=== PATIENT | male | born 1945 | race Caucasian/White ===

== ENCOUNTER 2016-10-08 18:55 | Inpatient (IN) | payer MEDICARE, OTHER ==
[2016-10-08] VITALS (9 sets, daily range): BP systolic 94–116; BP diastolic 53–66; PULSE 96–126; RESP 28–32; TEMP 99.4; O2SAT 84–100
[~2016-10-08] VITALS: Ht 175.3 cm; Wt 42.1 kg
[~2016-10-08 18:55] MED LIST: ENOX40P SQ; OXYC1SOL5 PO; Z.0.WALKERFRONT
[2016-10-08] MEDS ORDERED: methylPREDNISolone SOD SUCC 125 MG/2 ML VIAL IVP ONE (19:30)
[2016-10-08] MEDS ORDERED: SODIUM CHLORIDE 0.9% FLUSH 10 ML FLUSH IVF PRN (19:30)
[2016-10-08] MEDS ORDERED: SODIUM CHLORID 0.9% 500 ML INJ 500 ML IV ONE (19:30)
[2016-10-08] MEDS ORDERED: SODIUM CHLOR 0.9% 250 ML INJ 250 ML IV ONE (19:30)
--- NOTE | 2016-10-08 19:30 | PD ---
HPI Chief Complaint: Respiratory Distress Time Seen by Provider: 19:13 Travel History International Travel<30 days: No Contact w/Intl Traveler<30days: No Traveled to known affect area: No History of Present Illness HPI The patient is a 71 year old male who presents to the [facility] emergency department with a history of being brought in by ambulance services with reports of generalized weakness and shortness of breath. The patient reports that the shortness of breath began today. The patient lives at home alone in an apartment. He called one of the other residents at his apartment for assistance. They were unable to get into his home and the patient was unable to come to the door related to weakness. Ambulance services gain entry into the patient's home and the patient was noted to have an increased respiratory rate with an O2 saturation of 86% on room air. The patient was placed on a nonrebreather mask and his O2 saturations came up into the upper 90s. The patient reports that he quit smoking 2 months ago. He denies being diagnosed with any respiratory problems. The patient is cachectic on examination. The patient is pale on examination. He reports that he last saw his primary care physician at the [facility] 2 years ago. He reports that he has had problems with no appetite over the last 2 years. The patient denies having any chest pain. The patient reports that he has had a cough productive of white sputum. The patient denies any known recent fevers, neck pain, chest pain , abdominal pain, vomiting, diarrhea, urinary symptoms, or focal neurologic symptoms. PFSH Past Medical History Narrative Medical The patient's past medical history is reportedly none. Medical History: Denies Significant Hx Kidney Stones: No Musculoskeletal: Yes (FX RIGHT ANKLE, FX RIGHT COLLARBONE) Tetanus Vaccination: Unknown Influenza Vaccination: No ?: Not Past Surgical History Narrative Surgical The patient's past surgical history is significant for right hip ORIF, right knee surgery, jaw surgery. Surgical History: No Previous Surgery Pacemaker: No Social History Alcohol Use: No Tobacco Use: No (quit 2 months ago) Substance Use: No Allergies-Medications (Allergen,Severity, Reaction): Coded Allergies: No Known Allergies (Unverified , 10/08/16) Reported Meds & Prescriptions Reported Meds & Active Scripts Active No Active Prescriptions or Reported Medications Review of Systems Except as stated in HPI: all other systems reviewed are Neg General / Constitutional: No: Fever Eyes: No: Visual changes HENT: No: Headaches Cardiovascular: Positive: Dyspnea on exertion, No: Chest Pain or Discomfort Respiratory: Positive: Cough, Shortness of Breath Gastrointestinal: No: Abdominal Pain Genitourinary: No: Dysuria Musculoskeletal: No: Pain Skin: No Rash Neurologic: Positive: Weakness, No: Focal Abnormalities, Change in Mentation, Slurred Speech, Sensory Disturbance Psychiatric: No: Depression Endocrine: No: Polydipsia Hematologic/Lymphatic: No: Easy Bruising Physical Exam Narrative General: The patient is a well-developed, cachectic appearing male, short of breath on arrival with increased respiratory rate, generalized weakness and pallor noted. Head and Neck exam: Head is normocephalic atraumatic. Eyes: EOMI, pupils are equal round and reactive to light. Mucosal pallor is noted. Nose: Midline septum with pink mucous membranes Mouth: Dentition unremarkable. Moist mucus membranes. Posterior oropharynx is not erythematous. No tonsillar hypertrophy. Uvula midline. Airway patent. Neck: No palpable lymphadenopathy. No nuchal rigidity. No thyromegaly. Cardiovascular: Tachycardia with a rate in the 120s without murmurs, gallops, or rubs. No pulse deficit to the extremities and simultaneous auscultation and palpation of his radial artery Lungs: Decreased breath sounds in bilateral lung bases. No wheezes, rhonchi, or crackles are audible. The patient has no tripoding noted, however he is experiencing generalized weakness. The patient has accessory muscle use noted. The patient has conversational dyspnea noted. Abdomen: Soft, without tenderness to palpation in all 4 quadrants of the abdomen. No guarding, rebound, or rigidity. Normal bowel sounds are audible. No tenderness on palpation of McBurney's point. Negative Meyers's sign. Extremities: No cyanosis or edema. The patient has clubbing of his fingers and toes. 2+ pulses in all 4 extremities. No calf tenderness on palpation. Back: No spinous process tenderness to palpation. No costovertebral angle tenderness to palpation. Neurologic Exam: Cranial nerves 2-12 were intact on exam. Strength is 4/5 in all 4 extremities. No sensory deficits noted. Skin Exam: No rash noted. Intact skin that is warm and dry. Data Data Last Documented VS Vital Signs Date Time Temp Pulse Resp B/P Pulse Ox O2 Delivery O2 Flow Rate FiO2 6/4/17 21:30 105 30 101/66 97 BiPAP 40 10/08/16 19:05 99.4 Orders Type And Screen (10/08/16 19:16) Red Blood Cells (Rbc) (10/08/16 19:16) Sodium Chlor 0.9% 250 Ml Inj (Ns 250 Ml (10/08/16 19:30) Electrocardiogram (10/08/16 19:16) Complete Blood Count With Diff (10/08/16 19:16) Comprehensive Metabolic Panel (10/08/16 19:16) Creatine Kinase (Cpk) (10/08/16 19:16) Ckmb (Isoenzyme) Profile (10/08/16 19:16) Troponin I (10/08/16 19:16) B-Type Natriuretic Peptide (10/08/16 19:16) Prothrombin Time / Inr (Pt) (10/08/16 19:16) Act Partial Throm Time (Ptt) (10/08/16 19:16) Lipase (10/08/16 19:16) Urinalysis - C+S If Indicated (10/08/16 19:16) D-Dimer (10/08/16 19:16) Magnesium (Mg) (10/08/16 19:16) Thyroid Stimulating Hormone (10/08/16 19:16) Chest, Single Ap (10/08/16 19:16) Iv Access Insert/Monitor (10/08/16 19:16) Ecg Monitoring (10/08/16 19:16) Oximetry (10/08/16 19:16) Arterial Blood Gas (Abg) (10/08/16 19:16) Sodium Chloride 0.9% Flush (Ns Flush) (10/08/16 19:30) Methylprednisolone So Succ Inj (Solumedr (10/08/16 19:30) Albuterol-Ipratropium Neb (Duoneb Neb) (10/08/16 19:30) Resp Bipap / Cpap Non Invas Vt (10/08/16 19:16) Lactic Acid Sepsis Protocol (10/08/16 19:16) Blood Culture (10/08/16 19:16) Sodium Chlorid 0.9% 500 Ml Inj (Ns 500 M (10/08/16 19:30) Vancomycin Inj (Vancomycin Inj) (10/08/16 20:15) Piperacil-Tazo 3.375 Gm Premix (Zosyn 3. (10/08/16 20:15) Sodium Chlor 0.9% 1000 Ml Inj (Ns 1000 M (10/08/16 20:03) Sodium Chlor 0.9% 1000 Ml Inj (Ns 1000 M (10/08/16 20:03) CKMB (10/08/16 19:15) CKMB% (10/08/16 19:15) Ct Abd/Pel W/O Iv Contrast (10/08/16 20:29) Urinary Catheter Insert/Apply (10/08/16 20:29) Ventilation & Perfusion Scan (10/08/16 20:38) Admit Order (Ed Use Only) (10/08/16 21:43) Labs Laboratory Tests Test 10/08/16 10/08/16 10/08/16 10/08/16 19:15 19:20 20:04 21:38 White Blood Count 42.3 TH/MM3 Red Blood Count 6.17 MIL/MM3 Hemoglobin 13.1 GM/DL Hematocrit 40.9 % Mean Corpuscular Volume 66.3 FL Mean Corpuscular Hemoglobin 21.2 PG Mean Corpuscular Hemoglobin 31.9 % Concent Red Cell Distribution Width 14.6 % Platelet Count 420 TH/MM3 Mean Platelet Volume 10.6 FL Neutrophils (%) (Auto) 90.1 % Lymphocytes (%) (Auto) 0.8 % Monocytes (%) (Auto) 7.6 % Eosinophils (%) (Auto) 0.0 % Basophils (%) (Auto) 1.5 % Neutrophils # (Auto) 38.2 TH/MM3 Lymphocytes # (Auto) 0.3 TH/MM3 Monocytes # (Auto) 3.2 TH/MM3 Eosinophils # (Auto) 0.0 TH/MM3 Basophils # (Auto) 0.6 TH/MM3 CBC Comment AUTO DIFF Differential Total Cells 100 Counted Neutrophils % (Manual) 76 % Band Neutrophils % 17 % Lymphocytes % 1 % Monocytes % 6 % Neutrophils # (Manual) 39.3 TH/MM3 Differential Comment FINAL DIFF MANUAL Toxic Granulation 1+ Toxic Vacuolation PRESENT Platelet Estimate HIGH Platelet Morphology Comment NORMAL Prothrombin Time 15.7 SEC Prothromb Time International 1.4 RATIO Ratio Activated Partial 31.3 SEC Thromboplast Time D-Dimer Quantitative (PE/DVT) 5.29 MG/L FEU Sodium Level 135 MEQ/L Potassium Level 3.7 MEQ/L Chloride Level 95 MEQ/L Carbon Dioxide Level 22.6 MEQ/L Anion Gap 17 MEQ/L Blood Urea Nitrogen 69 MG/DL Creatinine 1.95 MG/DL Estimat Glomerular Filtration 34 ML/MIN Rate Random Glucose 109 MG/DL Calcium Level 9.3 MG/DL Magnesium Level 2.7 MG/DL Total Bilirubin 1.1 MG/DL Aspartate Amino Transf 18 U/L (AST/SGOT) Alanine Aminotransferase 13 U/L (ALT/SGPT) Alkaline Phosphatase 90 U/L Total Creatine Kinase 104 U/L Creatine Kinase MB 1.1 NG/ML Troponin I LESS THAN 0.02 NG/ML B-Type Natriuretic Peptide 216 PG/ML Total Protein 8.0 GM/DL Albumin 2.6 GM/DL Lipase 45 U/L Thyroid Stimulating Hormone 2.090 uIU/ML 3rd Gen Blood Type O NEGATIVE O NEGATIVE Antibody Screen NEGATIVE Crossmatch Leukocyte-Reduced Red Blood Cells Blood Bank Comment Lactic Acid Level 5.4 mmol/L Blood Gas Puncture Site RT RADIAL Blood Gas Patient Temperature 98.6 Blood Gas HCO3 23 mmol/L Blood Gas Base Excess -1.3 mmol/L Blood Gas Oxygen Saturation 94 % Arterial Blood pH 7.43 Arterial Blood Partial 35 mmHg Pressure CO2 Arterial Blood Partial 90 mmHG Pressure O2 Arterial Blood Oxygen Content 15.9 Vol % Arterial Blood 1.1 % Carboxyhemoglobin Arterial Blood Methemoglobin 0.7 % Blood Gas Hemoglobin 11.9 G/DL Oxygen Delivery Device BiPAP Blood Gas Inspired Oxygen 50 % MDM Medical Decision Making Medical Screen Exam Complete: Yes Emergency Medical Condition: Yes Medical Record Reviewed: Yes Interpretation(s) Last Impressions Lung Scan-V Nuclear Medicine 10/08/162037 Signed Impressions: Service Date/Time: Saturday, October 08, 2016 21:37 - CONCLUSION: Intermediate probability for pulmonary embolism. Jesus Hayes MD Abdomen/Pelvis CT 10/08/162028 Signed Impressions: Service Date/Time: Saturday, October 08, 2016 20:52 - CONCLUSION: 1. Extensive emphysema with extensive bibasilar consolidation with cavities likely necrotizing pneumonia. 2. Diverticulosis of the colon. 3. Cholelithiasis. 4. Bilobed distal abdominal aortic aneurysm measuring 3.2 cm with extensive atherosclerotic calcifications of the iliac vasculature. Critical stenosis cannot be excluded. Jesus Hayes MD Chest X-Ray 10/08/166 Signed Impressions: Service Date/Time: Saturday, October 08, 2016 19:29 - CONCLUSION: Hyperinflation with bibasilar infiltrates. Treatment and followup recommended. Jesus Hayes MD Differential Diagnosis Symptomatic anemia, versus pulmonary embolism, versus pneumonia, versus COPD exacerbation, versus acute coronary syndrome, versus new-onset congestive heart failure, versus electrolyte derangements, versus dehydration Narrative Course During the course of the patients emergency department visit, the patients history, examination, and differential diagnosis were reviewed with the patient. The patient had IV access obtained and blood work sent for analysis. The patient was placed on a monitoring analyst with oximetry and blood pressure monitoring. An EKG was done on arrival. The patient's EKG shows a heart rate of 129, sinus tachycardia, no acute ST segment elevation is noted. The patient has a wavy baseline due to tremulousness causing some artifact. The patient was typed and crossmatched for blood. The patient was initially provided normal saline a 500 mL bolus 1. After the patient's white blood cell count came back at 42,000 and his lactate was 5, the patient was continued on a 30 mL per KG IV fluid bolus for suspected sepsis. ABG shows a pH of 7.42, PCO2 34.9, PO2 90.1, bicarbonate 22.5, base excess - 1.3. On reexamination on BiPAP the patient is tolerating it well and reports feeling improved. The patients laboratory studies were reviewed and remarkable for a white count of 42.3, hemoglobin 13.1, platelets 420 with 76 neutrophils, bands 17, 1 lymphocyte, 1+ toxic vacuolation, CMP is remarkable for sodium of 135, chloride 95, anion gap 17, BUN 69, creatinine 1.95, was written for a Sage catheter to be placed to gravity to rule out obstruction as a cause of the patient's renal failure and to monitor the patient's urine output closely, glucose 109, magnesium 2.7, total bilirubin 1.1, CPK 104, troponin I less than 0.02, BNP is 216, lipase 45, TSH 2.09, lactic acid 5.4, PT 15.7, PTT 31.3, INR 1.4, d-dimer is 5.29. Kidney function is prohibitive of CTA to rule out PE, therefore a VQ scan has been ordered. Radiology studies were reviewed and remarkable for bibasilar infiltrates on chest x-ray. CT scan of the abdomen and pelvis shows bibasilar infiltrates with cavitary lesion suspicious for a necrotizing pneumonia. CT scan of the abdomen and pelvis also showed diverticulosis of the colon, cholelithiasis, bilobed distal abdominal aortic aneurysm measuring 3.2 cm with extensive atherosclerotic calcifications of the iliac vasculature, critical stenosis cannot be excluded. VQ scan results showed intermediate probability for pulmonary embolism. This was discussed further with Dr. Winn. He plans to start the patient on Eliquis. The patients results were discussed with the patient, including the plan of care. I explained that further testing and/ or monitoring is indicated based on the patients history, examination, and/ or laboratory findings. Therefore, I recommended admission for additional evaluation. The patient expressed understanding and was agreeable with this plan. The patient was admitted to the hospital in critical condition and sent to a bed under the care of the groundman. Critical Care Narrative Aggregate critical care time was 40 minutes. Time to perform other separately billable procedures was not included in the critical care time. My time did not include minutes spent treating any other patients simultaneously or on activities that did not directly contribute to the patient's treatment. The services I provided to this patient were to treat and/or prevent clinically significant deterioration that could result in: Respiratory failure from fluid overload, versus cardiovascular collapse related to sepsis I provided critical care services requiring my management, as noted below: Chart data review, documentation time, medication orders and management, vital sign assessments/reviewing monitor data, ordering and reviewing lab tests, ordering and interpreting/reviewing x-rays and diagnostic studies, care of the patient and discussion of the patient with the admitting physicians. Sepsis Criteria SIRS Criteria (2 or more): Heart rate over 90, RR > 20 or PaCO2 < 32, WBC > 69454, < 4000 or > 10% bands Sepsis Criteria (SIRS+source): Infect source susp/known Severe Sepsis (+one): Lactate >2, Acute Oliguria/Renal Failure Septic Shock Criteria: Lactic acid >=4 Criteria Outcome: Meets SIRS criteria, Meets sepsis criteria, Meets severe sepsis criteria Physician Communication Physician Communication The patient's case was discussed with Dr. Winn, the groundman on-call who did agree to admit the patient for further evaluation and treatment at this time Diagnosis Primary Impression: Pneumonia Qualified Code: J18.9 - Pneumonia of both lower lobes due to infectious organism Additional Impressions: Leukocytosis Qualified Code: D72.825 - Bandemia Sepsis Qualified Code: A41.9 - Sepsis, due to unspecified organism Admitting Information Admitting Physician Requests: Admit Scripts No Active Prescriptions or Reported Meds Evette Morfin MD Oct 08, 2016 19:30
--- NOTE | 2016-10-08 19:40 | RADRPT ---
EXAM DATE/TIME: 10/08/2016 19:29 [facility] COMPARISON: CHEST SINGLE AP, October 15, 2014, 10:41. INDICATIONS : Short of Breath MEDICAL HISTORY : None. SURGICAL HISTORY : None. ENCOUNTER: Initial ACUITY: 1 day PAIN SCORE: Non-responsive. LOCATION: Bilateral chest FINDINGS: PA and lateral views of the chest demonstrates hyperinflation which can be seen with CO PD. Bibasilar infiltrates. Heart is normal in size. The mediastinal contours are unremarkable. Osse ous structures are intact. Right apical scarring. CONCLUSION: Hyperinflation with bibasilar infiltrates. Treatment and followup recommended. Jesus Hayes MD on October 08, 2016 at 19:38 Board Certified Radiologist. This report was verified electronically.
[2016-10-08 19:45] LABS: AUTOMATED NEUTROPHIL # 38.2 TH/MM3 (1.8-7.7); BASOPHIL # 0.6 TH/MM3 (0-0.2); BASOPHIL % 1.5 % (0.0-2.0); HEMATOCRIT 40.9 % (39.0-51.0); LYMPH % 0.8 % (9.0-44.0); LYMPHOCYTE # 0.3 TH/MM3 (1.0-4.8); MEAN CELL VOLUME 66.3 FL (80.0-100.0); MEAN CORPUSCULAR HEMOGLOBIN 21.2 PG (27.0-34.0); MEAN CORPUSCULAR HGB CONC 31.9 % (32.0-36.0); MONO % 7.6 % (0.0-8.0); NEUT % 90.1 % (16.0-70.0); PLATELET COUNT 420 TH/MM3 (150-450); RED BLOOD COUNT 6.17 MIL/MM3 (4.50-5.90); RED CELL DISTRIBUTION WIDTH 14.6 % (11.6-17.2); WHITE BLOOD COUNT 42.3 TH/MM3 (4.0-11.0)
[2016-10-08 19:55] LABS: HEMO FLAGS AUTO DIFF
[2016-10-08] MEDS: RESP: ALBUTEROL 2.5 MG/IPRATROPIUM 0.5 MG NEB (SCH) INH ×2 (20:00→22:49)
[2016-10-08 20:03] LABS: ANION GAP 17 MEQ/L (5-15); AST (GOT) 18 U/L (15-37); BICARBONATE 22.6 MEQ/L (21.0-32.0); BLOOD UREA NITROGEN 69 MG/DL (7-18); CHLORIDE 95 MEQ/L (98-107); GLOMERULAR FILTRATION RATE 34 ML/MIN (>89); MAGNESIUM 2.7 MG/DL (1.5-2.5); POTASSIUM 3.7 MEQ/L (3.5-5.1); SODIUM (NA) 135 MEQ/L (136-145)
[2016-10-08] MEDS ORDERED: SODIUM CHLOR 0.9% 1000 ML INJ 800 ML IV ONE (20:03)
[2016-10-08] MEDS ORDERED: SODIUM CHLOR 0.9% 1000 ML INJ 1,000 ML IV ONE (20:03)
[2016-10-08 20:04] LABS: ALT (GPT) 13 U/L (12-78)
[2016-10-08 20:14] LABS: ALKALINE PHOSPHATASE 90 U/L (45-117); CREATINE KINASE 104 U/L (39-308); TOTAL BILIRUBIN ADULT 1.1 MG/DL (0.2-1.0)
[2016-10-08] MEDS ORDERED: PIPERACIL-TAZO 3.375 GM PREMIX 50 ML IV ONE (20:15)
[2016-10-08] MEDS ORDERED: VANCOMYCIN INJ 1,000 MG in SODIUM CHLOR 0.9% 250 ML INJ 250 ML IV ONE (20:15)
[2016-10-08 20:25] LABS: APTT (PATIENT) 31.3 SEC (24.3-30.1); INTERNATIONAL NORMALIZED RATIO 1.4 RATIO; PROTHROMBIN TIME - PATIENT 15.7 SEC (9.8-11.6)
[2016-10-08 20:26] LABS: BANDS 17 % (0-6); CKMB 1.1 NG/ML (0.5-3.6); NEUTROPHIL # MANUAL DIFF 39.3 TH/MM3 (1.8-7.7); POLYS (SEG NEUTROPHILS) 76 % (16-70); WBC DIFF SAMPLE 100
[2016-10-08 20:27] LABS: PLATELET ESTIMATE SMEAR HIGH (NORMAL); PLATELET MORPHOLOGY NORMAL (NORMAL); SCAN/DIFF FINAL DIFF MANUAL; SLIDE REVIEW N; TOXIC GRANULATION 1+ (NORMAL); TOXIC VACUOLATION PRESENT (NONE SEEN)
--- NOTE | 2016-10-08 21:18 | RADRPT ---
EXAM DATE/TIME: 10/08/2016 20:52 [facility] COMPARISON: No previous studies available for comparison. INDICATIONS : Weakness, short of breath, low O2 stats. ORAL CONTRAST: No oral contrast ingested. RADIATION DOSE: 4.51 CTDIvol (mGy) MEDICAL HISTORY : None SURGICAL HISTORY : Right hip surgery. ENCOUNTER: Initial ACUITY: 1 day PAIN SCALE: 3/10 LOCATION: Bilateral abdomen TECHNIQUE: Volumetric scanning of the abdomen and pelvis was performed. Using automated exposure control and ad justment of the mA and/or kV according to patient size, radiation dose was kept as low as reasonably achievable to obtain optimal diagnostic quality images. FINDINGS: LOWER LUNGS: Bibasilar consolidation with cavities. Extensive emphysema. LIVER: Homogeneous density without lesion. There is no dilation of the biliary tree. Multiple calcified ga llstones. SPLEEN: Normal size without lesion. PANCREAS: Within normal limits. KIDNEYS: Normal in size and shape. There is no mass, stone, or hydronephrosis. ADRENAL GLANDS: Within normal limits. VASCULAR: Bilobed distal abdominal aortic aneurysm measuring 3.2 cm. Extensive atherosclerotic changes of the d istal abdominal aorta and iliac vasculature. BOWEL/MESENTERY: Diverticulosis of colon without diverticulitis. There is no free intraperitoneal air or fluid. ABDOMINAL WALL: Within normal limits. RETROPERITONEUM: There is no lymphadenopathy. BLADDER: No wall thickening or mass. REPRODUCTIVE: Within normal limits. INGUINAL: There is no lymphadenopathy or hernia. MUSCULOSKELETAL: Within normal limits for patient age. CONCLUSION: 1. Extensive emphysema with extensive bibasilar consolidation with cavities likely necrotizing pneumo elmer. 2. Diverticulosis of the colon. 3. Cholelithiasis. 4. Bilobed distal abdominal aortic aneurysm measuring 3.2 cm with extensive atherosclerotic calcifica tions of the iliac vasculature. Critical stenosis cannot be excluded. Jesus Hayes MD on October 08, 2016 at 21:13 Board Certified Radiologist. This report was verified electronically.
[2016-10-08 21:32] LABS: LACTIC ACID GHOST NOT REPORTABLE
--- NOTE | 2016-10-08 22:14 | RADRPT ---
EXAM DATE/TIME: 10/08/2016 21:37 [facility] COMPARISON: CHEST SINGLE AP, October 08, 2016, 19:29. INDICATIONS : Shortness of breath with general weakness for one day. DOSE: 8.7 mCi Tc99m MAA IV 1.1 mCi Tc99m DTPA aerosol MEDICAL HISTORY : None SURGICAL HISTORY : Total knee replacement, right. ENCOUNTER: Initial ACUITY: 1 day PAIN SCALE: 0/10 LOCATION: chest TECHNIQUE: Following five minutes of tidal breathing of DTPA aerosol, planar images of the lungs were performed in eight projections. The patient was then injected with MAA, and eight-view perfusion scan was perf ormed. FINDINGS: There is a heterogeneous defects on ventilation. Multiple defects. The perfusion lung scan demonstrates scattered subsegmental defects. CONCLUSION: Intermediate probability for pulmonary embolism. Jesus Hayes MD on October 08, 2016 at 22:11 Board Certified Radiologist. This report was verified electronically.
[2016-10-08] MEDS ORDERED: SODIUM CHLOR 0.9% 1000 ML INJ 1,000 ML IV SCH (22:54)
[2016-10-08] MEDS ORDERED: MISCELLANEOUS NURSING INFORMATION XX SCH (23:00)
[2016-10-08] MEDS ORDERED: SENNOSIDES 8.6 MG TAB PO PRN (23:00)
[2016-10-08] MEDS ORDERED: ACETAMINOPHEN 325 MG TAB PO PRN (23:00)
[2016-10-08] MEDS ORDERED: MORPHINE SULFATE 4 MG/ML INJ IV PRN (23:00)
[2016-10-08] MEDS ORDERED: BISACODYL 10 MG SUPP RECTAL PRN (23:00)
[2016-10-08] MEDS ORDERED: METOCLOPRAMIDE HCL 10 MG/2 ML VIAL IV PRN (23:00)
[2016-10-08] MEDS ORDERED: CHLORHEXIDINE GLUCONATE 2 % 1 PACK (2 CLOTHS) TOP PRN (23:00)
[2016-10-08] MEDS ORDERED: PROCHLORPERAZINE 25 MG SUPP RECTAL PRN (23:00)
[2016-10-08] MEDS ORDERED: ONDANSETRON HCL 4 MG/2 ML VIAL IV PRN (23:00)
[2016-10-08] MEDS ORDERED: LACTULOSE SYRUP 20 GM/30 ML CUP PO PRN (23:00)
[2016-10-08] MEDS ORDERED: PIPERACIL-TAZO 3.375 GM PREMIX 50 ML IV SCH (23:00)
[2016-10-08] MEDS ORDERED: Vancomycin Consult Pharmacy 1 EA OTHER SCH (23:00)
[2016-10-08] MEDS ORDERED: SODIUM CHLORIDE 0.9% FLUSH 10 ML FLUSH PRN (23:00)
[2016-10-08] MEDS ORDERED: MAGNESIUM HYDROXIDE SUSP 30 ML CUP PO PRN (23:00)
--- NOTE | 2016-10-08 23:10 | HHI.HP ---
[facility] Service Critical Care Medicine Primary Care Physician [facility] Admission Diagnosis Pneumonia, Sepsis, SOB, hypoxemia on RA Diagnosis: Travel History International Travel<30 Days: No Contact w/Intl Traveler <30 Da: No Traveled to Known Affected Are: No History of Present Illness 71 year old male presents with a generalized weakness and shortness of breath. The patient reports that the shortness of breath began today. He lives at home alone in an apartment and called one of the other residents at his apartment for assistance. They were unable to get into his home since the patient was unable to come to the door related to weakness. Ambulance services gain entry into the patient's home and the patient was noted to have an increased respiratory rate with an O2 saturation of 86% on room air. He was placed on a nonrebreather mask and his O2 saturations came up into the upper 90s. He quit smoking 2 months ago. He last saw his primary care physician at the [facility] 2 years ago. He reports that he has had problems with no appetite over the last 2 years. The patient denies having any chest pain. The patient reports that he has had a cough productive of white sputum. He denies any known recent fevers, neck pain, chest pain, abdominal pain, vomiting, diarrhea, urinary symptoms, or focal neurologic symptoms. Review of Systems ROS Unable to obtain patient has facemask BiPAP Past Family Social History Allergies: Coded Allergies: No Known Allergies (Unverified , 10/08/16) Past Medical History Per patient no significant medical history Past Surgical History Right hip ORIF, Right knee surgery, Jaw surgery. Reported Medications Reported Meds & Active Scripts Active No Active Prescriptions or Reported Medications Active Ordered Medications Current Medications Medications (Trade) Dose Ordered Sig/Satnam Route PRN Reason Start Time Stop Time Status Last Admin Dose Admin Sodium Chloride 250 ml @ 15 mls/hr ONCE ONCE IV 10/08/16 19:30 10/09/16 12:09 Sodium Chloride (NS 1000 ml Inj) 1,000 ml @ 84 mls/hr [id number] IV 10/08/16 22:54 Sodium Chloride (NS Flush) 2 ml UNSCH PRN .XX FLUSH AFTER USING IV ACCESS 10/08/16 23:00 Sodium Chloride (NS Flush) 2 ml BID .XX 10/09/16 09:00 Acetaminophen (Tylenol) 650 mg Q6H PRN PO PAIN 1-10 AND/OR FEVER >101F 10/08/16 23:00 Morphine Sulfate (Morphine Inj) 2 mg Q2H PRN IV PAIN SCALE 6 TO 10 10/08/16 23:00 Famotidine (Pepcid Inj) 10 mg Q12HR IV PUSH 10/09/16 09:00 Ondansetron HCl (Zofran Inj) 4 mg Q6H PRN IV NAUSEA OR VOMITING 10/08/16 23:00 Metoclopramide HCl (Reglan Inj) 10 mg Q6H PRN IV NAUSEA OR VOMITING 10/08/16 23:00 Prochlorperazine (Compazine Supp) 25 mg Q12H PRN RECTAL NAUSEA OR VOMITING 10/08/16 23:00 Zolpidem Tartrate (Ambien) 5 mg HS PRN PO INSOMNIA 10/08/16 23:00 Miscellaneous Information 1 [id number] XX 10/08/16 23:00 Chlorhexidine Gluconate (Chlorhexidine 2% Cloth) 3 pack Taper DAILY@04 TOP 10/09/16 04:00 10/05/17 03:59 Chlorhexidine Gluconate (Chlorhexidine 2% Cloth) 3 pack UNSCH PRN TOP HYGIENIC CARE 10/08/16 23:00 Senna/Docusate Sodium (Shayy-Colace) 1 tab BID PO 10/09/16 09:00 Magnesium Hydroxide (Milk Of Magnesia Liq) 30 ml Q12H PRN PO MILD - MODERATE CONSTIPATION 10/08/16 23:00 Sennosides (Senokot) 17.2 mg Q12H PRN PO MODERATE - SEVERE CONSTIPATION 10/08/16 23:00 Bisacodyl (Dulcolax Supp) 10 mg DAILY PRN RECTAL SEVERE CONSITIPATION 10/08/16 23:00 Lactulose 30 ml 30 ml DAILY PRN PO SEVERE CONSITIPATION 10/08/16 23:00 Pharmacy Profile Note 0 ml @ 0 mls/hr UNSCH OTHER 10/08/16 23:00 Azithromycin/ Sodium Chloride (Zithromax Inj/ NS 250 ml Inj) 250 ml @ 250 mls/hr Q24H IV 10/08/16 23:00 10/08/16 23:41 Apixaban (Eliquis) 10 mg Taper BID PO 10/08/16 23:15 01/13/17 23:14 Methylprednisolone Sodium Succinate 40 mg 40 mg Q6HR IV PUSH 10/09/16 00:00 Piperacillin Sod/ Tazobactam Sod (Zosyn 2.25 Gm Premix) 50 ml @ 100 mls/hr Q8H IV 10/09/16 04:00 Family History Noncontributory Social History Quit smoking 2 months ago Denies alcohol or illicit drug abuse Physical Exam Vital Signs Vital Signs Date Time Temp Pulse Resp B/P Pulse Ox O2 Delivery O2 Flow Rate FiO2 10/08/16 19:40 125 32 114/64 99 BiPAP 100 10/08/16 19:14 127 26 87 BiPAP 100 10/08/16 19:13 126 87 BiPAP 100 10/08/16 19:05 99.4 105 28 111/56 84 Physical Exam GENERAL: Pale cachectic elderly man SKIN: Warm and dry. HEAD: Normocephalic. EYES: No scleral icterus. No injection or drainage. NECK: Supple, trachea midline. No JVD or lymphadenopathy. CARDIOVASCULAR: Regular rate and rhythm without murmurs, gallops, or rubs. RESPIRATORY: Breath sounds equal bilaterally. No accessory muscle use. GASTROINTESTINAL: Abdomen soft, non-tender, nondistended. MUSCULOSKELETAL: No cyanosis, or edema. BACK: Nontender without obvious deformity. No CVA tenderness. EXTREMITIES: No clubbing cyanosis or edema Laboratory Laboratory Tests Test 10/08/16 10/08/16 10/08/16 19:15 19:20 21:38 White Blood Count 42.3 Red Blood Count 6.17 Hemoglobin 13.1 Hematocrit 40.9 Mean Corpuscular Volume 66.3 Mean Corpuscular Hemoglobin 21.2 Mean Corpuscular Hemoglobin 31.9 Concent Red Cell Distribution Width 14.6 Platelet Count 420 Mean Platelet Volume 10.6 Neutrophils (%) (Auto) 90.1 Lymphocytes (%) (Auto) 0.8 Monocytes (%) (Auto) 7.6 Eosinophils (%) (Auto) 0.0 Basophils (%) (Auto) 1.5 Neutrophils # (Auto) 38.2 Lymphocytes # (Auto) 0.3 Monocytes # (Auto) 3.2 Eosinophils # (Auto) 0.0 Basophils # (Auto) 0.6 CBC Comment AUTO DIFF Differential Total Cells 100 Counted Neutrophils % (Manual) 76 Band Neutrophils % 17 Lymphocytes % 1 Monocytes % 6 Neutrophils # (Manual) 39.3 Differential Comment FINAL DIFF MANUAL Toxic Granulation 1+ Toxic Vacuolation PRESENT Platelet Estimate HIGH Platelet Morphology Comment NORMAL Prothrombin Time 15.7 Prothromb Time International 1.4 Ratio Activated Partial 31.3 Thromboplast Time D-Dimer Quantitative (PE/DVT) 5.29 Sodium Level 135 Potassium Level 3.7 Chloride Level 95 Carbon Dioxide Level 22.6 Anion Gap 17 Blood Urea Nitrogen 69 Creatinine 1.95 Estimat Glomerular Filtration 34 Rate Random Glucose 109 Calcium Level 9.3 Magnesium Level 2.7 Total Bilirubin 1.1 Aspartate Amino Transf 18 (AST/SGOT) Alanine Aminotransferase 13 (ALT/SGPT) Alkaline Phosphatase 90 Total Creatine Kinase 104 Creatine Kinase MB 1.1 Troponin I LESS THAN 0.02 B-Type Natriuretic Peptide 216 Total Protein 8.0 Albumin 2.6 Lipase 45 Thyroid Stimulating Hormone 2.090 3rd Gen Blood Type O NEGATIVE O NEGATIVE Antibody Screen NEGATIVE Crossmatch Leukocyte-Reduced Red Blood Cells Blood Bank Comment Lactic Acid Level 5.4 Date/Time Procedure Status Source Growth 10/08/16 19:20 Aerobic Blood Culture Received Blood Peripheral Pending 10/08/16 19:20 Anaerobic Blood Culture Received Blood Peripheral Pending Result Diagram: 10/08/16191410/08/161914 Imaging Last 24 hours Impressions Lung Scan-V Nuclear Medicine 10/08/162037 Signed Impressions: Service Date/Time: Saturday, October 08, 2016 21:37 - CONCLUSION: Intermediate probability for pulmonary embolism. Jesus Hayes MD Abdomen/Pelvis CT 10/08/162028 Signed Impressions: Service Date/Time: Saturday, October 08, 2016 20:52 - CONCLUSION: 1. Extensive emphysema with extensive bibasilar consolidation with cavities likely necrotizing pneumonia. 2. Diverticulosis of the colon. 3. Cholelithiasis. 4. Bilobed distal abdominal aortic aneurysm measuring 3.2 cm with extensive atherosclerotic calcifications of the iliac vasculature. Critical stenosis cannot be excluded. Jesus Hayes MD Chest X-Ray 10/08/161915 Signed Impressions: Service Date/Time: Saturday, October 08, 2016 19:29 - CONCLUSION: Hyperinflation with bibasilar infiltrates. Treatment and followup recommended. Jesus Hayes MD Assessment and Plan Assessment and Plan Respiratory failure - Continue BiPAP as needed - DuoNeb scheduled and when necessary - Broad-spectrum antibiotics - Oxygen to keep sats above 92 COPD exacerbation - Empiric antibiotics - IV steroids - DuoNeb - BiPAP Necrotizing pneumonia - Broad-spectrum antibiotics - Follow-up cultures and de-escalate per sensitivity Pulmonary embolism - Intermediate probability for pulmonary embolism per VQ scan - Eliquis 10 mg by mouth twice a day 7 days - Then continue Eliquis 5 mg by mouth twice a day Malnutrition - Dietary consult DVT GI prophylaxis - Eliquis/Pepcid Critical Care: The total critical care time was 35 minutes. Time to perform other separately billable procedures was not included in the critical care time. Zi Winn MD Oct 08, 2016 23:10
[2016-10-08] MEDS: APIXABAN 5 MG TABLET PO SCH (23:15)
[2016-10-08] MEDS: AZITHROMYCIN INJ 500 MG in SODIUM CHLOR 0.9% 250 ML INJ 250 ML IV SCH (23:41)
[2016-10-09] VITALS (20 sets, daily range): BP systolic 89–109; BP diastolic 51–67; PULSE 80–158; RESP 18–54; TEMP 97.6–98.7; O2SAT 81–100
[2016-10-09 00:23] LABS: BLOOD GAS BASE EXCESS -1.3 mmol/L (-2-2); BLOOD GAS CARBOXYHEMOGLOBIN 1.1 % (0-4); BLOOD GAS HCO3 23 mmol/L (22-26); BLOOD GAS METHEMOGLOBIN 0.7 % (0-2); BLOOD GAS O2 HGB SATURATION 94 % (90-100); BLOOD GAS OXYGEN CONTENT 15.9 Vol % (12.0-20.0); BLOOD GAS PCO2 35 mmHg (38-42); BLOOD GAS PO2 90 mmHG (61-120); BLOOD GAS TOTAL HGB 11.9 G/DL (12.0-16.0); TEMP CORR TO 98.6
[2016-10-09 00:24] LABS: CRITICAL VALUE NO; OXYGEN DEVICE BiPAP
[2016-10-09 00:25] LABS: DRAW SITE RT RADIAL; FIO2 50 %; NUMBER OF ARTERIAL PUNCTURES 1; STAT YES; ULNAR PULSE PRESENT
[2016-10-09] MEDS: RESP: ALBUTEROL 2.5 MG/IPRATROPIUM 0.5 MG NEB (SCH) INH ×7 (00:32→23:12)
[2016-10-09] MEDS: ZOLPIDEM TARTRATE 5 MG TAB PO PRN ×2 (01:10→23:42)
[2016-10-09] MEDS: methylPREDNISolone SOD SUCC 40 MG/1 ML VIAL IV PUSH SCH ×5 (01:10→22:37)
[2016-10-09] MEDS: AZITHROMYCIN INJ 500 MG in SODIUM CHLOR 0.9% 250 ML INJ 250 ML IV SCH ×2 (01:20→01:25)
[2016-10-09] MEDS: CHLORHEXIDINE GLUCONATE 2 % 1 PACK (2 CLOTHS) TOP SCH (04:00)
[2016-10-09] MEDS: PIPERACIL-TAZO 2.25 GM PREMIX 50 ML IV SCH ×4 (04:14→22:00)
--- NOTE | 2016-10-09 04:31 | RADRPT ---
EXAM DATE/TIME: 10/09/2016 03:08 [facility] COMPARISON: CHEST SINGLE AP, October 08, 2016, 19:29. INDICATIONS : Shortness of breath, possible pulmonary disease. MEDICAL HISTORY : None. SURGICAL HISTORY : None. ENCOUNTER: Subsequent ACUITY: 2 days PAIN SCORE: Non-responsive. LOCATION: Bilateral chest FINDINGS: A single view of the chest demonstrates a bibasal infiltrates right worse and left. The airspace dise ase may be slightly worse than on the previous day. Mild apical scarring is unchanged. No visible pne umothorax. Atherosclerotic disease.. The cardiomediastinal contours are unremarkable. Osseous struc tures are intact. CONCLUSION: Bibasal infiltrates right worse on left with slight worsening since the fourth Prince Robledo MD on October 09, 2016 at 4:29 Board Certified Radiologist. This report was verified electronically.
[2016-10-09 05:06] LABS: AUTOMATED NEUTROPHIL # 13.7 TH/MM3 (1.8-7.7); BASOPHIL % 0.1 % (0.0-2.0); HEMATOCRIT 33.8 % (39.0-51.0); HEMO FLAGS DIFF FINAL; LYMPH % 1.5 % (9.0-44.0); LYMPHOCYTE # 0.2 TH/MM3 (1.0-4.8); MEAN CORPUSCULAR HEMOGLOBIN 20.8 PG (27.0-34.0); MEAN CORPUSCULAR HGB CONC 31.1 % (32.0-36.0); MONO % 4.6 % (0.0-8.0); NEUT % 93.8 % (16.0-70.0); PLATELET COUNT 256 TH/MM3 (150-450); RED BLOOD COUNT 5.04 MIL/MM3 (4.50-5.90); RED CELL DISTRIBUTION WIDTH 14.4 % (11.6-17.2); WHITE BLOOD COUNT 14.5 TH/MM3 (4.0-11.0)
[2016-10-09 05:21] LABS: ALKALINE PHOSPHATASE 61 U/L (45-117); ALT (GPT) 13 U/L (12-78); ANION GAP 12 MEQ/L (5-15); AST (GOT) 53 U/L (15-37); BICARBONATE 19.4 MEQ/L (21.0-32.0); BLOOD UREA NITROGEN 61 MG/DL (7-18); CHLORIDE 111 MEQ/L (98-107); GLOMERULAR FILTRATION RATE 68 ML/MIN (>89); MAGNESIUM 2.3 MG/DL (1.5-2.5); POTASSIUM 5.2 MEQ/L (3.5-5.1); SODIUM (NA) 142 MEQ/L (136-145); TOTAL BILIRUBIN ADULT 0.9 MG/DL (0.2-1.0)
[2016-10-09] MEDS ORDERED: HEPARIN SODIUM - SQ 10,000 UNITS/ML VIAL SQ SCH (06:00)
[2016-10-09] MEDS: APIXABAN 5 MG TABLET PO SCH ×2 (09:00→22:07)
[2016-10-09] MEDS: SODIUM CHLORIDE 0.9% FLUSH 10 ML FLUSH SCH ×2 (09:17→22:00)
[2016-10-09] MEDS: DOCUSATE SODIUM 50 MG/SENNA 8.6 MG TAB PO SCH ×2 (09:17→21:00)
[2016-10-09] MEDS: FAMOTIDINE 20 MG/2 ML VIAL IV PUSH SCH ×2 (09:17→22:01)
[2016-10-09] MEDS ORDERED: Vancomycin Consult Pharmacy 1 EA OTHER SCH (09:30)
--- NOTE | 2016-10-09 09:34 | HHI.CCPN ---
Subjective Remarks/Hospital Course 71 year old male presents with a generalized weakness and shortness of breath. The patient reports that the shortness of breath began today. He lives at home alone in an apartment and called one of the other residents at his apartment for assistance. They were unable to get into his home since the patient was unable to come to the door related to weakness. Ambulance services gain entry into the patient's home and the patient was noted to have an increased respiratory rate with an O2 saturation of 86% on room air. He was placed on a nonrebreather mask and his O2 saturations came up into the upper 90s. He quit smoking 2 months ago. He last saw his primary care physician at the [facility] 2 years ago. He reports that he has had problems with no appetite over the last 2 years. The patient denies having any chest pain. The patient reports that he has had a cough productive of white sputum. He denies any known recent fevers, neck pain, chest pain, abdominal pain, vomiting, diarrhea, urinary symptoms, or focal neurologic symptoms. 10/09 Patient is lying in bed in [facility]. Denies any SOB and chest pain. Afebrile. WBC trending down. Objective Vital Signs Date Time Temp Pulse Resp B/P Pulse Ox O2 Delivery O2 Flow Rate FiO2 10/09/16 07:50 97 Nasal Cannula 3.00 10/09/16 06:00 94 10/09/16 04:00 98.0 18 93/62 10/08/16 23:10 40 Result Diagram: 10/09/16 0340 10/09/16 0340 Other Results Laboratory Tests Test 10/08/16 10/08/16 10/08/16 10/08/16 19:15 19:20 20:04 21:38 White Blood Count 42.3 TH/MM3 Red Blood Count 6.17 MIL/MM3 Hemoglobin 13.1 GM/DL Hematocrit 40.9 % Mean Corpuscular Volume 66.3 FL Mean Corpuscular Hemoglobin 21.2 PG Mean Corpuscular Hemoglobin 31.9 % Concent Red Cell Distribution Width 14.6 % Platelet Count 420 TH/MM3 Mean Platelet Volume 10.6 FL Neutrophils (%) (Auto) 90.1 % Lymphocytes (%) (Auto) 0.8 % Monocytes (%) (Auto) 7.6 % Eosinophils (%) (Auto) 0.0 % Basophils (%) (Auto) 1.5 % Neutrophils # (Auto) 38.2 TH/MM3 Lymphocytes # (Auto) 0.3 TH/MM3 Monocytes # (Auto) 3.2 TH/MM3 Eosinophils # (Auto) 0.0 TH/MM3 Basophils # (Auto) 0.6 TH/MM3 CBC Comment AUTO DIFF Differential Total Cells 100 Counted Neutrophils % (Manual) 76 % Band Neutrophils % 17 % Lymphocytes % 1 % Monocytes % 6 % Neutrophils # (Manual) 39.3 TH/MM3 Differential Comment FINAL DIFF MANUAL Toxic Granulation 1+ Toxic Vacuolation PRESENT Platelet Estimate HIGH Platelet Morphology Comment NORMAL Prothrombin Time 15.7 SEC Prothromb Time International 1.4 RATIO Ratio Activated Partial 31.3 SEC Thromboplast Time D-Dimer Quantitative (PE/DVT) 5.29 MG/L FEU Sodium Level 135 MEQ/L Potassium Level 3.7 MEQ/L Chloride Level 95 MEQ/L Carbon Dioxide Level 22.6 MEQ/L Anion Gap 17 MEQ/L Blood Urea Nitrogen 69 MG/DL Creatinine 1.95 MG/DL Estimat Glomerular Filtration 34 ML/MIN Rate Random Glucose 109 MG/DL Calcium Level 9.3 MG/DL Magnesium Level 2.7 MG/DL Total Bilirubin 1.1 MG/DL Aspartate Amino Transf 18 U/L (AST/SGOT) Alanine Aminotransferase 13 U/L (ALT/SGPT) Alkaline Phosphatase 90 U/L Total Creatine Kinase 104 U/L Creatine Kinase MB 1.1 NG/ML Troponin I LESS THAN 0.02 NG/ML B-Type Natriuretic Peptide 216 PG/ML Total Protein 8.0 GM/DL Albumin 2.6 GM/DL Lipase 45 U/L Thyroid Stimulating Hormone 2.090 uIU/ML 3rd Gen Blood Type O NEGATIVE O NEGATIVE Antibody Screen NEGATIVE Crossmatch Leukocyte-Reduced Red Blood Cells Blood Bank Comment Lactic Acid Level 5.4 mmol/L Blood Gas Puncture Site RT RADIAL Blood Gas Patient Temperature 98.6 Blood Gas HCO3 23 mmol/L Blood Gas Base Excess -1.3 mmol/L Blood Gas Oxygen Saturation 94 % Arterial Blood pH 7.43 Arterial Blood Partial 35 mmHg Pressure CO2 Arterial Blood Partial 90 mmHG Pressure O2 Arterial Blood Oxygen Content 15.9 Vol % Arterial Blood 1.1 % Carboxyhemoglobin Arterial Blood Methemoglobin 0.7 % Blood Gas Hemoglobin 11.9 G/DL Oxygen Delivery Device BiPAP Blood Gas Inspired Oxygen 50 % Test 10/08/16 10/09/16 10/09/16 22:55 00:15 03:40 Lactic Acid Level 2.1 mmol/L Nasal Screen MRSA (PCR) MRSA NOT DETECTED White Blood Count 14.5 TH/MM3 Red Blood Count 5.04 MIL/MM3 Hemoglobin 10.5 GM/DL Hematocrit 33.8 % Mean Corpuscular Volume 67.0 FL Mean Corpuscular Hemoglobin 20.8 PG Mean Corpuscular Hemoglobin 31.1 % Concent Red Cell Distribution Width 14.4 % Platelet Count 256 TH/MM3 Mean Platelet Volume 10.8 FL Neutrophils (%) (Auto) 93.8 % Lymphocytes (%) (Auto) 1.5 % Monocytes (%) (Auto) 4.6 % Eosinophils (%) (Auto) 0.0 % Basophils (%) (Auto) 0.1 % Neutrophils # (Auto) 13.7 TH/MM3 Lymphocytes # (Auto) 0.2 TH/MM3 Monocytes # (Auto) 0.7 TH/MM3 Eosinophils # (Auto) 0.0 TH/MM3 Basophils # (Auto) 0.0 TH/MM3 CBC Comment DIFF FINAL Differential Comment Sodium Level 142 MEQ/L Potassium Level 5.2 MEQ/L Chloride Level 111 MEQ/L Carbon Dioxide Level 19.4 MEQ/L Anion Gap 12 MEQ/L Blood Urea Nitrogen 61 MG/DL Creatinine 1.07 MG/DL Estimat Glomerular Filtration 68 ML/MIN Rate Random Glucose 74 MG/DL Calcium Level 8.0 MG/DL Phosphorus Level 3.6 MG/DL Magnesium Level 2.3 MG/DL Total Bilirubin 0.9 MG/DL Aspartate Amino Transf 53 U/L (AST/SGOT) Alanine Aminotransferase 13 U/L (ALT/SGPT) Alkaline Phosphatase 61 U/L Total Protein 6.4 GM/DL Albumin 1.8 GM/DL Imaging Last 24 hours Impressions Lung Scan-VQ Nuclear Medicine 10/08/162037 Signed Impressions: Service Date/Time: Saturday, October 08, 2016 21:37 - CONCLUSION: Intermediate probability for pulmonary embolism. Jesus Hayes MD Abdomen/Pelvis CT 10/08/162028 Signed Impressions: Service Date/Time: Saturday, October 08, 2016 20:52 - CONCLUSION: 1. Extensive emphysema with extensive bibasilar consolidation with cavities likely necrotizing pneumonia. 2. Diverticulosis of the colon. 3. Cholelithiasis. 4. Bilobed distal abdominal aortic aneurysm measuring 3.2 cm with extensive atherosclerotic calcifications of the iliac vasculature. Critical stenosis cannot be excluded. Jesus Hayes MD Chest X-Ray 10/08/161915 Signed Impressions: Service Date/Time: Saturday, October 08, 2016 19:29 - CONCLUSION: Hyperinflation with bibasilar infiltrates. Treatment and followup recommended. Jesus Hayes MD Objective Remarks GENERAL: Pale cachectic elderly man SKIN: Warm and dry. HEAD: Normocephalic. EYES: No scleral icterus. No injection or drainage. NECK: Supple, trachea midline. No JVD or lymphadenopathy. CARDIOVASCULAR: Regular rate and rhythm without murmurs, gallops, or rubs. RESPIRATORY: Breath sounds equal bilaterally. No accessory muscle use. GASTROINTESTINAL: Abdomen soft, non-tender, nondistended. MUSCULOSKELETAL: No cyanosis, or edema. BACK: Nontender without obvious deformity. No CVA tenderness. EXTREMITIES: No clubbing cyanosis or edema Neuro: Awake and alert. A/P Assessment and Plan 1)Respiratory failure 2)COPD exacerbation 3)Necrotizing pneumonia 4) ? Pulmonary embolism - Intermediate probability for pulmonary embolism per VQ scan 5)Leukocytosis 6)TIANNA 7)Anemia 8)Malnutrition 9)Lactic acidemia..trending down 10) Distal abdominal aortic aneurysm measuring 3.2 cm. Plan: Neuro:: Awake and alert Pulm: Continue width oxygen keep sat >92% Bronchodilators, Solumederol 40mg IV Q6 NIPPV PRN for resp distress V/Q scan showed intermed prob PE. WIll get CTA chest r/o PE and further eval pulm parenchyma CV: Monitor HR and BP keep MAP>65mmHg Lactic acid trending down. : Monitor renal function, I/O's, electrolytes replacement as needed. Change IVF D5NS@75ml/hr GI: On PO diet, Pepcid 10mg IV Q12 ID: Continue with broad spectrum abx ( Vanco, Zosyn, Zithromax) ID eval. Follow up on Blood and sputum cx, check strep pneumonia and Legionella urinary Ag, check nasal washing r/o Influenza Heme: Monitor CBC Endo: SSI for glycemic control GI prophylaxis- On Pepcid 10mg IV Q12 DVT prophylaxis- On Eliquis. Check Doppler US LE Level 3 Mague Rossi MD Oct 09, 2016 09:34
[2016-10-09] MEDS ORDERED: VANCOMYCIN INJ 1,000 MG in SODIUM CHLOR 0.9% 250 ML INJ 250 ML IV SCH (10:00)
[2016-10-09] MEDS ORDERED: IOHEXOL 350 MG/ML 10 ML VIAL (for RAD DIAG) IV ONE (10:28)
--- NOTE | 2016-10-09 10:56 | RADRPT ---
EXAM DATE/TIME: 10/09/2016 10:23 [facility] COMPARISON: CT 10-15-2014, CT abdomen 10/08/2016 INDICATIONS : Evaluate for pulmonary emboli, pneumonia IV CONTRAST: 77 cc Omnipaque 350 (iohexol) IV RADIATION DOSE: 22.63 CTDIvol (mGy) MEDICAL HISTORY : Emphysema. SURGICAL HISTORY : None. ENCOUNTER: Initial ACUITY: 1 day PAIN SCALE: 0/10 LOCATION: chest TECHNIQUE: Volumetric scanning of the chest was performed using a pulmonary embolism protocol MIP images were reconstructed. Using automated exposure control and adjustment of the mA and/or kV acco rding to patient size, radiation dose was kept as low as reasonably achievable to obtain optimal diag nostic quality images. FINDINGS: PULMONARY ARTERIES: Primary arteries are visualized to the subsegmental level in the lower lobes with out evidence for filling defect to suggest pulmonary. The pulmonary arteries are seen through the sub segmental level in the lower lobes without filling defect to suggest pulmonary embolism. LUNGS: Biapical scarring. Severe central emphysema with redemonstration of dense airspace consoli dation in the lower lobes bilaterally. Numerous foci of air throughout the consolidated lung. Cavitar y nodule in the right upper lobe measuring 1.2 cm. Nearly spiculated focal opacities in the left lung base measuring 1.7 cm and 0.8 cm. Additionally, there is mild peripheral airspace consolidation in t he lingula and right middle lobe. PLEURAE: Calcified pleural thickening in the right apex. MEDIASTINUM: Right hilar cassy prominence and subcarinal node. Dense coronary artery calcificatio ns. Small pericardial effusion. MUSCULOSKELETAL: No focal lytic or blastic bony lesions. MISCELLANEOUS: Calcified gallstones partially imaged. Moderate T. arthroscopic calcifications of the abdominal aorta. Mild fluid distention of the stomach. The fluid does not appear to extend signif icantly into the distal esophagus. CONCLUSION: 1. No evidence for pulmonary embolism to the subsegmental level as questioned. 2. Redemonstration of severe centrilobular emphysema with extensive bilateral lower lobe airspace con solidation with probable necrosis. Smaller regions of airspace consolidation in the inferior lingula and right middle lobe. Overall findings are most consistent with severe aspiration versus necrotizing pneumonia. 3. 1.2 cm cavitary nodule in the right upper lobe. Additional nearly spiculated nodular opacities in the left lung base measuring up to 1.7 cm. Although the findings may be infectious in etiology follow up to resolution is recommended given the extensive underlying lung disease. 4. Small pericardial effusion. 5. Moderate coronary artery calcifications. 6. Cholelithiasis. Sincere Das MD on October 09, 2016 at 10:35 Board Certified Radiologist. This report was verified electronically.
[2016-10-09] MEDS ORDERED: DILTIAZEM HCL 25 MG/5 ML VIAL IV ONE ×2 (11:00→15:00)
[2016-10-09] MEDS: DEXT 5%-NACL 0.9% 1000 ML INJ 1,000 ML IV SCH ×2 (11:07→21:25)
--- NOTE | 2016-10-09 11:10 | PD.CONS ---
History of Present Illness Service Infectious disease Consult Requested By Dr Frank Rossi Reason for Consult Evaluate patient with necrotizing pneumonia Primary Care Physician [facility] Diagnoses: History of Present Illness Patient seen and examined. Records reviewed. Patient is a 71-year-old male, presented to the hospital for further evaluation of 1 week history of generalized weakness and shortness of breath. Patient is a chronic smoker, and he has a smoker's cough. He usually brings up yellowish phlegm. About a week ago he stopped smoking, and he was having problem that started then with significant weakness. He was more short of breath. The weakness progressively worsened, and on the day of admission he was unable to do any kind of activity. He did not have any chest pain. He has not had any fever or chills sweats. Has not had any nausea or vomiting, urinary or GI complaints. He called his neighbor's, and they were unable to get in his apartment because he could not open the door. Eventually [facility] was called, and they were able to get him. He was hypoxic, and his oxygen improved with oxygen supplementation. Patient states that he has lost about 60 pounds in the last 2 years. He is edentulous, and basically has been living on 8 cans of ensure per day all in the last 2 years. He lives alone. He has no pets in the house. He used to drink wine, but he stopped that about a year ago. He used to smoke about one and half pack per day of cigarettes, and he quit about a week ago. On evaluation his initial white count was 42,000. His creatinine was up to 1.95. He is afebrile. And he is on nasal O2. His chest x-ray showing basilar infiltrates. CT of the abdomen and pelvis showed some possibility of necrotizing pneumonia. Patient just had CTA and results are pending. Patient currently states that he has no chest pain or is not short of breath. He has no other complaints. Infectious disease consultation requested to evaluate the patient for possible necrotizing pneumonia. Review of Systems Constitutional: COMPLAINS OF: Fatigue, Weight loss, Change in appetite, DENIES : Fever, Chills, Night Sweats Eyes: DENIES: Eye pain Ears, nose, mouth, throat: DENIES: Nasal discharge, Oral lesions, Throat pain, Ear Pain, Sinus Pain Respiratory: COMPLAINS OF: Cough, Sputum production, Shortness of breath, DENIES: Hemoptysis Cardiovascular: DENIES: Chest pain, Palpitations, Syncope Gastrointestinal: DENIES: Abdominal pain, Diarrhea, Nausea, Vomiting, Difficulty Swallowing Genitourinary: DENIES: Hematuria, Dysuria Musculoskeletal: DENIES: Joint pain, Joint Swelling Integumentary: DENIES: Rash Neurologic: DENIES: Headache Psychiatric: DENIES: Hallucinations Past Family Social History Allergies: Coded Allergies: No Known Allergies (Unverified , 10/08/16) Past Medical History None Past Surgical History Right hip ORIF, Right knee surgery, Jaw surgery. Active Ordered Medications Senokot Ambien Vancomycin Zosyn Compazine Pericolace Morphine Zofran Solumedrol Reglan Pepcid Lactulose MOM Dulcolax Cardizem Eliquis Zithromax Tylenol Albuterol Social History Smokes 2 packs per day. Drinks 8 ounces of wine per day. Denies illicit drug use. Lives alone Physical Exam Vital Signs Vital Signs Date Time Temp Pulse Resp B/P Pulse Ox O2 Delivery O2 Flow Rate FiO2 10/09/16 07:50 97 Nasal Cannula 3.00 10/09/16 06:00 94 10/09/16 04:00 98.0 80 18 93/62 100 10/09/16 04:00 80 10/09/16 02:00 100 10/09/16 00:15 98 Nasal Cannula 4.00 10/09/16 00:00 104 10/09/16 00:00 98.5 104 53 101/58 95 10/08/16 23:10 96 30 94/53 96 BiPAP 40 10/08/16 22:10 113 30 116/60 99 BiPAP 40 10/08/16 21:30 105 30 101/66 97 BiPAP 40 10/08/16 20:30 116 30 100/57 95 BiPAP 40 10/08/16 20:00 124 30 116/64 95 BiPAP 40 10/08/16 19:40 125 32 114/64 99 BiPAP 100 10/08/16 19:20 100 40 10/08/16 19:14 127 26 87 BiPAP 100 10/08/16 19:13 126 87 BiPAP 100 10/08/16 19:05 99.4 105 28 111/56 84 Physical Exam GENERAL: Patient is a cachectic, well-developed CM, awake and alert, not in respiratory distress. SKIN: Warm and dry. No generalized rash, no ecchymoses and no evidence of embolic lesions. HEAD: Atraumatic. Normocephalic. No temporal wasting, or tenderness. EYES: [place] conjunctiva. No petechia or hemorrhage. Pupils equal, round and reactive to light. Extraocular movements full and intact. No scleral icterus. No injection or drainage. EARS, NOSE AND THROAT: Nose without bleeding or purulent nasal discharge. No sinus tenderness. Mucous membranes pink and moist. No oral lesions noted. No exudate. No oral thrush. He is edentulous NECK: Trachea midline. Supple and not tender, no meningeal signs CARDIOVASCULAR: Regular rate and rhythm. No murmurs, rubs or gallops heard RESPIRATORY: Breath sounds equal bilaterally. Decreased BS whole lung ramires with rales at bases. Rib cage very prominent due to weight loss. ABDOMEN: Soft, non-tender, nondistended. Bowel sounds present and normoactive. No guarding. No rebound. No organomegaly. EXTREMITIES: No clubbing, cyanosis, or edema. No joint effusion, has good ROM. No calf tenderness. Well perfused and warm. NEUROLOGICAL: Awake and alert. Cranial nerves grossly intact. Motor grossly within normal limits. PSYCHIATRIC: Normal affect, calm and cooperative. LINE: No evidence of infection Laboratory Laboratory Tests Test 10/08/16 10/08/16 10/08/16 10/08/16 19:15 19:20 20:04 21:38 White Blood Count 42.3 Red Blood Count 6.17 Hemoglobin 13.1 Hematocrit 40.9 Mean Corpuscular Volume 66.3 Mean Corpuscular Hemoglobin 21.2 Mean Corpuscular Hemoglobin 31.9 Concent Red Cell Distribution Width 14.6 Platelet Count 420 Mean Platelet Volume 10.6 Neutrophils (%) (Auto) 90.1 Lymphocytes (%) (Auto) 0.8 Monocytes (%) (Auto) 7.6 Eosinophils (%) (Auto) 0.0 Basophils (%) (Auto) 1.5 Neutrophils # (Auto) 38.2 Lymphocytes # (Auto) 0.3 Monocytes # (Auto) 3.2 Eosinophils # (Auto) 0.0 Basophils # (Auto) 0.6 CBC Comment AUTO DIFF Differential Total Cells 100 Counted Neutrophils % (Manual) 76 Band Neutrophils % 17 Lymphocytes % 1 Monocytes % 6 Neutrophils # (Manual) 39.3 Differential Comment FINAL DIFF MANUAL Toxic Granulation 1+ Toxic Vacuolation PRESENT Platelet Estimate HIGH Platelet Morphology Comment NORMAL Prothrombin Time 15.7 Prothromb Time International 1.4 Ratio Activated Partial 31.3 Thromboplast Time D-Dimer Quantitative (PE/DVT) 5.29 Sodium Level 135 Potassium Level 3.7 Chloride Level 95 Carbon Dioxide Level 22.6 Anion Gap 17 Blood Urea Nitrogen 69 Creatinine 1.95 Estimat Glomerular Filtration 34 Rate Random Glucose 109 Calcium Level 9.3 Magnesium Level 2.7 Total Bilirubin 1.1 Aspartate Amino Transf 18 (AST/SGOT) Alanine Aminotransferase 13 (ALT/SGPT) Alkaline Phosphatase 90 Total Creatine Kinase 104 Creatine Kinase MB 1.1 Troponin I LESS THAN 0.02 B-Type Natriuretic Peptide 216 Total Protein 8.0 Albumin 2.6 Lipase 45 Thyroid Stimulating Hormone 2.090 3rd Gen Blood Type O NEGATIVE O NEGATIVE Antibody Screen NEGATIVE Crossmatch Leukocyte-Reduced Red Blood Cells Blood Bank Comment Lactic Acid Level 5.4 Blood Gas Puncture Site RT RADIAL Blood Gas Patient Temperature 98.6 Blood Gas HCO3 23 Blood Gas Base Excess -1.3 Blood Gas Oxygen Saturation 94 Arterial Blood pH 7.43 Arterial Blood Partial 35 Pressure CO2 Arterial Blood Partial 90 Pressure O2 Arterial Blood Oxygen Content 15.9 Arterial Blood 1.1 Carboxyhemoglobin Arterial Blood Methemoglobin 0.7 Blood Gas Hemoglobin 11.9 Oxygen Delivery Device BiPAP Blood Gas Inspired Oxygen 50 Test 10/08/16 10/09/16 10/09/16 22:55 00:15 03:40 Lactic Acid Level 2.1 Nasal Screen MRSA (PCR) MRSA NOT DETECTED White Blood Count 14.5 Red Blood Count 5.04 Hemoglobin 10.5 Hematocrit 33.8 Mean Corpuscular Volume 67.0 Mean Corpuscular Hemoglobin 20.8 Mean Corpuscular Hemoglobin 31.1 Concent Red Cell Distribution Width 14.4 Platelet Count 256 Mean Platelet Volume 10.8 Neutrophils (%) (Auto) 93.8 Lymphocytes (%) (Auto) 1.5 Monocytes (%) (Auto) 4.6 Eosinophils (%) (Auto) 0.0 Basophils (%) (Auto) 0.1 Neutrophils # (Auto) 13.7 Lymphocytes # (Auto) 0.2 Monocytes # (Auto) 0.7 Eosinophils # (Auto) 0.0 Basophils # (Auto) 0.0 CBC Comment DIFF FINAL Differential Comment Sodium Level 142 Potassium Level 5.2 Chloride Level 111 Carbon Dioxide Level 19.4 Anion Gap 12 Blood Urea Nitrogen 61 Creatinine 1.07 Estimat Glomerular Filtration 68 Rate Random Glucose 74 Calcium Level 8.0 Phosphorus Level 3.6 Magnesium Level 2.3 Total Bilirubin 0.9 Aspartate Amino Transf 53 (AST/SGOT) Alanine Aminotransferase 13 (ALT/SGPT) Alkaline Phosphatase 61 Total Protein 6.4 Albumin 1.8 Date/Time Procedure Status Source Growth 10/09/16 03:50 Gram Stain - Final Resulted Sputum Expectorated Sputum 10/09/16 03:50 Sputum Culture Resulted Sputum Expectorated Sputum Pending 10/08/16 19:20 Aerobic Blood Culture Received Blood Peripheral Pending 10/08/16 19:20 Anaerobic Blood Culture Received Blood Peripheral Pending Result Diagram: 10/09/16 0340 10/09/16 0340 Imaging RADIOLOGY STUDIES/FILMS REVIEWED Chest X-Ray 10/09/16 0000 Signed Impressions: Service Date/Time: Sunday, October 09, 2016 03:08 - CONCLUSION: Bibasal infiltrates right worse on left with slight worsening since the fourth Prince Robledo MD Lung Scan- Nuclear Medicine 10/08/162037 Signed Impressions: Service Date/Time: Saturday, October 08, 2016 21:37 - CONCLUSION: Intermediate probability for pulmonary embolism. Jesus Hayes MD Abdomen/Pelvis CT 10/08/162028 Signed Impressions: Service Date/Time: Saturday, October 08, 2016 20:52 - CONCLUSION: 1. Extensive emphysema with extensive bibasilar consolidation with cavities likely necrotizing pneumonia. 2. Diverticulosis of the colon. 3. Cholelithiasis. 4. Bilobed distal abdominal aortic aneurysm measuring 3.2 cm with extensive atherosclerotic calcifications of the iliac vasculature. Critical stenosis cannot be excluded. Jesus Hayes MD Assessment and Plan Assessment and Plan IMPRESSION Bilateral pneumonia, ?with underlying bronchiectasis - ?necrotizing pneumonia - usually in setting of LOC, poor dentition, N/V and no history of these - Stap and some GNR can cause necrotizing PNA - has evidence of emphysema COPD Cachexia RECOMMENDATION Follow cultures and adjust antibiotics Check urine for Legionella pneumococcal antigen CTA of the chest has been ordered and still pending, I will review Agree with current empiric antibiotics for community-acquired pneumonia, and possible necrotizing pneumonia - He is on Zosyn and vancomycin - Pharmacy is doing the vancomycin dosing Monitor progress I will determine course of treatment once workup is completed and cultures finalize I will follow along with you. Thank you for this consultation Discussed Condition With Explained plan to the patient Discussed with Zonia Mejia MD Oct 09, 2016 11:10
[2016-10-09] MEDS ORDERED: SODIUM CHLORID 0.9% 500 ML INJ 500 ML IV ONE ×2 (11:45→14:45)
--- NOTE | 2016-10-09 12:25 | RADRPT ---
EXAM DATE/TIME: 10/09/2016 10:52 [facility] COMPARISON: No previous studies available for comparison. INDICATIONS : Leg pain. MEDICAL HISTORY : Emphysema. Deep venous thrombosis. Dyspnea. Right ankle fracture. Right clavical fracture. SURGICAL HISTORY : Jaw surgery. Right hip surgery. ENCOUNTER: Initial ACUITY: 1 day PAIN SCORE: 2/10 LOCATION: Right leg. TECHNIQUE: Venous ultrasound of the left and right leg was performed from the inguinal ligament to the proximal calf. Real-time, color Doppler and spectral tracing, compression and augmentation techniques were us ed. FINDINGS: RIGHT LEG: There is normal compressibility of the deep venous system from the inguinal region to the proximal ca lf. No echogenic clot is seen in the lumen of the common femoral, femoral, popliteal, and posterior tibial veins. There is a normal response of the venous system to proximal and distal augmentation an d respiration. LEFT LEG: There is normal compressibility of the deep venous system from the inguinal region to the proximal ca lf. No echogenic clot is seen in the lumen of the common femoral, femoral, popliteal, and posterior tibial veins. There is a normal response of the venous system to proximal and distal augmentation an d respiration. CONCLUSION: 1. No DVT identified. Janak Ortiz MD on October 09, 2016 at 12:23 Board Certified Radiologist. This report was verified electronically.
[2016-10-09 12:40] LABS: BICARBONATE 21.4 MEQ/L (21.0-32.0)
[2016-10-09 12:46] LABS: POTASSIUM 2.6 MEQ/L (3.5-5.1)
[2016-10-09] MEDS ORDERED: POTASSIUM PHOSPHATE MONOBASIC 500 MG TAB PO PRN (14:15)
[2016-10-09] MEDS ORDERED: SODIUM PHOSPHATE INJ 30 MMOL in SODIUM CHLOR 0.9% 250 ML INJ 240 ML IV PRN (14:15)
[2016-10-09] MEDS ORDERED: POTASSIUM CHLOR 20 MEQ PREMIX 100 ML IV PRN (14:15)
[2016-10-09] MEDS ORDERED: POTASSIUM CHLOR 40 MEQ PREMIX 100 ML IV PRN (14:15)
[2016-10-09] MEDS ORDERED: MAGNESIUM OXIDE 400 MG TAB PO PRN (14:15)
[2016-10-09] MEDS ORDERED: POTASSIUM PHOSPHATE INJ 30 MMOL in SODIUM CHLOR 0.9% 250 ML INJ 250 ML IV PRN (14:15)
[2016-10-09] MEDS ORDERED: MAGNESIUM SULFATE INJ 2 GM in SODIUM CHLORIDE 0.9% INJ 96 ML IV PRN (14:15)
[2016-10-09] MEDS ORDERED: MAGNESIUM SULFATE INJ 4 GM in SODIUM CHLORIDE 0.9% INJ 92 ML IV PRN (14:15)
[2016-10-09] MEDS ORDERED: POTASSIUM CHLORIDE 25 MEQ EFFERVESCENT TAB PO PRN (14:15)
--- NOTE | 2016-10-09 14:33 | EKG ---
Date Performed: 10/08/2016 Time Performed: 19:13:48 PTAGE: 71 years EKG: SINUS TACHYCARDIA LOW QRS VOLTAGE IN EXTREMITY LEADS ANTEROSEPTAL MYOCARDIAL INFARCTION Com pared to prior tracing P wave amplitude has increased ABNORMAL ECG PREVIOUS TRACING : 10/15/14 DOCTOR: Cosme Morfin Interpretating Date/Time 10/09/2016 14:32:45
[2016-10-09] MEDS ORDERED: SODIUM CHLOR 0.9% 1000 ML INJ 1,000 ML IV ONE (14:45)
[2016-10-09 16:55] LABS: ANION GAP 13 MEQ/L (5-15); BICARBONATE 19.1 MEQ/L (21.0-32.0); BLOOD UREA NITROGEN 42 MG/DL (7-18); CHLORIDE 115 MEQ/L (98-107); CREATINE KINASE 218 U/L (39-308); GLOMERULAR FILTRATION RATE 130 ML/MIN (>89); SODIUM (NA) 147 MEQ/L (136-145)
[2016-10-09 16:59] LABS: POTASSIUM 2.8 MEQ/L (3.5-5.1)
[2016-10-09] MEDS: POTASSIUM CHLOR 20 MEQ PREMIX 100 ML IV PRN (17:08)
--- NOTE | 2016-10-09 17:13 | EC ---
Study Study Date:10/09/2016 STUDY CONCLUSIONS SUMMARY - Procedure narrative: Transthoracic echocardiography. Image quality was suboptimal. Scanning was performed from the parasternal, apical, and subcostal acoustic windows. - Left ventricle: The cavity size was normal. Wall thickness was normal. Systolic function was moderately reduced. The estimated ejection fraction was in the range of 35% to 40%. Wall motion was normal; there were no regional wall motion abnormalities. - Mitral valve: Mild regurgitation. - Tricuspid valve: Mild regurgitation. - Pulmonary arteries: PA peak pressure: 36mm Hg (S). If LV function is below 40, please consider prescribing an ACEI or ARB or document rationale for non-use. PROCEDURE DATA STUDY STATUS: Elective. Procedure: Transthoracic echocardiography. Image quality was suboptimal. Scanning was performed from the parasternal, apical, and subcostal acoustic windows. Study completion: The patient tolerated the procedure well. Transthoracic echocardiography. M-mode, complete 2D, complete spectral Doppler, and color Doppler. Patient status: Inpatient. CARDIAC ANATOMY LEFT VENTRICLE: The cavity size was normal. Wall thickness was normal. Systolic function was moderately reduced. The estimated ejection fraction was in the range of 35% to 40%. Wall motion was normal; there were no regional wall motion abnormalities. AORTIC VALVE: Trileaflet; normal thickness leaflets. Doppler: Transvalvular velocity was within the normal range. There was no stenosis. No regurgitation. AORTA: Aortic root: The aortic root was normal in size. MITRAL VALVE: Structurally normal valve. Doppler: Transvalvular velocity was within the normal range. There was no evidence for stenosis. Mild regurgitation. LEFT ATRIUM: The atrium was normal in size. RIGHT VENTRICLE: The cavity size was normal. Wall thickness was normal. PULMONIC VALVE: Doppler: Transvalvular velocity was within the normal range. There was no evidence for stenosis. No regurgitation. TRICUSPID VALVE: Structurally normal valve. Doppler: Transvalvular velocity was within the normal range. Mild regurgitation. PULMONARY ARTERY: The main pulmonary artery was normal-sized. Systolic pressure was within the normal range. RIGHT ATRIUM: The atrium was normal in size. PERICARDIUM: There was no pericardial effusion. SYSTEMIC VEINS: Inferior vena cava: The vessel was normal in size. BASIC MEASUREMENTS ADULT Normal Left ventricle LV internal dimension, ED, chordal level, *32.7 mm 43-52 PLAX LV internal dimension, ES, chordal level, 28.7 mm 23-38 PLAX Fractional shortening, chordal level, PLAX *12 % >29 LV posterior wall thickness, ED 9.72 mm IVS/LVPW ratio, ED 1.19 <1.3 Ventricular septum Septal thickness, ED 11.6 mm Aortic valve Leaflet separation 17 mm 15-26 Right ventricle RV internal dimension, ED, PLAX 19.8 mm 19-38 BASIC MEASUREMENTS ADULT Normal Aortic valve Leaflet separation 17 mm 15-26 Aorta Root diameter, ED 27 mm 20-37 Left atrium Anterior-posterior dimension, ES 30 mm 19-40 LA/aortic root ratio 1.11 DOPPLER MEASUREMENTS ADULT Normal Main pulmonary artery Pressure, S *36 mm Hg =30 Tricuspid valve Regurgitant peak velocity 255 cm/s Peak RV-RA gradient, S 26 mm Hg Maximal regurgitant velocity 255 cm/s Systemic veins Estimated CVP 10 mm Hg Right ventricle RV pressure, S *36 mm Hg <30 LEGEND: Mean values are shown as u=mean value. Asterisk (*) ruiz values outside specified normal range. Prepared and signed by David Rascon [id number]
[2016-10-09 17:16] LABS: CKMB 9.2 NG/ML (0.5-3.6)
[2016-10-09] MEDS ORDERED: VANCOMYCIN 1,000 MG/NS 250 ML IV SCH ×2 (21:00)
[2016-10-10] VITALS (26 sets, daily range): BP systolic 85–110; BP diastolic 47–74; PULSE 88–103; RESP 18–51; TEMP 97.6–97.8; O2SAT 77–100
[2016-10-10] MEDS: PIPERACIL-TAZO 2.25 GM PREMIX 50 ML IV SCH ×2 (02:41→10:10)
[2016-10-10] MEDS: CHLORHEXIDINE GLUCONATE 2 % 1 PACK (2 CLOTHS) TOP SCH (02:41)
[2016-10-10] MEDS: RESP: ALBUTEROL 2.5 MG/IPRATROPIUM 0.5 MG NEB (SCH) INH ×6 (03:17→23:47)
[2016-10-10] MEDS: methylPREDNISolone SOD SUCC 40 MG/1 ML VIAL IV PUSH SCH ×3 (06:03→17:32)
[2016-10-10 06:32] LABS: AUTOMATED NEUTROPHIL # 16.7 TH/MM3 (1.8-7.7); BASOPHIL % 0.1 % (0.0-2.0); HEMATOCRIT 28.8 % (39.0-51.0); HEMO FLAGS DIFF FINAL; LYMPH % 1.3 % (9.0-44.0); LYMPHOCYTE # 0.2 TH/MM3 (1.0-4.8); MEAN CELL VOLUME 67.1 FL (80.0-100.0); MEAN CORPUSCULAR HEMOGLOBIN 20.8 PG (27.0-34.0); MONO % 2.6 % (0.0-8.0); PLATELET COUNT 234 TH/MM3 (150-450); RED BLOOD COUNT 4.29 MIL/MM3 (4.50-5.90); RED CELL DISTRIBUTION WIDTH 14.8 % (11.6-17.2); WHITE BLOOD COUNT 17.4 TH/MM3 (4.0-11.0)
[2016-10-10 07:00] LABS: ALKALINE PHOSPHATASE 55 U/L (45-117); ALT (GPT) 20 U/L (12-78); ANION GAP 8 MEQ/L (5-15); AST (GOT) 36 U/L (15-37); BICARBONATE 26.3 MEQ/L (21.0-32.0); BLOOD UREA NITROGEN 31 MG/DL (7-18); CHLORIDE 114 MEQ/L (98-107); GLOMERULAR FILTRATION RATE 141 ML/MIN (>89); SODIUM (NA) 148 MEQ/L (136-145); TOTAL BILIRUBIN ADULT 0.3 MG/DL (0.2-1.0)
[2016-10-10 07:20] LABS: POTASSIUM 2.4 MEQ/L (3.5-5.1)
[2016-10-10] MEDS: POTASSIUM CHLOR 40 MEQ PREMIX 100 ML IV PRN ×2 (07:47→10:10)
[2016-10-10] MEDS: APIXABAN 5 MG TABLET PO SCH (07:48)
[2016-10-10] MEDS: FAMOTIDINE 20 MG/2 ML VIAL IV PUSH SCH ×2 (07:48→21:26)
[2016-10-10] MEDS: SODIUM CHLORIDE 0.9% FLUSH 10 ML FLUSH SCH ×2 (07:48→21:19)
[2016-10-10] MEDS: DOCUSATE SODIUM 50 MG/SENNA 8.6 MG TAB PO SCH ×2 (07:48→21:17)
--- NOTE | 2016-10-10 10:06 | HHI.CCPN ---
Subjective Remarks/Hospital Course 71 year old male presents with a generalized weakness and shortness of breath. The patient reports that the shortness of breath began today. He lives at home alone in an apartment and called one of the other residents at his apartment for assistance. They were unable to get into his home since the patient was unable to come to the door related to weakness. Ambulance services gain entry into the patient's home and the patient was noted to have an increased respiratory rate with an O2 saturation of 86% on room air. He was placed on a nonrebreather mask and his O2 saturations came up into the upper 90s. He quit smoking 2 months ago. He last saw his primary care physician at the [facility] 2 years ago. He reports that he has had problems with no appetite over the last 2 years. The patient denies having any chest pain. The patient reports that he has had a cough productive of white sputum. He denies any known recent fevers, neck pain, chest pain, abdominal pain, vomiting, diarrhea, urinary symptoms, or focal neurologic symptoms. 10/09 Patient is lying in bed in NAD. Denies any SOB and chest pain. Afebrile. WBC trending down. 10/10 Patient is on 3L oxygen with good sats. Afebrile. He went into Afib with RVR yesterday given Cardizem 20mg IV total now back in NSR. Objective Vital Signs Date Time Temp Pulse Resp B/P Pulse Ox O2 Delivery O2 Flow Rate FiO2 10/10/16 07:39 96 Nasal Cannula 3.00 10/10/16 07:00 93 10/10/16 04:00 97.8 25 96/53 10/08/16 23:10 40 Intake and Output 10/09/16 10/09/16 10/10/16 08:00 16:00 00:00 Intake Total 595 ml 1242 ml 979 ml Output Total 325 ml 400 ml 250 ml Balance 270 ml 842 ml 729 ml Result Diagram: 10/10/16 0612 10/10/16 06 Other Results Laboratory Tests Test 10/09/16 10/09/16 10/10/16 12:00 15:22 06:12 Sodium Level 146 MEQ/L 147 MEQ/L 148 MEQ/L Potassium Level 2.6 MEQ/L 2.8 MEQ/L 2.4 MEQ/L Chloride Level 110 MEQ/L 115 MEQ/L 114 MEQ/L Carbon Dioxide Level 21.4 MEQ/L 19.1 MEQ/L 26.3 MEQ/L Anion Gap 15 MEQ/L 13 MEQ/L 8 MEQ/L Blood Urea Nitrogen 51 MG/DL 42 MG/DL 31 MG/DL Creatinine 0.73 MG/DL 0.61 MG/DL 0.57 MG/DL Estimat Glomerular Filtration 106 ML/MIN 130 ML/MIN 141 ML/MIN Rate Random Glucose 85 MG/DL 81 MG/DL 144 MG/DL Calcium Level 8.2 MG/DL 7.7 MG/DL 8.5 MG/DL Phosphorus Level 2.5 MG/DL Total Creatine Kinase 218 U/L Creatine Kinase MB 9.2 NG/ML Troponin I 0.45 NG/ML White Blood Count 17.4 TH/MM3 Red Blood Count 4.29 MIL/MM3 Hemoglobin 8.9 GM/DL Hematocrit 28.8 % Mean Corpuscular Volume 67.1 FL Mean Corpuscular Hemoglobin 20.8 PG Mean Corpuscular Hemoglobin 31.0 % Concent Red Cell Distribution Width 14.8 % Platelet Count 234 TH/MM3 Mean Platelet Volume 9.9 FL Neutrophils (%) (Auto) 96.0 % Lymphocytes (%) (Auto) 1.3 % Monocytes (%) (Auto) 2.6 % Eosinophils (%) (Auto) 0.0 % Basophils (%) (Auto) 0.1 % Neutrophils # (Auto) 16.7 TH/MM3 Lymphocytes # (Auto) 0.2 TH/MM3 Monocytes # (Auto) 0.5 TH/MM3 Eosinophils # (Auto) 0.0 TH/MM3 Basophils # (Auto) 0.0 TH/MM3 CBC Comment DIFF FINAL Differential Comment Total Bilirubin 0.3 MG/DL Aspartate Amino Transf 36 U/L (AST/SGOT) Alanine Aminotransferase 20 U/L (ALT/SGPT) Alkaline Phosphatase 55 U/L Total Protein 5.6 GM/DL Albumin 1.8 GM/DL Imaging Last Impressions Lower Extremity Ultrasound 10/09/16 Signed Impressions: Service Date/Time: Sunday, October 09, 2016 10:52 - CONCLUSION: 1. No DVT identified. Janak Ortiz MD Chest X-Ray 10/09/16 Signed Impressions: Service Date/Time: Sunday, October 09, 2016 03:08 - CONCLUSION: Bibasal infiltrates right worse on left with slight worsening since the fourth Prince A. Sevigny, MD CT Angiography 10/09/16 0000 Signed Impressions: Service Date/Time: Sunday, October 09, 2016 10:23 - CONCLUSION: 1. No evidence for pulmonary embolism to the subsegmental level as questioned. 2. Redemonstration of severe centrilobular emphysema with extensive bilateral lower lobe airspace consolidation with probable necrosis. Smaller regions of airspace consolidation in the inferior lingula and right middle lobe. Overall findings are most consistent with severe aspiration versus necrotizing pneumonia. 3. 1.2 cm cavitary nodule in the right upper lobe. Additional nearly spiculated nodular opacities in the left lung base measuring up to 1.7 cm. Although the findings may be infectious in etiology followup to resolution is recommended given the extensive underlying lung disease. 4. Small pericardial effusion. 5. Moderate coronary artery calcifications. 6. Cholelithiasis. Sincere Das MD Lung Scan-V Nuclear Medicine 10/08/162037 Signed Impressions: Service Date/Time: Saturday, October 08, 2016 21:37 - CONCLUSION: Intermediate probability for pulmonary embolism. Jesus Hayes MD Abdomen/Pelvis CT 10/08/162028 Signed Impressions: Service Date/Time: Saturday, October 08, 2016 20:52 - CONCLUSION: 1. Extensive emphysema with extensive bibasilar consolidation with cavities likely necrotizing pneumonia. 2. Diverticulosis of the colon. 3. Cholelithiasis. 4. Bilobed distal abdominal aortic aneurysm measuring 3.2 cm with extensive atherosclerotic calcifications of the iliac vasculature. Critical stenosis cannot be excluded. Jesus Hayes MD Objective Remarks GENERAL: Pale cachectic elderly man SKIN: Warm and dry. HEAD: Normocephalic. EYES: No scleral icterus. No injection or drainage. NECK: Supple, trachea midline. No JVD or lymphadenopathy. CARDIOVASCULAR: Regular rate and rhythm without murmurs, gallops, or rubs. RESPIRATORY: Breath sounds equal bilaterally. No accessory muscle use. GASTROINTESTINAL: Abdomen soft, non-tender, nondistended. MUSCULOSKELETAL: No cyanosis, or edema. BACK: Nontender without obvious deformity. No CVA tenderness. EXTREMITIES: No clubbing cyanosis or edema Neuro: Awake and alert. A/P Assessment and Plan 1)Respiratory failure 2)COPD exacerbation 3)?Necrotizing pneumonia 40Hypokalemia, hypernatremia 5)Leukocytosis 6)TIANNA- resolved 7)Anemia 8)Malnutrition 9)Lactic acidemia..trending down 10) Distal abdominal aortic aneurysm measuring 3.2 cm. 11) PAF 12)Elevated trop Plan: Neuro:: Awake and alert Pulm: Continue width oxygen keep sat >92% Bronchodilators, Solumederol 40mg IV Q6 NIPPV PRN for resp distress V/Q scan showed intermed prob PE. CTA chest negative for PE, showed severe COPD changes, consolidation lower lobes, 1.2 cm cavitart nodule RUL and spiculated nodular opacities in left base. Doppler US LE negative for DVT CV: Monitor HR and BP keep MAP>65mmHg Lactic acid trending down. 2.1 on 10/08 Echo showed EF 35-40%, mild MR, TR. Monitor trop, cards eval. Place on ASA : Monitor renal function, I/O's, electrolytes replacement as needed. Will need K replacement today Change IVF D5W@84 ml/hr, monitor serum sodium level. GI: On PO diet, Pepcid 10mg IV Q12 ID: Continue with broad spectrum abx ( Vanco, Zosyn, Zithromax) ID is following Follow up on Blood 10/08: NGTD 10/09 sputum cx pending, check strep pneumonia and Legionella urinary Ag, Nasal washing is negative for Influenza Heme: Monitor CBC Endo: SSI for glycemic control GI prophylaxis- On Pepcid 10mg IV Q12 DVT prophylaxis- d/c Eliquis and place on heparin SQ.. Doppler US LE negative for DVT Level 3 Mague Rossi MD Oct 10, 2016 10:06
[2016-10-10] MEDS: DEXTROSE 5% IN WATE 1000ML INJ 1,000 ML IV SCH ×2 (10:12→21:55)
[2016-10-10 10:29] LABS: MAGNESIUM 2.2 MG/DL (1.5-2.5)
[2016-10-10] MEDS ORDERED: ASPIRIN EC 325 MG TABEC PO ONE (12:30)
--- NOTE | 2016-10-10 14:49 | HHI.IDPN ---
Subjective Subjective Remarks Notes reviewed Temps ok BP ok No new complaints Had atrial fib RVR last night, in NSR Sputum C/S with Pseudomonas species CT chest with extensive emphysema and findings of possible necrotizing pneumonia Antibiotics Mauliko Devin Past Medical History Right hip ORIF, Right knee surgery, Jaw surgery. Allergies: Coded Allergies: No Known Allergies (Unverified , 10/08/16) Objective . Vital Signs Date Time Temp Pulse Resp B/P Pulse Ox O2 Delivery O2 Flow Rate FiO2 10/10/16 07:39 96 Nasal Cannula 3.00 10/10/16 07:00 93 10/10/16 06:01 102 10/10/16 06:00 103 10/10/16 05:00 96 10/10/16 04:00 97 10/10/16 04:00 97.8 97 25 96/53 100 10/10/16 03:00 93 10/10/16 03:00 93 25 85/47 100 10/10/16 03:00 93 10/10/16 02:00 96 10/10/16 02:00 96 32 97/50 87 10/10/16 02:00 96 10/10/16 01:00 93 10/10/16 01:00 93 32 94/53 82 10/10/16 01:00 93 10/10/16 00:45 95 10/10/16 00:00 93 10/10/16 00:00 97.8 93 32 102/55 92 10/10/16 00:00 93 10/10/16 00:00 93 10/09/16 23:45 93 10/09/16 23:45 93 10/09/16 23:45 93 38 92/51 92 10/09/16 23:30 96 10/09/16 23:30 96 40 103/53 81 10/09/16 23:15 89 54 101/51 89 10/09/16 23:15 89 10/09/16 23:00 87 40 103/58 10/09/16 23:00 87 10/09/16 22:45 91 10/09/16 22:45 91 42 106/58 10/09/16 22:30 93 41 109/52 10/09/16 22:30 93 10/09/16 22:15 92 50 107/53 10/09/16 22:15 92 10/09/16 20:00 98 Nasal Cannula 3.00 6/5/17 20:00 97.6 94 33 89/56 100 10/09/16 20:00 92 10/09/16 18:00 92 10/09/16 16:00 98.7 92 25 91/53 98 10/09/16 16:00 92 10/09/16 10/09/16 10/10/16 15:00 23:00 07:00 Intake Total 1242 ml 979 ml 933 ml Output Total 400 ml 250 ml 0 ml Balance 842 ml 729 ml 933 ml IV Total 1242 ml 979 ml 933 ml Output Urine Total 400 ml 250 ml 0 ml # Bowel Movements 0 1 0 . Laboratory Tests Test 10/08/16 10/09/16 10/10/16 19:15 03:40 06:12 White Blood Count 42.3 TH/MM3 14.5 TH/MM3 17.4 TH/MM3 Red Blood Count 6.17 MIL/MM3 5.04 MIL/MM3 4.29 MIL/MM3 Hemoglobin 13.1 GM/DL 10.5 GM/DL 8.9 GM/DL Hematocrit 40.9 % 33.8 % 28.8 % Mean Corpuscular Volume 66.3 FL 67.0 FL 67.1 FL Mean Corpuscular Hemoglobin 21.2 PG 20.8 PG 20.8 PG Mean Corpuscular Hemoglobin 31.9 % 31.1 % 31.0 % Concent Red Cell Distribution Width 14.6 % 14.4 % 14.8 % Platelet Count 420 TH/MM3 256 TH/MM3 234 TH/MM3 Mean Platelet Volume 10.6 FL 10.8 FL 9.9 FL Neutrophils (%) (Auto) 90.1 % 93.8 % 96.0 % Lymphocytes (%) (Auto) 0.8 % 1.5 % 1.3 % Monocytes (%) (Auto) 7.6 % 4.6 % 2.6 % Eosinophils (%) (Auto) 0.0 % 0.0 % 0.0 % Basophils (%) (Auto) 1.5 % 0.1 % 0.1 % Neutrophils # (Auto) 38.2 TH/MM3 13.7 TH/MM3 16.7 TH/MM3 Lymphocytes # (Auto) 0.3 TH/MM3 0.2 TH/MM3 0.2 TH/MM3 Monocytes # (Auto) 3.2 TH/MM3 0.7 TH/MM3 0.5 TH/MM3 Eosinophils # (Auto) 0.0 TH/MM3 0.0 TH/MM3 0.0 TH/MM3 Basophils # (Auto) 0.6 TH/MM3 0.0 TH/MM3 0.0 TH/MM3 CBC Comment AUTO DIFF DIFF FINAL DIFF FINAL Differential Total Cells 100 Counted Neutrophils % (Manual) 76 % Band Neutrophils % 17 % Lymphocytes % 1 % Monocytes % 6 % Neutrophils # (Manual) 39.3 TH/MM3 Differential Comment FINAL DIFF MANUAL Toxic Granulation 1+ Toxic Vacuolation PRESENT Platelet Estimate HIGH Platelet Morphology Comment NORMAL Laboratory Tests Test 10/08/16 10/08/16 10/08/16 10/09/16 19:15 19:20 22:55 03:40 Sodium Level 135 MEQ/L 142 MEQ/L Potassium Level 3.7 MEQ/L 5.2 MEQ/L Chloride Level 95 MEQ/L 111 MEQ/L Carbon Dioxide Level 22.6 MEQ/L 19.4 MEQ/L Anion Gap 17 MEQ/L 12 MEQ/L Blood Urea Nitrogen 69 MG/DL 61 MG/DL Creatinine 1.95 MG/DL 1.07 MG/DL Estimat Glomerular Filtration 34 ML/MIN 68 ML/MIN Rate Random Glucose 109 MG/DL 74 MG/DL Calcium Level 9.3 MG/DL 8.0 MG/DL Magnesium Level 2.7 MG/DL 2.3 MG/DL Total Bilirubin 1.1 MG/DL 0.9 MG/DL Aspartate Amino Transf 18 U/L 53 U/L (AST/SGOT) Alanine Aminotransferase 13 U/L 13 U/L (ALT/SGPT) Alkaline Phosphatase 90 U/L 61 U/L Total Creatine Kinase 104 U/L Creatine Kinase MB 1.1 NG/ML Troponin I LESS THAN 0.02 NG/ML B-Type Natriuretic Peptide 216 PG/ML Total Protein 8.0 GM/DL 6.4 GM/DL Albumin 2.6 GM/DL 1.8 GM/DL Lipase 45 U/L Thyroid Stimulating Hormone 2.090 uIU/ML 3rd Gen Lactic Acid Level 5.4 mmol/L 2.1 mmol/L Phosphorus Level 3.6 MG/DL Test 10/09/16 10/09/16 10/10/16 12:00 15:22 06:12 Sodium Level 146 MEQ/L 147 MEQ/L 148 MEQ/L Potassium Level 2.6 MEQ/L 2.8 MEQ/L 2.4 MEQ/L Chloride Level 110 MEQ/L 115 MEQ/L 114 MEQ/L Carbon Dioxide Level 21.4 MEQ/L 19.1 MEQ/L 26.3 MEQ/L Anion Gap 15 MEQ/L 13 MEQ/L 8 MEQ/L Blood Urea Nitrogen 51 MG/DL 42 MG/DL 31 MG/DL Creatinine 0.73 MG/DL 0.61 MG/DL 0.57 MG/DL Estimat Glomerular Filtration 106 ML/MIN 130 ML/MIN 141 ML/MIN Rate Random Glucose 85 MG/DL 81 MG/DL 144 MG/DL Calcium Level 8.2 MG/DL 7.7 MG/DL 8.5 MG/DL Phosphorus Level 2.5 MG/DL Total Creatine Kinase 218 U/L Creatine Kinase MB 9.2 NG/ML Troponin I 0.45 NG/ML 0.79 NG/ML Magnesium Level 2.2 MG/DL Total Bilirubin 0.3 MG/DL Aspartate Amino Transf 36 U/L (AST/SGOT) Alanine Aminotransferase 20 U/L (ALT/SGPT) Alkaline Phosphatase 55 U/L Total Protein 5.6 GM/DL Albumin 1.8 GM/DL Microbiology Date/Time Procedure Status Source Growth 10/08/16 19:15 Aerobic Blood Culture - Preliminary Resulted Blood Peripheral NO GROWTH IN 2 DAYS 10/08/16 19:15 Anaerobic Blood Culture - Preliminary Resulted Blood Peripheral NO GROWTH IN 2 DAYS 10/08/16 19:20 Aerobic Blood Culture - Preliminary Resulted Blood Peripheral NO GROWTH IN 2 DAYS 10/08/16 19:20 Anaerobic Blood Culture - Preliminary Resulted Blood Peripheral NO GROWTH IN 2 DAYS 10/09/16 03:50 Gram Stain - Final Resulted Sputum Expectorated Sputum 10/09/16 03:50 Sputum Culture - Preliminary Resulted Pseudomonas Species 10/09/16 10:00 Influenza Types A,B Antigen (BERKLEY) - Final Complete Nasal Washing NEGATIVE FOR FLU A AND B ANTIGEN.... Imaging Lower Extremity Ultrasound 10/09/16 0000 Signed Impressions: Service Date/Time: Sunday, October 09, 2016 10:52 - CONCLUSION: 1. No DVT identified. Janak Ortiz MD Chest X-Ray 10/09/16 0000 Signed Impressions: Service Date/Time: Sunday, October 09, 2016 03:08 - CONCLUSION: Bibasal infiltrates right worse on left with slight worsening since the fourth Prince Robledo MD CT Angiography 10/09/16 0000 Signed Impressions: Service Date/Time: Sunday, October 09, 2016 10:23 - CONCLUSION: 1. No evidence for pulmonary embolism to the subsegmental level as questioned. 2. Redemonstration of severe centrilobular emphysema with extensive bilateral lower lobe airspace consolidation with probable necrosis. Smaller regions of airspace consolidation in the inferior lingula and right middle lobe. Overall findings are most consistent with severe aspiration versus necrotizing pneumonia. 3. 1.2 cm cavitary nodule in the right upper lobe. Additional nearly spiculated nodular opacities in the left lung base measuring up to 1.7 cm. Although the findings may be infectious in etiology followup to resolution is recommended given the extensive underlying lung disease. 4. Small pericardial effusion. 5. Moderate coronary artery calcifications. 6. Cholelithiasis. Sincere Das MD Lung Scan-VQ Nuclear Medicine 10/08/162037 Signed Impressions: Service Date/Time: Saturday, October 08, 2016 21:37 - CONCLUSION: Intermediate probability for pulmonary embolism. Jesus Hayes MD Abdomen/Pelvis CT 10/08/[id number] Signed Impressions: Service Date/Time: Saturday, October 08, 2016 20:52 - CONCLUSION: 1. Extensive emphysema with extensive bibasilar consolidation with cavities likely necrotizing pneumonia. 2. Diverticulosis of the colon. 3. Cholelithiasis. 4. Bilobed distal abdominal aortic aneurysm measuring 3.2 cm with extensive atherosclerotic calcifications of the iliac vasculature. Critical stenosis cannot be excluded. Jesus Hayes MD Physical Exam GENERAL: Patient is a cachectic, well-developed CM, awake and alert, not in respiratory distress. SKIN: Warm and dry. No generalized rash, no ecchymoses and no evidence of embolic lesions. HEENT: [place] conjunctiva. No petechia or hemorrhage. No scleral icterus. No injection or drainage. Nose without bleeding or purulent nasal discharge. No sinus tenderness. Mucous membranes pink and moist. No oral lesions noted. No exudate. No oral thrush. He is edentulous NECK: Trachea midline. Supple and not tender, no meningeal signs CARDIOVASCULAR: Regular rate and rhythm. No murmurs, rubs or gallops heard RESPIRATORY: Breath sounds equal bilaterally. Decreased BS whole lung ramires with rales at bases. Rib cage very prominent due to weight loss. ABDOMEN: Soft, non-tender, nondistended. Bowel sounds present and normoactive. No guarding. No rebound. No organomegaly. EXTREMITIES: No clubbing, cyanosis, or edema. No joint effusion, has good ROM. No calf tenderness. Well perfused and warm. NEUROLOGICAL: Non-focal. PSYCHIATRIC: Normal affect, calm and cooperative. LINE: No evidence of infection Assessment & Plan Remarks IMPRESSION Bilateral pneumonia, ?with underlying bronchiectasis - ?necrotizing pneumonia - usually in setting of LOC, poor dentition, N/V and no history of these - Staph and some GNR can cause necrotizing PNA - has evidence of emphysema COPD Cachexia RECOMMENDATION Follow cultures and adjust antibiotics Continue Zosyn, will increase dose Add Levaquin Continue vanco for now, if no GPC, will D/C Monitor progress Zonia Lake MD Oct 10, 2016 14:48
[2016-10-10] MEDS: VANCOMYCIN 1,000 MG/NS 250 ML IV SCH ×2 (16:02)
[2016-10-10] MEDS: LEVOFLOXACIN 750 MG TAB PO SCH (16:02)
[2016-10-10] MEDS: PIPERACIL-TAZO 4.5 GM PREMIX 100 ML IV SCH ×2 (17:32→21:17)
--- NOTE | 2016-10-10 18:33 | MB ---
cc: ROSANNE BARDALES M.D. DATE OF CONSULTATION 10/10/16 HISTORY OF PRESENT ILLNESS Eros is a very pleasant 71-year-old gentleman with no significant past cardiovascular history who presented to the emergency room on 10/08/2016 with chief complaint of severe shortness of breath. Currently he is asymptomatic, denies ongoing shortness of breath, but he is on supplemental oxygen by nasal cannula. He denies chest pain. Denies fevers, chills, cough, or GI bleeding, paroxysmal nocturnal dyspnea, orthopnea, syncope or dizziness. According to the ER note, he also complained of generalized weakness. PAST MEDICAL HISTORY 1. Tobacco use. 2. Right ankle fracture 3. Right collarbone fracture 4. Right hip ORIF 5. Right knee surgery 6. Jaw surgery. SOCIAL HISTORY Denies alcohol use. Quit smoking two months ago. ALLERGIES None. MEDICATIONS In the hospital 1. Aspirin 81 mg a day 2. Heparin 5000 subcu q.12 h 3. Famotidine 20 IV q.12 h 4. Piperacillin/tazobactam. 5. Levofloxacin 750 daily. 6. Vancomycin 7. Aspirin 325 given x1 8. Potassium supplementation. 9. Magnesium supplementation. 10. Sodium phosphate supplementation PHYSICAL EXAMINATION VITAL SIGNS: Blood pressure 96/53, pulse 96, temperature 97.8, sats 96% on 3 liters nasal cannula. GENERAL: He is alert and oriented x3 in no acute distress. He appears cachectic NECK: Supple. No JVD, no bruit CARDIOVASCULAR: S1, S2. No murmurs, rubs or gallops. LUNGS: Clear to auscultation bilaterally, decreased air movement, however, bilaterally. ABDOMEN: Soft, nontender, nondistended with positive bowel sounds. EXTREMITIES: No lower extremity edema IMAGING STUDIES A CT of the chest revealed no PE. There is re-demonstration of severe central lobular emphysema with extensive bilateral lower lobe airspace consolidation with probable necrosis, smaller regions of airspace consolidation in the inferior lingula and right middle lobe. Overall findings are most consistent with severe aspiration versus necrotizing pneumonia. There is a 1.2 cm cavitary nodule in the right upper lobe, additional nearly spiculated nodular opacities in the left lung base measuring up to 1.7 cm, small pericardial effusion, moderate coronary artery calcifications and cholelithiasis. Lower extremity ultrasound - no DVT. CARDIOLOGY STUDIES EKG - sinus tachycardia at 129 beats per minute, anteroseptal Q-waves, baseline wandering artifact but no obvious ischemic changes. Echocardiogram - EF 35-40%, mild MR, mild TR. PA pressure 36 mmHg. LABORATORY DATA White count initially 42.3, hemoglobin 13.1, hematocrit 40.9, platelet count 420. Sodium 148, potassium 2.4, chloride 114, bicarb 26.3, BUN 31, creatinine 0.57, troponin is 0.45 followed by 0.79, albumin 1.8, Blood gas on 10/08/2016 - pH 7.43, pCO2 35, pO2 90. That is on 50% BiPap. INR 1.4. Gram stain of the sputum shows Pseudomonas. Blood cultures are negative x2 for 2 days. DIAGNOSES 1. Non-STEMI 2. Cardiomyopathy. 3. Congestive heart failure 4. Hypernatremia. 5. Hypokalemia 6. Hypoalbuminemia. 7. Elevated AST of 53. 8. Lactic acidosis. 9. Pneumonia. 10. COPD. 11. Emphysema 12. Hypoxia 13. Tobacco abuse. 14. Coagulopathy. 15. Hypoxia 16. Cachexia. 17. Abnormal EKG. 18. He is anemic. DISCUSSION At this point in time, the patient is on optimal medical therapy as he is on antibiotics. There is pneumonia. aspirin, heparin. way I also noted on the At this point in time, would treat him medically as he has a significant drop in his hemoglobin. It is not clear that he would tolerate anticoagulation, particularly dual antiplatelet therapy. Also at this point in time given the unstable hemoglobin and relative hypotension, withhold beta-jimy and DINA inhibitor. Statins are currently contraindicated given his elevated liver enzymes. When his hemoglobin stabilizes and the patient becomes more hemodynamically stable, consider adding DINA inhibitor. I am not sure he would tolerate beta blockers given his severe emphysema. He also appears to be very cachectic, malnourished with a very low albumin and I am not sure that some of his pulmonary edema is not coming from low oncotic pressure as opposed to higher hydrostatic pressures, certainly could consider a combination of both. There is was a high risk that the patient has significant coronary artery disease and I have talked to him about the possibility of doing right and left heart catheterization. The patient is undecided. Certainly, at this point I would wait again his hemoglobin is stabilized and he is more hemodynamically stable and his pneumonia is more stable. We will also check a BNP in the morning. MD SUBHA Patel/ /4:12 PM /6:13 PM
[2016-10-10] MEDS: HEPARIN SODIUM - SQ 10,000 UNITS/ML VIAL SQ SCH (21:29)
[2016-10-11] VITALS (27 sets, daily range): BP systolic 81–125; BP diastolic 50–72; PULSE 79–162; RESP 18–60; TEMP 97.3–97.8; O2SAT 85–100
[2016-10-11] MEDS: VANCOMYCIN 1,000 MG/NS 250 ML IV SCH ×2 (01:02)
[2016-10-11] MEDS: PIPERACIL-TAZO 4.5 GM PREMIX 100 ML IV SCH ×4 (02:58→22:09)
[2016-10-11] MEDS: RESP: ALBUTEROL 2.5 MG/IPRATROPIUM 0.5 MG NEB (SCH) INH ×5 (03:37→19:54)
[2016-10-11] MEDS ORDERED: DILTIAZEM HCL 25 MG/5 ML VIAL IVP ONE ×2 (04:00)
[2016-10-11] MEDS: CHLORHEXIDINE GLUCONATE 2 % 1 PACK (2 CLOTHS) TOP SCH (04:00)
[2016-10-11] MEDS ORDERED: DILTIAZEM HCL 25 MG/5 ML VIAL IVP PRN (04:15)
[2016-10-11 04:23] LABS: BASOPHIL % 0.1 % (0.0-2.0); HEMATOCRIT 28.6 % (39.0-51.0); HEMO FLAGS DIFF FINAL; LYMPHOCYTE # 0.2 TH/MM3 (1.0-4.8); MEAN CELL VOLUME 66.4 FL (80.0-100.0); MEAN CORPUSCULAR HEMOGLOBIN 20.2 PG (27.0-34.0); MEAN CORPUSCULAR HGB CONC 30.4 % (32.0-36.0); MONO % 2.8 % (0.0-8.0); NEUT % 96.1 % (16.0-70.0); PLATELET COUNT 246 TH/MM3 (150-450); RED CELL DISTRIBUTION WIDTH 14.9 % (11.6-17.2)
[2016-10-11] MEDS: DILTIAZEM INJ 125 MG in SODIUM CHLORIDE 0.9% INJ 100 ML IV SCH ×2 (04:33→18:37)
[2016-10-11 04:55] LABS: BICARBONATE 25.6 MEQ/L (21.0-32.0); MAGNESIUM 1.7 MG/DL (1.5-2.5); POTASSIUM 3.7 MEQ/L (3.5-5.1)
[2016-10-11] MEDS ORDERED: MAGNESIUM SULFATE 1 GM PREMIX 100 ML IV ONE ×2 (05:45→09:00)
[2016-10-11] MEDS ORDERED: POTASSIUM PHOSPHATE INJ 15 MMOL in SODIUM CHLORIDE 0.9% INJ 150 ML IV ONE (05:45)
[2016-10-11] MEDS: methylPREDNISolone SOD SUCC 40 MG/1 ML VIAL IV PUSH SCH ×5 (05:56→23:28)
--- NOTE | 2016-10-11 07:10 | EKG ---
Date Performed: 10/09/2016 Time Performed: 11:41:09 PTAGE: 71 years EKG: ATRIAL FIBRILLATION WITH RAPID VENTRICULAR RESPONSE LOW QRS VOLTAGE IN EXTREMITY LEADS ANTE ROSEPTAL MYOCARDIAL INFARCTION , PROBABLY OLD Compared to the previous tracing there is now evidence of anteroseptal infarction and atrial fibrillation is new ABNORMAL ECG PREVIOUS TRACING : 10/08/16 @ 7:13 pm DOCTOR: Yenny Rodriguez Interpretating Date/Time 10/11/2016 07:08:51
--- NOTE | 2016-10-11 08:20 | HHI.CCPN ---
Subjective Remarks/Hospital Course 71 year old male presents with a generalized weakness and shortness of breath. The patient reports that the shortness of breath began today. He lives at home alone in an apartment and called one of the other residents at his apartment for assistance. They were unable to get into his home since the patient was unable to come to the door related to weakness. Ambulance services gain entry into the patient's home and the patient was noted to have an increased respiratory rate with an O2 saturation of 86% on room air. He was placed on a nonrebreather mask and his O2 saturations came up into the upper 90s. He quit smoking 2 months ago. He last saw his primary care physician at the [facility] 2 years ago. He reports that he has had problems with no appetite over the last 2 years. The patient denies having any chest pain. The patient reports that he has had a cough productive of white sputum. He denies any known recent fevers, neck pain, chest pain, abdominal pain, vomiting, diarrhea, urinary symptoms, or focal neurologic symptoms. 10/09 Patient is lying in bed in NAD. Denies any SOB and chest pain. Afebrile. WBC trending down. 10/10 Patient is on 3L oxygen with good sats. Afebrile. He went into Afib with RVR yesterday given Cardizem 20mg IV total now back in NSR. 10/11: afib RVR overnight requiring diltiazem infusion. this morning appears volume overloaded. otherwise now on NC o2. Objective Vital Signs Date Time Temp Pulse Resp B/P Pulse Ox O2 Delivery O2 Flow Rate FiO2 10/11/16 06:00 110 10/11/16 04:00 97.8 24 100/56 97 10/10/16 20:02 Nasal Cannula 2.00 10/08/16 23:10 40 Intake and Output 10/10/16 10/10/16 10/11/16 08:00 16:00 00:00 Intake Total 933 ml 1409 ml 1340 ml Output Total 0 ml 250 ml 250 ml Balance 933 ml 1159 ml 1090 ml Result Diagram: 10/11/16 0404 10/11/16 0404 Other Results Microbiology Date/Time Procedure Status Source Growth 10/09/16 03:50 Gram Stain - Final Complete Sputum Expectorated Sputum 10/09/16 03:50 Sputum Culture - Final Complete Pseudomonas Aeruginosa 10/09/16 10:00 Influenza Types A,B Antigen (BERKLEY) - Final Complete Nasal Washing NEGATIVE FOR FLU A AND B ANTIGEN.... Imaging Last Impressions Lower Extremity Ultrasound 10/09/16 0000 Signed Impressions: Service Date/Time: Sunday, October 09, 2016 10:52 - CONCLUSION: 1. No DVT identified. Janak Ortiz MD Chest X-Ray 10/09/16 0000 Signed Impressions: Service Date/Time: Sunday, October 09, 2016 03:08 - CONCLUSION: Bibasal infiltrates right worse on left with slight worsening since the fourth Prince Robledo MD CT Angiography 10/09/16 0000 Signed Impressions: Service Date/Time: Sunday, October 09, 2016 10:23 - CONCLUSION: 1. No evidence for pulmonary embolism to the subsegmental level as questioned. 2. Redemonstration of severe centrilobular emphysema with extensive bilateral lower lobe airspace consolidation with probable necrosis. Smaller regions of airspace consolidation in the inferior lingula and right middle lobe. Overall findings are most consistent with severe aspiration versus necrotizing pneumonia. 3. 1.2 cm cavitary nodule in the right upper lobe. Additional nearly spiculated nodular opacities in the left lung base measuring up to 1.7 cm. Although the findings may be infectious in etiology followup to resolution is recommended given the extensive underlying lung disease. 4. Small pericardial effusion. 5. Moderate coronary artery calcifications. 6. Cholelithiasis. Sincere Das MD Lung Scan- Nuclear Medicine 10/08/162037 Signed Impressions: Service Date/Time: Saturday, October 08, 2016 21:37 - CONCLUSION: Intermediate probability for pulmonary embolism. Jesus Hayes MD Abdomen/Pelvis CT 10/08/162028 Signed Impressions: Service Date/Time: Saturday, October 08, 2016 20:52 - CONCLUSION: 1. Extensive emphysema with extensive bibasilar consolidation with cavities likely necrotizing pneumonia. 2. Diverticulosis of the colon. 3. Cholelithiasis. 4. Bilobed distal abdominal aortic aneurysm measuring 3.2 cm with extensive atherosclerotic calcifications of the iliac vasculature. Critical stenosis cannot be excluded. Jesus Hayes MD Objective Remarks GENERAL: Pale cachectic elderly man SKIN: Warm and dry. HEAD: Normocephalic. EYES: No scleral icterus. No injection or drainage. NECK: trachea midline. + JVD up to 4-5cm above clavicle. CARDIOVASCULAR: tachycardic rate, irregularly irregular rhythm. afib by tele. RESPIRATORY: Breath sounds equal bilaterally. No accessory muscle use. clear to auscultation GASTROINTESTINAL: Abdomen soft, non-tender, nondistended. MUSCULOSKELETAL: No cyanosis, or edema. EXTREMITIES: No clubbing cyanosis or edema Neuro: Awake and alert. A/P Assessment and Plan 1)Respiratory failure- resolved. 2)COPD exacerbation 3)?Necrotizing pneumonia 40Hypokalemia, hypernatremia 5)Leukocytosis 6)TIANNA- resolved 7)Anemia 8)Malnutrition 9)Lactic acidemia..trending down 10) Distal abdominal aortic aneurysm measuring 3.2 cm. 11) PAF 12)Elevated trop 13) atrial fibrillation with rapid ventricular response Plan: Neuro:: Awake and alert Pulm: Continue width oxygen keep sat >92% Bronchodilators, Solumederol 40mg IV Q6 V/Q scan showed intermed prob PE. CTA chest negative for PE, showed severe COPD changes, consolidation lower lobes, 1.2 cm cavitart nodule RUL and spiculated nodular opacities in left base. Doppler US LE negative for DVT CV: Monitor HR and BP keep MAP>65mmHg Lactic acid trending down Echo showed EF 35-40%, mild MR, TR. Monitor trop, cards eval. Place on ASA add PO diltiazem 60 po q6h. wean off diltiazem drip aggressive replacement of electrolytes. : Monitor renal function, I/O's, electrolytes replacement as needed. Will need K replacement today d/c mivf. Lasix 40mg iv x 1. GI: On PO diet, Pepcid 10mg IV Q12 ID: Continue with broad spectrum abx ( Vanco, Zosyn, Zithromax) ID is following Follow up on Blood 10/08: NGTD 10/09 sputum cx pending, check strep pneumonia and Legionella urinary Ag, Nasal washing is negative for Influenza Heme: Monitor CBC Endo: SSI for glycemic control GI prophylaxis- On Pepcid 10mg IV Q12 DVT prophylaxis- d/c Eliquis and place on heparin SQ.. Doppler US LE negative for DVT Dispo: consult hospitalists. transfer to floor. Jose Pringle MD Oct 11, 2016 08:20
[2016-10-11] MEDS ORDERED: FUROSEMIDE 40 MG/4 ML VIAL IV PUSH ONE ×2 (09:00→15:00)
[2016-10-11] MEDS ORDERED: POTASSIUM CHLORIDE 25 MEQ EFFERVESCENT TAB PO ONE (09:00)
[2016-10-11] MEDS: FAMOTIDINE 20 MG/2 ML VIAL IV PUSH SCH ×2 (09:12→19:52)
[2016-10-11] MEDS: SODIUM CHLORIDE 0.9% FLUSH 10 ML FLUSH SCH ×2 (09:12→19:53)
[2016-10-11] MEDS: DILTIAZEM HCL 60 MG TAB PO SCH ×3 (09:13→19:53)
[2016-10-11] MEDS: DOCUSATE SODIUM 50 MG/SENNA 8.6 MG TAB PO SCH ×2 (09:13→19:53)
[2016-10-11] MEDS: ASPIRIN EC 81 MG TABEC PO SCH (09:13)
[2016-10-11] MEDS: HEPARIN SODIUM - SQ 10,000 UNITS/ML VIAL SQ SCH ×2 (09:13→19:52)
[2016-10-11] MEDS: LEVOFLOXACIN 750 MG TAB PO SCH (09:14)
--- NOTE | 2016-10-11 10:43 | HHI.IDPN ---
Subjective Subjective Remarks Notes reviewed Temps ok BP ok No new complaints Had atrial fib RVR again last night, still in atrial fib Sputum C/S with Pseudomonas aeruginosa CT chest with extensive emphysema and findings of possible necrotizing pneumonia Antibiotics Zosyn Past Medical History Right hip ORIF, Right knee surgery, Jaw surgery. Allergies: Coded Allergies: No Known Allergies (Unverified , 10/08/16) Objective . Vital Signs Date Time Temp Pulse Resp B/P Pulse Ox O2 Delivery O2 Flow Rate FiO2 10/11/16 07:55 93 Nasal Cannula 4.00 10/11/16 06:00 110 10/11/16 04:27 123 10/11/16 04:22 107 10/11/16 04:20 97 10/11/16 04:00 97.8 162 24 100/56 97 10/11/16 04:00 158 10/11/16 02:00 157 10/11/16 02:00 96 10/11/16 01:00 103 10/11/16 00:00 99 10/11/16 00:00 95 10/11/16 00:00 97.5 99 20 104/55 95 10/10/16 22:00 99 10/10/16 20:02 94 Nasal Cannula 2.00 10/10/16 20:00 99 10/10/16 20:00 97.8 99 20 110/59 91 10/10/16 18:00 96 10/10/16 18:00 96 24 90/52 93 10/10/16 17:00 92 18 105/55 96 10/10/16 16:00 94 10/10/16 16:00 97.6 94 21 103/58 97 10/10/16 15:03 95 27 106/58 10/10/16 15:00 101 35 77 10/10/16 14:00 97 51 104/57 10/10/16 14:00 97 10/10/16 13:00 98 39 106/74 10/10/16 12:00 97.7 88 21 94/51 10/10/16 12:00 88 10/10/16 11:00 88 24 102/57 77 10/10/16 10/10/16 10/11/16 15:00 23:00 07:00 Intake Total 1409 ml 1340 ml 1035 ml Output Total 250 ml 250 ml 300 ml Balance 1159 ml 1090 ml 735 ml Intake Oral 400 ml 360 ml 60 ml IV Total 1009 ml 980 ml 975 ml Output Urine Total 250 ml 250 ml 300 ml # Bowel Movements 0 0 0 . Laboratory Tests Test 10/10/16 10/11/16 06:12 04:04 White Blood Count 17.4 TH/MM3 25.0 TH/MM3 Red Blood Count 4.29 MIL/MM3 4.30 MIL/MM3 Hemoglobin 8.9 GM/DL 8.7 GM/DL Hematocrit 28.8 % 28.6 % Mean Corpuscular Volume 67.1 FL 66.4 FL Mean Corpuscular Hemoglobin 20.8 PG 20.2 PG Mean Corpuscular Hemoglobin 31.0 % 30.4 % Concent Red Cell Distribution Width 14.8 % 14.9 % Platelet Count 234 TH/MM3 246 TH/MM3 Mean Platelet Volume 9.9 FL 10.0 FL Neutrophils (%) (Auto) 96.0 % 96.1 % Lymphocytes (%) (Auto) 1.3 % 1.0 % Monocytes (%) (Auto) 2.6 % 2.8 % Eosinophils (%) (Auto) 0.0 % 0.0 % Basophils (%) (Auto) 0.1 % 0.1 % Neutrophils # (Auto) 16.7 TH/MM3 24.0 TH/MM3 Lymphocytes # (Auto) 0.2 TH/MM3 0.2 TH/MM3 Monocytes # (Auto) 0.5 TH/MM3 0.7 TH/MM3 Eosinophils # (Auto) 0.0 TH/MM3 0.0 TH/MM3 Basophils # (Auto) 0.0 TH/MM3 0.0 TH/MM3 CBC Comment DIFF FINAL DIFF FINAL Differential Comment Laboratory Tests Test 10/09/16 10/09/16 10/10/16 10/10/16 12:00 15:22 06:12 18:11 Sodium Level 146 MEQ/L 147 MEQ/L 148 MEQ/L Potassium Level 2.6 MEQ/L 2.8 MEQ/L 2.4 MEQ/L 3.1 MEQ/L Chloride Level 110 MEQ/L 115 MEQ/L 114 MEQ/L Carbon Dioxide Level 21.4 MEQ/L 19.1 MEQ/L 26.3 MEQ/L Anion Gap 15 MEQ/L 13 MEQ/L 8 MEQ/L Blood Urea Nitrogen 51 MG/DL 42 MG/DL 31 MG/DL Creatinine 0.73 MG/DL 0.61 MG/DL 0.57 MG/DL Estimat Glomerular Filtration 106 ML/MIN 130 ML/MIN 141 ML/MIN Rate Random Glucose 85 MG/DL 81 MG/DL 144 MG/DL Calcium Level 8.2 MG/DL 7.7 MG/DL 8.5 MG/DL Phosphorus Level 2.5 MG/DL Total Creatine Kinase 218 U/L Creatine Kinase MB 9.2 NG/ML Troponin I 0.45 NG/ML 0.79 NG/ML Magnesium Level 2.2 MG/DL Total Bilirubin 0.3 MG/DL Aspartate Amino Transf 36 U/L (AST/SGOT) Alanine Aminotransferase 20 U/L (ALT/SGPT) Alkaline Phosphatase 55 U/L Total Protein 5.6 GM/DL Albumin 1.8 GM/DL Test 10/11/16 04:04 Sodium Level 142 MEQ/L Potassium Level 3.7 MEQ/L Chloride Level 107 MEQ/L Carbon Dioxide Level 25.6 MEQ/L Anion Gap 9 MEQ/L Blood Urea Nitrogen 19 MG/DL Creatinine 0.56 MG/DL Estimat Glomerular Filtration 143 ML/MIN Rate Random Glucose 174 MG/DL Calcium Level 8.5 MG/DL Phosphorus Level 1.0 MG/DL Magnesium Level 1.7 MG/DL B-Type Natriuretic Peptide 647 PG/ML Microbiology Date/Time Procedure Status Source Growth 10/08/16 19:15 Aerobic Blood Culture - Preliminary Resulted Blood Peripheral NO GROWTH IN 2 DAYS 10/08/16 19:15 Anaerobic Blood Culture - Preliminary Resulted Blood Peripheral NO GROWTH IN 2 DAYS 10/08/16 19:20 Aerobic Blood Culture - Preliminary Resulted Blood Peripheral NO GROWTH IN 2 DAYS 10/08/16 19:20 Anaerobic Blood Culture - Preliminary Resulted Blood Peripheral NO GROWTH IN 2 DAYS 10/09/16 03:50 Gram Stain - Final Complete Sputum Expectorated Sputum 10/09/16 03:50 Sputum Culture - Final Complete Pseudomonas Aeruginosa 10/09/16 10:00 Influenza Types A,B Antigen ([facility]) - Final Complete Nasal Washing NEGATIVE FOR FLU A AND B ANTIGEN.... Imaging Lower Extremity Ultrasound 10/09/16 0000 Signed Impressions: Service Date/Time: Sunday, October 09, 2016 10:52 - CONCLUSION: 1. No DVT identified. Janak Ortiz MD Chest X-Ray 10/09/16 0000 Signed Impressions: Service Date/Time: Sunday, October 09, 2016 03:08 - CONCLUSION: Bibasal infiltrates right worse on left with slight worsening since the fourth Prince Robledo MD CT Angiography 10/09/16 0000 Signed Impressions: Service Date/Time: Sunday, October 09, 2016 10:23 - CONCLUSION: 1. No evidence for pulmonary embolism to the subsegmental level as questioned. 2. Redemonstration of severe centrilobular emphysema with extensive bilateral lower lobe airspace consolidation with probable necrosis. Smaller regions of airspace consolidation in the inferior lingula and right middle lobe. Overall findings are most consistent with severe aspiration versus necrotizing pneumonia. 3. 1.2 cm cavitary nodule in the right upper lobe. Additional nearly spiculated nodular opacities in the left lung base measuring up to 1.7 cm. Although the findings may be infectious in etiology followup to resolution is recommended given the extensive underlying lung disease. 4. Small pericardial effusion. 5. Moderate coronary artery calcifications. 6. Cholelithiasis. Sincere Das MD Lung Scan-V Nuclear Medicine 10/08/162037 Signed Impressions: Service Date/Time: Saturday, October 08, 2016 21:37 - CONCLUSION: Intermediate probability for pulmonary embolism. Jesus Hayes MD Abdomen/Pelvis CT 10/08/162028 Signed Impressions: Service Date/Time: Saturday, October 08, 2016 20:52 - CONCLUSION: 1. Extensive emphysema with extensive bibasilar consolidation with cavities likely necrotizing pneumonia. 2. Diverticulosis of the colon. 3. Cholelithiasis. 4. Bilobed distal abdominal aortic aneurysm measuring 3.2 cm with extensive atherosclerotic calcifications of the iliac vasculature. Critical stenosis cannot be excluded. Jesus Hayes MD Physical Exam GENERAL: Patient is a cachectic, awake and alert, SOB at rest SKIN: Warm and dry. No generalized rash, no ecchymoses and no evidence of embolic lesions. HEENT: [place] conjunctiva. No petechia or hemorrhage. No scleral icterus. No injection or drainage. Mucous membranes pink and moist. No oral lesions noted. No exudate. No oral thrush. He is edentulous NECK: Trachea midline. Supple and not tender, no meningeal signs CARDIOVASCULAR: Regular rate and rhythm. No murmurs, rubs or gallops heard RESPIRATORY: Breath sounds equal bilaterally. Decreased BS whole lung ramires with rales at bases. Rib cage very prominent due to weight loss. ABDOMEN: Soft, non-tender, nondistended. Bowel sounds present and normoactive. No guarding. No rebound. No organomegaly. EXTREMITIES: No clubbing, cyanosis, or edema. No joint effusion, has good ROM. No calf tenderness. Well perfused and warm. NEUROLOGICAL: Non-focal. PSYCHIATRIC: Normal affect, calm and cooperative. LINE: No evidence of infection Assessment & Plan Remarks IMPRESSION Bilateral pneumonia, ?with underlying bronchiectasis, has severe emphysema - has necrotizing pneumonia, C/S PSAE COPD, emphysema Leukocytosis, worse, likely multifactorial, due to PNA, steroids, reactive Cachexia RECOMMENDATION Continue Zosyn Stop Levaquin Agree with stopping Vancomycin Check UA and C/S Monitor progress Nutritional support - pureed diet Zonia Lake MD Oct 11, 2016 10:43
[2016-10-11] MEDS ORDERED: PHARMACY ORDERED LAB ONE (13:45)
--- NOTE | 2016-10-11 15:07 | PD.CARD.PN ---
Subjective Subjective Remarks alert in nad Objective Vital Signs / I&O Vital Signs Date Time Temp Pulse Resp B/P Pulse Ox O2 Delivery O2 Flow Rate FiO2 10/11/16 14:00 83 10/11/16 12:00 97.6 92 32 81/53 96 10/11/16 12:00 92 10/11/16 11:00 89 60 100/56 100 10/11/16 10:01 132 26 91/52 96 10/11/16 10:00 120 36 94 10/11/16 10:00 120 10/11/16 09:00 127 36 125/60 88 10/11/16 08:00 97.3 147 32 105/72 99 10/11/16 08:00 147 10/11/16 07:55 93 Nasal Cannula 4.00 10/11/16 07:00 132 26 95/69 96 10/11/16 06:00 110 10/11/16 04:27 123 10/11/16 04:22 107 10/11/16 04:20 97 10/11/16 04:00 97.8 162 24 100/56 97 10/11/16 04:00 158 10/11/16 02:00 157 10/11/16 02:00 96 10/11/16 01:00 103 10/11/16 00:00 99 10/11/16 00:00 95 10/11/16 00:00 97.5 99 20 104/55 95 10/10/16 22:00 99 10/10/16 20:02 94 Nasal Cannula 2.00 10/10/16 20:00 99 10/10/16 20:00 97.8 99 20 110/59 91 10/10/16 18:00 96 10/10/16 18:00 96 24 90/52 93 10/10/16 17:00 92 18 105/55 96 10/10/16 16:00 94 10/10/16 16:00 97.6 94 21 103/58 97 10/10/16 15:03 95 27 106/58 I/O 10/10/16 10/10/16 10/10/16 10/11/16 10/11/16 10/11/16 07:00 15:00 23:00 07:00 15:00 23:00 Intake Total 933 ml 1409 ml 1340 ml 1035 ml Output Total 0 ml 250 ml 250 ml 300 ml Balance 933 ml 1159 ml 1090 ml 735 ml Intake Oral 400 ml 360 ml 60 ml IV Total 933 ml 1009 ml 980 ml 975 ml Output Urine Total 0 ml 250 ml 250 ml 300 ml # Bowel Movements 0 0 0 0 Physical Exam GENERAL: SKIN: Warm and dry. HEAD: Normocephalic. EYES: No scleral icterus. No injection or drainage. NECK: Supple, trachea midline. No JVD or lymphadenopathy. CARDIOVASCULAR: Regular rate and rhythm without murmurs, gallops, or rubs. RESPIRATORY: Breath sounds equal bilaterally. No accessory muscle use. GASTROINTESTINAL: Abdomen soft, non-tender, nondistended. MUSCULOSKELETAL: No cyanosis, or edema. BACK: Nontender without obvious deformity. No CVA tenderness. Laboratory Laboratory Tests Test 10/10/16 10/11/16 18:11 04:04 Potassium Level 3.1 MEQ/L 3.7 MEQ/L White Blood Count 25.0 TH/MM3 Red Blood Count 4.30 MIL/MM3 Hemoglobin 8.7 GM/DL Hematocrit 28.6 % Mean Corpuscular Volume 66.4 FL Mean Corpuscular Hemoglobin 20.2 PG Mean Corpuscular Hemoglobin 30.4 % Concent Red Cell Distribution Width 14.9 % Platelet Count 246 TH/MM3 Mean Platelet Volume 10.0 FL Neutrophils (%) (Auto) 96.1 % Lymphocytes (%) (Auto) 1.0 % Monocytes (%) (Auto) 2.8 % Eosinophils (%) (Auto) 0.0 % Basophils (%) (Auto) 0.1 % Neutrophils # (Auto) 24.0 TH/MM3 Lymphocytes # (Auto) 0.2 TH/MM3 Monocytes # (Auto) 0.7 TH/MM3 Eosinophils # (Auto) 0.0 TH/MM3 Basophils # (Auto) 0.0 TH/MM3 CBC Comment DIFF FINAL Differential Comment Sodium Level 142 MEQ/L Chloride Level 107 MEQ/L Carbon Dioxide Level 25.6 MEQ/L Anion Gap 9 MEQ/L Blood Urea Nitrogen 19 MG/DL Creatinine 0.56 MG/DL Estimat Glomerular Filtration 143 ML/MIN Rate Random Glucose 174 MG/DL Calcium Level 8.5 MG/DL Phosphorus Level 1.0 MG/DL Magnesium Level 1.7 MG/DL B-Type Natriuretic Peptide 647 PG/ML Assessment and Plan Problem List: (1) Tobacco abuse (2) Anemia (3) Cardiomyopathy (4) CHF (congestive heart failure) (5) CAD (coronary artery disease) Assessment and Plan 1.) CAD/cardiomyopathy - keya/betablocker held due to hypotension, continue aspirin, check lipids; rec cath when more hemodynamically stable and hgb stable , patient is undecided, f/u bnp 2.) Af - rate improved, ac held due to hypotension ans anemia, cont aspirin 81 mg qd, f/u cbc 3.) Anemia - d/w Dr Branden Pringle, he suspects dilution, defer to Daniel Yañez MD Oct 11, 2016 15:07
--- NOTE | 2016-10-11 16:16 | EKG ---
Date Performed: 10/11/2016 Time Performed: 03:56:52 PTAGE: 71 years EKG: Atrial fibrillation with uncontrolled ventricular response --- Suspect limb lead reversal - only V1-V6 analyzed --- Possible septal infarct - age undetermined Low QRS voltage limb leads Abnorm al ECG PREVIOUS TRACING : 10/09/2016 11.41 Compared to the previous tracing, QRS voltage is decreased in the limb leads, difficult to compare to previous DOCTOR: Darren Sanchez Interpretating Date/Time 10/11/2016 16:14:32
[2016-10-11 17:04] LABS: BICARBONATE 27.3 MEQ/L (21.0-32.0); MAGNESIUM 1.9 MG/DL (1.5-2.5)
[2016-10-11] MEDS: POTASSIUM CHLOR 20 MEQ PREMIX 100 ML IV PRN ×2 (19:51→22:30)
[2016-10-11] MEDS: POTASSIUM PHOSPHATE MONOBASIC 500 MG TAB PO/TUBE PRN ×2 (19:52→23:28)
[2016-10-12] VITALS (14 sets, daily range): BP systolic 91–104; BP diastolic 50–60; PULSE 96–117; RESP 23–28; TEMP 97.7–98.2; O2SAT 93–100
[2016-10-12] MEDS: RESP: ALBUTEROL 2.5 MG/IPRATROPIUM 0.5 MG NEB (SCH) INH ×7 (00:36→23:54)
[2016-10-12] MEDS: DILTIAZEM HCL 60 MG TAB PO SCH ×4 (02:34→21:33)
[2016-10-12] MEDS: CHLORHEXIDINE GLUCONATE 2 % 1 PACK (2 CLOTHS) TOP SCH (02:34)
[2016-10-12] MEDS: PIPERACIL-TAZO 4.5 GM PREMIX 100 ML IV SCH ×4 (04:23→21:34)
[2016-10-12] MEDS: methylPREDNISolone SOD SUCC 40 MG/1 ML VIAL IV PUSH SCH ×3 (04:23→17:19)
[2016-10-12 05:36] LABS: HEMATOCRIT 28.3 % (39.0-51.0); MEAN CORPUSCULAR HEMOGLOBIN 20.1 PG (27.0-34.0); MEAN CORPUSCULAR HGB CONC 30.4 % (32.0-36.0); PLATELET COUNT 219 TH/MM3 (150-450); RED BLOOD COUNT 4.28 MIL/MM3 (4.50-5.90); RED CELL DISTRIBUTION WIDTH 14.4 % (11.6-17.2); REVIEW FLAG FINAL; WHITE BLOOD COUNT 14.2 TH/MM3 (4.0-11.0)
[2016-10-12 06:13] LABS: BICARBONATE 31.1 MEQ/L (21.0-32.0)
[2016-10-12 06:17] LABS: POTASSIUM 2.5 MEQ/L (3.5-5.1)
[2016-10-12] MEDS: POTASSIUM CHLOR 20 MEQ PREMIX 100 ML IV PRN ×2 (06:35→10:39)
[2016-10-12] MEDS: ASPIRIN EC 81 MG TABEC PO SCH (08:24)
[2016-10-12] MEDS: DOCUSATE SODIUM 50 MG/SENNA 8.6 MG TAB PO SCH ×2 (08:24→21:00)
[2016-10-12] MEDS: HEPARIN SODIUM - SQ 10,000 UNITS/ML VIAL SQ SCH ×2 (08:25→21:34)
[2016-10-12] MEDS: FAMOTIDINE 20 MG/2 ML VIAL IV PUSH SCH ×2 (08:25→21:34)
[2016-10-12] MEDS: SODIUM CHLORIDE 0.9% FLUSH 10 ML FLUSH SCH ×2 (08:26→21:34)
--- NOTE | 2016-10-12 09:29 | HHI.PR ---
Subjective Remarks Pt states that he feels better. denies any chest pain, palpitations, nausea or vomiting. states appetite is slowly coming back. sob is improved. Discussed w RN, K level was very low. pt already received K-lyte 50 meq po and is currently getting 20mEq IV now and will be getting another bag after. Objective Vitals Vital Signs Date Time Temp Pulse Resp B/P Pulse Ox O2 Delivery O2 Flow Rate FiO2 10/12/16 07:32 98 Nasal Cannula 4.00 10/12/16 06:00 96 10/12/16 04:00 98.0 116 27 104/60 93 10/12/16 04:00 116 10/12/16 02:00 117 10/12/16 00:00 97.8 96 23 94/51 97 10/12/16 00:00 96 10/11/16 22:00 100 10/11/16 20:00 97.6 92 28 95/57 94 10/11/16 20:00 92 10/11/16 19:54 94 Nasal Cannula 4.00 10/11/16 19:00 91 38 91 10/11/16 18:00 79 10/11/16 18:00 79 28 97 10/11/16 17:00 92 33 85 10/11/16 16:00 87 10/11/16 16:00 97.3 87 26 98 10/11/16 15:50 82 27 89/52 97 10/11/16 15:00 79 18 85/53 99 10/11/16 14:00 83 10/11/16 14:00 83 22 84/51 97 10/11/16 13:00 88 34 83/50 95 10/11/16 12:00 97.6 92 32 81/53 96 10/11/16 12:00 92 10/11/16 11:00 89 60 100/56 100 10/11/16 10:01 132 26 91/52 96 10/11/16 10:00 120 36 94 10/11/16 10:00 120 I/O 10/11/16 10/11/16 10/11/16 10/12/16 10/12/16 10/12/16 06:59 14:59 22:59 06:59 14:59 22:59 Intake Total 1035 ml 949 ml 666 ml 807 ml Output Total 300 ml 1225 ml 1450 ml 850 ml Balance 735 ml -276 ml -784 ml -43 ml Intake Oral 60 ml 400 ml 350 ml 480 ml IV Total 975 ml 549 ml 316 ml 327 ml Output Urine Total 300 ml 1225 ml 1450 ml 850 ml # Bowel Movements 0 0 0 0 Result Diagram: 10/12/1635110/12/16351 Imaging Last Impressions Lower Extremity Ultrasound 10/09/16 Signed Impressions: Service Date/Time: Sunday, October 09, 2016 10:52 - CONCLUSION: 1. No DVT identified. Janak Ortiz MD Chest X-Ray 10/09/16 Signed Impressions: Service Date/Time: Sunday, October 09, 2016 03:08 - CONCLUSION: Bibasal infiltrates right worse on left with slight worsening since the fourth Prince Robledo MD CT Angiography 10/09/16 Signed Impressions: Service Date/Time: Sunday, October 09, 2016 10:23 - CONCLUSION: 1. No evidence for pulmonary embolism to the subsegmental level as questioned. 2. Redemonstration of severe centrilobular emphysema with extensive bilateral lower lobe airspace consolidation with probable necrosis. Smaller regions of airspace consolidation in the inferior lingula and right middle lobe. Overall findings are most consistent with severe aspiration versus necrotizing pneumonia. 3. 1.2 cm cavitary nodule in the right upper lobe. Additional nearly spiculated nodular opacities in the left lung base measuring up to 1.7 cm. Although the findings may be infectious in etiology followup to resolution is recommended given the extensive underlying lung disease. 4. Small pericardial effusion. 5. Moderate coronary artery calcifications. 6. Cholelithiasis. Sincere Das MD Lung Scan-V Nuclear Medicine 10/08/162037 Signed Impressions: Service Date/Time: Saturday, October 08, 2016 21:37 - CONCLUSION: Intermediate probability for pulmonary embolism. Jesus Hayes MD Abdomen/Pelvis CT 10/08/162028 Signed Impressions: Service Date/Time: Saturday, October 08, 2016 20:52 - CONCLUSION: 1. Extensive emphysema with extensive bibasilar consolidation with cavities likely necrotizing pneumonia. 2. Diverticulosis of the colon. 3. Cholelithiasis. 4. Bilobed distal abdominal aortic aneurysm measuring 3.2 cm with extensive atherosclerotic calcifications of the iliac vasculature. Critical stenosis cannot be excluded. Jesus Hayes MD Objective Remarks GENERAL: Pale cachectic elderly man CARDIOVASCULAR: tachycardic rate, irregularly irregular rhythm. afib by tele. RESPIRATORY: distant lung sounds. No accessory muscle use. clear to auscultation , no wheezing GASTROINTESTINAL: Abdomen soft, non-tender, nondistended. MUSCULOSKELETAL: No cyanosis, or edema. EXTREMITIES: No edema Neuro: Awake and alert. A/P Assessment and Plan 1)Respiratory failure- resolved. 2)COPD exacerbation 3)?Necrotizing pneumonia 40Hypokalemia, hypernatremia 5)Leukocytosis 6)TIANNA- resolved 7)Anemia 8)Malnutrition 9)Lactic acidemia..trending down 10) Distal abdominal aortic aneurysm measuring 3.2 cm. 11) PAF 12)Elevated trop 13) atrial fibrillation with rapid ventricular response Plan: Neuro:: Awake and alert Pulm: Continue width oxygen keep sat >92% Bronchodilators, Solumederol 40mg IV Q6, change to q12 tomorrow V/Q scan showed intermed prob PE. CTA chest negative for PE, showed severe COPD changes, consolidation lower lobes, 1.2 cm cavitart nodule RUL and spiculated nodular opacities in left base. Doppler US LE negative for DVT CV: Monitor HR and BP keep MAP>65mmHg Lactic acid trending down. last one was 2.1, repeat in am Echo showed EF 35-40%, mild MR, TR. Monitor trop, cards following. on ASA on PO diltiazem 60 po q6h. off diltiazem drip aggressive replacement of electrolytes. Potassium level still low, 2.8, currently being replaced. : Monitor renal function, I/O's, electrolytes replacement as needed. aggressive K replacement today. Repeat K level at 1pm today d/c mivf. s/p Lasix 40mg iv x 1. GI: On PO diet, Pepcid 10mg IV Q12 ID: ID is following. on broad spectrum abx s/p Vanco,Zithromax and levaquin now only on Zosyn per ID Follow up on Blood 10/08: NGTD 10/09 sputum cx growing pseudomonas, checking strep pneumonia and Legionella urinary Ag, Nasal washing is negative for Influenza Heme: Monitor CBC Endo: SSI for glycemic control GI prophylaxis- On Pepcid 10mg IV Q12 DVT prophylaxis- d/c Eliquis and place on heparin SQ.. Doppler US LE negative for DVT Discharge Planning hold transfer for now due to low K. if normal after repeat, transfer to [facility] Natali Chao MD Oct 12, 2016 09:29
--- NOTE | 2016-10-12 14:03 | HHI.IDPN ---
Subjective Subjective Remarks Notes reviewed Temps ok BP ok No new complaints Sputum C/S with Pseudomonas aeruginosa CT chest with extensive emphysema and findings of possible necrotizing pneumonia WBC better Antibiotics Zosyn Past Medical History Right hip ORIF, Right knee surgery, Jaw surgery. Allergies: Coded Allergies: No Known Allergies (Unverified , 10/08/16) Objective . Vital Signs Date Time Temp Pulse Resp B/P Pulse Ox O2 Delivery O2 Flow Rate FiO2 10/12/16 12:00 104 10/12/16 12:00 98.2 104 24 91/52 99 10/12/16 10:00 96 10/12/16 08:00 97.7 97 27 91/55 100 10/12/16 08:00 97 10/12/16 07:32 98 Nasal Cannula 4.00 10/12/16 06:00 96 10/12/16 04:00 98.0 116 27 104/60 93 10/12/16 04:00 116 10/12/16 02:00 117 10/12/16 00:00 97.8 96 23 94/51 97 10/12/16 00:00 96 10/11/16 22:00 100 10/11/16 20:00 97.6 92 28 95/57 94 10/11/16 20:00 92 10/11/16 19:54 94 Nasal Cannula 4.00 10/11/16 19:00 91 38 91 10/11/16 18:00 79 10/11/16 18:00 79 28 97 10/11/16 17:00 92 33 85 10/11/16 16:00 87 10/11/16 16:00 97.3 87 26 98 10/11/16 15:50 82 27 89/52 97 10/11/16 15:00 79 18 85/53 99 10/11/16 10/11/16 10/12/16 15:00 23:00 07:00 Intake Total 949 ml 666 ml 807 ml Output Total 1225 ml 1450 ml 850 ml Balance -276 ml -784 ml -43 ml Intake Oral 400 ml 350 ml 480 ml IV Total 549 ml 316 ml 327 ml Output Urine Total 1225 ml 1450 ml 850 ml # Bowel Movements 0 0 0 . Laboratory Tests Test 10/11/16 10/12/16 04:04 03:52 White Blood Count 25.0 TH/MM3 14.2 TH/MM3 Red Blood Count 4.30 MIL/MM3 4.28 MIL/MM3 Hemoglobin 8.7 GM/DL 8.6 GM/DL Hematocrit 28.6 % 28.3 % Mean Corpuscular Volume 66.4 FL 66.0 FL Mean Corpuscular Hemoglobin 20.2 PG 20.1 PG Mean Corpuscular Hemoglobin 30.4 % 30.4 % Concent Red Cell Distribution Width 14.9 % 14.4 % Platelet Count 246 TH/MM3 219 TH/MM3 Mean Platelet Volume 10.0 FL 9.8 FL Neutrophils (%) (Auto) 96.1 % Lymphocytes (%) (Auto) 1.0 % Monocytes (%) (Auto) 2.8 % Eosinophils (%) (Auto) 0.0 % Basophils (%) (Auto) 0.1 % Neutrophils # (Auto) 24.0 TH/MM3 Lymphocytes # (Auto) 0.2 TH/MM3 Monocytes # (Auto) 0.7 TH/MM3 Eosinophils # (Auto) 0.0 TH/MM3 Basophils # (Auto) 0.0 TH/MM3 CBC Comment DIFF FINAL Differential Comment Laboratory Tests Test 10/10/16 10/11/16 10/11/16 10/12/16 18:11 04:04 16:15 03:52 Potassium Level 3.1 MEQ/L 3.7 MEQ/L 3.0 MEQ/L 2.5 MEQ/L Sodium Level 142 MEQ/L 140 MEQ/L 140 MEQ/L Chloride Level 107 MEQ/L 103 MEQ/L 98 MEQ/L Carbon Dioxide Level 25.6 MEQ/L 27.3 MEQ/L 31.1 MEQ/L Anion Gap 9 MEQ/L 10 MEQ/L 11 MEQ/L Blood Urea Nitrogen 19 MG/DL 16 MG/DL 13 MG/DL Creatinine 0.56 MG/DL 0.50 MG/DL 0.63 MG/DL Estimat Glomerular Filtration 143 ML/MIN 163 ML/MIN 125 ML/MIN Rate Random Glucose 174 MG/DL 98 MG/DL 107 MG/DL Calcium Level 8.5 MG/DL 8.1 MG/DL 7.8 MG/DL Phosphorus Level 1.0 MG/DL 2.6 MG/DL Magnesium Level 1.7 MG/DL 1.9 MG/DL B-Type Natriuretic Peptide 647 PG/ML 382 PG/ML Imaging Lower Extremity Ultrasound 10/09/16 0000 Signed Impressions: Service Date/Time: Sunday, October 09, 2016 10:52 - CONCLUSION: 1. No DVT identified. Janak Ortiz MD Chest X-Ray 10/09/16 0000 Signed Impressions: Service Date/Time: Sunday, October 09, 2016 03:08 - CONCLUSION: Bibasal infiltrates right worse on left with slight worsening since the fourth Prince Robledo MD CT Angiography 10/09/16 0000 Signed Impressions: Service Date/Time: Sunday, October 09, 2016 10:23 - CONCLUSION: 1. No evidence for pulmonary embolism to the subsegmental level as questioned. 2. Redemonstration of severe centrilobular emphysema with extensive bilateral lower lobe airspace consolidation with probable necrosis. Smaller regions of airspace consolidation in the inferior lingula and right middle lobe. Overall findings are most consistent with severe aspiration versus necrotizing pneumonia. 3. 1.2 cm cavitary nodule in the right upper lobe. Additional nearly spiculated nodular opacities in the left lung base measuring up to 1.7 cm. Although the findings may be infectious in etiology followup to resolution is recommended given the extensive underlying lung disease. 4. Small pericardial effusion. 5. Moderate coronary artery calcifications. 6. Cholelithiasis. Sincere Das MD Lung Scan-V Nuclear Medicine 10/08/162037 Signed Impressions: Service Date/Time: Saturday, October 08, 2016 21:37 - CONCLUSION: Intermediate probability for pulmonary embolism. Jesus Hayes MD Abdomen/Pelvis CT 10/08/162028 Signed Impressions: Service Date/Time: Saturday, October 08, 2016 20:52 - CONCLUSION: 1. Extensive emphysema with extensive bibasilar consolidation with cavities likely necrotizing pneumonia. 2. Diverticulosis of the colon. 3. Cholelithiasis. 4. Bilobed distal abdominal aortic aneurysm measuring 3.2 cm with extensive atherosclerotic calcifications of the iliac vasculature. Critical stenosis cannot be excluded. Jesus Hayes MD Physical Exam GENERAL: Patient is a cachectic, awake and alert, SOB at rest SKIN: Warm and dry. No generalized rash, no ecchymoses and no evidence of embolic lesions. HEENT: [place] conjunctiva. No petechia or hemorrhage. No scleral icterus. No injection or drainage. Mucous membranes pink and moist. No oral lesions noted. No exudate. No oral thrush. He is edentulous NECK: Trachea midline. Supple and not tender, no meningeal signs CARDIOVASCULAR: Regular rate and rhythm. No murmurs, rubs or gallops heard RESPIRATORY: Breath sounds equal bilaterally. Decreased BS whole lung ramires with rales at bases. Rib cage very prominent due to weight loss. ABDOMEN: Soft, non-tender, nondistended. Bowel sounds present and normoactive. No guarding. No rebound. No organomegaly. EXTREMITIES: No clubbing, cyanosis, or edema. No joint effusion, has good ROM. No calf tenderness. Well perfused and warm. NEUROLOGICAL: Non-focal. PSYCHIATRIC: Normal affect, calm and cooperative. LINE: No evidence of infection Assessment & Plan Remarks IMPRESSION Bilateral pneumonia, ?with underlying bronchiectasis, has severe emphysema - has ?necrotizing pneumonia, C/S PSAE COPD, emphysema Leukocytosis, improving, likely multifactorial, due to PNA, steroids, reactive Cachexia RECOMMENDATION Continue Zosyn - PSAE coverage Will determine course of Abx depending on clinical course Monitor progress Nutritional support - pureed diet Zonia Lake MD Oct 12, 2016 14:03
[2016-10-12 14:09] LABS: MAGNESIUM 1.6 MG/DL (1.5-2.5); POTASSIUM 3.9 MEQ/L (3.5-5.1)
--- NOTE | 2016-10-12 14:15 | PD.CARD.PN ---
Subjective Subjective Remarks alert in nad Objective Vital Signs / I&O Vital Signs Date Time Temp Pulse Resp B/P Pulse Ox O2 Delivery O2 Flow Rate FiO2 10/12/16 14:00 99 10/12/16 12:00 104 10/12/16 12:00 98.2 104 24 91/52 99 10/12/16 10:00 96 10/12/16 08:00 97.7 97 27 91/55 100 10/12/16 08:00 97 10/12/16 07:32 98 Nasal Cannula 4.00 10/12/16 06:00 96 10/12/16 04:00 98.0 116 27 104/60 93 10/12/16 04:00 116 10/12/16 02:00 117 10/12/16 00:00 97.8 96 23 94/51 97 10/12/16 00:00 96 10/11/16 22:00 100 10/11/16 20:00 97.6 92 28 95/57 94 10/11/16 20:00 92 10/11/16 19:54 94 Nasal Cannula 4.00 10/11/16 19:00 91 38 91 10/11/16 18:00 79 10/11/16 18:00 79 28 97 10/11/16 17:00 92 33 85 10/11/16 16:00 87 10/11/16 16:00 97.3 87 26 98 10/11/16 15:50 82 27 89/52 97 10/11/16 15:00 79 18 85/53 99 I/O 10/11/16 10/11/16 10/11/16 10/12/16 10/12/16 10/12/16 07:00 15:00 23:00 07:00 15:00 23:00 Intake Total 1035 ml 949 ml 666 ml 807 ml 1000 ml Output Total 300 ml 1225 ml 1450 ml 850 ml 200 ml Balance 735 ml -276 ml -784 ml -43 ml 800 ml Intake Oral 60 ml 400 ml 350 ml 480 ml 500 ml IV Total 975 ml 549 ml 316 ml 327 ml 500 ml Output Urine Total 300 ml 1225 ml 1450 ml 850 ml 200 ml # Bowel Movements 0 0 0 0 0 Physical Exam GENERAL: SKIN: Warm and dry. HEAD: Normocephalic. EYES: No scleral icterus. No injection or drainage. NECK: Supple, trachea midline. No JVD or lymphadenopathy. CARDIOVASCULAR: Regular rate and rhythm without murmurs, gallops, or rubs. RESPIRATORY: Breath sounds equal bilaterally. No accessory muscle use. GASTROINTESTINAL: Abdomen soft, non-tender, nondistended. MUSCULOSKELETAL: No cyanosis, or edema. BACK: Nontender without obvious deformity. No CVA tenderness. Laboratory Laboratory Tests Test 10/11/16 10/12/16 10/12/16 16:15 03:52 13:16 Sodium Level 140 MEQ/L 140 MEQ/L Potassium Level 3.0 MEQ/L 2.5 MEQ/L 3.9 MEQ/L Chloride Level 103 MEQ/L 98 MEQ/L Carbon Dioxide Level 27.3 MEQ/L 31.1 MEQ/L Anion Gap 10 MEQ/L 11 MEQ/L Blood Urea Nitrogen 16 MG/DL 13 MG/DL Creatinine 0.50 MG/DL 0.63 MG/DL Estimat Glomerular Filtration 163 ML/MIN 125 ML/MIN Rate Random Glucose 98 MG/DL 107 MG/DL Calcium Level 8.1 MG/DL 7.8 MG/DL Magnesium Level 1.9 MG/DL 1.6 MG/DL White Blood Count 14.2 TH/MM3 Red Blood Count 4.28 MIL/MM3 Hemoglobin 8.6 GM/DL Hematocrit 28.3 % Mean Corpuscular Volume 66.0 FL Mean Corpuscular Hemoglobin 20.1 PG Mean Corpuscular Hemoglobin 30.4 % Concent Red Cell Distribution Width 14.4 % Platelet Count 219 TH/MM3 Mean Platelet Volume 9.8 FL Phosphorus Level 2.6 MG/DL B-Type Natriuretic Peptide 382 PG/ML Assessment and Plan Problem List: (1) Tobacco abuse (2) Anemia (3) Cardiomyopathy (4) CHF (congestive heart failure) (5) CAD (coronary artery disease) Assessment and Plan 1.) CAD/cardiomyopathy - keya/betablocker held due to hypotension, continue aspirin, check lipids; rec cath when more hemodynamically stable and hgb stable , I explained to patient with nurse at bedside that the risk of cath/pci is 5-10 % chance of , mi, cva, need for cabg/surgery/dialysis/blood transfusion, bleeding, infection, anaphylaxis and arrythmia, patient consents, plan rhc/lhc if hgb stable, f/u bnp in am 2.) Af - rate improved, ac held due to hypotension and anemia, cont aspirin 81 mg qd, f/u cbc 3.) Anemia - d/w Dr Branden Pringle, he suspects dilution, defer to Daniel Yañez MD Oct 12, 2016 14:15
[2016-10-12 21:10] LABS: MEAN CORPUSCULAR HGB CONC 29.7 % (32.0-36.0)
[2016-10-13] VITALS (25 sets, daily range): BP systolic 90–121; BP diastolic 50–70; PULSE 82–122; RESP 16–33; TEMP 98–98.9; O2SAT 87–100
[2016-10-13] MEDS: methylPREDNISolone SOD SUCC 40 MG/1 ML VIAL IV PUSH SCH ×4 (00:23→20:19)
[2016-10-13] MEDS: DILTIAZEM HCL 60 MG TAB PO SCH ×4 (02:16→20:19)
[2016-10-13] MEDS: CHLORHEXIDINE GLUCONATE 2 % 1 PACK (2 CLOTHS) TOP SCH (04:00)
[2016-10-13] MEDS: PIPERACIL-TAZO 4.5 GM PREMIX 100 ML IV SCH ×4 (04:09→20:24)
[2016-10-13 05:23] LABS: AUTOMATED NEUTROPHIL # 11.3 TH/MM3 (1.8-7.7); BASOPHIL % 0.1 % (0.0-2.0); HEMATOCRIT 29.7 % (39.0-51.0); HEMO FLAGS DIFF FINAL; LYMPH % 1.2 % (9.0-44.0); LYMPHOCYTE # 0.1 TH/MM3 (1.0-4.8); MEAN CELL VOLUME 66.7 FL (80.0-100.0); MEAN CORPUSCULAR HEMOGLOBIN 19.8 PG (27.0-34.0); MONO % 3.2 % (0.0-8.0); NEUT % 95.5 % (16.0-70.0); PLATELET COUNT 230 TH/MM3 (150-450); RED BLOOD COUNT 4.45 MIL/MM3 (4.50-5.90); RED CELL DISTRIBUTION WIDTH 14.6 % (11.6-17.2); WHITE BLOOD COUNT 11.8 TH/MM3 (4.0-11.0)
[2016-10-13 05:39] LABS: BICARBONATE 33.7 MEQ/L (21.0-32.0); POTASSIUM 3.8 MEQ/L (3.5-5.1)
[2016-10-13 05:43] LABS: HDL CHOLESTEROL 26.6 MG/DL (40.0-60.0)
--- NOTE | 2016-10-13 08:20 | HHI.PR ---
Subjective Remarks Pt states he feels weak, no nausea or vomiting, no chest pain, SOB is about the same. discussed w RN, no beds available in [facility] at this time. Objective Vitals Vital Signs Date Time Temp Pulse Resp B/P Pulse Ox O2 Delivery O2 Flow Rate FiO2 10/13/16 06:00 89 10/13/16 04:00 98 10/13/16 04:00 98.0 98 21 121/66 96 10/13/16 02:00 122 10/13/16 00:00 98.2 104 23 91/52 99 10/13/16 00:00 104 10/12/16 22:00 113 10/12/16 20:00 111 10/12/16 20:00 97.8 111 28 94/55 99 10/12/16 19:47 99 Nasal Cannula 4.00 10/12/16 18:00 106 10/12/16 16:00 98.0 97 25 95/50 97 10/12/16 16:00 97 10/12/16 14:00 99 10/12/16 12:00 104 10/12/16 12:00 98.2 104 24 91/52 99 10/12/16 10:00 96 I/O 10/12/16 10/12/16 10/12/16 10/13/16 10/13/16 10/13/16 07:00 15:00 23:00 07:00 15:00 23:00 Intake Total 807 ml 1031 ml 551 ml 400 ml Output Total 850 ml 200 ml 250 ml 200 ml Balance -43 ml 831 ml 301 ml 200 ml Intake Oral 480 ml 500 ml 250 ml 250 ml IV Total 327 ml 531 ml 301 ml 150 ml Output Urine Total 850 ml 200 ml 250 ml 200 ml # Bowel Movements 0 0 0 2 Result Diagram: 10/13/16 0501 10/13/16 0501 Imaging Last Impressions Lower Extremity Ultrasound 10/09/16 0000 Signed Impressions: Service Date/Time: Sunday, October 09, 2016 10:52 - CONCLUSION: 1. No DVT identified. Janak Ortiz MD Chest X-Ray 10/09/16 0000 Signed Impressions: Service Date/Time: Sunday, October 09, 2016 03:08 - CONCLUSION: Bibasal infiltrates right worse on left with slight worsening since the fourth Prince Robledo MD CT Angiography 10/09/16 0000 Signed Impressions: Service Date/Time: Sunday, October 09, 2016 10:23 - CONCLUSION: 1. No evidence for pulmonary embolism to the subsegmental level as questioned. 2. Redemonstration of severe centrilobular emphysema with extensive bilateral lower lobe airspace consolidation with probable necrosis. Smaller regions of airspace consolidation in the inferior lingula and right middle lobe. Overall findings are most consistent with severe aspiration versus necrotizing pneumonia. 3. 1.2 cm cavitary nodule in the right upper lobe. Additional nearly spiculated nodular opacities in the left lung base measuring up to 1.7 cm. Although the findings may be infectious in etiology followup to resolution is recommended given the extensive underlying lung disease. 4. Small pericardial effusion. 5. Moderate coronary artery calcifications. 6. Cholelithiasis. Sincere Das MD Lung Scan-VQ Nuclear Medicine 10/08/162037 Signed Impressions: Service Date/Time: Saturday, October 08, 2016 21:37 - CONCLUSION: Intermediate probability for pulmonary embolism. Jesus Hayes MD Abdomen/Pelvis CT 10/08/162028 Signed Impressions: Service Date/Time: Saturday, October 08, 2016 20:52 - CONCLUSION: 1. Extensive emphysema with extensive bibasilar consolidation with cavities likely necrotizing pneumonia. 2. Diverticulosis of the colon. 3. Cholelithiasis. 4. Bilobed distal abdominal aortic aneurysm measuring 3.2 cm with extensive atherosclerotic calcifications of the iliac vasculature. Critical stenosis cannot be excluded. Jesus Hayes MD Objective Remarks GENERAL: Pale cachectic elderly man CARDIOVASCULAR: irregularly irregular rhythm. afib by tele. controlled RESPIRATORY: distant lung sounds. some rales noted, No accessory muscle use. GASTROINTESTINAL: Abdomen soft, non-tender, nondistended. MUSCULOSKELETAL: No edema. EXTREMITIES: No edema Neuro: tired but alert, answers questions A/P Assessment and Plan 1)Respiratory failure- resolved. 2)COPD exacerbation 3)?Necrotizing pneumonia 40Hypokalemia, hypernatremia 5)Leukocytosis 6)TIANNA- resolved 7)Anemia 8)Malnutrition 9)Lactic acidemia..trending down 10) Distal abdominal aortic aneurysm measuring 3.2 cm. 11) PAF 12)Elevated trop 13) atrial fibrillation with rapid ventricular response Plan: Neuro::sleepy right now but wakes up easily and states he feels weak. monitor Pulm: Continue width oxygen keep sat >92% Bronchodilators, Solumederol 40mg IV q12 starting today. encouraged pt to cough and use acapella. Discussed w RN and she will motivate him. V/Q scan showed intermed prob PE. CTA chest negative for PE, showed severe COPD changes, consolidation lower lobes, 1.2 cm cavitart nodule RUL and spiculated nodular opacities in left base. Doppler US LE negative for DVT CV: Monitor HR and BP keep MAP>65mmHg Lactic acid trending down. last one was 2.1 now up to 3.2, repeat in am Echo showed EF 35-40%, mild MR, TR. Monitor trop, cards following. on ASA on PO diltiazem 60 po q6h. off diltiazem drip continue aggressive replacement of electrolytes. hypokalemia resolved. per cardiology plan for rhc/lhc 10/16/16 if hgb stable : Monitor renal function, I/O's, electrolytes replacement as needed. d/c mivf. s/p Lasix 40mg iv x 1. GI: On PO diet, Pepcid 10mg IV Q12 ID: ID is following. on broad spectrum abx s/p Vanco,Zithromax and levaquin now only on Zosyn per ID and continue for now Follow up on Blood 10/08: NGTD 10/09 sputum cx growing pseudomonas, checking strep pneumonia and Legionella urinary Ag, Nasal washing is negative for Influenza Heme: Monitor CBC. H&H so far stable at 8.8 Endo: SSI for glycemic control GI prophylaxis- On Pepcid 10mg IV Q12 DVT prophylaxis- off Eliquis and place on heparin SQ.. Doppler US LE negative for DVT Discharge Planning transfer to [facility] plan rhc/lhc 10/16/16 if hgb stable Natali Chao MD Oct 13, 2016 08:20
[2016-10-13] MEDS: DOCUSATE SODIUM 50 MG/SENNA 8.6 MG TAB PO SCH ×2 (09:00→20:19)
[2016-10-13] MEDS: SODIUM CHLORIDE 0.9% FLUSH 10 ML FLUSH SCH ×2 (09:00→20:20)
--- NOTE | 2016-10-13 09:21 | PD.CARD.PN ---
Subjective Subjective Remarks alert in nad Objective Vital Signs / I&O Vital Signs Date Time Temp Pulse Resp B/P Pulse Ox O2 Delivery O2 Flow Rate FiO2 10/13/16 06:00 89 10/13/16 04:00 98 10/13/16 04:00 98.0 98 21 121/66 96 10/13/16 02:00 122 10/13/16 00:00 98.2 104 23 91/52 99 10/13/16 00:00 104 10/12/16 22:00 113 10/12/16 20:00 111 10/12/16 20:00 97.8 111 28 94/55 99 10/12/16 19:47 99 Nasal Cannula 4.00 10/12/16 18:00 106 10/12/16 16:00 98.0 97 25 95/50 97 10/12/16 16:00 97 10/12/16 14:00 99 10/12/16 12:00 104 10/12/16 12:00 98.2 104 24 91/52 99 10/12/16 10:00 96 I/O 10/12/16 10/12/16 10/12/16 10/13/16 10/13/16 10/13/16 07:00 15:00 23:00 07:00 15:00 23:00 Intake Total 807 ml 1031 ml 551 ml 400 ml Output Total 850 ml 200 ml 250 ml 200 ml Balance -43 ml 831 ml 301 ml 200 ml Intake Oral 480 ml 500 ml 250 ml 250 ml IV Total 327 ml 531 ml 301 ml 150 ml Output Urine Total 850 ml 200 ml 250 ml 200 ml # Bowel Movements 0 0 0 2 Physical Exam GENERAL: SKIN: Warm and dry. HEAD: Normocephalic. EYES: No scleral icterus. No injection or drainage. NECK: Supple, trachea midline. No JVD or lymphadenopathy. CARDIOVASCULAR: Regular rate and rhythm without murmurs, gallops, or rubs. RESPIRATORY: Breath sounds equal bilaterally. No accessory muscle use. GASTROINTESTINAL: Abdomen soft, non-tender, nondistended. MUSCULOSKELETAL: No cyanosis, or edema. BACK: Nontender without obvious deformity. No CVA tenderness. Laboratory Laboratory Tests Test 10/12/16 10/13/16 13:16 05:01 Potassium Level 3.9 MEQ/L 3.8 MEQ/L Magnesium Level 1.6 MG/DL 2.0 MG/DL White Blood Count 11.8 TH/MM3 Red Blood Count 4.45 MIL/MM3 Hemoglobin 8.8 GM/DL Hematocrit 29.7 % Mean Corpuscular Volume 66.7 FL Mean Corpuscular Hemoglobin 19.8 PG Mean Corpuscular Hemoglobin 29.7 % Concent Red Cell Distribution Width 14.6 % Platelet Count 230 TH/MM3 Mean Platelet Volume 9.9 FL Neutrophils (%) (Auto) 95.5 % Lymphocytes (%) (Auto) 1.2 % Monocytes (%) (Auto) 3.2 % Eosinophils (%) (Auto) 0.0 % Basophils (%) (Auto) 0.1 % Neutrophils # (Auto) 11.3 TH/MM3 Lymphocytes # (Auto) 0.1 TH/MM3 Monocytes # (Auto) 0.4 TH/MM3 Eosinophils # (Auto) 0.0 TH/MM3 Basophils # (Auto) 0.0 TH/MM3 CBC Comment DIFF FINAL Differential Comment Sodium Level 140 MEQ/L Chloride Level 99 MEQ/L Carbon Dioxide Level 33.7 MEQ/L Anion Gap 7 MEQ/L Blood Urea Nitrogen 15 MG/DL Creatinine 0.53 MG/DL Estimat Glomerular Filtration 153 ML/MIN Rate Random Glucose 119 MG/DL Lactic Acid Level 3.2 mmol/L Calcium Level 7.8 MG/DL B-Type Natriuretic Peptide 555 PG/ML Triglycerides Level 81 MG/DL Cholesterol Level 110 MG/DL LDL Cholesterol 67 MG/DL HDL Cholesterol 26.6 MG/DL Cholesterol/HDL Ratio 4.13 RATIO Assessment and Plan Problem List: (1) Tobacco abuse (2) Anemia (3) Cardiomyopathy (4) CHF (congestive heart failure) (5) CAD (coronary artery disease) Assessment and Plan 1.) CAD/cardiomyopathy - betablocker held due to copd, continue aspirin, check lipids; start altace 2.5 mg qd, aldactone 25 mg bid, rec cath when more hemodynamically stable and hgb stable, I explained to patient with nurse at bedside that the risk of cath/pci is 5-10% chance of , mi, cva, need for cabg/surgery/dialysis/blood transfusion, bleeding, infection, anaphylaxis and arrythmia, patient consents, plan rhc/lhc 10/16/14 if hgb stable, f/u bnp in am 2.) Af - rate improved, ac held due to hypotension and anemia, cont aspirin 81 mg qd, f/u cbc 3.) Anemia - d/w Dr Branden Pringle, he suspects dilution, defer to Daniel Yañez MD Oct 13, 2016 09:21
[2016-10-13] MEDS: RESP: ALBUTEROL 2.5 MG/IPRATROPIUM 0.5 MG NEB (PRN) INH ×2 (09:23→20:13)
[2016-10-13] MEDS: HEPARIN SODIUM - SQ 10,000 UNITS/ML VIAL SQ SCH ×2 (09:49→20:20)
[2016-10-13] MEDS: FAMOTIDINE 20 MG/2 ML VIAL IV PUSH SCH ×2 (09:49→20:19)
[2016-10-13] MEDS: ASPIRIN EC 81 MG TABEC PO SCH (09:50)
[2016-10-13] MEDS ORDERED: RAMIPRIL 2.5 MG CAP PO ONE (10:00)
[2016-10-13] MEDS ORDERED: SPIRONOLACTONE 25 MG TAB PO ONE (10:00)
--- NOTE | 2016-10-13 13:01 | HHI.IDPN ---
Subjective Subjective Remarks Notes reviewed Temps ok BP ok No new complaints Does not like the pureed diet, wants to see menu and choose from menu Sputum C/S with Pseudomonas aeruginosa CT chest with extensive emphysema and findings of possible necrotizing pneumonia WBC better Antibiotics Zosyn Past Medical History Right hip ORIF, Right knee surgery, Jaw surgery. Allergies: Coded Allergies: No Known Allergies (Unverified , 10/08/16) Objective . Vital Signs Date Time Temp Pulse Resp B/P Pulse Ox O2 Delivery O2 Flow Rate FiO2 10/13/16 10:12 84 10/13/16 10:00 108 27 96 10/13/16 09:30 99 20 105/58 98 10/13/16 09:25 94 Nasal Cannula 4.00 10/13/16 09:01 108 29 101/70 87 10/13/16 09:00 110 27 88 10/13/16 08:30 87 16 90/50 98 10/13/16 08:00 98.7 85 16 91/55 100 10/13/16 06:00 89 10/13/16 04:00 98 10/13/16 04:00 98.0 98 21 121/66 96 10/13/16 02:00 122 10/13/16 00:00 98.2 104 23 91/52 99 10/13/16 00:00 104 10/12/16 22:00 113 10/12/16 20:00 111 10/12/16 20:00 97.8 111 28 94/55 99 10/12/16 19:47 99 Nasal Cannula 4.00 10/12/16 18:00 106 10/12/16 16:00 98.0 97 25 95/50 97 10/12/16 16:00 97 10/12/16 14:00 99 10/12/16 10/12/16 10/13/16 14:59 22:59 06:59 Intake Total 1000 ml 582 ml 400 ml Output Total 200 ml 250 ml 200 ml Balance 800 ml 332 ml 200 ml Intake Oral 500 ml 250 ml 250 ml IV Total 500 ml 332 ml 150 ml Output Urine Total 200 ml 250 ml 200 ml # Bowel Movements 0 0 2 . Laboratory Tests Test 10/12/16 10/13/16 03:52 05:01 White Blood Count 14.2 TH/MM3 11.8 TH/MM3 Red Blood Count 4.28 MIL/MM3 4.45 MIL/MM3 Hemoglobin 8.6 GM/DL 8.8 GM/DL Hematocrit 28.3 % 29.7 % Mean Corpuscular Volume 66.0 FL 66.7 FL Mean Corpuscular Hemoglobin 20.1 PG 19.8 PG Mean Corpuscular Hemoglobin 30.4 % 29.7 % Concent Red Cell Distribution Width 14.4 % 14.6 % Platelet Count 219 TH/MM3 230 TH/MM3 Mean Platelet Volume 9.8 FL 9.9 FL Neutrophils (%) (Auto) 95.5 % Lymphocytes (%) (Auto) 1.2 % Monocytes (%) (Auto) 3.2 % Eosinophils (%) (Auto) 0.0 % Basophils (%) (Auto) 0.1 % Neutrophils # (Auto) 11.3 TH/MM3 Lymphocytes # (Auto) 0.1 TH/MM3 Monocytes # (Auto) 0.4 TH/MM3 Eosinophils # (Auto) 0.0 TH/MM3 Basophils # (Auto) 0.0 TH/MM3 CBC Comment DIFF FINAL Differential Comment Laboratory Tests Test 10/11/16 10/12/16 10/12/16 10/13/16 16:15 03:52 13:16 05:01 Sodium Level 140 MEQ/L 140 MEQ/L 140 MEQ/L Potassium Level 3.0 MEQ/L 2.5 MEQ/L 3.9 MEQ/L 3.8 MEQ/L Chloride Level 103 MEQ/L 98 MEQ/L 99 MEQ/L Carbon Dioxide Level 27.3 MEQ/L 31.1 MEQ/L 33.7 MEQ/L Anion Gap 10 MEQ/L 11 MEQ/L 7 MEQ/L Blood Urea Nitrogen 16 MG/DL 13 MG/DL 15 MG/DL Creatinine 0.50 MG/DL 0.63 MG/DL 0.53 MG/DL Estimat Glomerular Filtration 163 ML/MIN 125 ML/MIN 153 ML/MIN Rate Random Glucose 98 MG/DL 107 MG/DL 119 MG/DL Calcium Level 8.1 MG/DL 7.8 MG/DL 7.8 MG/DL Magnesium Level 1.9 MG/DL 1.6 MG/DL 2.0 MG/DL Phosphorus Level 2.6 MG/DL B-Type Natriuretic Peptide 382 PG/ML 555 PG/ML Lactic Acid Level 3.2 mmol/L Triglycerides Level 81 MG/DL Cholesterol Level 110 MG/DL LDL Cholesterol 67 MG/DL HDL Cholesterol 26.6 MG/DL Cholesterol/HDL Ratio 4.13 RATIO Imaging Lower Extremity Ultrasound 10/09/16 0000 Signed Impressions: Service Date/Time: Sunday, October 09, 2016 10:52 - CONCLUSION: 1. No DVT identified. Janak Ortiz MD Chest X-Ray 10/09/16 Signed Impressions: Service Date/Time: Sunday, October 09, 2016 03:08 - CONCLUSION: Bibasal infiltrates right worse on left with slight worsening since the fourth Prince Robledo MD CT Angiography 10/09/16 Signed Impressions: Service Date/Time: Sunday, October 09, 2016 10:23 - CONCLUSION: 1. No evidence for pulmonary embolism to the subsegmental level as questioned. 2. Redemonstration of severe centrilobular emphysema with extensive bilateral lower lobe airspace consolidation with probable necrosis. Smaller regions of airspace consolidation in the inferior lingula and right middle lobe. Overall findings are most consistent with severe aspiration versus necrotizing pneumonia. 3. 1.2 cm cavitary nodule in the right upper lobe. Additional nearly spiculated nodular opacities in the left lung base measuring up to 1.7 cm. Although the findings may be infectious in etiology followup to resolution is recommended given the extensive underlying lung disease. 4. Small pericardial effusion. 5. Moderate coronary artery calcifications. 6. Cholelithiasis. Sincere Das MD Lung Scan- Nuclear Medicine 10/08/162037 Signed Impressions: Service Date/Time: Saturday, October 08, 2016 21:37 - CONCLUSION: Intermediate probability for pulmonary embolism. Jesus Hayes MD Abdomen/Pelvis CT 10/08/162028 Signed Impressions: Service Date/Time: Saturday, October 08, 2016 20:52 - CONCLUSION: 1. Extensive emphysema with extensive bibasilar consolidation with cavities likely necrotizing pneumonia. 2. Diverticulosis of the colon. 3. Cholelithiasis. 4. Bilobed distal abdominal aortic aneurysm measuring 3.2 cm with extensive atherosclerotic calcifications of the iliac vasculature. Critical stenosis cannot be excluded. Jesus Hayes MD Physical Exam GENERAL: Patient is a cachectic, awake and alert, SOB at rest SKIN: Warm and dry. No generalized rash. HEENT: [place] conjunctiva. No petechia or hemorrhage. No scleral icterus. Mucous membranes pink and moist. No oral lesions noted. No exudate. No oral thrush. He is edentulous NECK: Trachea midline. Supple and not tender, no meningeal signs CARDIOVASCULAR: Regular rate and rhythm. No murmurs, rubs or gallops heard RESPIRATORY: Breath sounds equal bilaterally. Decreased BS whole lung ramires with rales at bases. Rib cage very prominent due to weight loss. ABDOMEN: Soft, non-tender, nondistended. Bowel sounds present and normoactive. No guarding. No rebound. No organomegaly. EXTREMITIES: No clubbing, cyanosis, or edema. No joint effusion, has good ROM. No calf tenderness. Well perfused and warm. NEUROLOGICAL: Non-focal. PSYCHIATRIC: Normal affect, calm and cooperative. LINE: No evidence of infection Assessment & Plan Remarks IMPRESSION Bilateral pneumonia, ?with underlying bronchiectasis, has severe emphysema - has ?necrotizing pneumonia, C/S PSAE - ?infected bullous lesions in his lungs, he has hx severe emphysema COPD, emphysema Leukocytosis, improving, likely multifactorial, due to PNA, steroids, reactive Cachexia RECOMMENDATION Continue Zosyn - PSAE coverage Will determine course of Abx depending on clinical course CXR Monitor progress Dr Tipton available this weekend if needed I will check patient again Sunday Zonia Lake MD Oct 13, 2016 13:01
[2016-10-13] MEDS: SPIRONOLACTONE 25 MG TAB PO SCH (18:00)
[2016-10-14] VITALS (30 sets, daily range): BP systolic 95–121; BP diastolic 56–72; PULSE 74–163; RESP 16–33; TEMP 98.5–99.6; O2SAT 28–99
[2016-10-14] MEDS: CHLORHEXIDINE GLUCONATE 2 % 1 PACK (2 CLOTHS) TOP SCH ×2 (01:56→19:29)
[2016-10-14] MEDS: PIPERACIL-TAZO 4.5 GM PREMIX 100 ML IV SCH ×4 (02:15→21:30)
[2016-10-14] MEDS: DILTIAZEM HCL 60 MG TAB PO SCH ×4 (02:15→21:28)
[2016-10-14 05:33] LABS: AUTOMATED NEUTROPHIL # 13.1 TH/MM3 (1.8-7.7); BASOPHIL % 0.1 % (0.0-2.0); HEMATOCRIT 28.2 % (39.0-51.0); HEMO FLAGS DIFF FINAL; LYMPH % 2.5 % (9.0-44.0); LYMPHOCYTE # 0.4 TH/MM3 (1.0-4.8); MEAN CELL VOLUME 65.8 FL (80.0-100.0); MEAN CORPUSCULAR HEMOGLOBIN 20.3 PG (27.0-34.0); MEAN CORPUSCULAR HGB CONC 30.8 % (32.0-36.0); MONO % 5.3 % (0.0-8.0); NEUT % 92.1 % (16.0-70.0); PLATELET COUNT 267 TH/MM3 (150-450); RED BLOOD COUNT 4.28 MIL/MM3 (4.50-5.90); RED CELL DISTRIBUTION WIDTH 14.6 % (11.6-17.2); WHITE BLOOD COUNT 14.2 TH/MM3 (4.0-11.0)
[2016-10-14 05:58] LABS: BICARBONATE 37.8 MEQ/L (21.0-32.0); MAGNESIUM 1.9 MG/DL (1.5-2.5); POTASSIUM 3.7 MEQ/L (3.5-5.1)
[2016-10-14] MEDS: methylPREDNISolone SOD SUCC 40 MG/1 ML VIAL IV PUSH SCH ×2 (09:00→21:29)
[2016-10-14] MEDS: SODIUM CHLORIDE 0.9% FLUSH 10 ML FLUSH SCH ×2 (09:00→21:29)
[2016-10-14] MEDS: FAMOTIDINE 20 MG/2 ML VIAL IV PUSH SCH ×2 (09:00→21:29)
[2016-10-14] MEDS: SPIRONOLACTONE 25 MG TAB PO SCH (09:01)
[2016-10-14] MEDS: ASPIRIN EC 81 MG TABEC PO SCH (09:01)
[2016-10-14] MEDS: RAMIPRIL 2.5 MG CAP PO SCH (09:01)
[2016-10-14] MEDS: DOCUSATE SODIUM 50 MG/SENNA 8.6 MG TAB PO SCH ×2 (09:01→19:29)
[2016-10-14] MEDS: HEPARIN SODIUM - SQ 10,000 UNITS/ML VIAL SQ SCH ×2 (09:01→21:28)
--- NOTE | 2016-10-14 10:08 | PD.CARD.PN ---
Subjective Subjective Remarks alert in nad Objective Vital Signs / I&O Vital Signs Date Time Temp Pulse Resp B/P Pulse Ox O2 Delivery O2 Flow Rate FiO2 10/14/16 08:08 97 Nasal Cannula 3.00 10/14/16 08:00 104 10/14/16 08:00 98.7 103 24 113/72 96 10/14/16 06:00 97 10/14/16 04:00 98.9 98 22 97/56 94 10/14/16 04:00 98 10/14/16 02:00 117 10/14/16 00:00 98.5 118 16 101/62 96 10/14/16 00:00 118 10/13/16 22:00 120 10/13/16 20:14 95 Nasal Cannula 4.00 10/13/16 20:00 107 10/13/16 20:00 98.5 107 33 92/53 92 10/13/16 18:00 82 10/13/16 16:00 98.9 101 32 96/58 97 10/13/16 16:00 88 10/13/16 14:18 88 10/13/16 14:00 100 16 108/53 97 10/13/16 13:30 100 25 102/59 98 10/13/16 13:00 108 28 104/55 94 10/13/16 12:30 98.7 103 22 95/52 97 10/13/16 12:00 111 10/13/16 12:00 104 32 96/58 97 10/13/16 11:30 116 29 96/56 94 10/13/16 11:00 114 27 100/57 96 10/13/16 10:12 84 I/O 10/13/16 10/13/16 10/13/16 10/14/16 10/14/16 10/14/16 07:00 15:00 23:00 07:00 15:00 23:00 Intake Total 400 ml 597 ml 875 ml 540 ml Output Total 200 ml 700 ml 350 ml 250 ml Balance 200 ml -103 ml 525 ml 290 ml Intake Oral 250 ml 475 ml 660 ml 440 ml IV Total 150 ml 122 ml 215 ml 100 ml Output Urine Total 200 ml 700 ml 350 ml 250 ml # Bowel Movements 2 2 2 3 Physical Exam GENERAL: SKIN: Warm and dry. HEAD: Normocephalic. EYES: No scleral icterus. No injection or drainage. NECK: Supple, trachea midline. No JVD or lymphadenopathy. CARDIOVASCULAR: Regular rate and rhythm without murmurs, gallops, or rubs. RESPIRATORY: Breath sounds equal bilaterally. No accessory muscle use. GASTROINTESTINAL: Abdomen soft, non-tender, nondistended. MUSCULOSKELETAL: No cyanosis, or edema. BACK: Nontender without obvious deformity. No CVA tenderness. Laboratory Laboratory Tests Test 10/14/16 05:22 White Blood Count 14.2 TH/MM3 Red Blood Count 4.28 MIL/MM3 Hemoglobin 8.7 GM/DL Hematocrit 28.2 % Mean Corpuscular Volume 65.8 FL Mean Corpuscular Hemoglobin 20.3 PG Mean Corpuscular Hemoglobin 30.8 % Concent Red Cell Distribution Width 14.6 % Platelet Count 267 TH/MM3 Mean Platelet Volume 9.4 FL Neutrophils (%) (Auto) 92.1 % Lymphocytes (%) (Auto) 2.5 % Monocytes (%) (Auto) 5.3 % Eosinophils (%) (Auto) 0.0 % Basophils (%) (Auto) 0.1 % Neutrophils # (Auto) 13.1 TH/MM3 Lymphocytes # (Auto) 0.4 TH/MM3 Monocytes # (Auto) 0.8 TH/MM3 Eosinophils # (Auto) 0.0 TH/MM3 Basophils # (Auto) 0.0 TH/MM3 CBC Comment DIFF FINAL Differential Comment Sodium Level 139 MEQ/L Potassium Level 3.7 MEQ/L Chloride Level 98 MEQ/L Carbon Dioxide Level 37.8 MEQ/L Anion Gap 3 MEQ/L Blood Urea Nitrogen 13 MG/DL Creatinine 0.48 MG/DL Estimat Glomerular Filtration 171 ML/MIN Rate Random Glucose 94 MG/DL Lactic Acid Level 2.5 mmol/L Calcium Level 8.3 MG/DL Magnesium Level 1.9 MG/DL B-Type Natriuretic Peptide 615 PG/ML Assessment and Plan Problem List: (1) Tobacco abuse (2) Anemia (3) Cardiomyopathy (4) CHF (congestive heart failure) (5) CAD (coronary artery disease) Assessment and Plan 1.) CAD/cardiomyopathy - betablocker held due to copd, continue aspirin, check lipids; start altace 2.5 mg qd, increase aldactone 50 mg bid, rec cath 10/16/16, I explained to patient with nurse at bedside that the risk of cath/pci is 5-10% chance of , mi, cva, need for cabg/surgery/dialysis/blood transfusion, bleeding, infection, anaphylaxis and arrythmia, patient consents, plan rhc/lhc if hgb stable, f/u bnp in am 2.) Af - rate improved, ac held due to hypotension and anemia, cont aspirin 81 mg qd, f/u cbc 3.) Anemia - d/w Dr Branden Pringle, he suspects dilution, defer to Daniel Yañez MD Oct 14, 2016 10:07
--- NOTE | 2016-10-14 10:45 | HHI.PR ---
Subjective Remarks Patient reports he feels weak. Shortness of breath is about the same. No chest pain. Objective Vitals Vital Signs Date Time Temp Pulse Resp B/P Pulse Ox O2 Delivery O2 Flow Rate FiO2 10/14/16 08:08 97 Nasal Cannula 3.00 10/14/16 08:00 104 10/14/16 08:00 98.7 103 24 113/72 96 10/14/16 06:00 97 10/14/16 04:00 98.9 98 22 97/56 94 10/14/16 04:00 98 10/14/16 02:00 117 10/14/16 00:00 98.5 118 16 101/62 96 10/14/16 00:00 118 10/13/16 22:00 120 10/13/16 20:14 95 Nasal Cannula 4.00 10/13/16 20:00 107 10/13/16 20:00 98.5 107 33 92/53 92 10/13/16 18:00 82 10/13/16 16:00 98.9 101 32 96/58 97 10/13/16 16:00 88 10/13/16 14:18 88 10/13/16 14:00 100 16 108/53 97 10/13/16 13:30 100 25 102/59 98 10/13/16 13:00 108 28 104/55 94 10/13/16 12:30 98.7 103 22 95/52 97 10/13/16 12:00 111 10/13/16 12:00 104 32 96/58 97 10/13/16 11:30 116 29 96/56 94 10/13/16 11:00 114 27 100/57 96 I/O 10/13/16 10/13/16 10/13/16 10/14/16 10/14/16 10/14/16 07:00 15:00 23:00 07:00 15:00 23:00 Intake Total 400 ml 597 ml 875 ml 540 ml Output Total 200 ml 700 ml 350 ml 250 ml Balance 200 ml -103 ml 525 ml 290 ml Intake Oral 250 ml 475 ml 660 ml 440 ml IV Total 150 ml 122 ml 215 ml 100 ml Output Urine Total 200 ml 700 ml 350 ml 250 ml # Bowel Movements 2 2 2 3 Result Diagram: 10/14/1652110/14/16521 Imaging Last Impressions Lower Extremity Ultrasound 6/5/17 0000 Signed Impressions: Service Date/Time: Sunday, October 09, 2016 10:52 - CONCLUSION: 1. No DVT identified. Janak Ortiz MD Chest X-Ray 10/09/16 Signed Impressions: Service Date/Time: Sunday, October 09, 2016 03:08 - CONCLUSION: Bibasal infiltrates right worse on left with slight worsening since the fourth Prince Robledo MD CT Angiography 10/09/16 Signed Impressions: Service Date/Time: Sunday, October 09, 2016 10:23 - CONCLUSION: 1. No evidence for pulmonary embolism to the subsegmental level as questioned. 2. Redemonstration of severe centrilobular emphysema with extensive bilateral lower lobe airspace consolidation with probable necrosis. Smaller regions of airspace consolidation in the inferior lingula and right middle lobe. Overall findings are most consistent with severe aspiration versus necrotizing pneumonia. 3. 1.2 cm cavitary nodule in the right upper lobe. Additional nearly spiculated nodular opacities in the left lung base measuring up to 1.7 cm. Although the findings may be infectious in etiology followup to resolution is recommended given the extensive underlying lung disease. 4. Small pericardial effusion. 5. Moderate coronary artery calcifications. 6. Cholelithiasis. Sincere Das MD Lung Scan- Nuclear Medicine 10/08/162037 Signed Impressions: Service Date/Time: Saturday, October 08, 2016 21:37 - CONCLUSION: Intermediate probability for pulmonary embolism. Jesus Hayes MD Abdomen/Pelvis CT 10/08/162028 Signed Impressions: Service Date/Time: Saturday, October 08, 2016 20:52 - CONCLUSION: 1. Extensive emphysema with extensive bibasilar consolidation with cavities likely necrotizing pneumonia. 2. Diverticulosis of the colon. 3. Cholelithiasis. 4. Bilobed distal abdominal aortic aneurysm measuring 3.2 cm with extensive atherosclerotic calcifications of the iliac vasculature. Critical stenosis cannot be excluded. Jesus Hayes MD Objective Remarks GENERAL: Frail elderly male in mild respiratory distress. CARDIOVASCULAR: Normal rate and regular rhythm without murmurs, gallops, or rubs. RESPIRATORY: Respiratory effort is fair. Coarse breath sounds bilaterally. GASTROINTESTINAL: Abdomen soft, non-tender, non-distended. Normal active bowel sounds MUSCULOSKELETAL: Extremities without cyanosis, or edema. NEURO: Alert & Oriented x4 to person, place, time, situation. Moves all ext x4 PSYCH: Appropriate mood and affect. A/P Assessment and Plan 71-year-old male with: Respiratory failure secondary to pneumonia: Continue width oxygen keep sat >92% Bronchodilators, Solumederol 40mg IV q12. encouraged pt to cough and use acapella. V/Q scan showed intermed prob PE. CTA chest negative for PE, showed severe COPD changes, consolidation lower lobes, 1.2 cm cavitary nodule RUL and spiculated nodular opacities in left base. Doppler US LE negative for DVTD Infectious disease is following. on broad spectrum abx s/p Vanco, Zithromax and levaquin now only on Zosyn per ID and continue for now Follow up on Blood 10/08: NGTD 10/09 sputum cx growing pseudomonas A. fib with RVR and elevated troponins - Appreciate cardiology following. On Cardizem by mouth. Plan for heart catheterization on 10/16 Anemia: Probably has some chronic anemia but H&H trended down since the hospitalization. Stable today. Hemodilution may be contributing. We'll obtain iron studies. GI prophylaxis- On Pepcid 10mg IV Q12 DVT prophylaxis- off Eliquis and place on heparin SQ.. Doppler US LE negative for DVT Angelito Lou MD Oct 14, 2016 10:45
[2016-10-14] MEDS: RESP: ALBUTEROL 2.5 MG/IPRATROPIUM 0.5 MG NEB (PRN) INH (11:12)
[2016-10-14] MEDS: SPIRONOLACTONE 50 MG TAB PO SCH (18:00)
[2016-10-15] VITALS (14 sets, daily range): BP systolic 102–116; BP diastolic 62–69; PULSE 74–128; RESP 22–35; TEMP 97.5–98.7; O2SAT 92–96
[2016-10-15] MEDS: DILTIAZEM HCL 60 MG TAB PO SCH ×4 (02:37→20:01)
[2016-10-15] MEDS: PIPERACIL-TAZO 4.5 GM PREMIX 100 ML IV SCH ×4 (02:37→20:02)
[2016-10-15 06:36] LABS: HEMATOCRIT 36.8 % (39.0-51.0); MEAN CORPUSCULAR HEMOGLOBIN 22.3 PG (27.0-34.0); MEAN CORPUSCULAR HGB CONC 32.3 % (32.0-36.0); PLATELET COUNT 277 TH/MM3 (150-450); RED BLOOD COUNT 5.33 MIL/MM3 (4.50-5.90); RED CELL DISTRIBUTION WIDTH 16.6 % (11.6-17.2); REVIEW FLAG FINAL; WHITE BLOOD COUNT 13.8 TH/MM3 (4.0-11.0)
[2016-10-15 06:58] LABS: BICARBONATE 35.2 MEQ/L (21.0-32.0); POTASSIUM 3.6 MEQ/L (3.5-5.1)
[2016-10-15] MEDS: methylPREDNISolone SOD SUCC 40 MG/1 ML VIAL IV PUSH SCH ×2 (08:00→20:01)
[2016-10-15] MEDS: ASPIRIN EC 81 MG TABEC PO SCH (08:00)
[2016-10-15] MEDS: SODIUM CHLORIDE 0.9% FLUSH 10 ML FLUSH SCH ×2 (08:00→20:01)
[2016-10-15] MEDS: FAMOTIDINE 20 MG/2 ML VIAL IV PUSH SCH ×2 (08:00→20:01)
[2016-10-15] MEDS: SPIRONOLACTONE 50 MG TAB PO SCH ×2 (08:00→17:27)
[2016-10-15] MEDS: HEPARIN SODIUM - SQ 10,000 UNITS/ML VIAL SQ SCH ×2 (08:01→20:02)
[2016-10-15] MEDS: RAMIPRIL 2.5 MG CAP PO SCH (08:01)
[2016-10-15] MEDS: DOCUSATE SODIUM 50 MG/SENNA 8.6 MG TAB PO SCH ×2 (08:01→20:02)
--- NOTE | 2016-10-15 10:30 | PD.CARD.PN ---
Subjective Subjective Remarks alert in nad Objective Vital Signs / I&O Vital Signs Date Time Temp Pulse Resp B/P Pulse Ox O2 Delivery O2 Flow Rate FiO2 10/15/16 08:00 91 10/15/16 07:52 96 Nasal Cannula 2.00 10/15/16 06:00 87 10/15/16 04:00 97.8 90 31 109/63 96 10/15/16 04:00 90 10/15/16 02:00 79 10/15/16 00:00 74 10/15/16 00:00 98.7 74 30 102/62 92 10/14/16 22:00 74 10/14/16 20:04 97 Nasal Cannula 3.00 10/14/16 20:00 95 10/14/16 20:00 98.7 95 22 112/57 95 10/14/16 16:00 98.8 132 24 95/65 96 10/14/16 16:00 133 10/14/16 15:55 99.6 158 26 95/68 97 10/14/16 14:00 160 10/14/16 12:30 162 24 94 10/14/16 12:15 151 25 28 10/14/16 12:00 104 10/14/16 12:00 98.7 163 24 121/58 96 10/14/16 12:00 148 25 121/56 92 10/14/16 11:45 139 23 94 10/14/16 11:30 153 25 92 10/14/16 11:15 124 22 99 10/14/16 11:00 121 25 121/68 95 10/14/16 10:45 123 31 93 10/14/16 10:30 124 27 92 I/O 10/14/16 10/14/16 10/14/16 10/15/16 10/15/16 10/15/16 07:00 15:00 23:00 07:00 15:00 23:00 Intake Total 540 ml 550 ml 1030 ml 549 ml Output Total 250 ml 1400 ml 500 ml 650 ml 1500 ml Balance 290 ml -850 ml 530 ml -101 ml -1500 ml Intake Oral 440 ml 450 ml 400 ml 400 ml IV Total 100 ml 100 ml 230 ml 149 ml Packed Cells 400 ml Output Urine Total 250 ml 1400 ml 500 ml 650 ml 1500 ml # Bowel Movements 3 1 3 Physical Exam GENERAL: SKIN: Warm and dry. HEAD: Normocephalic. EYES: No scleral icterus. No injection or drainage. NECK: Supple, trachea midline. No JVD or lymphadenopathy. CARDIOVASCULAR: Regular rate and rhythm without murmurs, gallops, or rubs. RESPIRATORY: Breath sounds equal bilaterally. No accessory muscle use. GASTROINTESTINAL: Abdomen soft, non-tender, nondistended. MUSCULOSKELETAL: No cyanosis, or edema. BACK: Nontender without obvious deformity. No CVA tenderness. Laboratory Laboratory Tests Test 10/14/16 10/15/16 14:18 05:10 Blood Type O NEGATIVE Antibody Screen NEGATIVE Crossmatch Leukocyte-Reduced Red Blood Cells Blood Bank Comment White Blood Count 13.8 TH/MM3 Red Blood Count 5.33 MIL/MM3 Hemoglobin 11.9 GM/DL Hematocrit 36.8 % Mean Corpuscular Volume 69.0 FL Mean Corpuscular Hemoglobin 22.3 PG Mean Corpuscular Hemoglobin 32.3 % Concent Red Cell Distribution Width 16.6 % Platelet Count 277 TH/MM3 Mean Platelet Volume 10.0 FL Sodium Level 138 MEQ/L Potassium Level 3.6 MEQ/L Chloride Level 95 MEQ/L Carbon Dioxide Level 35.2 MEQ/L Anion Gap 8 MEQ/L Blood Urea Nitrogen 9 MG/DL Creatinine 0.37 MG/DL Estimat Glomerular Filtration 231 ML/MIN Rate Random Glucose 85 MG/DL Calcium Level 7.9 MG/DL B-Type Natriuretic Peptide 434 PG/ML Assessment and Plan Problem List: (1) Tobacco abuse (2) Anemia (3) Cardiomyopathy (4) CHF (congestive heart failure) (5) CAD (coronary artery disease) Assessment and Plan 1.) CAD/cardiomyopathy - betablocker held due to copd, continue aspirin, check lipids; increase altace 5 mg qd, continue aldactone 50 mg bid, rec cath 10/16/16 , I explained to patient with nurse at bedside that the risk of cath/pci is 5-10 % chance of , mi, cva, need for cabg/surgery/dialysis/blood transfusion, bleeding, infection, anaphylaxis and arrythmia, patient consents, plan rhc/lhc if hgb stable, f/u bnp in am 2.) Af - rvr, improved after transfusion and cardizem drip, ac held due to hypotension and anemia, cont aspirin 81 mg qd, f/u cbc 3.) Anemia - improved s/p transfusion, d/w Dr Branden Pringle, he suspects dilution , defer to Daniel Yañez MD Oct 15, 2016 10:30
[2016-10-15] MEDS: RESP: ALBUTEROL 2.5 MG/IPRATROPIUM 0.5 MG NEB (PRN) INH (12:15)
--- NOTE | 2016-10-15 12:28 | HHI.PR ---
Subjective Remarks Patient is reports shortness of breath is unchanged. No chest pain. On Cardizem drip for rate control. Planning for heart catheterization tomorrow per cardiology. Objective Vitals Vital Signs Date Time Temp Pulse Resp B/P Pulse Ox O2 Delivery O2 Flow Rate FiO2 10/15/16 10:00 103 10/15/16 08:00 97.6 91 24 110/66 94 10/15/16 08:00 91 10/15/16 07:52 96 Nasal Cannula 2.00 10/15/16 06:00 87 10/15/16 04:00 97.8 90 31 109/63 96 10/15/16 04:00 90 10/15/16 02:00 79 10/15/16 00:00 74 10/15/16 00:00 98.7 74 30 102/62 92 10/14/16 22:00 74 10/14/16 20:04 97 Nasal Cannula 3.00 10/14/16 20:00 95 10/14/16 20:00 98.7 95 22 112/57 95 10/14/16 16:00 98.8 132 24 95/65 96 10/14/16 16:00 133 10/14/16 15:55 99.6 158 26 95/68 97 10/14/16 14:00 160 10/14/16 12:30 162 24 94 I/O 10/14/16 10/14/16 10/14/16 10/15/16 10/15/16 10/15/16 07:00 15:00 23:00 07:00 15:00 23:00 Intake Total 540 ml 550 ml 1030 ml 549 ml Output Total 250 ml 1400 ml 500 ml 650 ml 1500 ml Balance 290 ml -850 ml 530 ml -101 ml -1500 ml Intake Oral 440 ml 450 ml 400 ml 400 ml IV Total 100 ml 100 ml 230 ml 149 ml Packed Cells 400 ml Output Urine Total 250 ml 1400 ml 500 ml 650 ml 1500 ml # Bowel Movements 3 1 3 Result Diagram: 10/15/1650910/15/16 05 Objective Remarks GENERAL: Frail elderly male in mild respiratory distress. CARDIOVASCULAR: Normal rate and regular rhythm without murmurs, gallops, or rubs. RESPIRATORY: Respiratory effort is fair. Coarse breath sounds bilaterally. GASTROINTESTINAL: Abdomen soft, non-tender, non-distended. Normal active bowel sounds MUSCULOSKELETAL: Extremities without cyanosis, or edema. NEURO: Alert & Oriented x4 to person, place, time, situation. Moves all ext x4 PSYCH: Appropriate mood and affect. A/P Assessment and Plan 71-year-old male with: Respiratory failure secondary to pneumonia: Continue width oxygen keep sat >92% Bronchodilators, Solumederol 40mg IV q12. encouraged pt to cough and use acapella. V/Q scan showed intermed prob PE. CTA chest negative for PE, showed severe COPD changes, consolidation lower lobes, 1.2 cm cavitary nodule RUL and spiculated nodular opacities in left base. Doppler US LE negative for DVTD Infectious disease is following. on broad spectrum abx s/p Vanco, Zithromax and levaquin now only on Zosyn per ID and continue for now Follow up on Blood 10/08: NGTD 10/09 sputum cx growing pseudomonas A. fib with RVR and elevated troponins - Appreciate cardiology following. Patient is back on Cardizem drip. Plan for heart catheterization on 10/16 Anemia: Probably has some chronic anemia but H&H trended down since the hospitalization. Significantly improved post PRBC transfusion. Stable We'll obtain iron studies. GI prophylaxis- On Pepcid 10mg IV Q12 DVT prophylaxis- off Eliquis and place on heparin SQ.. Doppler US LE negative for DVT Angelito Lou MD Oct 15, 2016 12:28
[2016-10-15] MEDS: DILTIAZEM INJ 125 MG in SODIUM CHLORIDE 0.9% INJ 100 ML IV SCH (13:36)
[2016-10-15 14:33] LABS: TRANSFERRIN IRON PROFILE 113 MG/DL (200-360)
[2016-10-15 14:58] LABS: FERRITIN 1833 NG/ML (26-388)
[2016-10-15] MEDS: CHLORHEXIDINE GLUCONATE 2 % 1 PACK (2 CLOTHS) TOP SCH (20:03)
[2016-10-16] VITALS (20 sets, daily range): BP systolic 90–118; BP diastolic 52–65; PULSE 80–122; RESP 13–45; TEMP 97–99.1; O2SAT 93–98
[2016-10-16] MEDS: PIPERACIL-TAZO 4.5 GM PREMIX 100 ML IV SCH ×4 (04:47→20:39)
[2016-10-16] MEDS: DILTIAZEM HCL 60 MG TAB PO SCH ×4 (04:47→20:39)
[2016-10-16 06:46] LABS: HEMATOCRIT 36.7 % (39.0-51.0); MEAN CELL VOLUME 68.9 FL (80.0-100.0); MEAN CORPUSCULAR HEMOGLOBIN 21.9 PG (27.0-34.0); MEAN CORPUSCULAR HGB CONC 31.8 % (32.0-36.0); PLATELET COUNT 288 TH/MM3 (150-450); RED BLOOD COUNT 5.33 MIL/MM3 (4.50-5.90); RED CELL DISTRIBUTION WIDTH 17.9 % (11.6-17.2); REVIEW FLAG FINAL; WHITE BLOOD COUNT 16.1 TH/MM3 (4.0-11.0)
[2016-10-16 07:09] LABS: BICARBONATE 36.5 MEQ/L (21.0-32.0); POTASSIUM 3.6 MEQ/L (3.5-5.1)
[2016-10-16] MEDS: RAMIPRIL 5 MG CAP PO SCH (08:33)
[2016-10-16] MEDS: DOCUSATE SODIUM 50 MG/SENNA 8.6 MG TAB PO SCH ×2 (08:33→20:39)
[2016-10-16] MEDS: SPIRONOLACTONE 50 MG TAB PO SCH ×2 (08:33→16:56)
[2016-10-16] MEDS: ASPIRIN EC 81 MG TABEC PO SCH (08:34)
[2016-10-16] MEDS: SODIUM CHLORIDE 0.9% FLUSH 10 ML FLUSH SCH ×3 (08:34→20:38)
[2016-10-16] MEDS: FAMOTIDINE 20 MG/2 ML VIAL IV PUSH SCH ×2 (08:34→20:38)
[2016-10-16] MEDS: methylPREDNISolone SOD SUCC 40 MG/1 ML VIAL IV PUSH SCH ×2 (08:34→20:37)
[2016-10-16] MEDS: HEPARIN SODIUM - SQ 10,000 UNITS/ML VIAL SQ SCH ×2 (08:35→20:38)
--- NOTE | 2016-10-16 10:09 | HHI.IDPN ---
Subjective Subjective Remarks Notes reviewed D/W RN Temps ok BP ok No new complaints For cath today Monitor shows AF, controlled rate Sputum C/S with Pseudomonas aeruginosa CT chest with extensive emphysema and findings of possible necrotizing pneumonia WBC up again today Antibiotics Zosyn Past Medical History Right hip ORIF, Right knee surgery, Jaw surgery. Allergies: Coded Allergies: No Known Allergies (Unverified , 10/08/16) Objective . Vital Signs Date Time Temp Pulse Resp B/P Pulse Ox O2 Delivery O2 Flow Rate FiO2 10/16/16 09:14 96 Nasal Cannula 3.00 10/16/16 06:00 85 10/16/16 04:00 80 10/16/16 04:00 97.5 80 22 103/56 97 10/16/16 02:00 93 10/16/16 00:00 87 10/16/16 00:00 97.8 87 32 113/54 97 10/15/16 22:00 95 10/15/16 20:59 93 Nasal Cannula 3.00 10/15/16 20:00 103 10/15/16 20:00 98.7 103 35 115/64 96 10/15/16 18:00 109 10/15/16 16:00 98.1 122 22 112/62 92 10/15/16 16:00 122 10/15/16 14:00 128 10/15/16 12:00 120 10/15/16 12:00 97.5 120 24 116/69 95 10/15/16 10/15/16 10/16/16 15:00 23:00 07:00 Intake Total 773 ml 205 ml 140 ml Output Total 2100 ml 600 ml 600 ml Balance -1327 ml -395 ml -460 ml Intake Oral 600 ml 0 ml IV Total 173 ml 205 ml 140 ml Output Urine Total 2100 ml 600 ml 600 ml # Bowel Movements 1 1 1 . Laboratory Tests Test 10/15/16 10/16/16 05:10 05:20 White Blood Count 13.8 TH/MM3 16.1 TH/MM3 Red Blood Count 5.33 MIL/MM3 5.33 MIL/MM3 Hemoglobin 11.9 GM/DL 11.7 GM/DL Hematocrit 36.8 % 36.7 % Mean Corpuscular Volume 69.0 FL 68.9 FL Mean Corpuscular Hemoglobin 22.3 PG 21.9 PG Mean Corpuscular Hemoglobin 32.3 % 31.8 % Concent Red Cell Distribution Width 16.6 % 17.9 % Platelet Count 277 TH/MM3 288 TH/MM3 Mean Platelet Volume 10.0 FL 9.8 FL Laboratory Tests Test 10/15/16 10/16/16 05:10 05:20 Sodium Level 138 MEQ/L 139 MEQ/L Potassium Level 3.6 MEQ/L 3.6 MEQ/L Chloride Level 95 MEQ/L 97 MEQ/L Carbon Dioxide Level 35.2 MEQ/L 36.5 MEQ/L Anion Gap 8 MEQ/L 6 MEQ/L Blood Urea Nitrogen 9 MG/DL 10 MG/DL Creatinine 0.37 MG/DL 0.36 MG/DL Estimat Glomerular Filtration 231 ML/MIN 239 ML/MIN Rate Random Glucose 85 MG/DL 72 MG/DL Calcium Level 7.9 MG/DL 8.3 MG/DL Iron Level 110 MCG/DL Total Iron Binding Capacity 158 MCG/DL Percent Iron Saturation 69.5 % Ferritin 1833 NG/ML B-Type Natriuretic Peptide 434 PG/ML 463 PG/ML Vitamin B12 Level 1584 PG/ML Folate 12.4 NG/ML Imaging Lower Extremity Ultrasound 10/09/16 0000 Signed Impressions: Service Date/Time: Sunday, October 09, 2016 10:52 - CONCLUSION: 1. No DVT identified. Janak Ortiz MD Chest X-Ray 10/09/16 0000 Signed Impressions: Service Date/Time: Sunday, October 09, 2016 03:08 - CONCLUSION: Bibasal infiltrates right worse on left with slight worsening since the fourth Prince Robledo MD CT Angiography 10/09/16 0000 Signed Impressions: Service Date/Time: Sunday, October 09, 2016 10:23 - CONCLUSION: 1. No evidence for pulmonary embolism to the subsegmental level as questioned. 2. Redemonstration of severe centrilobular emphysema with extensive bilateral lower lobe airspace consolidation with probable necrosis. Smaller regions of airspace consolidation in the inferior lingula and right middle lobe. Overall findings are most consistent with severe aspiration versus necrotizing pneumonia. 3. 1.2 cm cavitary nodule in the right upper lobe. Additional nearly spiculated nodular opacities in the left lung base measuring up to 1.7 cm. Although the findings may be infectious in etiology followup to resolution is recommended given the extensive underlying lung disease. 4. Small pericardial effusion. 5. Moderate coronary artery calcifications. 6. Cholelithiasis. Sincree Das MD Lung Scan-VQ Nuclear Medicine 10/08/162037 Signed Impressions: Service Date/Time: Saturday, October 08, 2016 21:37 - CONCLUSION: Intermediate probability for pulmonary embolism. Jesus Hayes MD Abdomen/Pelvis CT 10/08/162028 Signed Impressions: Service Date/Time: Saturday, October 08, 2016 20:52 - CONCLUSION: 1. Extensive emphysema with extensive bibasilar consolidation with cavities likely necrotizing pneumonia. 2. Diverticulosis of the colon. 3. Cholelithiasis. 4. Bilobed distal abdominal aortic aneurysm measuring 3.2 cm with extensive atherosclerotic calcifications of the iliac vasculature. Critical stenosis cannot be excluded. Jesus Hayes MD Physical Exam GENERAL: Patient is a cachectic, awake and alert, mild SOB at rest SKIN: Warm and dry. No generalized rash. HEENT: [place] conjunctiva. No petechia or hemorrhage. No scleral icterus. Moist mucosa. No oral lesions noted. No exudate. No oral thrush. He is edentulous NECK: Trachea midline. Supple and not tender, no meningeal signs CARDIOVASCULAR: Regular rate and rhythm. No murmurs, rubs or gallops heard RESPIRATORY: Breath sounds equal bilaterally. Decreased BS whole lung ramires with rales at bases. Rib cage very prominent due to weight loss. ABDOMEN: Soft, non-tender, nondistended. Bowel sounds present and normoactive. No guarding. No rebound. No organomegaly. EXTREMITIES: No clubbing, cyanosis, or edema. No joint effusion, has good ROM. No calf tenderness. Well perfused and warm. NEUROLOGICAL: Non-focal. PSYCHIATRIC: Normal affect, calm and cooperative. LINE: No evidence of infection Assessment & Plan Remarks IMPRESSION Bilateral pneumonia, ?with underlying bronchiectasis, has severe emphysema - has ?necrotizing pneumonia, C/S PSAE - ?infected bullous lesions in his lungs, he has hx severe emphysema COPD, emphysema Leukocytosis, up again Cachexia RECOMMENDATION Continue Zosyn - PSAE coverage UA and C/S CXR Follow CBC Will determine course of Abx depending on clinical course For cardiac cath Monitor progress D/W Zonia Mejia MD Oct 16, 2016 10:09
[2016-10-16] MEDS: RESP: ALBUTEROL 2.5 MG/IPRATROPIUM 0.5 MG NEB (PRN) INH (10:57)
[2016-10-16 11:41] LABS: BLOOD, URINE NEG (NEG); GLUCOSE,URINE NEG (NEG); KETONE, URINE NEG (NEG); MUCUS URINE FEW /lpf (OCC); NITRITE,URINE NEG (NEG); PH, URINE 8.5 (5.0-8.5); URINE COLOR LIGHT-YELLOW (YELLW/STRAW)
[2016-10-16 11:45] LABS: COMMENT (UR) CULT NOT INDICATED; CULTURE IF INDICATED CULT NOT INDICATED
[2016-10-16] MEDS ORDERED: HEPARIN-NS/PF INJ 500 ML ONE (11:59)
[2016-10-16] MEDS ORDERED: HEPARIN SODIUM - IV 10,000 UNITS/10 ML VIAL ONE (12:43)
--- NOTE | 2016-10-16 13:08 | CATHPROC ---
[facility] HIS Report Study Information Study Number Admission Scheduled Start Study Start [id number] 10/08/2016 10/16/2016 Oct 16 2016 11:30AM Referring Institution Admit Source Facility Department 1 Emergency department [facility] - Corporate Receptionist Physician and Clinical Staff Initial Daniel Vuong Spinner Concrete Pipe Kya Echols,RN Recorder Sameera Ledesma,RT(R) (BS) Scrub Shahzad Daniel RCIS(BS) Procedures Performed Procedure Location (Site) Vessel Name Coronary Angiograms LCA Left Coronary Coronary Angiograms RCA Right Coronary LV Gram-hand inj. LV LV Ventricle Wire insertion Fem Art (left) Femoral Art Equipment Time Hydrostatic Tester Description Size Mfg Part Number Used/Scraped CATHETER, FR5 SWAN LILIA 11:31 GHOSH RODGERS FR 5 [id number] *[id number] Used MONITOR TRANSDUCER, TRUWAVE [id number] 11:31 GHOSH RODGERS * Used W/STOCKCOCK *[id number] TRANSDUCER, TRUWAVE [id number] 11:31 GHOSH RODGERS * Used W/STOCKCOCK *[id number] *[id number] *[id number] WIRE, HYDROSTEER 150CM [id number] 12:32 DAIG/[employer] 150CM Used ANGLED GLIDE *[id number] 11:31 MEDLINE IND[employer]RIES PACK, CCL CUSTOM * Used *[id number] 11:31 MEDLINE PACER PEN, SKIN DUAL W/ RULER * Used *[id number] 11:34 SDNsquare MEDICAL SHEATH, FR5.5 PRELUDE 11CM FR 5 [id number] Used [id number] 11:31 [employer] MEDICAL WIRE, 3MMJ .035 180CM 180CM Used *[id number] 11:31 NAMIC MANIFOLD, 4 PORT * Used *[id number] 11:31 NYCOMED OMNIPAQUE, 350 MG, 150ML 150ML [id number] Used [id number] 11:31 HOU MEDICAL BLANKET,WARM AIR CCL * Used *[id number] 11:31 TERUMO MEDICAL SHEATH, FR4 TERUMO (10CM) FR 4 [id number] Used 12:34 TERUMO MEDICAL SHEATH, FR4 TERUMO (10CM) FR 4 [id number] Used Equipment Model, Serial, Lot Number and Expiration Data Description Model Number Serial Number Lot Number Expiration Date WIRE, HYDROSTEER 150CM [id number] 08-05-2019 ANGLED GLIDE History: Allergies Allergy Reaction No Known Allergies History: Risk Factors Family History of Hypertension Dyslipidemia Previous MS Previous Heart Failure Premature CAD Yes No No No No Prior Valve Prior PCI Prior CABG Surgery No No No Cerebrovascular Peripheral Artery Chronic Lung On Dialysis Diabetes Disease Disease Disease No No No Yes No History: Stress Tests Stress or Imaging Studies Performed No History: Other Current Smoker Method Packs a Day Years Used Pack Years Yes Cigarettes 1 60 60 Labs Hgb (g/dl) Hct (%) WBC (l/cumm) Platelets (thousands) 12.00-18.00 37.00-55.00 4.80-10.80 140.00-450.00 11.7 36.7 16.1 268 Glucose (mg/dl) BUN (mg/dl) Creatinine (mg/dl) BUN:Creatinine (1:x) 60.00-110.00 8.00-20.00 0.10-9.00 10.00-20.00 72 10 0.3 33.3 Na (meq/l) K (meq/l) Cl (meq/l) 138.00-146.00 3.80-5.10 101.00-111.00 139 3.6 97 PT (sec) INR (PTT:PT) 9.40-11.40 0.50-2.00 15.7 1.4 CPK-MB (ng/ML) 0.00-7.00 Not Drawn Medication Medication Total Dose (Bolus/Oral) Medication Total Dosage/Unit 1% XYLOCAINE 40 mL HEPARIN 3500 units Medications (Bolus/Oral) Medication Time Given Dosage/Unit Administered By Reason 1% XYLOCAINE 10/16/2016 12:20:28 PM 20 mL Ronnie, Daniel 20 mL 1% XYLOCAINE given in lab by Ronnie Daniel in Right Groin via Subcutaneous. 1% XYLOCAINE 10/16/2016 12:34:40 PM 20 mL Ronnie, Daniel 20 mL 1% XYLOCAINE given in lab by Ronnie Daniel in Left Groin via Subcutaneous. HEPARIN 10/16/2016 12:46:21 PM 3500 units yKa Echols 3500 units HEPARIN given in lab by Kya Echols, MELLISA in Right Wrist via Peripheral IV. Medication (Drip) Medication Time Given Dosage/Unit Concentration/Unit Diluent (ml) Solution CARDIZEM 10/16/2016 11:50:59 AM 5 mg Patient arrived on 5 mg CARDIZEM given by Daniel Trujillo in Right Arm via Peripheral IV. Ordered by Daniel Trujillo. IV Solutions 10/16/2016 11:51:20 AM 0 mL (IV) 500 NaCl .9 IV Solutions given in lab by Kya Echols RN in Right Wrist via Peripheral IV. Pump/Drip Flow = 2 0 ml/hr using NaCl .9. Ordered by Daniel Trujillo. Initial Case Assessment Cardiovascular HR Rhythm NIBP Chest Pain 106 afib 111/72 0 Edema Present Skin color Skin Moderate Normal Warm Circulatory - Right Pulses Dorsalis Pedis Femoral d 2 Scale (0,1,2,3,4,d) Circulatory - Left Pulses Dorsalis Pedis Femoral d 2 Scale (0,1,2,3,4,d) Neurological State Oriented to time-place- Alert Moves all extremities person Respiration - General Respiration Rate SpO2 (%) O2 (lpm) (B/min) 18 99 3 Chronological Log Time Study Chronological Log 11:45:22 Patient arrived via Bed. With Sage and Rectal bag in place. 11:45:23 Patient Name, D.O.B, / Armband Verified By R.N. 11:45:25 Consent signed by the physician and the patient and verified by the Corporate Receptionist staff. 11:45:46 Pre-op and post- op instructions given; patient acknowledges understanding of instructions. 11:45:47 Verbal Stimulation=2 Physical Stimulation=2 Airway=2 Respiration=2 TOTAL=8. (0=absent, 1=li mited, 2=present) 11:45:59 Presedation assessment performed by Corporate Receptionist RN. 11:49:57 Skin Breakdown-noted is stage 2 breakdown on cocyx. 11:50:28 Patient Warmer Placed on the Table. 11:50:35 A # 20 IV was noted in the Upper Arm (right). Grade = 0 11:50:46 A # 20 IV was noted in the Wrist (right). Grade = 0 Patient arrived on 5 mg CARDIZEM given by Daniel Trujillo in Right Arm via Peripheral IV. Orde red by Ronnie, 11:50:59 Daniel. IV Solutions given in lab by Kya Echols, MELLISA in Right Wrist via Peripheral IV. Pump/Drip Fl ow = 20 ml/hr using NaCl 11:51:20 .9. Ordered by Daniel Trujillo. 11:51:51 History and physical on the chart or being dictated. Assessment: Initial Case, CI=947 BPM, Rhythm=afib, TLBO=188/72 mmhg, Chest Pain=0, Edema=Mod, Color=Normal, Skin = Warm Right Pulses: Liban Ped=d, Femoral=2 11:56:06 Left Pulses: Liban Ped=d, Femoral=2 Neurological: State=Alert, Ox3, MORALES Respiration: Resp=18 B/min, SpO2=99 %, O2=3 lpm 11:56:14 Reference ECG taken Vitals capture started with the following parameters, Patient=Adult, Interval=5 min, Initial Pr hqueij=757 mmHg, 11:56:23 Deflation Rate=5 mmHg 11:56:57 AH=530 bpm, UILL=517/72 mmhg, SpO2=99.0 %, Resp=22 B/min, Izaguirre=2 11:57:53 Bilateral groins prepped with 2% chlorhexidine, and with a 3 min. waiting time. 12:01:08 MD paged 12:01:50 HR=92 bpm, JPIC=414/77 mmhg, SpO2=98.0 %, Resp=20 B/min, Pain=0, Magy=10, Izaguirre=2 12:02:03 MD responded 12:06:51 SK=442 bpm, LPLS=880/70 mmhg, SpO2=99.0 %, Resp=17 B/min, Pain=0, Mgay=10, Izaguirre=2 12:06:51 Pressure channel 1 zeroed. 12:11:50 DV=078 bpm, NLEZ=517/72 mmhg, PlZ6=733.0 %, Resp=18 B/min, Pain=0, Magy=10, Izaguirre=2 12:16:51 HR=93 bpm, NIBP=95/66 mmhg, SpO2=99.0 %, Resp=16 B/min, Pain=0, Magy=10, Izaguirre=2 12:16:52 MD arrived Time Out. Correct patient, correct procedure,correct physician, power injector not loaded with contrast with surgical 12:20:02 team present. Time Out Concurred by MD, individual staff in procedure 12:20:22 Case Start 12::28 20 mL 1% XYLOCAINE given in lab by Daniel Trujillo in Right Groin via Subcutaneous. 12:21:48 AV=053 bpm, FBYW=251/67 mmhg, RjN7=084.0 %, Resp=20 B/min, Pain=0, Magy=10, Izaguirre=2 12:24:21 Access site was Right Femoral Artery. 12:24:26 A SHEATH, FR4 TERUMO (10CM) FR 4 was advanced into the Fem Art (right) using the Percutaneo us technique. 12:26:29 Access site was Right Femoral Vein. 12:26:37 A SHEATH, FR5.5 PRELUDE 11CM FR 5 was advanced into the Fem Vein (right) using the Percutan eous technique. 12:26:49 WG=069 bpm, JUCT=497/72 mmhg, SpO2=99.0 %, Resp=25 B/min, Pain=0, Magy=10, Izaguirre=2 12:27:34 A CATHETER, FR5 SWAN LILIA MONITOR FR 5 was inserted via Fem Vein (right) Recorded Pressure: PCW, PA=644, Condition=Condition 1 12:28:32 (Pulmonary Capillary Wedge) PCW Recorded Pressure: MPA, HR=88, Condition=Condition 1 12:29:02 (Main Pulmonary Artery) MPA 12:29:17 Saturation: Site=Ao (Aorta) , O2=96.9 %, Hgb=11.7 gm/dl, Condition=Condition 1. Used in andres culation. 12:29:55 Saturation: Site=PA (Pulmonary Artery) , O2=76.1 %, Hgb=11.7 gm/dl, Condition=Condition 1. Used in calculation. Recorded Pressure: RV, HR=99, Condition=Condition 1 12:30:01 (Right Ventricle) RV Recorded Pressure: RA, GK=911, Condition=Condition 1 12:30:21 (Right Atrium) RA 12:30:59 Saturation: Site=RA (Right Atrium) , O2=77.8 %, Hgb=11.7 gm/dl, Condition=Condition 1. Used in calculation. A JR 4.0 INFINITI CATHETER FR 4 was advanced over a wire. OMNIPAQUE, 350 MG, 150ML 150ML was us ed for 12:31:21 injections. 12:31:54 HR=98 bpm, UEMV=613/68 mmhg, SpO2=99.0 %, Resp=19 B/min, Pain=0, Magy=10, Izaguirre=2 12:33:48 Catheter was removed 12:34:40 20 mL 1% XYLOCAINE given in lab by Daniel Trujillo in Left Groin via Subcutaneous. 12:35:34 Access site was Left Femoral Artery. A JR 4.0 INFINITI CATHETER FR 4 was advanced over a wire. OMNIPAQUE, 350 MG, 150ML 150ML was us ed for 12:36:26 injections. 12:36:51 EH=204 bpm, BHQX=630/74 mmhg, SpO2=99.0 %, Resp=17 B/min, Pain=0, Magy=10, Izaguirre=2 12:37:32 The LV was manually injected with 8 cc's and visualized. OMNIPAQUE, 350 MG, 150ML 150ML use d. Recorded Pressure: LV, JQ=074, Condition=Condition 1 12:37:33 (Left Ventricle) LV 98/6/13 Recorded Pressure: LV, Ao, ER=779, Condition=Condition 1 12:37:36 (Left Ventricle) LV 102/3/1, (Aorta) Ao 103/61/81 12:39:07 The RCA was injected and visualized at various angles. OMNIPAQUE, 350 MG, 150ML 150ML used . 12:39:17 Catheter was removed A JL 4.0 INFINITI CATHETER FR 4 was advanced over a wire. OMNIPAQUE, 350 MG, 150ML 150ML was us ed for 12:39:27 injections. A JL 4.0 INFINITI CATHETER FR 4 was advanced over a wire. OMNIPAQUE, 350 MG, 150ML 150ML was us ed for 12:40:06 injections. 12:41:11 The LCA was injected and visualized at various angles. OMNIPAQUE, 350 MG, 150ML 150ML used . Recorded Pressure: Ao, DR=437, Condition=Condition 1 12:41:51 (Aorta) Ao 104/66/84 12:41:52 FS=456 bpm, DQRD=286/72 mmhg, FzR4=931.0 %, Resp=17 B/min, Pain=0, Magy=10, Izaguirre=2 12:44:20 A WIRE, 3MMJ .035 180CM 180CM was inserted via Fem Art (left). 12:44:59 Catheter was removed 12:46:21 3500 units HEPARIN given in lab by Kya Echols, MELLISA in Right Wrist via Peripheral IV. 12:47:22 NO=986 bpm, NIBP=99/77 mmhg, QuU7=823.0 %, Resp=24 B/min, Pain=0, Magy=10, Izaguirre=2 12:51:48 CJ=516 bpm, LHJZ=803/77 mmhg, LtR4=479.0 %, Resp=19 B/min, Pain=0, Magy=10, Izaguirre=2 12:51:58 Wire removed 12:52:57 Case End 12:53:38 Activated Clotting Time Drawn 12:56:54 QN=744 bpm, NIBP=93/71 mmhg, SpO2=98.0 %, Resp=18 B/min, Pain=0, Magy=10, Izaguirre=2 12:57:24 ACT (Normal Range 90-180) = 215 12:57:53 Catheter(s) removed without difficulty 12:57:56 In the Fem Art (right) the SHEATH, FR4 TERUMO (10CM) FR [address] by Natasha Daniel RCIS(BS). 12:58:04 In the Fem Art (right) the SHEATH, FR5.5 PRELUDE 11CM FR [address] by Vijay Daniel RCIS(BS). 12:58:07 In the Fem Art (left) the SHEATH, FR4 TERUMO (10CM) FR [address] by Shhazad Daniel RCIS(BS). 12:58:20 No case complications noted. 12:58:23 Cine recording checked. 12:58:34 Bedside Report will be given. 12:58:37 Contrast Scanned 12:58:40 A Left and Right Heart Cath was performed. 13:02:21 NIBP=97/65 mmhg, SpO2=99.0 %, Pain=0, Magy=10, Izaguirre=2 13:02:50 Sterile dressing applied to site 13:05:25 IMC called. Advised pt has 3 sheaths and 2 a-lines needed. 13:06:46 Vitals capture stopped. 13:07:33 Patient moved to stretcher End Study - Contrast Media Used In Study Contrast Total Opened (mL) Total Used (mL) Total Wasted (mL) Omnipaque 60 60 0 End Study - Maximum Contrast Load Max Contrast Load (mL) 783.3 End Study - Radiation Exposure Fluoro Time (minutes) 4.0 End Study - Patient Disposition Complications Transferred To Interventional Outcome No Critical Care Bed No attempt made
[2016-10-16] MEDS ORDERED: IOHEXOL 350 MG/ML 100 ML BTL (for Cath Lab) OTHER ONE (13:25)
[2016-10-16] MEDS ORDERED: BACITRACIN OINT 0.9 GM PKT TOP ONE (13:30)
[2016-10-16] MEDS ORDERED: MISC INFORMATION XX ONE (13:30)
[2016-10-16] MEDS ORDERED: SODIUM CHLORIDE 0.9% FLUSH 10 ML FLUSH PRN (13:30)
--- NOTE | 2016-10-16 14:16 | HHI.PR ---
Subjective Remarks awake and alert denies any pain, minimal cough- dry states had a spot in his lung and biopsied about 5 years ago- "tar- no cancer"- [place] Objective Vitals Vital Signs Date Time Temp Pulse Resp B/P Pulse Ox O2 Delivery O2 Flow Rate FiO2 10/16/16 10:00 102 10/16/16 09:14 96 Nasal Cannula 3.00 10/16/16 08:00 84 10/16/16 08:00 98.0 84 45 118/64 97 10/16/16 06:00 85 10/16/16 04:00 80 10/16/16 04:00 97.5 80 22 103/56 97 10/16/16 02:00 93 10/16/16 00:00 87 10/16/16 00:00 97.8 87 32 113/54 97 10/15/16 22:00 95 10/15/16 20:59 93 Nasal Cannula 3.00 10/15/16 20:00 103 10/15/16 20:00 98.7 103 35 115/64 96 10/15/16 18:00 109 10/15/16 16:00 98.1 122 22 112/62 92 10/15/16 16:00 122 I/O 10/15/16 10/15/16 10/15/16 10/16/16 10/16/16 10/16/16 07:00 15:00 23:00 07:00 15:00 23:00 Intake Total 549 ml 773 ml 205 ml 140 ml Output Total 650 ml 2100 ml 600 ml 600 ml Balance -101 ml -1327 ml -395 ml -460 ml Intake Oral 400 ml 600 ml 0 ml IV Total 149 ml 173 ml 205 ml 140 ml Output Urine Total 650 ml 2100 ml 600 ml 600 ml # Bowel Movements 3 1 1 1 Result Diagram: 10/16/16 0520 10/16/16 0520 Imaging Last Impressions Lower Extremity Ultrasound 10/09/16 0000 Signed Impressions: Service Date/Time: Sunday, October 09, 2016 10:52 - CONCLUSION: 1. No DVT identified. Janak Ortiz MD Chest X-Ray 10/09/16 0000 Signed Impressions: Service Date/Time: Sunday, October 09, 2016 03:08 - CONCLUSION: Bibasal infiltrates right worse on left with slight worsening since the fourth Prince Robledo MD CT Angiography 10/09/16 0000 Signed Impressions: Service Date/Time: Sunday, October 09, 2016 10:23 - CONCLUSION: 1. No evidence for pulmonary embolism to the subsegmental level as questioned. 2. Redemonstration of severe centrilobular emphysema with extensive bilateral lower lobe airspace consolidation with probable necrosis. Smaller regions of airspace consolidation in the inferior lingula and right middle lobe. Overall findings are most consistent with severe aspiration versus necrotizing pneumonia. 3. 1.2 cm cavitary nodule in the right upper lobe. Additional nearly spiculated nodular opacities in the left lung base measuring up to 1.7 cm. Although the findings may be infectious in etiology followup to resolution is recommended given the extensive underlying lung disease. 4. Small pericardial effusion. 5. Moderate coronary artery calcifications. 6. Cholelithiasis. Sincere Das MD Lung Scan-VQ Nuclear Medicine 10/08/162037 Signed Impressions: Service Date/Time: Saturday, October 08, 2016 21:37 - CONCLUSION: Intermediate probability for pulmonary embolism. Jesus Hayes MD Abdomen/Pelvis CT 10/08/162028 Signed Impressions: Service Date/Time: Saturday, October 08, 2016 20:52 - CONCLUSION: 1. Extensive emphysema with extensive bibasilar consolidation with cavities likely necrotizing pneumonia. 2. Diverticulosis of the colon. 3. Cholelithiasis. 4. Bilobed distal abdominal aortic aneurysm measuring 3.2 cm with extensive atherosclerotic calcifications of the iliac vasculature. Critical stenosis cannot be excluded. Jesus Hayes MD Objective Remarks awake and alert, cachectic looking anicteric lungs no rales regular rhythm - rate 90s abdomen soft, nontender bilateral groin- sheath in place extremities no edema Procedures 10/16- cardiac catheterization 3V disease A/P Assessment and Plan 71-year-old male with: Respiratory failure secondary to pneumonia, UNDERLYING copd Bilateral pneumonia, , has severe emphysema - has ?necrotizing pneumonia, C/S PSAE - ?infected bullous lesions in his lungs, he has hx severe emphysema 6/5 sputum cx growing pseudomonas Continue width oxygen keep sat >92% Bronchodilators, Solumederol 40mg IV q12. encouraged pt to cough and use acapella. V/Q scan showed intermed prob PE. CTA chest negative for PE, showed severe COPD changes, consolidation lower lobes, 1.2 cm cavitary nodule RUL and spiculated nodular opacities in left base. Doppler US LE negative for DVTD Infectious disease is following. on broad spectrum abx s/p Vanco, Zithromax and levaquin now only on Zosyn per ID Follow up on Blood 10/08: NGTD decrease solumedrol dose Pulmonary spiculated nodule- cavitary- r/o possible underlying cavitary malignancy Pulmonary consult- evaluate for bronchoscopy . CAD S/P cath-10/16 - 3VD A. fib with RVR and elevated troponins - Appreciate cardiology following. Patient is back on Cardizem drip. - Vascular surgery consulted Anemia: Probably has some chronic anemia but H&H trended down since the hospitalization. Significantly improved post PRBC transfusion. Stable GI prophylaxis- On Pepcid 10mg IV Q12 DVT prophylaxis- off Eliquis and place on heparin SQ.. Doppler US LE negative for DVT Dietary consult- cachectic looking Daria Cuenca MD Oct 16, 2016 14:16
--- NOTE | 2016-10-16 15:07 | EKG ---
Date Performed: 10/16/2016 Time Performed: 14:45:36 PTAGE: 71 years EKG: ATRIAL FIBRILLATION LOW QRS VOLTAGE IN EXTREMITY LEADS ANTEROLATERAL MYOCARDIAL INFARCTION , OF INDETERMINATE AGE ABNORMAL ECG COMPARED TO PRIOR ELECTROCARDIOGRAM, Rate has slowed. PREVIOUS TRACING : 10/11/2016 03.56 DOCTOR: Wilson Blood Interpretating Date/Time 10/16/2016 15:06:18
--- NOTE | 2016-10-16 16:11 | PD.CONS ---
History of Present Illness Service CT Surgery Consult Requested By Dr. Trujillo Reason for Consult Multivessel CAD Primary Care Physician [facility] Diagnoses: (1) CAD (coronary artery disease) (2) CHF (congestive heart failure) (3) Cardiomyopathy History of Present Illness Patient is a 71-year-old male, presented to the hospital with acute respiratory failure. He ruled-in for NSTEMI with elevated troponin as well as elevated BNP. He had a profound leukocytosis and pneumonia for which he was treated. He underwent LHC by Dr. Trujillo today and was found to have severe 3 vessel CAD. His EF is reduced at ~45% on ECHO. The patient also reports 80lb weight loss over the past year. He denies h/o cancer, but is a long-time smoker of ~2 ppd quitting recently. He has not been worked up for cancer, but does have a lung mass on chest CT scan. Review of Systems Constitutional: COMPLAINS OF: Fatigue, Weight loss, DENIES: Diaphoretic episodes, Fever, Weight gain, Chills, Dizziness, Change in appetite, Night Sweats Endocrine: DENIES: Heat/cold intolerance, Polydipsia, Polyuria, Polyphagia Eyes: DENIES: Blurred vision, Diplopia, Eye inflammation, Eye pain, Vision loss , Photosensitivity, Double Vision Ears, nose, mouth, throat: DENIES: Tinnitus, Hearing loss, Vertigo, Nasal discharge, Oral lesions, Throat pain, Hoarseness, Ear Pain, Running Nose, Epistaxis, Sinus Pain, Toothache, Odynophagia Respiratory: COMPLAINS OF: Cough, Wheezing, Sputum production, Shortness of breath, DENIES: Apneas, Snoring, Hemoptysis Cardiovascular: DENIES: Chest pain, Palpitations, Syncope, Dyspnea on Exertion , PND, Lower Extremity Edema, Orthopnea, Claudication Gastrointestinal: DENIES: Abdominal pain, Black stools, Bloody stools, Constipation, Diarrhea, Nausea, Vomiting, Difficulty Swallowing, Anorexia Genitourinary: DENIES: Sexual dysfunction, Urinary frequency, Urinary incontinence, Urgency, Hematuria, Dysuria, Nocturia, Penile Discharge, Testicular Pain, Testicular Swelling Musculoskeletal: COMPLAINS OF: Muscle aches, Stiffness, DENIES: Joint pain, Joint Swelling, Back pain, Neck pain Integumentary: DENIES: Abnormal pigmentation, Nail changes, Pruritus, Rash Hematologic/lymphatic: DENIES: Bruising, Lymphadenopathy Immunologic/allergic: DENIES: Eczema, Urticaria Neurologic: COMPLAINS OF: Poor Balance Psychiatric: DENIES: Anxiety, Confusion, Mood changes, Depression, Hallucinations, Agitation, Suicidal Ideation, Homicidal Ideation, Delusions Past Family Social History Allergies: Coded Allergies: No Known Allergies (Unverified , 10/08/16) Past Medical History COPD Tobacco abuse Past Surgical History Orthopedic procedures Active Ordered Medications Current Medications Medications (Trade) Dose Ordered Sig/Satnam Route Start Time Stop Time Status Last Admin (NS Flush) 2 ml UNSCH PRN .XX 10/08/16 23:00 (NS Flush) 2 ml BID .XX 10/09/16 09:00 10/16/16 08:34 (Tylenol) 650 mg Q6H PRN PO 10/08/16 23:00 (Morphine Inj) 2 mg Q2H PRN IV 10/08/16 23:00 (Zofran Inj) 4 mg Q6H PRN IV 10/08/16 23:00 (Reglan Inj) 10 mg Q6H PRN IV 10/08/16 23:00 (Compazine Supp) 25 mg Q12H PRN RECTAL 10/08/16 23:00 Miscellaneous Information 1 Q361D XX 10/08/16 23:00 (Chlorhexidine 2% Cloth) Taper DAILY@04 TOP 10/09/16 04:00 10/05/17 03:59 10/13/16 04:00 (Chlorhexidine 2% Cloth) 3 pack UNSCH PRN TOP 10/08/16 23:00 (Shayy-Colace) 1 tab BID PO 10/09/16 09:00 10/16/16 08:33 (Milk Of Magnesia Liq) 30 ml Q12H PRN PO 10/08/16 23:00 (Senokot) 17.2 mg Q12H PRN PO 10/08/16 23:00 (Dulcolax Supp) 10 mg DAILY PRN RECTAL 10/08/16 23:00 Lactulose 30 ml 30 ml DAILY PRN PO 10/08/16 23:00 Potassium Chloride 100 ml @ 50 mls/hr Q2H PRN IV 10/09/16 14:15 10/10/16 10:10 (KCl 20 Meq Premix Inj) 100 ml @ 50 mls/hr Q2H PRN IV 10/09/16 14:15 10/12/16 10:39 Potassium Bicarb/ Potassium Chloride 50 meq 50 meq UNSCH PRN PO 10/09/16 14:15 10/12/16 06:35 Potassium Chloride 100 ml @ 25 mls/hr UNSCH PRN IV 10/09/16 14:15 Potassium Chloride 100 ml @ 50 mls/hr Q2H PRN IV 10/09/16 14:15 (Magnesium Sulfate Inj/NS Inj) 100 ml @ 50 mls/hr UNSCH PRN IV 10/09/16 14:15 Magnesium Oxide 800 mg 800 mg UNSCH PRN PO 10/09/16 14:15 (Magnesium Sulfate Inj/NS Inj) 100 ml @ 50 mls/hr UNSCH PRN IV 10/09/16 14:15 10/12/16 14:48 Potassium Phosphate 2000 mg 2,000 mg Q4H PRN PO 10/09/16 14:15 (Sodium Phosphate Inj/NS 250 ml Inj) 250 ml @ 42 mls/hr UNSCH PRN IV 10/09/16 14:15 Potassium Phosphate 2000 mg 2,000 mg UNSCH PRN PO/TUBE 10/09/16 14:15 10/11/16 23:28 (Potassium Phosphate Inj/NS 250 ml Inj) 260 ml @ 42 mls/hr UNSCH PRN IV 10/09/16 14:15 (Heparin Inj) 5,000 units Q12HR SQ 10/10/16 21:00 10/15/16 20:02 Aspirin 81 mg 81 mg DAILY PO 10/11/16 09:00 10/15/16 08:00 (Zosyn 4.5 Gm Premix) 100 ml @ 200 mls/hr Q6H IV 10/10/16 16:00 10/16/16 08:35 (Pepcid Inj) 20 mg Q12HR IV PUSH 10/10/16 21:00 10/16/16 08:34 (Cardizem) 60 mg Q6H PO 10/11/16 09:00 10/16/16 08:33 Spironolactone 50 mg 50 mg BID@,18 PO 10/14/16 18:00 10/16/16 08:33 (Cardizem Inj/NS Inj) 125 ml @ 0 mls/hr TITRATE IV 10/14/16 13:45 10/15/16 13:36 (Altace) 5 mg DAILY PO 10/16/16 09:00 10/16/16 08:33 (NS Flush) 2 ml BID .XX 10/16/16 21:00 (NS Flush) 2 ml UNSCH PRN .XX 10/16/16 13:30 (SoluMEDROL INJ) 30 mg Q12HR IV PUSH 10/16/16 21:00 Family History Unremarkable Social History Smokes 2 ppd for ~65yrs until ~1 week prior to hospitalization Denies ETOH 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, a son lives nearby Physical Exam Vital Signs Vital Signs Date Time Temp Pulse Resp B/P Pulse Ox O2 Delivery O2 Flow Rate FiO2 10/16/16 10:00 102 10/16/16 09:14 96 Nasal Cannula 3.00 10/16/16 08:00 84 10/16/16 08:00 98.0 84 45 118/64 97 10/16/16 06:00 85 10/16/16 04:00 80 10/16/16 04:00 97.5 80 22 103/56 97 10/16/16 02:00 93 10/16/16 00:00 87 10/16/16 00:00 97.8 87 32 113/54 97 10/15/16 22:00 95 10/15/16 20:59 93 Nasal Cannula 3.00 10/15/16 20:00 103 10/15/16 20:00 98.7 103 35 115/64 96 10/15/16 18:00 109 10/15/16 16:00 98.1 122 22 112/62 92 10/15/16 16:00 122 Physical Exam GENERAL: This is a severely cachectic patient in no apparent distress. SKIN: No rashes, ecchymoses or lesions. Cool and dry. HEAD: Atraumatic. Normocephalic. No temporal or scalp tenderness. EYES: Pupils equal round and reactive. Extraocular motions intact. No scleral icterus. No injection or drainage. ENT: Nose without bleeding, purulent drainage or septal hematoma. Throat without erythema, tonsillar hypertrophy or exudate. Uvula midline. Airway patent. Endentuous NECK: Trachea midline. No JVD or lymphadenopathy. Supple, nontender, no meningeal signs. CARDIOVASCULAR: Regular rate and rhythm without murmurs, gallops, or rubs. RESPIRATORY: Few expiratory wheezes and bilateral crackles. GASTROINTESTINAL: Abdomen soft, non-tender, nondistended. No hepato-splenomegaly , or palpable masses. No guarding. MUSCULOSKELETAL: Extremities without clubbing, cyanosis, or edema. No joint tenderness, effusion, or edema noted. No calf tenderness. Negative Homans sign bilaterally. NEUROLOGICAL: Awake and alert. Cranial nerves II through XII intact. Motor and sensory grossly within normal limits. Five out of 5 muscle strength in all muscle groups. Normal speech. Laboratory Laboratory Tests Test 10/16/16 10/16/16 05:20 11:00 White Blood Count 16.1 Red Blood Count 5.33 Hemoglobin 11.7 Hematocrit 36.7 Mean Corpuscular Volume 68.9 Mean Corpuscular Hemoglobin 21.9 Mean Corpuscular Hemoglobin 31.8 Concent Red Cell Distribution Width 17.9 Platelet Count 288 Mean Platelet Volume 9.8 Sodium Level 139 Potassium Level 3.6 Chloride Level 97 Carbon Dioxide Level 36.5 Anion Gap 6 Blood Urea Nitrogen 10 Creatinine 0.36 Estimat Glomerular Filtration 239 Rate Random Glucose 72 Calcium Level 8.3 B-Type Natriuretic Peptide 463 Urine Color LIGHT-YELLOW Urine Turbidity CLEAR Urine pH 8.5 Urine Specific Elizabeth 1.006 Urine Protein NEG Urine Glucose (UA) NEG Urine Ketones NEG Urine Occult Blood NEG Urine Nitrite NEG Urine Bilirubin NEG Urine Urobilinogen LESS THAN 2.0 Urine Leukocyte Esterase NEG Urine RBC 2 Urine WBC 1 Urine Mucus FEW Microscopic Urinalysis Comment CULT NOT INDICATED Result Diagram: 10/16/16 0520 10/16/16 0520 Imaging Last Impressions Lower Extremity Ultrasound 10/09/16 0000 Signed Impressions: Service Date/Time: Sunday, October 09, 2016 10:52 - CONCLUSION: 1. No DVT identified. Janak Ortiz MD Chest X-Ray 10/09/16 0000 Signed Impressions: Service Date/Time: Sunday, October 09, 2016 03:08 - CONCLUSION: Bibasal infiltrates right worse on left with slight worsening since the fourth Prince Robledo MD CT Angiography 10/09/16 0000 Signed Impressions: Service Date/Time: Sunday, October 09, 2016 10:23 - CONCLUSION: 1. No evidence for pulmonary embolism to the subsegmental level as questioned. 2. Redemonstration of severe centrilobular emphysema with extensive bilateral lower lobe airspace consolidation with probable necrosis. Smaller regions of airspace consolidation in the inferior lingula and right middle lobe. Overall findings are most consistent with severe aspiration versus necrotizing pneumonia. 3. 1.2 cm cavitary nodule in the right upper lobe. Additional nearly spiculated nodular opacities in the left lung base measuring up to 1.7 cm. Although the findings may be infectious in etiology followup to resolution is recommended given the extensive underlying lung disease. 4. Small pericardial effusion. 5. Moderate coronary artery calcifications. 6. Cholelithiasis. Sincere Das MD Lung Scan-VQ Nuclear Medicine 10/08/162037 Signed Impressions: Service Date/Time: Saturday, October 08, 2016 21:37 - CONCLUSION: Intermediate probability for pulmonary embolism. Jesus Hayes MD Abdomen/Pelvis CT 10/08/162028 Signed Impressions: Service Date/Time: Saturday, October 08, 2016 20:52 - CONCLUSION: 1. Extensive emphysema with extensive bibasilar consolidation with cavities likely necrotizing pneumonia. 2. Diverticulosis of the colon. 3. Cholelithiasis. 4. Bilobed distal abdominal aortic aneurysm measuring 3.2 cm with extensive atherosclerotic calcifications of the iliac vasculature. Critical stenosis cannot be excluded. Jesus Hayes MD Course The patient has improved with antibiotics and repiratory therapy. He is clinically stable, but remains very cachectic. Assessment and Plan Problem List: (1) Cardiomyopathy Status: Acute (2) CAD (coronary artery disease) Status: Acute (3) NSTEMI (non-ST elevated myocardial infarction) Status: Acute (4) COPD (chronic obstructive pulmonary disease) Status: Acute (5) Lung mass Status: Acute Assessment and Plan Cachectic 71 y/o male with 80 lb weight loss presents with pneumonia and respiratory failure. Ruled-in for NSTEMI. He has multivessel CAD on [facility] [place] with reduced EF. He also most likely has an underlying malignancy which needs to be evaluated. I will request PFTs and recommend percutaneous needle biopsy of the RUL mass at some point. He may not be a surgical candidate. Will follow. Discussed Condition With patient Problem Qualifiers (1) CAD (coronary artery disease): Qualified Code: I25.10 - Coronary artery disease involving three affiliated coronary artery of three affiliated heart, angina presence unspecified (2) CHF (congestive heart failure): Qualified Code: I50.43 - Acute on chronic combined systolic and diastolic congestive heart failure (3) Cardiomyopathy: Qualified Code: I25.5 - Ischemic cardiomyopathy (4) COPD (chronic obstructive pulmonary disease): Qualified Code: J43.2 - Centrilobular emphysema Nahomi Miller MD Oct 16, 2016 16:11
[2016-10-16] MEDS: DILTIAZEM INJ 125 MG in SODIUM CHLORIDE 0.9% INJ 100 ML IV SCH (17:49)
[2016-10-17] VITALS (14 sets, daily range): BP systolic 85–116; BP diastolic 54–60; PULSE 79–92; RESP 12–33; TEMP 97.1–99.5; O2SAT 93–100
[2016-10-17] MEDS: PIPERACIL-TAZO 4.5 GM PREMIX 100 ML IV SCH ×4 (03:45→21:04)
[2016-10-17] MEDS: DILTIAZEM HCL 60 MG TAB PO SCH ×4 (03:45→21:03)
[2016-10-17] MEDS: CHLORHEXIDINE GLUCONATE 2 % 1 PACK (2 CLOTHS) TOP SCH (03:45)
[2016-10-17 06:06] LABS: AUTOMATED NEUTROPHIL # 17.9 TH/MM3 (1.8-7.7); BASOPHIL % 0.1 % (0.0-2.0); HEMATOCRIT 38.1 % (39.0-51.0); HEMO FLAGS DIFF FINAL; LYMPH % 1.3 % (9.0-44.0); LYMPHOCYTE # 0.2 TH/MM3 (1.0-4.8); MEAN CORPUSCULAR HEMOGLOBIN 21.9 PG (27.0-34.0); MEAN CORPUSCULAR HGB CONC 31.7 % (32.0-36.0); MONO % 2.1 % (0.0-8.0); NEUT % 96.5 % (16.0-70.0); PLATELET COUNT 286 TH/MM3 (150-450); RED BLOOD COUNT 5.52 MIL/MM3 (4.50-5.90); RED CELL DISTRIBUTION WIDTH 17.2 % (11.6-17.2); WHITE BLOOD COUNT 18.6 TH/MM3 (4.0-11.0)
[2016-10-17 06:18] LABS: BICARBONATE 32.7 MEQ/L (21.0-32.0); POTASSIUM 4.2 MEQ/L (3.5-5.1)
[2016-10-17] MEDS: RESP: ALBUTEROL 2.5 MG/IPRATROPIUM 0.5 MG NEB (PRN) INH (07:46)
--- NOTE | 2016-10-17 08:02 | MB ---
cc: SALOMÓN FAITH DATE OF CONSULTATION 10/16/[address] Cuenca REASON FOR CONSULTATION Evaluation of lung infiltrate, lung nodules. HISTORY OF PRESENT ILLNESS Mr. Putnam is a pleasant 71-year-old very cachectic male with history of COPD, nicotine use and weight loss. He has lost about 60 pounds of weight over the last couple of years. He came to the with worsening of his shortness of breath, has weakness. He has oxygen at home. Because of the worsening of his symptoms, he called his neighbor and he was brought to the hospital. He had a workup done. He had a CTA of chest done which shows he has no pulmonary embolism. He has severe central lobular emphysema, bilateral lower lobe airspace consolidation, a 1.2 cm cavitary nodule in the right upper lobe and 1.7 cm left base nodule, moderate coronary calcification. The patient tells me that he had a lung biopsy done before at one of the [facility] facilities and as per the patient was benign. His CBC showed WBC count of 16.1, hemoglobin 11.7, hematocrit 36.7, MCV 68, platelet count 288. Sodium 139, potassium 3.6, chloride 97, CO2 36, BUN 10, creatinine 0.36. His blood gas - pH 7.43, pCO2 35, pO2 90. PAST MEDICAL HISTORY 1. History of severe COPD. He is oxygen dependent. 2. History of right knee surgery. 3. Weight loss. MEDICATIONS He is currently taking - 1. Solu-Medrol 30 mg q.12 hours. 2. Ramipril 5 mg daily. 3. Spironolactone 50 mg a day. 4. Diltiazem IV. 5. Aspirin 81 mg a day. 6. Heparin 5000 q. 12 hours. 7. Lamotrigine 20 mg a day. 8. Zosyn IV. 9. Potassium supplement. 10. Morphine for pain. ALLERGIES No known drug allergies. 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 He is . He has a history of smoking until a few weeks ago. He was smoking 1-1/2 packs per day. FAMILY HISTORY He has a son and a daughter. REVIEW OF SYSTEMS He has lost 60 pounds of weight, feels very weak, barely gets up and walks. No hemoptysis. No DVT or pulmonary embolism. PHYSICAL EXAMINATION GENERAL: A frail, cachectic male, mildly short of breath. VITAL SIGNS: Blood pressure 98/54, heart rate 97, respiration 18, temperature 99.1. HEENT EXAMINATION: Pupils are equal and react to light. He has temporal wasting. NECK: Supple. JVP not raised. CHEST: He has a few rales at the bases. He has a hyperresonant chest. A few wheezes. CV: S1 and S2 normal. ABDOMEN: Benign. EXTREMITIES: No edema. IMPRESSION 1. Bibasilar lung infiltrate likely from pneumonia. 2. Right upper lobe and left lower lobe lung nodules, possible inflammatory process. The patient does tell me that he had a biopsy done before which was benign. 3. Nicotine use. 4. Severe weight loss and malnutrition. PLAN I discussed with the patient to quit smoking, continue his antibiotic. He will need a repeat CT scan of the chest after resolution of the pneumonia to see if any of the nodules persist and then he may need a PET scan and biopsy. Further treatment will depend on the course in the hospital. Thank you Dr. Cuenca for this consultation. MD CYNTHIA Pedraza/GILDARDO /7:57 PM /7:51 AM
[2016-10-17] MEDS: HEPARIN SODIUM - SQ 10,000 UNITS/ML VIAL SQ SCH (08:34)
[2016-10-17] MEDS: methylPREDNISolone SOD SUCC 40 MG/1 ML VIAL IV PUSH SCH ×2 (08:34→21:04)
[2016-10-17] MEDS: FAMOTIDINE 20 MG/2 ML VIAL IV PUSH SCH ×2 (08:35→21:03)
[2016-10-17] MEDS: SPIRONOLACTONE 50 MG TAB PO SCH ×2 (08:35→17:36)
[2016-10-17] MEDS: RAMIPRIL 5 MG CAP PO SCH (08:35)
[2016-10-17] MEDS: ASPIRIN EC 81 MG TABEC PO SCH (08:35)
[2016-10-17] MEDS: DOCUSATE SODIUM 50 MG/SENNA 8.6 MG TAB PO SCH ×2 (08:35→21:03)
[2016-10-17] MEDS: SODIUM CHLORIDE 0.9% FLUSH 10 ML FLUSH SCH ×4 (08:36→21:03)
--- NOTE | 2016-10-17 09:53 | HHI.IDPN ---
Subjective Subjective Remarks Notes reviewed Temps ok BP ok No new complaints Not coughing much, no CP Not SOB No N/V Denies diarrhea No abdominal pain No dysuria, UA ok Cardiac cath with CAD CTS evaluation noted Pulmonary evaluation noted WBC rising Steroid dose being decreased Repeat CXR pending Converted to NSR early AM Sputum C/S with Pseudomonas aeruginosa CT chest with extensive emphysema and findings of possible necrotizing pneumonia Antibiotics Zosyn Lines PIV Past Medical History Right hip ORIF, Right knee surgery, Jaw surgery. Allergies: Coded Allergies: No Known Allergies (Unverified , 10/08/16) Objective . Vital Signs Date Time Temp Pulse Resp B/P Pulse Ox O2 Delivery O2 Flow Rate FiO2 10/17/16 07:47 97 Nasal Cannula 3.00 10/17/16 06:00 87 10/17/16 04:00 90 10/17/16 04:00 97.3 90 16 90/55 94 10/17/16 02:00 79 10/17/16 00:00 97.1 81 18 111/56 96 10/17/16 00:00 81 10/16/16 23:00 85 21 103/60 94 10/16/16 22:00 89 19 90/53 96 10/16/16 22:00 89 10/16/16 21:00 94 24 96/52 94 10/16/16 20:00 98 10/16/16 20:00 97.0 98 21 102/59 94 10/16/16 19:40 98 Nasal Cannula 3.00 10/16/16 18:00 94 10/16/16 16:00 99.1 88 13 98/54 98 10/16/16 16:00 97 10/16/16 14:50 93 21 106/57 97 10/16/16 14:30 105 24 101/62 95 10/16/16 14:15 94 24 107/57 95 10/16/16 14:00 99 23 101/56 94 10/16/16 14:00 102 10/16/16 13:45 100 20 98/61 97 10/16/16 13:30 98.5 122 21 114/65 93 10/16/16 10:00 102 10/16/16 10/16/16 10/17/16 15:00 23:00 07:00 Intake Total 535 ml 629 ml 265 ml Output Total 2100 ml 300 ml 700 ml Balance -1565 ml 329 ml -435 ml Intake Oral 480 ml 240 ml 100 ml IV Total 55 ml 389 ml 165 ml Output Urine Total 2100 ml 300 ml 700 ml # Bowel Movements 3 1 . Laboratory Tests Test 10/16/16 10/17/16 05:20 04:48 White Blood Count 16.1 TH/MM3 18.6 TH/MM3 Red Blood Count 5.33 MIL/MM3 5.52 MIL/MM3 Hemoglobin 11.7 GM/DL 12.1 GM/DL Hematocrit 36.7 % 38.1 % Mean Corpuscular Volume 68.9 FL 69.0 FL Mean Corpuscular Hemoglobin 21.9 PG 21.9 PG Mean Corpuscular Hemoglobin 31.8 % 31.7 % Concent Red Cell Distribution Width 17.9 % 17.2 % Platelet Count 288 TH/MM3 286 TH/MM3 Mean Platelet Volume 9.8 FL 9.6 FL Neutrophils (%) (Auto) 96.5 % Lymphocytes (%) (Auto) 1.3 % Monocytes (%) (Auto) 2.1 % Eosinophils (%) (Auto) 0.0 % Basophils (%) (Auto) 0.1 % Neutrophils # (Auto) 17.9 TH/MM3 Lymphocytes # (Auto) 0.2 TH/MM3 Monocytes # (Auto) 0.4 TH/MM3 Eosinophils # (Auto) 0.0 TH/MM3 Basophils # (Auto) 0.0 TH/MM3 CBC Comment DIFF FINAL Differential Comment Laboratory Tests Test 10/16/16 10/17/16 05:20 04:48 Sodium Level 139 MEQ/L 136 MEQ/L Potassium Level 3.6 MEQ/L 4.2 MEQ/L Chloride Level 97 MEQ/L 94 MEQ/L Carbon Dioxide Level 36.5 MEQ/L 32.7 MEQ/L Anion Gap 6 MEQ/L 9 MEQ/L Blood Urea Nitrogen 10 MG/DL 12 MG/DL Creatinine 0.36 MG/DL 0.39 MG/DL Estimat Glomerular Filtration 239 ML/MIN 218 ML/MIN Rate Random Glucose 72 MG/DL 96 MG/DL Calcium Level 8.3 MG/DL 8.2 MG/DL B-Type Natriuretic Peptide 463 PG/ML Imaging Lower Extremity Ultrasound 10/09/16 0000 Signed Impressions: Service Date/Time: Sunday, October 09, 2016 10:52 - CONCLUSION: 1. No DVT identified. Janak Ortiz MD Chest X-Ray 10/09/16 0000 Signed Impressions: Service Date/Time: Sunday, October 09, 2016 03:08 - CONCLUSION: Bibasal infiltrates right worse on left with slight worsening since the fourth Prince Robledo MD CT Angiography 10/09/16 0000 Signed Impressions: Service Date/Time: Sunday, October 09, 2016 10:23 - CONCLUSION: 1. No evidence for pulmonary embolism to the subsegmental level as questioned. 2. Redemonstration of severe centrilobular emphysema with extensive bilateral lower lobe airspace consolidation with probable necrosis. Smaller regions of airspace consolidation in the inferior lingula and right middle lobe. Overall findings are most consistent with severe aspiration versus necrotizing pneumonia. 3. 1.2 cm cavitary nodule in the right upper lobe. Additional nearly spiculated nodular opacities in the left lung base measuring up to 1.7 cm. Although the findings may be infectious in etiology followup to resolution is recommended given the extensive underlying lung disease. 4. Small pericardial effusion. 5. Moderate coronary artery calcifications. 6. Cholelithiasis. Sincere Das MD Lung Scan-V Nuclear Medicine 10/08/162037 Signed Impressions: Service Date/Time: Saturday, October 08, 2016 21:37 - CONCLUSION: Intermediate probability for pulmonary embolism. Jesus Hayes MD Abdomen/Pelvis CT 10/08/162028 Signed Impressions: Service Date/Time: Saturday, October 08, 2016 20:52 - CONCLUSION: 1. Extensive emphysema with extensive bibasilar consolidation with cavities likely necrotizing pneumonia. 2. Diverticulosis of the colon. 3. Cholelithiasis. 4. Bilobed distal abdominal aortic aneurysm measuring 3.2 cm with extensive atherosclerotic calcifications of the iliac vasculature. Critical stenosis cannot be excluded. Jesus Hayes MD Physical Exam GENERAL: Patient is a cachectic, awake and alert, comfortable at rest SKIN: Warm and dry. No generalized rash. IV sites look ok HEENT: [place] conjunctiva. No petechia or hemorrhage. No scleral icterus. Moist mucosa. No oral thrush. He is edentulous NECK: Trachea midline. Supple and not tender, no meningeal signs CARDIOVASCULAR: Regular rate and rhythm. No murmurs, rubs or gallops heard RESPIRATORY: Decreased BS whole lung ramires. Rib cage very prominent due to weight loss. ABDOMEN: Soft, non-tender, nondistended. Bowel sounds present and normoactive. No guarding. No rebound. No organomegaly. EXTREMITIES: No clubbing, cyanosis. Has mild ankle edema. No joint effusion , has good ROM. No calf tenderness. Well perfused and warm. NEUROLOGICAL: Non-focal. PSYCHIATRIC: Normal affect, calm and cooperative. LINE: No evidence of infection : Has a collection bag around shaft with clear urine Assessment & Plan Remarks IMPRESSION Bilateral pneumonia, ?with underlying bronchiectasis, has severe emphysema - has ?necrotizing pneumonia, C/S PSAE - ?infected bullous lesions in his lungs, he has hx severe emphysema COPD, emphysema Leukocytosis, up again - no obvious etiology? - he looks clinically stable Cachexia ?Malignancy RECOMMENDATION Continue Zosyn - PSAE coverage CXR - will follow, still pending Follow CBC Monitor progress Pulmonary evaluation - ?needle biopsy while here in the hospital, ?bronch D/W RN Explained plan to the patient Zonia Lake MD Oct 17, 2016 09:53
--- NOTE | 2016-10-17 09:56 | MA ---
cc: ROSANNE BARDALES M.D. DATE 10/16/2016 PROCEDURE PERFORMED Right heart catheterization, left heart catheterization, left ventriculography, coronary angiography INDICATION Non-STEMI coronary artery disease, congestive heart failure, atrial fibrillation. PROCEDURAL STATEMENT The patient was brought to the heart catheterization, prepped and in the usual sterile fashion. Ten cc of 1% lidocaine was used to locally anesthetize the right common femoral artery and right common femoral vein area and the left common femoral artery area. 4-Brazilian sheath was placed in the right common femoral artery and the left common femoral artery. A 5-Brazilian sheath placed in the small common femoral vein. Right heart catheterization was performed first with following findings: Capillary wedge pressure 11/10-8. PA pressure 31/78-23. RV pressure 30/1-3. RA pressure 5/4-3 Cardiac output by Ariane on three liters nasal cannula 5.9 liters per minute. Cardiac index by Ariane 3.8 liters per meter squared per minute. SVR 1059 dynes Sats on three liters femoral artery sat 96.9%. PA sat 76.1%. RA sat 77.8%. Left heart catheterization was then performed with a following findings: LV pressures were 5/10-12, ejection fraction 55%. The right coronary artery is dominant. It is heavily calcified fluoroscopically. There is a heavily calcified focal 95% stenosis in the proximal segment with a large eccentric segment of calcium. The distal right coronary artery has a 60% stenosis. The right posterolateral artery is occluded at the ostium. The ostium of the right PDA has a 70% stenosis. The left main coronary artery has no significant disease angiographically. The ACT was 215. The left main coronary artery has no significant disease angiographically. The left circumflex vessel is heavily calcified fluoroscopically in the proximal segment. The mid AV groove of the left circ has moderate disease up to 30-40% angiographically. The first obtuse marginal vessel is a small 1.0-1.5 mm vessel with an ostial 60% stenosis. The second obtuse marginal vessel is a small 1.0 mm vessel with possibly an ostial 90% stenosis. It is a 1 mm vessel, however. The third obtuse marginal vessel is a small to medium size vessel with an ostial 30-40% stenosis. There is a distal posterolateral artery which is a [id number] size vessel with no significant obstructive disease. There are [id number] collaterals to the right posterolateral artery. The right posterolateral artery after it fills is maybe a 1.5 mm diameter vessel. The LAD is transapical. It has a proximal 90% stenosis. The first diagonal artery is small 1 mm in diameter with no significant obstructive disease. The second diagonal artery is small with no significant obstructive disease. This is also bfoy-us-myekq collaterals from the LAD to a small posterolateral artery. Also note, I was not able to access the right common femoral artery approach due to an occlusion of the right common iliac artery which I imaged fluoroscopically. I was able to perform left heart catheterization through the left common femoral artery, however, I did require quite a bit of catheter manipulations securing of the of 0.035 J-tip guidewire as there was severe heavy calcification fluoroscopically in the distal aorta and bilateral common iliac arteries and external iliac arteries. Thereafter, all catheter exchanges were done over a wire. I did leave an 0.035 wire in the descending aorta. I was waiting for Dr. Miller to review the films. Therefore we did not heparinize the patient with 70 units/kilo of heparin. ACT was 215. CONCLUSION 1. Severe two-vessel coronary artery disease in a right dominant system as detailed above. 2. Normal LV systolic function ejection fraction 55%. Note, the posterior wall is severely hypokinetic to akinetic. 3. I reviewed the films a Dr. Nahomi Miller. At this point time, Dr. Miller thinks the patient is a candidate for CABG and We will proceed with preop evaluation. Further recommendations will be based on the preop evaluation. Meanwhile, we will continue optimal medical therapy. MD SUBHA Patel/CHAITANYA /1:02 PM /9:45 AM
--- NOTE | 2016-10-17 10:31 | EKG ---
Date Performed: 10/17/2016 Time Performed: 07:08:51 PTAGE: 71 years EKG: Sinus rhythm LOW QRS VOLTAGE IN EXTREMITY LEADS ANTEROLATERAL MYOCARDIAL INFARCTION , OF INDETERMINATE AGE ABNORM AL ECG COMPARED TO PRIOR ELECTROCARDIOGRAM, It appears sinus rhythm has replaced atrial fibrillation. PREVIOUS TRACING : 10/16/2016 14.45 DOCTOR: Wilson Blood Interpretating Date/Time 10/17/2016 10:29:56
--- NOTE | 2016-10-17 13:31 | RADRPT ---
EXAM DATE/TIME: 10/17/2016 11:47 [facility] COMPARISON: No previous studies available for comparison. INDICATIONS : Follow up pneumonia. MEDICAL HISTORY : Emphysema. SURGICAL HISTORY : None. ENCOUNTER: Initial ACUITY: 4 - 6 days PAIN SCORE: 0/10 LOCATION: Bilateral chest FINDINGS: As been significant interval improvement in previously noted bilateral lower lobe airspace disease. H owever, there is residual airspace disease noted primarily in the posterior lower lobes bilaterally. There is redemonstration of lung hyperinflation with diffuse interstitial prominence and biapical sca rring. Cardiac mediastinal contours are unchanged. Remainder of the exam is stable. CONCLUSION: 1. Significant interval improvement of bilateral lower lobe airspace disease with residual consolidat ion in the posterior lower lobes bilaterally. The findings are most concerning for aspiration althoug h pneumonia is in the differential diagnosis. Sincere Das MD on October 17, 2016 at 12:06 Board Certified Radiologist. This report was verified electronically.
--- NOTE | 2016-10-17 13:42 | PD.CARD.PN ---
Subjective Subjective Remarks alert in nad Objective Vital Signs / I&O Vital Signs Date Time Temp Pulse Resp B/P Pulse Ox O2 Delivery O2 Flow Rate FiO2 10/17/16 12:00 91 10/17/16 12:00 98.9 91 26 116/56 95 10/17/16 10:00 91 10/17/16 08:00 87 10/17/16 08:00 97.9 87 12 85/54 100 10/17/16 07:47 97 Nasal Cannula 3.00 10/17/16 06:00 87 10/17/16 04:00 90 10/17/16 04:00 97.3 90 16 90/55 94 10/17/16 02:00 79 10/17/16 00:00 97.1 81 18 111/56 96 10/17/16 00:00 81 10/16/16 23:00 85 21 103/60 94 10/16/16 22:00 89 19 90/53 96 10/16/16 22:00 89 10/16/16 21:00 94 24 96/52 94 10/16/16 20:00 98 10/16/16 20:00 97.0 98 21 102/59 94 10/16/16 19:40 98 Nasal Cannula 3.00 10/16/16 18:00 94 10/16/16 16:00 99.1 88 13 98/54 98 10/16/16 16:00 97 10/16/16 14:50 93 21 106/57 97 10/16/16 14:30 105 24 101/62 95 10/16/16 14:15 94 24 107/57 95 10/16/16 14:00 99 23 101/56 94 10/16/16 14:00 102 10/16/16 13:45 100 20 98/61 97 I/O 10/16/16 10/16/16 10/16/16 10/17/16 10/17/16 10/17/16 07:00 15:00 23:00 07:00 15:00 23:00 Intake Total 140 ml 535 ml 629 ml 265 ml Output Total 600 ml 2100 ml 300 ml 700 ml Balance -460 ml -1565 ml 329 ml -435 ml Intake Oral 0 ml 480 ml 240 ml 100 ml IV Total 140 ml 55 ml 389 ml 165 ml Output Urine Total 600 ml 2100 ml 300 ml 700 ml # Bowel Movements 1 3 1 Physical Exam GENERAL: SKIN: Warm and dry. HEAD: Normocephalic. EYES: No scleral icterus. No injection or drainage. NECK: Supple, trachea midline. No JVD or lymphadenopathy. CARDIOVASCULAR: Regular rate and rhythm without murmurs, gallops, or rubs. RESPIRATORY: Breath sounds equal bilaterally. No accessory muscle use. GASTROINTESTINAL: Abdomen soft, non-tender, nondistended. MUSCULOSKELETAL: No cyanosis, or edema. BACK: Nontender without obvious deformity. No CVA tenderness. Laboratory Laboratory Tests Test 10/17/16 04:48 White Blood Count 18.6 TH/MM3 Red Blood Count 5.52 MIL/MM3 Hemoglobin 12.1 GM/DL Hematocrit 38.1 % Mean Corpuscular Volume 69.0 FL Mean Corpuscular Hemoglobin 21.9 PG Mean Corpuscular Hemoglobin 31.7 % Concent Red Cell Distribution Width 17.2 % Platelet Count 286 TH/MM3 Mean Platelet Volume 9.6 FL Neutrophils (%) (Auto) 96.5 % Lymphocytes (%) (Auto) 1.3 % Monocytes (%) (Auto) 2.1 % Eosinophils (%) (Auto) 0.0 % Basophils (%) (Auto) 0.1 % Neutrophils # (Auto) 17.9 TH/MM3 Lymphocytes # (Auto) 0.2 TH/MM3 Monocytes # (Auto) 0.4 TH/MM3 Eosinophils # (Auto) 0.0 TH/MM3 Basophils # (Auto) 0.0 TH/MM3 CBC Comment DIFF FINAL Differential Comment Sodium Level 136 MEQ/L Potassium Level 4.2 MEQ/L Chloride Level 94 MEQ/L Carbon Dioxide Level 32.7 MEQ/L Anion Gap 9 MEQ/L Blood Urea Nitrogen 12 MG/DL Creatinine 0.39 MG/DL Estimat Glomerular Filtration 218 ML/MIN Rate Random Glucose 96 MG/DL Calcium Level 8.2 MG/DL Assessment and Plan Problem List: (1) Tobacco abuse (2) Anemia (3) Cardiomyopathy (4) CHF (congestive heart failure) (5) CAD (coronary artery disease) Assessment and Plan 1.) CAD/cardiomyopathy - betablocker held due to copd, continue aspirin, check lipids; increase altace 5 mg qd, continue aldactone 50 mg bid, cabg work/up per Dr Miller, f/u bnp in am 2.) Af - rvr, improved after transfusion and cardizem drip, ac held due to hypotension and anemia, cont aspirin 81 mg qd, f/u cbc 3.) Anemia - improved s/p transfusion, d/w Dr Branden Pringle, he suspects dilution , defer to Dr Pringle Problem Qualifiers (1) Cardiomyopathy: Qualified Code: I25.5 - Ischemic cardiomyopathy (2) CHF (congestive heart failure): Qualified Code: I50.43 - Acute on chronic combined systolic and diastolic congestive heart failure (3) CAD (coronary artery disease): Qualified Code: I25.10 - Coronary artery disease involving [place] coronary artery of [place] heart, angina presence unspecified Daniel Trujillo MD Oct 17, 2016 13:42
--- NOTE | 2016-10-17 15:02 | PD.CAR.PN ---
CVT Progress Note Subjective/Hospital Course: Denies chest pain, hemodynamically stable Objective: Vital Signs Date Time Temp Pulse Resp B/P Pulse Ox O2 Delivery O2 Flow Rate FiO2 10/17/16 14:00 92 10/17/16 12:00 91 10/17/16 12:00 98.9 91 26 116/56 95 10/17/16 10:00 91 10/17/16 08:00 87 10/17/16 08:00 97.9 87 12 85/54 100 10/17/16 07:47 97 Nasal Cannula 3.00 10/17/16 06:00 87 10/17/16 04:00 90 10/17/16 04:00 97.3 90 16 90/55 94 10/17/16 02:00 79 10/17/16 00:00 97.1 81 18 111/56 96 10/17/16 00:00 81 10/16/16 23:00 85 21 103/60 94 10/16/16 22:00 89 19 90/53 96 10/16/16 22:00 89 10/16/16 21:00 94 24 96/52 94 10/16/16 20:00 98 10/16/16 20:00 97.0 98 21 102/59 94 10/16/16 19:40 98 Nasal Cannula 3.00 10/16/16 18:00 94 10/16/16 16:00 99.1 88 13 98/54 98 10/16/16 16:00 97 Labs: Laboratory Tests Test 10/17/16 04:48 White Blood Count 18.6 TH/MM3 (4.0-11.0) Red Blood Count 5.52 MIL/MM3 (4.50-5.90) Hemoglobin 12.1 GM/DL (13.0-17.0) Hematocrit 38.1 % (39.0-51.0) Mean Corpuscular Volume 69.0 FL (80.0-100.0) Mean Corpuscular Hemoglobin 21.9 PG (27.0-34.0) Mean Corpuscular Hemoglobin 31.7 % Concent (32.0-36.0) Red Cell Distribution Width 17.2 % (11.6-17.2) Platelet Count 286 TH/MM3 (150-450) Mean Platelet Volume 9.6 FL (7.0-11.0) Neutrophils (%) (Auto) 96.5 % (16.0-70.0) Lymphocytes (%) (Auto) 1.3 % (9.0-44.0) Monocytes (%) (Auto) 2.1 % (0.0-8.0) Eosinophils (%) (Auto) 0.0 % (0.0-4.0) Basophils (%) (Auto) 0.1 % (0.0-2.0) Neutrophils # (Auto) 17.9 TH/MM3 (1.8-7.7) Lymphocytes # (Auto) 0.2 TH/MM3 (1.0-4.8) Monocytes # (Auto) 0.4 TH/MM3 (0-0.9) Eosinophils # (Auto) 0.0 TH/MM3 (0-0.4) Basophils # (Auto) 0.0 TH/MM3 (0-0.2) CBC Comment DIFF FINAL Differential Comment Sodium Level 136 MEQ/L (136-145) Potassium Level 4.2 MEQ/L (3.5-5.1) Chloride Level 94 MEQ/L (98-107) Carbon Dioxide Level 32.7 MEQ/L (21.0-32.0) Anion Gap 9 MEQ/L (5-15) Blood Urea Nitrogen 12 MG/DL (7-18) Creatinine 0.39 MG/DL (0.60-1.30) Estimat Glomerular Filtration 218 ML/MIN Rate (>89) Random Glucose 96 MG/DL (74-106) Calcium Level 8.2 MG/DL (8.5-10.1) Result Diagram: 10/17/168 10/17/168 Imaging: Last Impressions Chest X-Ray 10/17/16 Signed Impressions: Service Date/Time: Monday, October 17, 2016 11:47 - CONCLUSION: 1. Significant interval improvement of bilateral lower lobe airspace disease with residual consolidation in the posterior lower lobes bilaterally. The findings are most concerning for aspiration although pneumonia is in the differential diagnosis. Sincere Das MD Lower Extremity Ultrasound 10/09/16 Signed Impressions: Service Date/Time: Sunday, October 09, 2016 10:52 - CONCLUSION: 1. No DVT identified. Janak Ortiz MD CT Angiography 10/09/16 Signed Impressions: Service Date/Time: Sunday, October 09, 2016 10:23 - CONCLUSION: 1. No evidence for pulmonary embolism to the subsegmental level as questioned. 2. Redemonstration of severe centrilobular emphysema with extensive bilateral lower lobe airspace consolidation with probable necrosis. Smaller regions of airspace consolidation in the inferior lingula and right middle lobe. Overall findings are most consistent with severe aspiration versus necrotizing pneumonia. 3. 1.2 cm cavitary nodule in the right upper lobe. Additional nearly spiculated nodular opacities in the left lung base measuring up to 1.7 cm. Although the findings may be infectious in etiology followup to resolution is recommended given the extensive underlying lung disease. 4. Small pericardial effusion. 5. Moderate coronary artery calcifications. 6. Cholelithiasis. Sincere Das MD Lung Scan-VQ Nuclear Medicine 10/08/162037 Signed Impressions: Service Date/Time: Saturday, October 08, 2016 21:37 - CONCLUSION: Intermediate probability for pulmonary embolism. Jesus Hayes MD Abdomen/Pelvis CT 10/08/162028 Signed Impressions: Service Date/Time: Saturday, October 08, 2016 20:52 - CONCLUSION: 1. Extensive emphysema with extensive bibasilar consolidation with cavities likely necrotizing pneumonia. 2. Diverticulosis of the colon. 3. Cholelithiasis. 4. Bilobed distal abdominal aortic aneurysm measuring 3.2 cm with extensive atherosclerotic calcifications of the iliac vasculature. Critical stenosis cannot be excluded. Jesus Hayes MD Cardiovascular: RRR Telemetry: NSR Pulmonary: Few wheezes bilat GI/: NABS, NT Plan: Cachectic 71 y/o male with severe 2 vessel CAD being considered for CABG. He is cachectic and debilitated. I reviewed his assessment from physical therapy and his PFTs. Operative risk for him is prohibitive due to these comorbidities , so I do not recommend CABG. I will discuss with Dr. Trujillo for alternative treatments. (1) Tobacco abuse (2) Anemia (3) Cardiomyopathy (4) CHF (congestive heart failure) (5) CAD (coronary artery disease) Problem Qualifiers (1) Cardiomyopathy: Qualified Code: I25.5 - Ischemic cardiomyopathy (2) CHF (congestive heart failure): Qualified Code: I50.43 - Acute on chronic combined systolic and diastolic congestive heart failure (3) CAD (coronary artery disease): Qualified Code: I25.10 - Coronary artery disease involving [place] coronary artery of [place] heart, angina presence unspecified Nahomi Miller MD Oct 17, 2016 15:02
--- NOTE | 2016-10-17 15:20 | HHI.PR ---
Subjective Remarks no complains telemetry- in SR Objective Vitals Vital Signs Date Time Temp Pulse Resp B/P Pulse Ox O2 Delivery O2 Flow Rate FiO2 10/17/16 14:00 92 10/17/16 12:00 91 10/17/16 12:00 98.9 91 26 116/56 95 10/17/16 10:00 91 10/17/16 08:00 87 10/17/16 08:00 97.9 87 12 85/54 100 10/17/16 07:47 97 Nasal Cannula 3.00 10/17/16 06:00 87 10/17/16 04:00 90 10/17/16 04:00 97.3 90 16 90/55 94 10/17/16 02:00 79 10/17/16 00:00 97.1 81 18 111/56 96 10/17/16 00:00 81 10/16/16 23:00 85 21 103/60 94 10/16/16 22:00 89 19 90/53 96 10/16/16 22:00 89 10/16/16 21:00 94 24 96/52 94 10/16/16 20:00 98 10/16/16 20:00 97.0 98 21 102/59 94 10/16/16 19:40 98 Nasal Cannula 3.00 10/16/16 18:00 94 10/16/16 16:00 99.1 88 13 98/54 98 10/16/16 16:00 97 I/O 10/16/16 10/16/16 10/16/16 10/17/16 10/17/16 10/17/16 07:00 15:00 23:00 07:00 15:00 23:00 Intake Total 140 ml 535 ml 629 ml 265 ml 930 ml Output Total 600 ml 2100 ml 300 ml 700 ml 500 ml Balance -460 ml -1565 ml 329 ml -435 ml 430 ml Intake Oral 0 ml 480 ml 240 ml 100 ml 900 ml IV Total 140 ml 55 ml 389 ml 165 ml 30 ml Output Urine Total 600 ml 2100 ml 300 ml 700 ml 500 ml # Bowel Movements 1 3 1 1 Result Diagram: 10/17/16 0448 10/17/16 0448 Imaging Last Impressions Chest X-Ray 10/17/16 0000 Signed Impressions: Service Date/Time: Monday, October 17, 2016 11:47 - CONCLUSION: 1. Significant interval improvement of bilateral lower lobe airspace disease with residual consolidation in the posterior lower lobes bilaterally. The findings are most concerning for aspiration although pneumonia is in the differential diagnosis. Sincere Das MD Lower Extremity Ultrasound 10/09/16 0000 Signed Impressions: Service Date/Time: Sunday, October 09, 2016 10:52 - CONCLUSION: 1. No DVT identified. Janak Ortiz MD CT Angiography 10/09/16 0000 Signed Impressions: Service Date/Time: Sunday, October 09, 2016 10:23 - CONCLUSION: 1. No evidence for pulmonary embolism to the subsegmental level as questioned. 2. Redemonstration of severe centrilobular emphysema with extensive bilateral lower lobe airspace consolidation with probable necrosis. Smaller regions of airspace consolidation in the inferior lingula and right middle lobe. Overall findings are most consistent with severe aspiration versus necrotizing pneumonia. 3. 1.2 cm cavitary nodule in the right upper lobe. Additional nearly spiculated nodular opacities in the left lung base measuring up to 1.7 cm. Although the findings may be infectious in etiology followup to resolution is recommended given the extensive underlying lung disease. 4. Small pericardial effusion. 5. Moderate coronary artery calcifications. 6. Cholelithiasis. Sincere Das MD Lung Scan- Nuclear Medicine 10/08/162037 Signed Impressions: Service Date/Time: Saturday, October 08, 2016 21:37 - CONCLUSION: Intermediate probability for pulmonary embolism. Jesus Hayes MD Abdomen/Pelvis CT 10/08/162028 Signed Impressions: Service Date/Time: Saturday, October 08, 2016 20:52 - CONCLUSION: 1. Extensive emphysema with extensive bibasilar consolidation with cavities likely necrotizing pneumonia. 2. Diverticulosis of the colon. 3. Cholelithiasis. 4. Bilobed distal abdominal aortic aneurysm measuring 3.2 cm with extensive atherosclerotic calcifications of the iliac vasculature. Critical stenosis cannot be excluded. Jesus Hayes MD Objective Remarks awake and alert, cachectic looking anicteric lungs no rales regular rhythm - rate 80s abdomen soft, nontender bilateral groin-- no hematoma extremities no edema Procedures 10/16- cardiac catheterization 3V disease A/P Assessment and Plan 71-year-old male with: Respiratory failure secondary to pneumonia, UNDERLYING copd Bilateral pneumonia, , has severe emphysema - has ?necrotizing pneumonia, C/S PSAE - ?infected bullous lesions in his lungs, he has hx severe emphysema 6/5 sputum cx growing pseudomonas Continue width oxygen keep sat >92% Bronchodilators, Solumederol 40mg IV q12. - gradual taper encouraged pt to cough and use acapella. V/Q scan showed intermed prob PE. CTA chest negative for PE, showed severe COPD changes, consolidation lower lobes, 1.2 cm cavitary nodule RUL and spiculated nodular opacities in left base. Doppler US LE negative for DVTD Infectious disease is following. on broad spectrum abx s/p Vanco, Zithromax and levaquin now only on Zosyn per ID Follow up on Blood 10/08: [facility] Pulmonary- Dr. Meza ff- considering possible bronchoscopy Pulmonary spiculated nodule- cavitary- r/o possible underlying cavitary malignancy Pulmonary consulted- evaluate for bronchoscopy . CAD S/P cath-10/16 - 2VD A. fib with RVR and elevated troponins - on po Cardizem 60 mg po qid. Taper off cardizem drip. started on heparin drip - DR Miller consulted - Anemia: Probably has some chronic anemia but H&H trended down since the hospitalization. Significantly improved post PRBC transfusion. 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
[2016-10-17] MEDS: HEPARIN 25,000 UNITS-D5W 250 ML - PREMIX IV SCH (15:46)
[2016-10-17 16:24] LABS: HEMATOCRIT 40.2 % (39.0-51.0); MEAN CELL VOLUME 70.4 FL (80.0-100.0); MEAN CORPUSCULAR HEMOGLOBIN 21.5 PG (27.0-34.0); MEAN CORPUSCULAR HGB CONC 30.6 % (32.0-36.0); PLATELET COUNT 299 TH/MM3 (150-450); RED BLOOD COUNT 5.71 MIL/MM3 (4.50-5.90); RED CELL DISTRIBUTION WIDTH 17.7 % (11.6-17.2); REVIEW FLAG FINAL; WHITE BLOOD COUNT 23.7 TH/MM3 (4.0-11.0)
[2016-10-17 16:33] LABS: APTT (PATIENT) 26.9 SEC (24.3-30.1); INTERNATIONAL NORMALIZED RATIO 1.1 RATIO; PROTHROMBIN TIME - PATIENT 12.7 SEC (9.8-11.6)
--- NOTE | 2016-10-17 19:48 | HHI.PR ---
Subjective Remarks 71 YOWM with Bilat infilt, lung nodule, wt loss Had cardiac cath, multi vessel disease On NC Mild sob No fever Objective Vital Signs Vital Signs Date Time Temp Pulse Resp B/P Pulse Ox O2 Delivery O2 Flow Rate FiO2 10/17/16 18:00 87 10/17/16 16:00 86 10/17/16 16:00 99.5 86 33 111/56 93 10/17/16 14:00 92 10/17/16 12:00 91 10/17/16 12:00 98.9 91 26 116/56 95 10/17/16 10:00 91 10/17/16 08:00 87 10/17/16 08:00 97.9 87 12 85/54 100 10/17/16 07:47 97 Nasal Cannula 3.00 10/17/16 06:00 87 10/17/16 04:00 90 10/17/16 04:00 97.3 90 16 90/55 94 10/17/16 02:00 79 10/17/16 00:00 97.1 81 18 111/56 96 10/17/16 00:00 81 10/16/16 23:00 85 21 103/60 94 10/16/16 22:00 89 19 90/53 96 10/16/16 22:00 89 10/16/16 21:00 94 24 96/52 94 10/16/16 20:00 98 10/16/16 20:00 97.0 98 21 102/59 94 I/O 10/16/16 10/16/16 10/16/16 10/17/16 10/17/16 10/17/16 07:00 15:00 23:00 07:00 15:00 23:00 Intake Total 140 ml 535 ml 629 ml 265 ml 930 ml 480 ml Output Total 600 ml 2100 ml 300 ml 700 ml 500 ml Balance -460 ml -1565 ml 329 ml -435 ml 430 ml 480 ml Intake Oral 0 ml 480 ml 240 ml 100 ml 900 ml 480 ml IV Total 140 ml 55 ml 389 ml 165 ml 30 ml Output Urine Total 600 ml 2100 ml 300 ml 700 ml 500 ml # Bowel Movements 1 3 1 1 1 Result Diagram: 10/17/16 1603 10/17/16 0448 Objective Remarks GENERAL: Cachectic WM, mild sob SKIN: Warm and dry. HEAD: Normocephalic. EYES: No scleral icterus. No injection or drainage. NECK: Supple, trachea midline. No JVD or lymphadenopathy. CARDIOVASCULAR: Regular rate and rhythm without murmurs, gallops, or rubs. RESPIRATORY: Breath sounds equal bilaterally. No accessory muscle use. GASTROINTESTINAL: Abdomen soft, non-tender, nondistended. MUSCULOSKELETAL: No cyanosis, or edema. BACK: Nontender without obvious deformity. No CVA tenderness. A/P Assessment and Plan Bilat lung infilt Lung nodule Weight loss COPD CAD CMP PLAN: Cont Abx Aerosol nebs Supplement 02 Heparin drip CTS evaluating pt. Sebastian Meza MD Oct 17, 2016 19:48
[2016-10-17 21:21] LABS: APTT (PATIENT) 22.1 SEC (24.3-30.1)
[2016-10-18] VITALS (13 sets, daily range): BP systolic 86–114; BP diastolic 53–59; PULSE 75–95; RESP 15–25; TEMP 97.4–98.5; O2SAT 92–100
[2016-10-18 03:29] LABS: AUTOMATED NEUTROPHIL # 20.9 TH/MM3 (1.8-7.7); HEMATOCRIT 37.9 % (39.0-51.0); HEMO FLAGS DIFF FINAL; LYMPH % 1.1 % (9.0-44.0); LYMPHOCYTE # 0.2 TH/MM3 (1.0-4.8); MEAN CORPUSCULAR HEMOGLOBIN 21.3 PG (27.0-34.0); MEAN CORPUSCULAR HGB CONC 30.8 % (32.0-36.0); MONO % 3.5 % (0.0-8.0); NEUT % 95.4 % (16.0-70.0); PLATELET COUNT 287 TH/MM3 (150-450); RED BLOOD COUNT 5.49 MIL/MM3 (4.50-5.90); WHITE BLOOD COUNT 21.9 TH/MM3 (4.0-11.0)
[2016-10-18 03:43] LABS: APTT (PATIENT) 40.3 SEC (24.3-30.1); BICARBONATE 34.8 MEQ/L (21.0-32.0); POTASSIUM 4.2 MEQ/L (3.5-5.1)
[2016-10-18] MEDS: CHLORHEXIDINE GLUCONATE 2 % 1 PACK (2 CLOTHS) TOP SCH (03:44)
[2016-10-18] MEDS: DILTIAZEM HCL 60 MG TAB PO SCH ×4 (03:44→21:24)
[2016-10-18] MEDS: PIPERACIL-TAZO 4.5 GM PREMIX 100 ML IV SCH ×4 (03:44→21:25)
[2016-10-18] MEDS: RESP: ALBUTEROL 2.5 MG/IPRATROPIUM 0.5 MG NEB (PRN) INH (07:30)
[2016-10-18] MEDS: SODIUM CHLORIDE 0.9% FLUSH 10 ML FLUSH SCH ×4 (09:00→21:24)
[2016-10-18] MEDS: DOCUSATE SODIUM 50 MG/SENNA 8.6 MG TAB PO SCH ×2 (09:00→21:00)
[2016-10-18] MEDS: methylPREDNISolone SOD SUCC 40 MG/1 ML VIAL IV PUSH SCH ×2 (09:36→21:24)
[2016-10-18] MEDS: FAMOTIDINE 20 MG/2 ML VIAL IV PUSH SCH ×2 (09:36→21:24)
[2016-10-18] MEDS: ASPIRIN EC 81 MG TABEC PO SCH (09:37)
[2016-10-18] MEDS: SPIRONOLACTONE 50 MG TAB PO SCH ×2 (09:37→18:00)
[2016-10-18] MEDS: RAMIPRIL 5 MG CAP PO SCH (09:37)
[2016-10-18 12:46] LABS: APTT (PATIENT) 40.1 SEC (24.3-30.1)
--- NOTE | 2016-10-18 13:05 | PD.CARD.PN ---
Subjective Subjective Remarks alert in nad Objective Vital Signs / I&O Vital Signs Date Time Temp Pulse Resp B/P Pulse Ox O2 Delivery O2 Flow Rate FiO2 10/18/16 12:00 88 10/18/16 12:00 98.2 87 25 111/57 97 10/18/16 10:00 88 10/18/16 08:00 88 10/18/16 08:00 97.8 86 15 86/53 98 10/18/16 06:00 82 10/18/16 04:00 97.4 80 15 102/55 97 10/18/16 04:00 80 10/18/16 02:00 75 10/18/16 00:00 81 10/18/16 00:00 97.8 81 15 102/57 100 10/17/16 22:00 82 10/17/16 20:43 96 Nasal Cannula 3.00 10/17/16 20:00 89 10/17/16 20:00 97.7 89 18 109/60 100 10/17/16 18:00 87 10/17/16 16:00 86 10/17/16 16:00 99.5 86 33 111/56 93 10/17/16 14:00 92 I/O 10/17/16 10/17/16 10/17/16 10/18/16 10/18/16 10/18/16 07:00 15:00 23:00 07:00 15:00 23:00 Intake Total 265 ml 930 ml 997 ml 229 ml Output Total 700 ml 500 ml 850 ml 800 ml Balance -435 ml 430 ml 147 ml -571 ml Intake Oral 100 ml 900 ml 720 ml 50 ml IV Total 165 ml 30 ml 277 ml 179 ml Output Urine Total 700 ml 500 ml 850 ml 800 ml # Bowel Movements 1 1 3 2 Physical Exam GENERAL: SKIN: Warm and dry. HEAD: Normocephalic. EYES: No scleral icterus. No injection or drainage. NECK: Supple, trachea midline. No JVD or lymphadenopathy. CARDIOVASCULAR: Regular rate and rhythm without murmurs, gallops, or rubs. RESPIRATORY: Breath sounds equal bilaterally. No accessory muscle use. GASTROINTESTINAL: Abdomen soft, non-tender, nondistended. MUSCULOSKELETAL: No cyanosis, or edema. BACK: Nontender without obvious deformity. No CVA tenderness. Laboratory Laboratory Tests Test 10/17/16 10/17/16 10/17/1610/18/17 16:00 16:03 21:06 02:50 Prothrombin Time 12.7 SEC Prothromb Time International 1.1 RATIO Ratio Activated Partial 26.9 SEC 22.1 SEC 40.3 SEC Thromboplast Time White Blood Count 23.7 TH/MM3 21.9 TH/MM3 Red Blood Count 5.71 MIL/MM3 5.49 MIL/MM3 Hemoglobin 12.3 GM/DL 11.7 GM/DL Hematocrit 40.2 % 37.9 % Mean Corpuscular Volume 70.4 FL 69.0 FL Mean Corpuscular Hemoglobin 21.5 PG 21.3 PG Mean Corpuscular Hemoglobin 30.6 % 30.8 % Concent Red Cell Distribution Width 17.7 % 18.0 % Platelet Count 299 TH/MM3 287 TH/MM3 Mean Platelet Volume 9.3 FL 9.3 FL Neutrophils (%) (Auto) 95.4 % Lymphocytes (%) (Auto) 1.1 % Monocytes (%) (Auto) 3.5 % Eosinophils (%) (Auto) 0.0 % Basophils (%) (Auto) 0.0 % Neutrophils # (Auto) 20.9 TH/MM3 Lymphocytes # (Auto) 0.2 TH/MM3 Monocytes # (Auto) 0.8 TH/MM3 Eosinophils # (Auto) 0.0 TH/MM3 Basophils # (Auto) 0.0 TH/MM3 CBC Comment DIFF FINAL Differential Comment Sodium Level 138 MEQ/L Potassium Level 4.2 MEQ/L Chloride Level 97 MEQ/L Carbon Dioxide Level 34.8 MEQ/L Anion Gap 6 MEQ/L Blood Urea Nitrogen 13 MG/DL Creatinine 0.42 MG/DL Estimat Glomerular Filtration 200 ML/MIN Rate Random Glucose 110 MG/DL Calcium Level 8.2 MG/DL B-Type Natriuretic Peptide 199 PG/ML Test 10/18/16 10:52 Activated Partial 40.1 SEC Thromboplast Time Assessment and Plan Problem List: (1) Tobacco abuse (2) Anemia (3) Cardiomyopathy (4) CHF (congestive heart failure) (5) CAD (coronary artery disease) Assessment and Plan 1.) CAD/cardiomyopathy - betablocker held due to copd, continue aspirin, check lipids; increase altace 5 mg qd, continue aldactone 50 mg bid, not candidate for cabg per Dr Miller due to poor pfts, consider pci lad staged pci rca if/ when pneumonia significantly improved, f/u bnp in am 2.) Af - rvr, improved after transfusion and cardizem drip, ac held due to hypotension and anemia, cont aspirin 81 mg qd, f/u cbc 3.) Anemia - improved s/p transfusion, d/w Dr Branden Pringle, he suspects dilution , defer to Dr Pringle Problem Qualifiers (1) Cardiomyopathy: Qualified Code: I25.5 - Ischemic cardiomyopathy (2) CHF (congestive heart failure): Qualified Code: I50.43 - Acute on chronic combined systolic and diastolic congestive heart failure (3) CAD (coronary artery disease): Qualified Code: I25.10 - Coronary artery disease involving [place] coronary artery of [place] heart, angina presence unspecified Daniel Trujillo MD Oct 18, 2016 13:05
--- NOTE | 2016-10-18 16:00 | HHI.PR ---
Subjective Remarks patient awake and alert, more interactive seen with son d/w them -home/living situation- Objective Vitals Vital Signs Date Time Temp Pulse Resp B/P Pulse Ox O2 Delivery O2 Flow Rate FiO2 10/18/16 14:00 88 10/18/16 14:00 88 10/18/16 12:00 88 10/18/16 12:00 98.2 87 25 111/57 97 10/18/16 10:00 88 10/18/16 08:00 88 10/18/16 08:00 97.8 86 15 86/53 98 10/18/16 06:00 82 10/18/16 04:00 97.4 80 15 102/55 97 10/18/16 04:00 80 10/18/16 02:00 75 10/18/16 00:00 81 10/18/16 00:00 97.8 81 15 102/57 100 10/17/16 22:00 82 10/17/16 20:43 96 Nasal Cannula 3.00 10/17/16 20:00 89 10/17/16 20:00 97.7 89 18 109/60 100 10/17/16 18:00 87 10/17/16 16:00 86 10/17/16 16:00 99.5 86 33 111/56 93 I/O 10/17/16 10/17/16 10/17/16 10/18/16 10/18/16 10/18/16 07:00 15:00 23:00 07:00 15:00 23:00 Intake Total 265 ml 930 ml 997 ml 229 ml 336 ml Output Total 700 ml 500 ml 850 ml 800 ml 900 ml Balance -435 ml 430 ml 147 ml -571 ml -564 ml Intake Oral 100 ml 900 ml 720 ml 50 ml 240 ml IV Total 165 ml 30 ml 277 ml 179 ml 96 ml Output Urine Total 700 ml 500 ml 850 ml 800 ml 900 ml # Bowel Movements 1 1 3 2 2 Result Diagram: 10/18/16 0250 10/18/16 0250 Imaging Last Impressions Chest X-Ray 10/17/16 0000 Signed Impressions: Service Date/Time: Monday, October 17, 2016 11:47 - CONCLUSION: 1. Significant interval improvement of bilateral lower lobe airspace disease with residual consolidation in the posterior lower lobes bilaterally. The findings are most concerning for aspiration although pneumonia is in the differential diagnosis. Sincere Das MD Lower Extremity Ultrasound 10/09/16 0000 Signed Impressions: Service Date/Time: Sunday, October 09, 2016 10:52 - CONCLUSION: 1. No DVT identified. Janak Ortiz MD CT Angiography 10/09/16 0000 Signed Impressions: Service Date/Time: Sunday, October 09, 2016 10:23 - CONCLUSION: 1. No evidence for pulmonary embolism to the subsegmental level as questioned. 2. Redemonstration of severe centrilobular emphysema with extensive bilateral lower lobe airspace consolidation with probable necrosis. Smaller regions of airspace consolidation in the inferior lingula and right middle lobe. Overall findings are most consistent with severe aspiration versus necrotizing pneumonia. 3. 1.2 cm cavitary nodule in the right upper lobe. Additional nearly spiculated nodular opacities in the left lung base measuring up to 1.7 cm. Although the findings may be infectious in etiology followup to resolution is recommended given the extensive underlying lung disease. 4. Small pericardial effusion. 5. Moderate coronary artery calcifications. 6. Cholelithiasis. Sincere Das MD Lung Scan-V Nuclear Medicine 10/08/162037 Signed Impressions: Service Date/Time: Saturday, October 08, 2016 21:37 - CONCLUSION: Intermediate probability for pulmonary embolism. Jesus Hayes MD Abdomen/Pelvis CT 10/08/162028 Signed Impressions: Service Date/Time: Saturday, October 08, 2016 20:52 - CONCLUSION: 1. Extensive emphysema with extensive bibasilar consolidation with cavities likely necrotizing pneumonia. 2. Diverticulosis of the colon. 3. Cholelithiasis. 4. Bilobed distal abdominal aortic aneurysm measuring 3.2 cm with extensive atherosclerotic calcifications of the iliac vasculature. Critical stenosis cannot be excluded. Jesus Hayes MD Objective Remarks awake and alert, cachectic looking, NAD anicteric lungs no rales regular rhythm - rate 80s abdomen soft, nontender bilateral groin-- no hematoma extremities no edema, no calf swelling or tenderness Procedures 10/16- cardiac catheterization 3V disease A/P Assessment and Plan 71-year-old male with: Respiratory failure secondary to pneumonia, UNDERLYING copd Bilateral pneumonia, , has severe emphysema - has ?necrotizing pneumonia, C/S PSAE Continue width oxygen keep sat >92% Bronchodilators, Solumederol 40mg IV q12. - gradual taper encouraged pt to cough and use acapella. V/Q scan showed intermed prob PE. CTA chest negative for PE, showed severe COPD changes, consolidation lower lobes, 1.2 cm cavitary nodule RUL and spiculated nodular opacities in left base. Repeat CXR 10/17- improved- reviewed by me Doppler US LE negative for DVT Infectious disease is following. on Zosyn per ID- d/w ID- change to po and stop date Follow up on Blood 10/08: [facility] Pulmonary- Dr. Meza ff- considering possible bronchoscopy Pulmonary spiculated nodule- cavitary- r/o possible underlying cavitary malignancy Pulmonary ff-- plan bronchoscopy . CAD S/P cath-10/16 - 2VD/CMP A. fib with RVR and elevated troponins - on po Cardizem 60 mg po qid. . started on heparin drip - on Aldactone 50 mg po bid. Altace 5 mg po daily/ASA - DR Miller consulted- not candidate for surgery - Dr. Trujillo ff- plan for stage PCI- LAD - Anemia: Probably has some chronic anemia but H&H trended down since the hospitalization. Significantly improved post PRBC transfusion. 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 On ensure for supplement GI prophylaxis- On Pepcid 10mg IV Q12 DVT prophylaxis- heparin Doppler US LE negative for DVT Daria Cuenca MD Oct 18, 2016 16:00
[2016-10-18] MEDS: HEPARIN 25,000 UNITS-D5W 250 ML - PREMIX IV SCH (16:01)
--- NOTE | 2016-10-18 16:24 | HHI.IDPN ---
Subjective Subjective Remarks Notes reviewed D/W Dr Cuenca Temps ok BP ok CXR yesterday - marked improvement in his infiltrates No new complaints Not coughing much, no CP Not SOB No N/V Denies diarrhea No abdominal pain No dysuria, UA ok Cardiac cath with CAD CTS evaluation noted Pulmonary evaluation noted WBC slightly better today Steroid dose being decreased Converted to NSR early AM Sputum C/S with Pseudomonas aeruginosa CT chest with extensive emphysema and findings of possible necrotizing pneumonia Antibiotics Zosyn Lines PIV Past Medical History Right hip ORIF, Right knee surgery, Jaw surgery. Allergies: Coded Allergies: No Known Allergies (Unverified , 10/08/16) Objective . Vital Signs Date Time Temp Pulse Resp B/P Pulse Ox O2 Delivery O2 Flow Rate FiO2 10/18/16 14:00 88 10/18/16 14:00 88 10/18/16 12:00 88 10/18/16 12:00 98.2 87 25 111/57 97 10/18/16 10:00 88 10/18/16 08:00 88 10/18/16 08:00 97.8 86 15 86/53 98 10/18/16 06:00 82 10/18/16 04:00 97.4 80 15 102/55 97 10/18/16 04:00 80 10/18/16 02:00 75 10/18/16 00:00 81 10/18/16 00:00 97.8 81 15 102/57 100 10/17/16 22:00 82 10/17/16 20:43 96 Nasal Cannula 3.00 10/17/16 20:00 89 10/17/16 20:00 97.7 89 18 109/60 100 10/17/16 18:00 87 10/17/16 10/17/16 10/18/16 15:00 23:00 07:00 Intake Total 930 ml 997 ml 229 ml Output Total 500 ml 850 ml 800 ml Balance 430 ml 147 ml -571 ml Intake Oral 900 ml 720 ml 50 ml IV Total 30 ml 277 ml 179 ml Output Urine Total 500 ml 850 ml 800 ml # Bowel Movements 1 3 2 . Laboratory Tests Test 10/17/16 10/17/16 10/18/16 04:48 16:03 02:50 White Blood Count 18.6 TH/MM3 23.7 TH/MM3 21.9 TH/MM3 Red Blood Count 5.52 MIL/MM3 5.71 MIL/MM3 5.49 MIL/MM3 Hemoglobin 12.1 GM/DL 12.3 GM/DL 11.7 GM/DL Hematocrit 38.1 % 40.2 % 37.9 % Mean Corpuscular Volume 69.0 FL 70.4 FL 69.0 FL Mean Corpuscular Hemoglobin 21.9 PG 21.5 PG 21.3 PG Mean Corpuscular Hemoglobin 31.7 % 30.6 % 30.8 % Concent Red Cell Distribution Width 17.2 % 17.7 % 18.0 % Platelet Count 286 TH/MM3 299 TH/MM3 287 TH/MM3 Mean Platelet Volume 9.6 FL 9.3 FL 9.3 FL Neutrophils (%) (Auto) 96.5 % 95.4 % Lymphocytes (%) (Auto) 1.3 % 1.1 % Monocytes (%) (Auto) 2.1 % 3.5 % Eosinophils (%) (Auto) 0.0 % 0.0 % Basophils (%) (Auto) 0.1 % 0.0 % Neutrophils # (Auto) 17.9 TH/MM3 20.9 TH/MM3 Lymphocytes # (Auto) 0.2 TH/MM3 0.2 TH/MM3 Monocytes # (Auto) 0.4 TH/MM3 0.8 TH/MM3 Eosinophils # (Auto) 0.0 TH/MM3 0.0 TH/MM3 Basophils # (Auto) 0.0 TH/MM3 0.0 TH/MM3 CBC Comment DIFF FINAL DIFF FINAL Differential Comment Laboratory Tests Test 10/17/16 10/18/16 04:48 02:50 Sodium Level 136 MEQ/L 138 MEQ/L Potassium Level 4.2 MEQ/L 4.2 MEQ/L Chloride Level 94 MEQ/L 97 MEQ/L Carbon Dioxide Level 32.7 MEQ/L 34.8 MEQ/L Anion Gap 9 MEQ/L 6 MEQ/L Blood Urea Nitrogen 12 MG/DL 13 MG/DL Creatinine 0.39 MG/DL 0.42 MG/DL Estimat Glomerular Filtration 218 ML/MIN 200 ML/MIN Rate Random Glucose 96 MG/DL 110 MG/DL Calcium Level 8.2 MG/DL 8.2 MG/DL B-Type Natriuretic Peptide 199 PG/ML Imaging Lower Extremity Ultrasound 10/09/16 0000 Signed Impressions: Service Date/Time: Sunday, October 09, 2016 10:52 - CONCLUSION: 1. No DVT identified. Janak Ortiz MD Chest X-Ray 10/09/16 0000 Signed Impressions: Service Date/Time: Sunday, October 09, 2016 03:08 - CONCLUSION: Bibasal infiltrates right worse on left with slight worsening since the fourth Prince Robledo MD CT Angiography 10/09/16 0000 Signed Impressions: Service Date/Time: Sunday, October 09, 2016 10:23 - CONCLUSION: 1. No evidence for pulmonary embolism to the subsegmental level as questioned. 2. Redemonstration of severe centrilobular emphysema with extensive bilateral lower lobe airspace consolidation with probable necrosis. Smaller regions of airspace consolidation in the inferior lingula and right middle lobe. Overall findings are most consistent with severe aspiration versus necrotizing pneumonia. 3. 1.2 cm cavitary nodule in the right upper lobe. Additional nearly spiculated nodular opacities in the left lung base measuring up to 1.7 cm. Although the findings may be infectious in etiology followup to resolution is recommended given the extensive underlying lung disease. 4. Small pericardial effusion. 5. Moderate coronary artery calcifications. 6. Cholelithiasis. Sincere Das MD Lung Scan-VQ Nuclear Medicine 10/08/162037 Signed Impressions: Service Date/Time: Saturday, October 08, 2016 21:37 - CONCLUSION: Intermediate probability for pulmonary embolism. Jesus Hayes MD Abdomen/Pelvis CT 10/08/162028 Signed Impressions: Service Date/Time: Saturday, October 08, 2016 20:52 - CONCLUSION: 1. Extensive emphysema with extensive bibasilar consolidation with cavities likely necrotizing pneumonia. 2. Diverticulosis of the colon. 3. Cholelithiasis. 4. Bilobed distal abdominal aortic aneurysm measuring 3.2 cm with extensive atherosclerotic calcifications of the iliac vasculature. Critical stenosis cannot be excluded. Jesus Hayes MD Physical Exam GENERAL: Patient is a cachectic, awake and alert, NAD SKIN: Warm and dry. No generalized rash. IV sites look ok HEENT: [place] conjunctiva. No petechia or hemorrhage. No scleral icterus. Moist mucosa. No oral thrush. He is edentulous NECK: Trachea midline. Supple and not tender, no meningeal signs CARDIOVASCULAR: Regular rate and rhythm. No murmurs, rubs or gallops heard RESPIRATORY: Decreased BS whole lung ramires. Rib cage very prominent due to weight loss. ABDOMEN: Soft, non-tender, nondistended. Bowel sounds present and normoactive. No guarding. No rebound. No organomegaly. EXTREMITIES: No clubbing, cyanosis. Has mild ankle edema. No calf tenderness. Well perfused and warm. NEUROLOGICAL: Non-focal. PSYCHIATRIC: Normal affect, calm and cooperative. LINE: No evidence of infection : Has a collection bag around shaft with clear urine Assessment & Plan Remarks IMPRESSION Bilateral pneumonia, ?with underlying bronchiectasis, has severe emphysema - has ?necrotizing pneumonia, C/S PSAE - ?infected bullous lesions in his lungs, he has hx severe emphysema - CXR much improved COPD, emphysema Leukocytosis, up again - no obvious etiology? - he looks clinically stable Cachexia ?Malignancy RECOMMENDATION Continue Zosyn - PSAE coverage Follow CBC Monitor progress If his WBC improves, will switch to oral Abx D/W Zonia Xiong MD Oct 18, 2016 16:24
--- NOTE | 2016-10-18 18:45 | HHI.PR ---
Subjective Remarks 71 YOWM with Bilat infilt, lung nodule, wt loss Had cardiac cath, multi vessel disease On NC Mild sob No fever High risk for CABG Objective Vital Signs Vital Signs Date Time Temp Pulse Resp B/P Pulse Ox O2 Delivery O2 Flow Rate FiO2 10/18/16 18:00 88 10/18/16 16:00 98.2 95 25 109/59 92 10/18/16 16:00 88 10/18/16 14:00 88 10/18/16 14:00 88 10/18/16 12:00 88 10/18/16 12:00 98.2 87 25 111/57 97 10/18/16 10:00 88 10/18/16 08:00 88 10/18/16 08:00 97.8 86 15 86/53 98 10/18/16 06:00 82 10/18/16 04:00 97.4 80 15 102/55 97 10/18/16 04:00 80 10/18/16 02:00 75 10/18/16 00:00 81 10/18/16 00:00 97.8 81 15 102/57 100 10/17/16 22:00 82 10/17/16 20:43 96 Nasal Cannula 3.00 10/17/16 20:00 89 10/17/16 20:00 97.7 89 18 109/60 100 I/O 10/17/16 10/17/16 10/17/16 10/18/16 10/18/16 10/18/16 07:00 15:00 23:00 07:00 15:00 23:00 Intake Total 265 ml 930 ml 997 ml 229 ml 336 ml Output Total 700 ml 500 ml 850 ml 800 ml 900 ml Balance -435 ml 430 ml 147 ml -571 ml -564 ml Intake Oral 100 ml 900 ml 720 ml 50 ml 240 ml IV Total 165 ml 30 ml 277 ml 179 ml 96 ml Output Urine Total 700 ml 500 ml 850 ml 800 ml 900 ml # Bowel Movements 1 1 3 2 2 Result Diagram: 10/18/16 0250 10/18/16 0250 Objective Remarks GENERAL: Cachectic WM, mild sob SKIN: Warm and dry. HEAD: Normocephalic. EYES: No scleral icterus. No injection or drainage. NECK: Supple, trachea midline. No JVD or lymphadenopathy. CARDIOVASCULAR: Regular rate and rhythm without murmurs, gallops, or rubs. RESPIRATORY: Breath sounds equal bilaterally. No accessory muscle use. GASTROINTESTINAL: Abdomen soft, non-tender, nondistended. MUSCULOSKELETAL: No cyanosis, or edema. BACK: Nontender without obvious deformity. No CVA tenderness. A/P Assessment and Plan Bilat lung infilt Lung nodule Weight loss COPD CAD CMP PLAN: Cont Abx Aerosol nebs Supplement 02 Heparin Sebastian Jason MD Oct 18, 2016 18:44
[2016-10-19] VITALS (14 sets, daily range): BP systolic 100–127; BP diastolic 55–61; PULSE 73–89; RESP 16–23; TEMP 97.6–98.5; O2SAT 95–98
[2016-10-19] MEDS: CHLORHEXIDINE GLUCONATE 2 % 1 PACK (2 CLOTHS) TOP SCH (03:49)
[2016-10-19] MEDS: PIPERACIL-TAZO 4.5 GM PREMIX 100 ML IV SCH ×4 (03:49→20:59)
[2016-10-19] MEDS: DILTIAZEM HCL 60 MG TAB PO SCH ×4 (03:49→20:59)
[2016-10-19] MEDS: FAMOTIDINE 20 MG/2 ML VIAL IV PUSH SCH (08:06)
[2016-10-19] MEDS: RAMIPRIL 5 MG CAP PO SCH (08:06)
[2016-10-19] MEDS: ASPIRIN EC 81 MG TABEC PO SCH (08:06)
[2016-10-19] MEDS: methylPREDNISolone SOD SUCC 40 MG/1 ML VIAL IV PUSH SCH (08:06)
[2016-10-19] MEDS: SPIRONOLACTONE 50 MG TAB PO SCH ×2 (08:06→16:47)
[2016-10-19] MEDS: DOCUSATE SODIUM 50 MG/SENNA 8.6 MG TAB PO SCH ×2 (08:07→20:59)
[2016-10-19] MEDS: SODIUM CHLORIDE 0.9% FLUSH 10 ML FLUSH SCH ×4 (09:00→20:59)
--- NOTE | 2016-10-19 10:07 | HHI.PR ---
Subjective Remarks awake and alert, very interactive, no complains except about the food here does takes Ensure still bringing up copious amount of beige colored sputum Objective Vitals Vital Signs Date Time Temp Pulse Resp B/P Pulse Ox O2 Delivery O2 Flow Rate FiO2 10/19/16 09:01 98 Nasal Cannula 2.00 10/19/16 08:00 98.5 76 16 108/55 98 10/19/16 08:00 82 10/19/16 06:00 81 10/19/16 04:00 98.4 81 19 100/55 98 10/19/16 04:00 81 10/19/16 02:00 76 10/19/16 00:00 89 10/19/16 00:00 98.5 89 17 127/61 98 10/18/16 22:00 86 10/18/16 20:00 98.5 94 24 114/59 95 10/18/16 20:00 94 10/18/16 19:12 94 Nasal Cannula 3.00 10/18/16 18:00 88 10/18/16 16:00 98.2 95 25 109/59 92 10/18/16 16:00 88 10/18/16 14:00 88 10/18/16 14:00 88 10/18/16 12:00 88 10/18/16 12:00 98.2 87 25 111/57 97 10/18/16 10:00 88 I/O 10/18/16 10/18/16 10/18/16 10/19/16 10/19/16 10/19/16 07:00 15:00 23:00 07:00 15:00 23:00 Intake Total 229 ml 336 ml 385 ml 431 ml Output Total 800 ml 900 ml 300 ml 1000 ml Balance -571 ml -564 ml 85 ml -569 ml Intake Oral 50 ml 240 ml 100 ml 240 ml IV Total 179 ml 96 ml 285 ml 191 ml Output Urine Total 800 ml 900 ml 300 ml 1000 ml # Bowel Movements 2 2 3 3 Result Diagram: 10/18/16 0250 10/18/16 0250 Imaging Last Impressions Chest X-Ray 10/17/16 0000 Signed Impressions: Service Date/Time: Monday, October 17, 2016 11:47 - CONCLUSION: 1. Significant interval improvement of bilateral lower lobe airspace disease with residual consolidation in the posterior lower lobes bilaterally. The findings are most concerning for aspiration although pneumonia is in the differential diagnosis. Sincere Das MD Lower Extremity Ultrasound 10/09/16 0000 Signed Impressions: Service Date/Time: Sunday, October 09, 2016 10:52 - CONCLUSION: 1. No DVT identified. Janak Ortiz MD CT Angiography 10/09/16 0000 Signed Impressions: Service Date/Time: Sunday, October 09, 2016 10:23 - CONCLUSION: 1. No evidence for pulmonary embolism to the subsegmental level as questioned. 2. Redemonstration of severe centrilobular emphysema with extensive bilateral lower lobe airspace consolidation with probable necrosis. Smaller regions of airspace consolidation in the inferior lingula and right middle lobe. Overall findings are most consistent with severe aspiration versus necrotizing pneumonia. 3. 1.2 cm cavitary nodule in the right upper lobe. Additional nearly spiculated nodular opacities in the left lung base measuring up to 1.7 cm. Although the findings may be infectious in etiology followup to resolution is recommended given the extensive underlying lung disease. 4. Small pericardial effusion. 5. Moderate coronary artery calcifications. 6. Cholelithiasis. Sincere Das MD Lung Scan-VQ Nuclear Medicine 10/08/162037 Signed Impressions: Service Date/Time: Saturday, October 08, 2016 21:37 - CONCLUSION: Intermediate probability for pulmonary embolism. Jesus Hayes MD Abdomen/Pelvis CT 10/08/162028 Signed Impressions: Service Date/Time: Saturday, October 08, 2016 20:52 - CONCLUSION: 1. Extensive emphysema with extensive bibasilar consolidation with cavities likely necrotizing pneumonia. 2. Diverticulosis of the colon. 3. Cholelithiasis. 4. Bilobed distal abdominal aortic aneurysm measuring 3.2 cm with extensive atherosclerotic calcifications of the iliac vasculature. Critical stenosis cannot be excluded. Jesus Hayes MD Objective Remarks awake and alert, cachectic looking, NAD, more interactive anicteric lungs no rales regular rhythm - 87/min abdomen soft, nontender bilateral groin-- no hematoma extremities no edema, no calf swelling or tenderness condom catheter in place all extremities- equal strength-"stronger" Procedures 10/16- cardiac catheterization 3V disease A/P Assessment and Plan 71-year-old male with: Respiratory failure secondary to pneumonia, UNDERLYING copd- Improved Bilateral pneumonia, , has severe emphysema - has ?necrotizing pneumonia, C/S PSAE - ?infected bullous lesions in his lungs, he has hx severe emphysema 6/5 sputum cx growing pseudomonas Continue width oxygen keep sat >92% Bronchodilators, Solumederol 40mg IV q12. - gradual taper-0 change to po Prednisone 20 mg po bid encouraged pt to cough and use acapella. V/Q scan showed intermed prob PE. CTA chest negative for PE, showed severe COPD changes, consolidation lower lobes, 1.2 cm cavitary nodule RUL and spiculated nodular opacities in left base. Doppler US LE negative for DVTD Infectious disease is following. on broad spectrum abx s/p Vanco, Zithromax and levaquin now only on Zosyn per ID Follow up on Blood 10/08: [facility] Pulmonary- Dr. Meza ff- considering possible bronchoscopy Leukocytosis- due to infection + on steroids Pulmonary spiculated nodule- cavitary- r/o possible underlying cavitary malignancy Pulmonary on board evaluate for bronchoscopy . CAD S/P cath 2VD/ CMP - A. fib with RVR and elevated troponins- now in NSR - on po Cardizem 60 mg po qid. on heparin drip -on aldactrone 50 mg po bid/ Altace 5 mg po daily/ASA - DR Miller ff - Anemia: Probably has some chronic anemia but H&H trended down since the hospitalization. Significantly improved post PRBC transfusion. 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
[2016-10-19 12:33] LABS: AUTOMATED NEUTROPHIL # 14.4 TH/MM3 (1.8-7.7); BASOPHIL # 0.2 TH/MM3 (0-0.2); BASOPHIL % 1.4 % (0.0-2.0); EOSINOPHIL % 0.1 % (0.0-4.0); HEMATOCRIT 38.1 % (39.0-51.0); HEMO FLAGS DIFF FINAL; LYMPH % 2.2 % (9.0-44.0); LYMPHOCYTE # 0.4 TH/MM3 (1.0-4.8); MEAN CELL VOLUME 70.1 FL (80.0-100.0); MEAN CORPUSCULAR HEMOGLOBIN 21.4 PG (27.0-34.0); MEAN CORPUSCULAR HGB CONC 30.6 % (32.0-36.0); MONO % 4.5 % (0.0-8.0); NEUT % 91.8 % (16.0-70.0); PLATELET COUNT 265 TH/MM3 (150-450); RED BLOOD COUNT 5.44 MIL/MM3 (4.50-5.90); RED CELL DISTRIBUTION WIDTH 17.8 % (11.6-17.2); WHITE BLOOD COUNT 15.7 TH/MM3 (4.0-11.0)
--- NOTE | 2016-10-19 14:02 | PD.CARD.PN ---
Subjective Subjective Remarks alert in nad Objective Vital Signs / I&O Vital Signs Date Time Temp Pulse Resp B/P Pulse Ox O2 Delivery O2 Flow Rate FiO2 10/19/16 12:00 82 10/19/16 10:00 82 10/19/16 09:01 98 Nasal Cannula 2.00 10/19/16 08:00 98.5 76 16 108/55 98 10/19/16 08:00 82 10/19/16 06:00 81 10/19/16 04:00 98.4 81 19 100/55 98 10/19/16 04:00 81 10/19/16 02:00 76 10/19/16 00:00 89 10/19/16 00:00 98.5 89 17 127/61 98 10/18/16 22:00 86 10/18/16 20:00 98.5 94 24 114/59 95 10/18/16 20:00 94 10/18/16 19:12 94 Nasal Cannula 3.00 10/18/16 18:00 88 10/18/16 16:00 98.2 95 25 109/59 92 10/18/16 16:00 88 I/O 10/18/16 10/18/16 10/18/16 10/19/16 10/19/16 10/19/16 07:00 15:00 23:00 07:00 15:00 23:00 Intake Total 229 ml 336 ml 385 ml 431 ml Output Total 800 ml 900 ml 300 ml 1000 ml Balance -571 ml -564 ml 85 ml -569 ml Intake Oral 50 ml 240 ml 100 ml 240 ml IV Total 179 ml 96 ml 285 ml 191 ml Output Urine Total 800 ml 900 ml 300 ml 1000 ml # Bowel Movements 2 2 3 3 Physical Exam GENERAL: SKIN: Warm and dry. HEAD: Normocephalic. EYES: No scleral icterus. No injection or drainage. NECK: Supple, trachea midline. No JVD or lymphadenopathy. CARDIOVASCULAR: Regular rate and rhythm without murmurs, gallops, or rubs. RESPIRATORY: Breath sounds equal bilaterally. No accessory muscle use. GASTROINTESTINAL: Abdomen soft, non-tender, nondistended. MUSCULOSKELETAL: No cyanosis, or edema. BACK: Nontender without obvious deformity. No CVA tenderness. Laboratory Laboratory Tests Test 10/19/16 10/19/16 06:33 12:07 B-Type Natriuretic Peptide 168 PG/ML White Blood Count 15.7 TH/MM3 Red Blood Count 5.44 MIL/MM3 Hemoglobin 11.6 GM/DL Hematocrit 38.1 % Mean Corpuscular Volume 70.1 FL Mean Corpuscular Hemoglobin 21.4 PG Mean Corpuscular Hemoglobin 30.6 % Concent Red Cell Distribution Width 17.8 % Platelet Count 265 TH/MM3 Mean Platelet Volume 9.4 FL Neutrophils (%) (Auto) 91.8 % Lymphocytes (%) (Auto) 2.2 % Monocytes (%) (Auto) 4.5 % Eosinophils (%) (Auto) 0.1 % Basophils (%) (Auto) 1.4 % Neutrophils # (Auto) 14.4 TH/MM3 Lymphocytes # (Auto) 0.4 TH/MM3 Monocytes # (Auto) 0.7 TH/MM3 Eosinophils # (Auto) 0.0 TH/MM3 Basophils # (Auto) 0.2 TH/MM3 CBC Comment DIFF FINAL Differential Comment Imaging GENERAL: SKIN: Warm and dry. HEAD: Normocephalic. EYES: No scleral icterus. No injection or drainage. NECK: Supple, trachea midline. No JVD or lymphadenopathy. CARDIOVASCULAR: Regular rate and rhythm without murmurs, gallops, or rubs. RESPIRATORY: Breath sounds equal bilaterally. No accessory muscle use. GASTROINTESTINAL: Abdomen soft, non-tender, nondistended. MUSCULOSKELETAL: No cyanosis, or edema. BACK: Nontender without obvious deformity. No CVA tenderness. Assessment and Plan Problem List: (1) Tobacco abuse (2) Anemia (3) Cardiomyopathy (4) CHF (congestive heart failure) (5) CAD (coronary artery disease) Assessment and Plan 1.) CAD/cardiomyopathy - betablocker held due to copd, continue aspirin, check lipids; increase altace 5 mg qd, continue aldactone 50 mg bid, not candidate for cabg per Dr Miller due to poor pfts, consider pci lad staged pci rca if/ when pneumonia significantly improved, f/u bnp in am 2.) Af - rvr, improved after transfusion and cardizem drip, cont iv hep, aspirin 81 mg qd, f/u cbc 3.) Anemia - improved s/p transfusion, d/w Dr Branden Pringle, he suspects dilution , defer to Dr Pringle Problem Qualifiers (1) Cardiomyopathy: Qualified Code: I25.5 - Ischemic cardiomyopathy (2) CHF (congestive heart failure): Qualified Code: I50.43 - Acute on chronic combined systolic and diastolic congestive heart failure (3) CAD (coronary artery disease): Qualified Code: I25.10 - Coronary artery disease involving [place] coronary artery of [place] heart, angina presence unspecified Daniel Trujillo MD Oct 19, 2016 14:02
[2016-10-19 14:41] LABS: APTT (PATIENT) 40.6 SEC (24.3-30.1)
--- NOTE | 2016-10-19 19:27 | HHI.PR ---
Subjective Remarks 71 YOWM with Bilat infilt, lung nodule, wt loss Had cardiac cath, multi vessel disease On NC Mild sob No fever High risk for CABG Feels little better Cough with small amount of sp Objective Vital Signs Vital Signs Date Time Temp Pulse Resp B/P Pulse Ox O2 Delivery O2 Flow Rate FiO2 10/19/16 18:00 82 10/19/16 16:00 82 10/19/16 16:00 98.2 79 22 116/58 95 10/19/16 14:00 82 10/19/16 12:00 97.8 84 21 108/58 97 10/19/16 12:00 82 10/19/16 10:00 82 10/19/16 09:01 98 Nasal Cannula 2.00 10/19/16 08:00 98.5 76 16 108/55 98 10/19/16 08:00 82 10/19/16 06:00 81 10/19/16 04:00 98.4 81 19 100/55 98 10/19/16 04:00 81 10/19/16 02:00 76 10/19/16 00:00 89 10/19/16 00:00 98.5 89 17 127/61 98 10/18/16 22:00 86 10/18/16 20:00 98.5 94 24 114/59 95 10/18/16 20:00 94 I/O 10/18/16 10/18/16 10/18/16 10/19/16 10/19/16 10/19/16 07:00 15:00 23:00 07:00 15:00 23:00 Intake Total 229 ml 336 ml 385 ml 431 ml 816 ml Output Total 800 ml 900 ml 300 ml 1000 ml 900 ml Balance -571 ml -564 ml 85 ml -569 ml -84 ml Intake Oral 50 ml 240 ml 100 ml 240 ml 480 ml IV Total 179 ml 96 ml 285 ml 191 ml 336 ml Output Urine Total 800 ml 900 ml 300 ml 1000 ml 900 ml # Bowel Movements 2 2 3 3 2 Result Diagram: 10/19/16 1207 10/18/16 0250 Objective Remarks GENERAL: Cachectic WM, mild sob SKIN: Warm and dry. HEAD: Normocephalic. EYES: No scleral icterus. No injection or drainage. NECK: Supple, trachea midline. No JVD or lymphadenopathy. CARDIOVASCULAR: Regular rate and rhythm without murmurs, gallops, or rubs. RESPIRATORY: Breath sounds equal bilaterally. No accessory muscle use. GASTROINTESTINAL: Abdomen soft, non-tender, nondistended. MUSCULOSKELETAL: No cyanosis, or edema. BACK: Nontender without obvious deformity. No CVA tenderness. A/P Assessment and Plan Bilat lung infilt Lung nodule Weight loss COPD CAD CMP PLAN: Cont Abx Aerosol nebs Supplement 02 Heparin ip Sebastian Meza MD Oct 19, 2016 19:27
[2016-10-19] MEDS: FAMOTIDINE 20 MG TAB PO SCH (20:59)
[2016-10-19] MEDS: predniSONE 20 MG TAB PO SCH (20:59)
[2016-10-19] MEDS: HEPARIN 25,000 UNITS-D5W 250 ML - PREMIX IV SCH (21:01)
[2016-10-20] VITALS (12 sets, daily range): BP systolic 99–122; BP diastolic 55–61; PULSE 64–97; RESP 15–28; TEMP 97.6–98; O2SAT 94–97
[2016-10-20] MEDS: DILTIAZEM HCL 60 MG TAB PO SCH ×4 (03:29→20:07)
[2016-10-20] MEDS: CHLORHEXIDINE GLUCONATE 2 % 1 PACK (2 CLOTHS) TOP SCH (03:29)
[2016-10-20] MEDS: PIPERACIL-TAZO 4.5 GM PREMIX 100 ML IV SCH (03:29)
[2016-10-20] MEDS: HEPARIN 25,000 UNITS-D5W 250 ML - PREMIX IV SCH (03:34)
[2016-10-20 06:57] LABS: HEMATOCRIT 37.2 % (39.0-51.0); MEAN CELL VOLUME 69.4 FL (80.0-100.0); MEAN CORPUSCULAR HEMOGLOBIN 21.4 PG (27.0-34.0); MEAN CORPUSCULAR HGB CONC 30.9 % (32.0-36.0); PLATELET COUNT 256 TH/MM3 (150-450); RED BLOOD COUNT 5.37 MIL/MM3 (4.50-5.90); RED CELL DISTRIBUTION WIDTH 16.3 % (11.6-17.2); REVIEW FLAG FINAL; WHITE BLOOD COUNT 19.8 TH/MM3 (4.0-11.0)
[2016-10-20 07:02] LABS: APTT (PATIENT) 44.6 SEC (24.3-30.1)
[2016-10-20] MEDS: DOCUSATE SODIUM 50 MG/SENNA 8.6 MG TAB PO SCH ×2 (08:45→20:08)
[2016-10-20] MEDS: predniSONE 20 MG TAB PO SCH ×2 (08:45→20:08)
[2016-10-20] MEDS: SPIRONOLACTONE 50 MG TAB PO SCH ×2 (08:45→18:09)
[2016-10-20] MEDS: ASPIRIN EC 81 MG TABEC PO SCH (08:45)
[2016-10-20] MEDS: RAMIPRIL 5 MG CAP PO SCH (08:45)
--- NOTE | 2016-10-20 08:52 | PD.CARD.PN ---
Subjective Subjective Remarks alert in nad Objective Vital Signs / I&O Vital Signs Date Time Temp Pulse Resp B/P Pulse Ox O2 Delivery O2 Flow Rate FiO2 10/20/16 08:00 98.0 80 18 99/55 95 10/20/16 06:00 81 10/20/16 04:00 97.7 85 23 122/59 96 10/20/16 04:00 71 10/20/16 02:00 72 10/20/16 00:00 72 10/20/16 00:00 97.6 77 15 112/59 97 10/19/16 22:00 73 10/19/16 20:40 95 Nasal Cannula 2.00 10/19/16 20:00 97.6 79 23 110/59 96 10/19/16 20:00 79 10/19/16 18:00 82 10/19/16 16:00 82 10/19/16 16:00 98.2 79 22 116/58 95 10/19/16 14:00 82 10/19/16 12:00 97.8 84 21 108/58 97 10/19/16 12:00 82 10/19/16 10:00 82 10/19/16 09:01 98 Nasal Cannula 2.00 I/O 10/19/16 10/19/16 10/19/16 10/20/16 10/20/16 10/20/16 07:00 15:00 23:00 07:00 15:00 23:00 Intake Total 431 ml 816 ml 437 ml 276 ml Output Total 1000 ml 900 ml 1325 ml 875 ml Balance -569 ml -84 ml -888 ml -599 ml Intake Oral 240 ml 480 ml 240 ml 0 ml IV Total 191 ml 336 ml 197 ml 276 ml Output Urine Total 1000 ml 900 ml 1325 ml 875 ml # Bowel Movements 3 2 0 0 Physical Exam GENERAL: SKIN: Warm and dry. HEAD: Normocephalic. EYES: No scleral icterus. No injection or drainage. NECK: Supple, trachea midline. No JVD or lymphadenopathy. CARDIOVASCULAR: Regular rate and rhythm without murmurs, gallops, or rubs. RESPIRATORY: Breath sounds equal bilaterally. No accessory muscle use. GASTROINTESTINAL: Abdomen soft, non-tender, nondistended. MUSCULOSKELETAL: No cyanosis, or edema. BACK: Nontender without obvious deformity. No CVA tenderness. Laboratory Laboratory Tests Test 10/19/16 10/19/16 10/20/16 12:07 13:59 05:15 White Blood Count 15.7 TH/MM3 19.8 TH/MM3 Red Blood Count 5.44 MIL/MM3 5.37 MIL/MM3 Hemoglobin 11.6 GM/DL 11.5 GM/DL Hematocrit 38.1 % 37.2 % Mean Corpuscular Volume 70.1 FL 69.4 FL Mean Corpuscular Hemoglobin 21.4 PG 21.4 PG Mean Corpuscular Hemoglobin 30.6 % 30.9 % Concent Red Cell Distribution Width 17.8 % 16.3 % Platelet Count 265 TH/MM3 256 TH/MM3 Mean Platelet Volume 9.4 FL 10.0 FL Neutrophils (%) (Auto) 91.8 % Lymphocytes (%) (Auto) 2.2 % Monocytes (%) (Auto) 4.5 % Eosinophils (%) (Auto) 0.1 % Basophils (%) (Auto) 1.4 % Neutrophils # (Auto) 14.4 TH/MM3 Lymphocytes # (Auto) 0.4 TH/MM3 Monocytes # (Auto) 0.7 TH/MM3 Eosinophils # (Auto) 0.0 TH/MM3 Basophils # (Auto) 0.2 TH/MM3 CBC Comment DIFF FINAL Differential Comment Activated Partial 40.6 SEC 44.6 SEC Thromboplast Time Assessment and Plan Problem List: (1) Tobacco abuse (2) Anemia (3) Cardiomyopathy (4) CHF (congestive heart failure) (5) CAD (coronary artery disease) Assessment and Plan 1.) CAD/cardiomyopathy - betablocker held due to copd, continue aspirin, check lipids; increase altace 5 mg qd, continue aldactone 50 mg bid, not candidate for cabg per Dr Miller due to poor pfts, consider pci lad staged pci rca if/ when pneumonia significantly improved, f/u bnp in am 2.) Af - rvr, improved after transfusion and cardizem drip, cont iv hep, aspirin 81 mg qd, f/u cbc 3.) Anemia - improved s/p transfusion, d/w Dr Branden Pringle, he suspects dilution , defer to Dr Pringle Problem Qualifiers (1) Cardiomyopathy: Qualified Code: I25.5 - Ischemic cardiomyopathy (2) CHF (congestive heart failure): Qualified Code: I50.43 - Acute on chronic combined systolic and diastolic congestive heart failure (3) CAD (coronary artery disease): Qualified Code: I25.10 - Coronary artery disease involving [place] coronary artery of [place] heart, angina presence unspecified Daniel Trujillo MD Oct 20, 2016 08:52
[2016-10-20] MEDS: FAMOTIDINE 20 MG TAB PO SCH ×2 (09:00→20:08)
[2016-10-20] MEDS: SODIUM CHLORIDE 0.9% FLUSH 10 ML FLUSH SCH ×4 (09:00→20:07)
--- NOTE | 2016-10-20 09:14 | HHI.IDPN ---
Subjective Subjective Remarks Notes reviewed Temps ok BP ok Last CXR - marked improvement in his infiltrates No new complaints Not SOB No N/V Phlegm is dark brown with some blood Denies diarrhea No abdominal pain No dysuria, UA ok Sputum C/S with Pseudomonas aeruginosa CT chest with extensive emphysema and findings of possible necrotizing pneumonia Antibiotics Zosyn Lines PIV Past Medical History Right hip ORIF, Right knee surgery, Jaw surgery. Allergies: Coded Allergies: No Known Allergies (Unverified , 10/08/16) Objective . Vital Signs Date Time Temp Pulse Resp B/P Pulse Ox O2 Delivery O2 Flow Rate FiO2 10/20/16 08:00 98.0 80 18 99/55 95 10/20/16 06:00 81 10/20/16 04:00 97.7 85 23 122/59 96 10/20/16 04:00 71 10/20/16 02:00 72 10/20/16 00:00 72 10/20/16 00:00 97.6 77 15 112/59 97 10/19/16 22:00 73 10/19/16 20:40 95 Nasal Cannula 2.00 10/19/16 20:00 97.6 79 23 110/59 96 10/19/16 20:00 79 10/19/16 18:00 82 10/19/16 16:00 82 10/19/16 16:00 98.2 79 22 116/58 95 10/19/16 14:00 82 10/19/16 12:00 97.8 84 21 108/58 97 10/19/16 12:00 82 10/19/16 10:00 82 10/19/16 10/19/16 10/20/16 15:00 23:00 07:00 Intake Total 816 ml 437 ml 276 ml Output Total 900 ml 1325 ml 875 ml Balance -84 ml -888 ml -599 ml Intake Oral 480 ml 240 ml 0 ml IV Total 336 ml 197 ml 276 ml Output Urine Total 900 ml 1325 ml 875 ml # Bowel Movements 2 0 0 . Laboratory Tests Test 10/19/16 10/20/16 12:07 05:15 White Blood Count 15.7 TH/MM3 19.8 TH/MM3 Red Blood Count 5.44 MIL/MM3 5.37 MIL/MM3 Hemoglobin 11.6 GM/DL 11.5 GM/DL Hematocrit 38.1 % 37.2 % Mean Corpuscular Volume 70.1 FL 69.4 FL Mean Corpuscular Hemoglobin 21.4 PG 21.4 PG Mean Corpuscular Hemoglobin 30.6 % 30.9 % Concent Red Cell Distribution Width 17.8 % 16.3 % Platelet Count 265 TH/MM3 256 TH/MM3 Mean Platelet Volume 9.4 FL 10.0 FL Neutrophils (%) (Auto) 91.8 % Lymphocytes (%) (Auto) 2.2 % Monocytes (%) (Auto) 4.5 % Eosinophils (%) (Auto) 0.1 % Basophils (%) (Auto) 1.4 % Neutrophils # (Auto) 14.4 TH/MM3 Lymphocytes # (Auto) 0.4 TH/MM3 Monocytes # (Auto) 0.7 TH/MM3 Eosinophils # (Auto) 0.0 TH/MM3 Basophils # (Auto) 0.2 TH/MM3 CBC Comment DIFF FINAL Differential Comment Laboratory Tests Test 10/19/16 06:33 B-Type Natriuretic Peptide 168 PG/ML Imaging Lower Extremity Ultrasound 10/09/16 0000 Signed Impressions: Service Date/Time: Sunday, October 09, 2016 10:52 - CONCLUSION: 1. No DVT identified. Janak Ortiz MD Chest X-Ray 10/09/16 0000 Signed Impressions: Service Date/Time: Sunday, October 09, 2016 03:08 - CONCLUSION: Bibasal infiltrates right worse on left with slight worsening since the fourth Prince Robledo MD CT Angiography 10/09/16 0000 Signed Impressions: Service Date/Time: Sunday, October 09, 2016 10:23 - CONCLUSION: 1. No evidence for pulmonary embolism to the subsegmental level as questioned. 2. Redemonstration of severe centrilobular emphysema with extensive bilateral lower lobe airspace consolidation with probable necrosis. Smaller regions of airspace consolidation in the inferior lingula and right middle lobe. Overall findings are most consistent with severe aspiration versus necrotizing pneumonia. 3. 1.2 cm cavitary nodule in the right upper lobe. Additional nearly spiculated nodular opacities in the left lung base measuring up to 1.7 cm. Although the findings may be infectious in etiology followup to resolution is recommended given the extensive underlying lung disease. 4. Small pericardial effusion. 5. Moderate coronary artery calcifications. 6. Cholelithiasis. Sincere Das MD Lung Scan-VQ Nuclear Medicine 10/08/162037 Signed Impressions: Service Date/Time: Saturday, October 08, 2016 21:37 - CONCLUSION: Intermediate probability for pulmonary embolism. Jesus Hayes MD Abdomen/Pelvis CT 10/08/162028 Signed Impressions: Service Date/Time: Saturday, October 08, 2016 20:52 - CONCLUSION: 1. Extensive emphysema with extensive bibasilar consolidation with cavities likely necrotizing pneumonia. 2. Diverticulosis of the colon. 3. Cholelithiasis. 4. Bilobed distal abdominal aortic aneurysm measuring 3.2 cm with extensive atherosclerotic calcifications of the iliac vasculature. Critical stenosis cannot be excluded. Jesus Hayes MD Physical Exam GENERAL: Patient is a cachectic, awake and alert, NAD SKIN: Warm and dry. No generalized rash. IV sites look ok HEENT: [place] conjunctiva. No petechia or hemorrhage. No scleral icterus. Moist mucosa. No oral thrush. He is edentulous NECK: Trachea midline. Supple and not tender, no meningeal signs CARDIOVASCULAR: Regular rate and rhythm. No murmurs, rubs or gallops heard RESPIRATORY: Decreased BS whole lung ramires. ABDOMEN: Soft, non-tender, nondistended. Bowel sounds present and normoactive. No guarding. No rebound. No organomegaly. EXTREMITIES: No clubbing, cyanosis. Has mild ankle edema. No calf tenderness. Well perfused and warm. NEUROLOGICAL: Non-focal. PSYCHIATRIC: Normal affect, calm and cooperative. LINE: No evidence of infection : Has a collection bag around shaft with clear urine Assessment & Plan Remarks IMPRESSION Bilateral pneumonia, has severe emphysema - has ?necrotizing pneumonia, C/S PSAE - CXR much improved COPD, emphysema Leukocytosis, up again - no obvious etiology? - he looks clinically stable Cachexia ?Malignancy RECOMMENDATION Change Zosyn to Cipro orally maryann complete Rx for PSAE PNA He is clinically stable from ID standpoint I will be available prn Please call if with any new ID issue or question Zonia Lake MD Oct 20, 2016 09:14
[2016-10-20] MEDS: CIPROFLOXACIN 750 MG TAB PO SCH ×2 (10:21→20:08)
--- NOTE | 2016-10-20 12:55 | HHI.PR ---
Daria Cuenca MD Oct 20, 2016 12:55
--- NOTE | 2016-10-20 13:02 | HHI.PR ---
Subjective Remarks patient feels comfortable, generalized weakness no nausea or vomiting Objective Vitals Vital Signs Date Time Temp Pulse Resp B/P Pulse Ox O2 Delivery O2 Flow Rate FiO2 10/20/16 12:00 97.8 82 18 116/61 95 10/20/16 12:00 78 10/20/16 10:00 78 10/20/16 08:00 98.0 80 18 99/55 95 10/20/16 08:00 81 10/20/16 06:00 81 10/20/16 04:00 97.7 85 23 122/59 96 10/20/16 04:00 71 10/20/16 02:00 72 10/20/16 00:00 72 10/20/16 00:00 97.6 77 15 112/59 97 10/19/16 22:00 73 10/19/16 20:40 95 Nasal Cannula 2.00 10/19/16 20:00 97.6 79 23 110/59 96 10/19/16 20:00 79 10/19/16 18:00 82 10/19/16 16:00 82 10/19/16 16:00 98.2 79 22 116/58 95 10/19/16 14:00 82 I/O 10/19/16 10/19/16 10/19/16 10/20/16 10/20/16 10/20/16 07:00 15:00 23:00 07:00 15:00 23:00 Intake Total 431 ml 816 ml 437 ml 276 ml Output Total 1000 ml 900 ml 1325 ml 875 ml Balance -569 ml -84 ml -888 ml -599 ml Intake Oral 240 ml 480 ml 240 ml 0 ml IV Total 191 ml 336 ml 197 ml 276 ml Output Urine Total 1000 ml 900 ml 1325 ml 875 ml # Bowel Movements 3 2 0 0 Result Diagram: 10/20/16 0515 10/18/16 0250 Imaging Last Impressions Chest X-Ray 10/17/16 0000 Signed Impressions: Service Date/Time: Monday, October 17, 2016 11:47 - CONCLUSION: 1. Significant interval improvement of bilateral lower lobe airspace disease with residual consolidation in the posterior lower lobes bilaterally. The findings are most concerning for aspiration although pneumonia is in the differential diagnosis. Sincere Das MD Lower Extremity Ultrasound 10/09/16 0000 Signed Impressions: Service Date/Time: Sunday, October 09, 2016 10:52 - CONCLUSION: 1. No DVT identified. Janak Ortiz MD CT Angiography 10/09/16 0000 Signed Impressions: Service Date/Time: Sunday, October 09, 2016 10:23 - CONCLUSION: 1. No evidence for pulmonary embolism to the subsegmental level as questioned. 2. Redemonstration of severe centrilobular emphysema with extensive bilateral lower lobe airspace consolidation with probable necrosis. Smaller regions of airspace consolidation in the inferior lingula and right middle lobe. Overall findings are most consistent with severe aspiration versus necrotizing pneumonia. 3. 1.2 cm cavitary nodule in the right upper lobe. Additional nearly spiculated nodular opacities in the left lung base measuring up to 1.7 cm. Although the findings may be infectious in etiology followup to resolution is recommended given the extensive underlying lung disease. 4. Small pericardial effusion. 5. Moderate coronary artery calcifications. 6. Cholelithiasis. Sincere Das MD Lung Scan-V Nuclear Medicine 10/08/162037 Signed Impressions: Service Date/Time: Saturday, October 08, 2016 21:37 - CONCLUSION: Intermediate probability for pulmonary embolism. Jesus Hayes MD Abdomen/Pelvis CT 10/08/162028 Signed Impressions: Service Date/Time: Saturday, October 08, 2016 20:52 - CONCLUSION: 1. Extensive emphysema with extensive bibasilar consolidation with cavities likely necrotizing pneumonia. 2. Diverticulosis of the colon. 3. Cholelithiasis. 4. Bilobed distal abdominal aortic aneurysm measuring 3.2 cm with extensive atherosclerotic calcifications of the iliac vasculature. Critical stenosis cannot be excluded. Jesus Hayes MD Objective Remarks awake and alert, cachectic looking, NAD, more interactive anicteric lungs no rales regular rhythm - 87/min abdomen soft, nontender bilateral groin-- no hematoma extremities no edema, no calf swelling or tenderness condom catheter in place all extremities- equal strength-"stronger Procedures 10/16- cardiac catheterization 3V disease A/P Assessment and Plan 71-year-old male with: Respiratory failure secondary to pneumonia, UNDERLYING copd- Improved Bilateral pneumonia, , has severe emphysema - has ?necrotizing pneumonia, C/S PSAE - ?infected bullous lesions in his lungs, he has hx severe emphysema 10/09 sputum cx growing pseudomonas Continue width oxygen keep sat >92% Bronchodilators, change to po Prednisone 20 mg po bid 10/19 encouraged pt to cough and use acapella. V/Q scan showed intermed prob PE. CTA chest negative for PE, showed severe COPD changes, consolidation lower lobes, 1.2 cm cavitary nodule RUL and spiculated nodular opacities in left base. Doppler US LE negative for DVTD Infectious disease is following. on broad spectrum abx s/p Vanco, Zithromax and levaquin now only on Zosyn per ID Follow up on Blood 10/08: [facility] Pulmonary- Dr. Meza ff- considering possible bronchoscopy Leukocytosis- due to infection + on steroids Pulmonary spiculated nodule- cavitary- r/o possible underlying cavitary malignancy Pulmonary on board evaluate for bronchoscopy . CAD S/P cath 2VD/ CMP - A. fib with RVR and elevated troponins- now in NSR - on po Cardizem 60 mg po qid. on heparin drip -on aldactrone 50 mg po bid/ Altace 5 mg po daily/ASA. Dr Trujillo ff- planned for stage PCI - DR Miller ff- not candidate for surgery - Anemia: Probably has some chronic anemia but H&H trended down since the hospitalization. Significantly improved post PRBC transfusion. Stable Malnutrition- Lead Assistant Manager ff cachectic looking- patient encourage- like Ensure- that;s the only thing he'll take- counselled GI prophylaxis- On Pepcid 10mg IV Q12- change to po DVT prophylaxis- heparin Doppler US LE negative for DVT Increae activity- out of bed to chair- /PT for deconditioning Daria Cuenca MD Oct 20, 2016 13:02
--- NOTE | 2016-10-20 18:12 | HHI.PR ---
Subjective Remarks 71 YOWM with Bilat infilt, lung nodule, wt loss Had cardiac cath, multi vessel disease On NC Mild sob No fever Feels little better Objective Vital Signs Vital Signs Date Time Temp Pulse Resp B/P Pulse Ox O2 Delivery O2 Flow Rate FiO2 10/20/16 16:00 64 10/20/16 16:00 97.8 84 18 114/61 95 10/20/16 14:00 78 10/20/16 12:00 97.8 82 18 116/61 95 10/20/16 12:00 78 10/20/16 10:00 78 10/20/16 08:00 98.0 80 18 99/55 95 10/20/16 08:00 81 10/20/16 06:00 81 10/20/16 04:00 97.7 85 23 122/59 96 10/20/16 04:00 71 10/20/16 02:00 72 10/20/16 00:00 72 10/20/16 00:00 97.6 77 15 112/59 97 10/19/16 22:00 73 10/19/16 20:40 95 Nasal Cannula 2.00 10/19/16 20:00 97.6 79 23 110/59 96 10/19/16 20:00 79 I/O 10/19/16 10/19/16 10/19/16 10/20/16 10/20/16 10/20/16 07:00 15:00 23:00 07:00 15:00 23:00 Intake Total 431 ml 816 ml 437 ml 276 ml 708 ml Output Total 1000 ml 900 ml 1325 ml 875 ml 1200 ml Balance -569 ml -84 ml -888 ml -599 ml -492 ml Intake Oral 240 ml 480 ml 240 ml 0 ml 380 ml IV Total 191 ml 336 ml 197 ml 276 ml 328 ml Output Urine Total 1000 ml 900 ml 1325 ml 875 ml 1200 ml # Bowel Movements 3 2 0 0 2 Result Diagram: 10/20/16 0515 10/18/16 0250 Objective Remarks GENERAL: Cachectic WM, mild sob SKIN: Warm and dry. HEAD: Normocephalic. EYES: No scleral icterus. No injection or drainage. NECK: Supple, trachea midline. No JVD or lymphadenopathy. CARDIOVASCULAR: Regular rate and rhythm without murmurs, gallops, or rubs. RESPIRATORY: Breath sounds equal bilaterally. No accessory muscle use. GASTROINTESTINAL: Abdomen soft, non-tender, nondistended. MUSCULOSKELETAL: No cyanosis, or edema. BACK: Nontender without obvious deformity. No CVA tenderness. A/P Assessment and Plan Bilat lung infilt Lung nodule Weight loss COPD CAD CMP PLAN: Cont Abx Aerosol nebs Supplement 02 Heparin drip Stable to tr to step down Sebastian Meza MD Oct 20, 2016 18:12
[2016-10-21] VITALS (14 sets, daily range): BP systolic 105–129; BP diastolic 55–79; PULSE 75–92; RESP 20–29; TEMP 97.7–98.7; O2SAT 92–98
[2016-10-21] MEDS: DILTIAZEM HCL 60 MG TAB PO SCH ×4 (03:05→20:17)
[2016-10-21] MEDS: CHLORHEXIDINE GLUCONATE 2 % 1 PACK (2 CLOTHS) TOP SCH ×2 (03:05→19:34)
[2016-10-21 04:55] LABS: HEMATOCRIT 35.8 % (39.0-51.0); MEAN CORPUSCULAR HGB CONC 32.4 % (32.0-36.0); PLATELET COUNT 249 TH/MM3 (150-450); RED BLOOD COUNT 5.26 MIL/MM3 (4.50-5.90); RED CELL DISTRIBUTION WIDTH 16.9 % (11.6-17.2); REVIEW FLAG FINAL; WHITE BLOOD COUNT 14.2 TH/MM3 (4.0-11.0)
[2016-10-21 04:58] LABS: APTT (PATIENT) 52.5 SEC (24.3-30.1)
[2016-10-21 05:20] LABS: BICARBONATE 34.6 MEQ/L (21.0-32.0); MAGNESIUM 1.7 MG/DL (1.5-2.5); POTASSIUM 4.6 MEQ/L (3.5-5.1)
[2016-10-21] MEDS: CIPROFLOXACIN 750 MG TAB PO SCH ×2 (08:09→20:17)
[2016-10-21] MEDS: FAMOTIDINE 20 MG TAB PO SCH ×2 (08:09→20:17)
[2016-10-21] MEDS: SPIRONOLACTONE 50 MG TAB PO SCH ×2 (08:09→16:12)
[2016-10-21] MEDS: SODIUM CHLORIDE 0.9% FLUSH 10 ML FLUSH SCH ×3 (08:10→20:17)
[2016-10-21] MEDS: predniSONE 20 MG TAB PO SCH ×2 (08:10→20:17)
[2016-10-21] MEDS: ASPIRIN EC 81 MG TABEC PO SCH (08:10)
[2016-10-21] MEDS: RAMIPRIL 5 MG CAP PO SCH (08:10)
[2016-10-21] MEDS: DOCUSATE SODIUM 50 MG/SENNA 8.6 MG TAB PO SCH ×2 (08:11→20:17)
--- NOTE | 2016-10-21 10:37 | HHI.PR ---
Subjective Remarks no complains of pain, chest pains or shortness of breath no groin pain Objective Vitals Vital Signs Date Time Temp Pulse Resp B/P Pulse Ox O2 Delivery O2 Flow Rate FiO2 10/21/16 07:26 95 Nasal Cannula 2.00 10/21/16 06:00 80 10/21/16 04:00 98.1 77 26 105/57 95 10/21/16 04:00 75 10/21/16 02:00 84 10/21/16 00:00 81 10/21/16 00:00 97.7 92 29 120/70 94 10/20/16 22:00 86 10/20/16 20:00 97 10/20/16 20:00 98.0 97 28 115/59 94 10/20/16 18:00 64 10/20/16 16:00 64 10/20/16 16:00 97.8 84 18 114/61 95 10/20/16 14:00 78 10/20/16 12:00 97.8 82 18 116/61 95 10/20/16 12:00 78 I/O 10/20/16 10/20/16 10/20/16 10/21/16 10/21/16 10/21/16 07:00 15:00 23:00 07:00 15:00 23:00 Intake Total 276 ml 708 ml 428 ml 281 ml Output Total 875 ml 1200 ml 975 ml 350 ml Balance -599 ml -492 ml -547 ml -69 ml Intake Oral 0 ml 380 ml 360 ml 240 ml IV Total 276 ml 328 ml 68 ml 41 ml Output Urine Total 875 ml 1200 ml 975 ml 350 ml # Bowel Movements 0 2 2 4 Result Diagram: 10/21/16 0403 10/21/16 0403 Imaging Last Impressions Chest X-Ray 10/17/16 0000 Signed Impressions: Service Date/Time: Monday, October 17, 2016 11:47 - CONCLUSION: 1. Significant interval improvement of bilateral lower lobe airspace disease with residual consolidation in the posterior lower lobes bilaterally. The findings are most concerning for aspiration although pneumonia is in the differential diagnosis. Sincere Das MD Lower Extremity Ultrasound 10/09/16 0000 Signed Impressions: Service Date/Time: Sunday, October 09, 2016 10:52 - CONCLUSION: 1. No DVT identified. Janak Ortiz MD CT Angiography 10/09/16 0000 Signed Impressions: Service Date/Time: Sunday, October 09, 2016 10:23 - CONCLUSION: 1. No evidence for pulmonary embolism to the subsegmental level as questioned. 2. Redemonstration of severe centrilobular emphysema with extensive bilateral lower lobe airspace consolidation with probable necrosis. Smaller regions of airspace consolidation in the inferior lingula and right middle lobe. Overall findings are most consistent with severe aspiration versus necrotizing pneumonia. 3. 1.2 cm cavitary nodule in the right upper lobe. Additional nearly spiculated nodular opacities in the left lung base measuring up to 1.7 cm. Although the findings may be infectious in etiology followup to resolution is recommended given the extensive underlying lung disease. 4. Small pericardial effusion. 5. Moderate coronary artery calcifications. 6. Cholelithiasis. Sincere Das MD Lung Scan-VQ Nuclear Medicine 10/08/162037 Signed Impressions: Service Date/Time: Saturday, October 08, 2016 21:37 - CONCLUSION: Intermediate probability for pulmonary embolism. Jesus Hayes MD Abdomen/Pelvis CT 10/08/162028 Signed Impressions: Service Date/Time: Saturday, October 08, 2016 20:52 - CONCLUSION: 1. Extensive emphysema with extensive bibasilar consolidation with cavities likely necrotizing pneumonia. 2. Diverticulosis of the colon. 3. Cholelithiasis. 4. Bilobed distal abdominal aortic aneurysm measuring 3.2 cm with extensive atherosclerotic calcifications of the iliac vasculature. Critical stenosis cannot be excluded. Jesus Hayes MD Objective Remarks awake and alert, cachectic looking, NAD, more interactive anicteric lungs no rales regular rhythm - 87/min abdomen soft, nontender bilateral groin-- no hematoma extremities no edema, no calf swelling or tenderness condom catheter in place all extremities- equal strength- Procedures 10/16- cardiac catheterization 3V disease A/P Assessment and Plan 71-year-old male with: Respiratory failure secondary to pneumonia, UNDERLYING copd- Improved Bilateral pneumonia, , has severe emphysema - has ?necrotizing pneumonia, C/S PSAE - ?infected bullous lesions in his lungs, he has hx severe emphysema 10/09 sputum cx growing pseudomonas Continue width oxygen keep sat >92% Bronchodilators, change to po Prednisone 20 mg po bid 6/15- encouraged pt to cough and use acapella. V/Q scan showed intermed prob PE. CTA chest negative for PE, showed severe COPD changes, consolidation lower lobes, 1.2 cm cavitary nodule RUL and spiculated nodular opacities in left base. Doppler US LE negative for DVTD Infectious disease is following. on broad spectrum abx s/p Vanco, Zithromax and levaquin. Zosyn per ID-Discontinued 10/20 changed to po ciprofloxacin bid 10/20- till 11/03 Follow up on Blood 10/08: [facility] Pulmonary- Dr. Meza ff- considering possible bronchoscopy Leukocytosis- due to infection + on steroids Pulmonary spiculated nodule- cavitary- r/o possible underlying cavitary malignancy Pulmonary on board evaluate for bronchoscopy . CAD S/P cath 2VD/ CMP - A. fib with RVR and elevated troponins- now in NSR - on po Cardizem 60 mg po qid. on heparin drip -on aldactrone 50 mg po bid/ Altace 5 mg po daily/ASA. - Dr Trujillo ff- planned for stage PCI - DR Miller ff- not candidate for surgery - Anemia: Probably has some chronic anemia but H&H trended down since the hospitalization. Significantly improved post PRBC transfusion. Stable Malnutrition- Auricular Therapist ff cachectic looking- patient encourage- like Ensure- that;s the only thing he'll take- counselled GI prophylaxis- On Pepcid 10mg bid po DVT prophylaxis- heparin Doppler US LE negative for DVT Increae activity- out of bed to chair- /PT for deconditioning Transfer to [facility] Daria Cuenca MD Oct 21, 2016 10:37
--- NOTE | 2016-10-21 10:46 | PD.CARD.PN ---
Subjective Subjective Remarks alert in nad Objective Vital Signs / I&O Vital Signs Date Time Temp Pulse Resp B/P Pulse Ox O2 Delivery O2 Flow Rate FiO2 10/21/16 07:26 95 Nasal Cannula 2.00 10/21/16 06:00 80 10/21/16 04:00 98.1 77 26 105/57 95 10/21/16 04:00 75 10/21/16 02:00 84 10/21/16 00:00 81 10/21/16 00:00 97.7 92 29 120/70 94 10/20/16 22:00 86 10/20/16 20:00 97 10/20/16 20:00 98.0 97 28 115/59 94 10/20/16 18:00 64 10/20/16 16:00 64 10/20/16 16:00 97.8 84 18 114/61 95 10/20/16 14:00 78 10/20/16 12:00 97.8 82 18 116/61 95 10/20/16 12:00 78 I/O 10/20/16 10/20/16 10/20/16 10/21/16 10/21/16 10/21/16 07:00 15:00 23:00 07:00 15:00 23:00 Intake Total 276 ml 708 ml 428 ml 281 ml Output Total 875 ml 1200 ml 975 ml 350 ml Balance -599 ml -492 ml -547 ml -69 ml Intake Oral 0 ml 380 ml 360 ml 240 ml IV Total 276 ml 328 ml 68 ml 41 ml Output Urine Total 875 ml 1200 ml 975 ml 350 ml # Bowel Movements 0 2 2 4 Physical Exam GENERAL: SKIN: Warm and dry. HEAD: Normocephalic. EYES: No scleral icterus. No injection or drainage. NECK: Supple, trachea midline. No JVD or lymphadenopathy. CARDIOVASCULAR: Regular rate and rhythm without murmurs, gallops, or rubs. RESPIRATORY: Breath sounds equal bilaterally. No accessory muscle use. GASTROINTESTINAL: Abdomen soft, non-tender, nondistended. MUSCULOSKELETAL: No cyanosis, or edema. BACK: Nontender without obvious deformity. No CVA tenderness. Laboratory Laboratory Tests Test 10/21/16 04:03 White Blood Count 14.2 TH/MM3 Red Blood Count 5.26 MIL/MM3 Hemoglobin 11.6 GM/DL Hematocrit 35.8 % Mean Corpuscular Volume 68.0 FL Mean Corpuscular Hemoglobin 22.0 PG Mean Corpuscular Hemoglobin 32.4 % Concent Red Cell Distribution Width 16.9 % Platelet Count 249 TH/MM3 Mean Platelet Volume 10.0 FL Activated Partial 52.5 SEC Thromboplast Time Sodium Level 133 MEQ/L Potassium Level 4.6 MEQ/L Chloride Level 92 MEQ/L Carbon Dioxide Level 34.6 MEQ/L Anion Gap 6 MEQ/L Blood Urea Nitrogen 20 MG/DL Creatinine 0.38 MG/DL Estimat Glomerular Filtration 224 ML/MIN Rate Random Glucose 106 MG/DL Calcium Level 8.6 MG/DL Magnesium Level 1.7 MG/DL B-Type Natriuretic Peptide 146 PG/ML Assessment and Plan Problem List: (1) Tobacco abuse (2) Anemia (3) Cardiomyopathy (4) CHF (congestive heart failure) (5) CAD (coronary artery disease) Assessment and Plan 1.) CAD/cardiomyopathy - betablocker held due to copd, continue aspirin, check lipids; increase altace 5 mg qd, continue aldactone 50 mg bid, not candidate for cabg per Dr Miller due to poor pfts, pci lad sun or depending on my schedule, possible staged pci rca pending clinical response to lad pci, f/u bnp in am 2.) Af - rvr, improved after transfusion and cardizem drip, cont iv hep, aspirin 81 mg qd, f/u cbc 3.) Anemia - improved s/p transfusion, d/w Dr Branden Pringle, he suspects dilution , defer to Dr Pringle Problem Qualifiers (1) Cardiomyopathy: Qualified Code: I25.5 - Ischemic cardiomyopathy (2) CHF (congestive heart failure): Qualified Code: I50.43 - Acute on chronic combined systolic and diastolic congestive heart failure (3) CAD (coronary artery disease): Qualified Code: I25.10 - Coronary artery disease involving redding coronary artery of redding heart, angina presence unspecified Daniel Trujillo MD Oct 21, 2016 10:46
[2016-10-21] MEDS: HEPARIN 25,000 UNITS-D5W 250 ML - PREMIX IV SCH (17:25)
--- NOTE | 2016-10-21 20:09 | HHI.PR ---
Subjective Remarks ASWS: ALERT NO SOB AT REST Objective Vital Signs Date Time Temp Pulse Resp B/P Pulse Ox O2 Delivery O2 Flow Rate FiO2 10/21/16 19:50 97 Nasal Cannula 2.00 10/21/16 18:00 81 10/21/16 16:00 80 10/21/16 16:00 98.7 80 24 113/57 92 10/21/16 14:00 84 10/21/16 12:00 84 10/21/16 12:00 98.0 83 20 109/56 95 10/21/16 10:00 83 10/21/16 08:00 97.8 81 22 115/55 93 10/21/16 08:00 81 10/21/16 07:26 95 Nasal Cannula 2.00 10/21/16 06:00 80 10/21/16 04:00 98.1 77 26 105/57 95 10/21/16 04:00 75 10/21/16 02:00 84 10/21/16 00:00 81 10/21/16 00:00 97.7 92 29 120/70 94 10/20/16 22:00 86 I/O 10/20/16 10/20/16 10/20/16 10/21/16 10/21/16 10/21/16 07:00 15:00 23:00 07:00 15:00 23:00 Intake Total 276 ml 708 ml 428 ml 281 ml 665 ml Output Total 875 ml 1200 ml 975 ml 350 ml 700 ml Balance -599 ml -492 ml -547 ml -69 ml -35 ml Intake Oral 0 ml 380 ml 360 ml 240 ml 600 ml IV Total 276 ml 328 ml 68 ml 41 ml 65 ml Output Urine Total 875 ml 1200 ml 975 ml 350 ml 700 ml # Bowel Movements 0 2 2 4 1 Result Diagram: 10/21/16 0403 10/21/16402 Objective Remarks GENERAL: SKIN: Warm and dry. HEAD: Atraumatic. Normocephalic. EYES: Pupils equal and round. No scleral icterus. No injection or drainage. ENT: No nasal bleeding or discharge. Mucous membranes pink and moist. NECK: Trachea midline. No JVD. CARDIOVASCULAR: Regular rate and rhythm. RESPIRATORY: No accessory muscle use. Clear to auscultation. Breath sounds equal bilaterally. GASTROINTESTINAL: Abdomen soft, non-tender, nondistended. Hepatic and splenic margins not palpable. MUSCULOSKELETAL: Extremities without clubbing, cyanosis, or edema. No obvious deformities. NEUROLOGICAL: Awake and alert. No obvious cranial nerve deficits. Motor grossly within normal limits. Five out of 5 muscle strength in the arms and legs. Normal speech. PSYCHIATRIC: Appropriate mood and affect; insight and judgment normal. Assessment and Plan Assessment and Plan ASS: PNA COPD CACHEX[place] PLAN: O2 NEEDED ANTIBX BRONCHODILATORS INCREASE ACTIVITY Chriss Banerjee MD Oct 21, 2016 20:09
[2016-10-22] VITALS (15 sets, daily range): BP systolic 98–135; BP diastolic 56–63; PULSE 75–102; RESP 14–20; TEMP 97.9–98.7; O2SAT 97–100
[2016-10-22] MEDS: DILTIAZEM HCL 60 MG TAB PO SCH ×4 (02:39→21:25)
[2016-10-22 05:41] LABS: HEMATOCRIT 37.7 % (39.0-51.0); MEAN CELL VOLUME 69.2 FL (80.0-100.0); MEAN CORPUSCULAR HEMOGLOBIN 21.4 PG (27.0-34.0); MEAN CORPUSCULAR HGB CONC 30.9 % (32.0-36.0); PLATELET COUNT 233 TH/MM3 (150-450); RED BLOOD COUNT 5.45 MIL/MM3 (4.50-5.90); RED CELL DISTRIBUTION WIDTH 16.8 % (11.6-17.2); REVIEW FLAG FINAL; WHITE BLOOD COUNT 14.8 TH/MM3 (4.0-11.0)
[2016-10-22 05:52] LABS: APTT (PATIENT) 41.1 SEC (24.3-30.1)
[2016-10-22 06:06] LABS: BICARBONATE 31.8 MEQ/L (21.0-32.0); MAGNESIUM 1.9 MG/DL (1.5-2.5); POTASSIUM 4.6 MEQ/L (3.5-5.1)
[2016-10-22] MEDS: RAMIPRIL 5 MG CAP PO SCH (07:51)
[2016-10-22] MEDS: DOCUSATE SODIUM 50 MG/SENNA 8.6 MG TAB PO SCH ×2 (07:52→21:25)
[2016-10-22] MEDS: FAMOTIDINE 20 MG TAB PO SCH ×2 (07:52→21:25)
[2016-10-22] MEDS: ASPIRIN EC 81 MG TABEC PO SCH (07:52)
[2016-10-22] MEDS: CIPROFLOXACIN 750 MG TAB PO SCH ×2 (07:53→21:00)
[2016-10-22] MEDS: SPIRONOLACTONE 50 MG TAB PO SCH ×2 (07:53→17:22)
[2016-10-22] MEDS: predniSONE 20 MG TAB PO SCH ×2 (07:53→21:25)
[2016-10-22] MEDS: SODIUM CHLORIDE 0.9% FLUSH 10 ML FLUSH SCH ×2 (07:54→21:25)
--- NOTE | 2016-10-22 11:23 | HHI.PR ---
Subjective Remarks awake and alert, interactive cough- minimal sputum no diarrhea takes Ensure well voiding Objective Vitals Vital Signs Date Time Temp Pulse Resp B/P Pulse Ox O2 Delivery O2 Flow Rate FiO2 10/22/16 11:02 99 Nasal Cannula 2.00 10/22/16 10:00 80 10/22/16 08:00 83 10/22/16 08:00 98.5 83 20 127/61 99 10/22/16 06:00 80 10/22/16 04:00 97.9 79 16 135/63 100 10/22/16 04:00 77 10/22/16 02:00 77 10/22/16 00:00 98.7 75 14 114/56 97 10/22/16 00:00 79 10/21/16 22:00 78 10/21/16 20:00 87 10/21/16 20:00 98.0 87 23 129/79 98 10/21/16 19:50 97 Nasal Cannula 2.00 10/21/16 18:00 81 10/21/16 16:00 80 10/21/16 16:00 98.7 80 24 113/57 92 10/21/16 14:00 84 10/21/16 12:00 84 10/21/16 12:00 98.0 83 20 109/56 95 I/O 10/21/16 10/21/16 10/21/16 10/22/16 10/22/16 10/22/16 07:00 15:00 23:00 07:00 15:00 23:00 Intake Total 281 ml 665 ml 530 ml 776 ml Output Total 350 ml 700 ml 700 ml 800 ml Balance -69 ml -35 ml -170 ml -24 ml Intake Oral 240 ml 600 ml 480 ml 720 ml IV Total 41 ml 65 ml 50 ml 56 ml Output Urine Total 350 ml 700 ml 700 ml 800 ml # Bowel Movements 4 1 1 Result Diagram: 10/22/16 0431 10/22/16 0431 Imaging Last Impressions Chest X-Ray 10/17/16 0000 Signed Impressions: Service Date/Time: Monday, October 17, 2016 11:47 - CONCLUSION: 1. Significant interval improvement of bilateral lower lobe airspace disease with residual consolidation in the posterior lower lobes bilaterally. The findings are most concerning for aspiration although pneumonia is in the differential diagnosis. Sincere Das MD Lower Extremity Ultrasound 10/09/16 0000 Signed Impressions: Service Date/Time: Sunday, October 09, 2016 10:52 - CONCLUSION: 1. No DVT identified. Janak Ortiz MD CT Angiography 10/09/16 0000 Signed Impressions: Service Date/Time: Sunday, October 09, 2016 10:23 - CONCLUSION: 1. No evidence for pulmonary embolism to the subsegmental level as questioned. 2. Redemonstration of severe centrilobular emphysema with extensive bilateral lower lobe airspace consolidation with probable necrosis. Smaller regions of airspace consolidation in the inferior lingula and right middle lobe. Overall findings are most consistent with severe aspiration versus necrotizing pneumonia. 3. 1.2 cm cavitary nodule in the right upper lobe. Additional nearly spiculated nodular opacities in the left lung base measuring up to 1.7 cm. Although the findings may be infectious in etiology followup to resolution is recommended given the extensive underlying lung disease. 4. Small pericardial effusion. 5. Moderate coronary artery calcifications. 6. Cholelithiasis. Sincere Das MD Lung Scan-V Nuclear Medicine 10/08/162037 Signed Impressions: Service Date/Time: Saturday, October 08, 2016 21:37 - CONCLUSION: Intermediate probability for pulmonary embolism. Jesus Hayes MD Abdomen/Pelvis CT 10/08/162028 Signed Impressions: Service Date/Time: Saturday, October 08, 2016 20:52 - CONCLUSION: 1. Extensive emphysema with extensive bibasilar consolidation with cavities likely necrotizing pneumonia. 2. Diverticulosis of the colon. 3. Cholelithiasis. 4. Bilobed distal abdominal aortic aneurysm measuring 3.2 cm with extensive atherosclerotic calcifications of the iliac vasculature. Critical stenosis cannot be excluded. Jesus Hayes MD Objective Remarks awake and alert, cachectic looking, NAD, more interactive anicteric lungs no rales regular rhythm - abdomen soft, nontender bilateral groin-- no hematoma extremities no edema, no calf swelling or tenderness condom catheter in place motor equal Procedures 10/16- cardiac catheterization 3V disease A/P Assessment and Plan 71-year-old male with: Respiratory failure secondary to pneumonia, UNDERLYING copd- Improved Bilateral pneumonia, , has severe emphysema - has ?necrotizing pneumonia, C/S PSAE - ?infected bullous lesions in his lungs, he has hx severe emphysema 10/09 sputum cx growing pseudomonas Continue width oxygen keep sat >92% Bronchodilators, change to po Prednisone 20 mg po bid 10/19- encouraged pt to cough and use acapella. V/Q scan showed intermed prob PE. CTA chest negative for PE, showed severe COPD changes, consolidation lower lobes, 1.2 cm cavitary nodule RUL and spiculated nodular opacities in left base. Doppler US LE negative for DVTD Infectious disease i- s/p Vanco,Zithromax and levaquin. Zosyn per ID- Discontinued 10/20 changed to po ciprofloxacin bid 10/20- till 11/03 Pulmonary- Dr. Meza ff- considering possible bronchoscopy changed to po Prednisone 20 ,g po bid 10/20- gradual taper Leukocytosis- due to infection + on steroids Pulmonary spiculated nodule- cavitary- r/o possible underlying cavitary malignancy Pulmonary on board evaluate for bronchoscopy . CAD S/P cath 2VD/ CMP - A. fib with RVR and elevated troponins- now in NSR - on po Cardizem 60 mg po qid. on heparin drip -on aldactrone 50 mg po bid/ Altace 5 mg po daily/ASA. - Dr Trujillo ff- planned for stage PCI - DR Miller ff- not candidate for surgery - Anemia: Probably has some chronic anemia but H&H trended down since the hospitalization. Significantly improved post PRBC transfusion. 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
--- NOTE | 2016-10-22 14:14 | HHI.PR ---
Subjective Remarks ASWS: ALERT NO SOB AT REST Objective Vital Signs Date Time Temp Pulse Resp B/P Pulse Ox O2 Delivery O2 Flow Rate FiO2 10/22/16 12:00 81 10/22/16 12:00 98.0 81 18 109/57 99 10/22/16 11:02 99 Nasal Cannula 2.00 10/22/16 10:00 80 10/22/16 08:00 83 10/22/16 08:00 98.5 83 20 127/61 99 10/22/16 06:00 80 10/22/16 04:00 97.9 79 16 135/63 100 10/22/16 04:00 77 10/22/16 02:00 77 10/22/16 00:00 98.7 75 14 114/56 97 10/22/16 00:00 79 10/21/16 22:00 78 10/21/16 20:00 87 10/21/16 20:00 98.0 87 23 129/79 98 10/21/16 19:50 97 Nasal Cannula 2.00 10/21/16 18:00 81 10/21/16 16:00 80 10/21/16 16:00 98.7 80 24 113/57 92 I/O 10/21/16 10/21/16 10/21/16 10/22/16 10/22/16 10/22/16 07:00 15:00 23:00 07:00 15:00 23:00 Intake Total 281 ml 665 ml 530 ml 776 ml Output Total 350 ml 700 ml 700 ml 800 ml Balance -69 ml -35 ml -170 ml -24 ml Intake Oral 240 ml 600 ml 480 ml 720 ml IV Total 41 ml 65 ml 50 ml 56 ml Output Urine Total 350 ml 700 ml 700 ml 800 ml # Bowel Movements 4 1 1 Result Diagram: 10/22/16 0431 10/22/16 0431 Objective Remarks GENERAL: SKIN: Warm and dry. HEAD: Atraumatic. Normocephalic. EYES: Pupils equal and round. No scleral icterus. No injection or drainage. ENT: No nasal bleeding or discharge. Mucous membranes pink and moist. NECK: Trachea midline. No JVD. CARDIOVASCULAR: Regular rate and rhythm. RESPIRATORY: No accessory muscle use. Clear to auscultation. Breath sounds equal bilaterally. GASTROINTESTINAL: Abdomen soft, non-tender, nondistended. Hepatic and splenic margins not palpable. MUSCULOSKELETAL: Extremities without clubbing, cyanosis, or edema. No obvious deformities. NEUROLOGICAL: Awake and alert. No obvious cranial nerve deficits. Motor grossly within normal limits. Five out of 5 muscle strength in the arms and legs. Normal speech. PSYCHIATRIC: Appropriate mood and affect; insight and judgment normal. Assessment and Plan Assessment and Plan ASS: PNA COPD [place]HEX[place] PLAN: O2 NEEDED ANTIBX BRONCHODILATORS INCREASE ACTIVITY Chriss Banerjee MD Oct 22, 2016 14:14
--- NOTE | 2016-10-22 15:48 | PD.CARD.PN ---
Subjective Subjective Remarks alert in nad Objective Vital Signs / I&O Vital Signs Date Time Temp Pulse Resp B/P Pulse Ox O2 Delivery O2 Flow Rate FiO2 10/22/16 12:00 81 10/22/16 12:00 98.0 81 18 109/57 99 10/22/16 11:02 99 Nasal Cannula 2.00 10/22/16 10:00 80 10/22/16 08:00 83 10/22/16 08:00 98.5 83 20 127/61 99 10/22/16 06:00 80 10/22/16 04:00 97.9 79 16 135/63 100 10/22/16 04:00 77 10/22/16 02:00 77 10/22/16 00:00 98.7 75 14 114/56 97 10/22/16 00:00 79 10/21/16 22:00 78 10/21/16 20:00 87 10/21/16 20:00 98.0 87 23 129/79 98 10/21/16 19:50 97 Nasal Cannula 2.00 10/21/16 18:00 81 10/21/16 16:00 80 10/21/16 16:00 98.7 80 24 113/57 92 I/O 10/21/16 10/21/16 10/21/16 10/22/16 10/22/16 10/22/16 07:00 15:00 23:00 07:00 15:00 23:00 Intake Total 281 ml 665 ml 530 ml 776 ml Output Total 350 ml 700 ml 700 ml 800 ml Balance -69 ml -35 ml -170 ml -24 ml Intake Oral 240 ml 600 ml 480 ml 720 ml IV Total 41 ml 65 ml 50 ml 56 ml Output Urine Total 350 ml 700 ml 700 ml 800 ml # Bowel Movements 4 1 1 Physical Exam GENERAL: SKIN: Warm and dry. HEAD: Normocephalic. EYES: No scleral icterus. No injection or drainage. NECK: Supple, trachea midline. No JVD or lymphadenopathy. CARDIOVASCULAR: Regular rate and rhythm without murmurs, gallops, or rubs. RESPIRATORY: Breath sounds equal bilaterally. No accessory muscle use. GASTROINTESTINAL: Abdomen soft, non-tender, nondistended. MUSCULOSKELETAL: No cyanosis, or edema. BACK: Nontender without obvious deformity. No CVA tenderness. Laboratory Laboratory Tests Test 10/22/16 04:31 White Blood Count 14.8 TH/MM3 Red Blood Count 5.45 MIL/MM3 Hemoglobin 11.7 GM/DL Hematocrit 37.7 % Mean Corpuscular Volume 69.2 FL Mean Corpuscular Hemoglobin 21.4 PG Mean Corpuscular Hemoglobin 30.9 % Concent Red Cell Distribution Width 16.8 % Platelet Count 233 TH/MM3 Mean Platelet Volume 10.1 FL Activated Partial 41.1 SEC Thromboplast Time Sodium Level 130 MEQ/L Potassium Level 4.6 MEQ/L Chloride Level 90 MEQ/L Carbon Dioxide Level 31.8 MEQ/L Anion Gap 8 MEQ/L Blood Urea Nitrogen 21 MG/DL Creatinine 0.42 MG/DL Estimat Glomerular Filtration 200 ML/MIN Rate Random Glucose 108 MG/DL Calcium Level 9.2 MG/DL Magnesium Level 1.9 MG/DL B-Type Natriuretic Peptide 148 PG/ML Assessment and Plan Problem List: (1) Tobacco abuse (2) Anemia (3) Cardiomyopathy (4) CHF (congestive heart failure) (5) CAD (coronary artery disease) Assessment and Plan 1.) CAD/cardiomyopathy - betablocker held due to copd, continue aspirin, check lipids; increase altace 5 mg qd, continue aldactone 50 mg bid, not candidate for cabg per Dr Miller due to poor pfts, pci lad sun or depending on my schedule, possible staged pci rca pending clinical response to lad pci, f/u bnp in am 2.) Af - rvr, improved after transfusion and cardizem drip, cont iv hep, aspirin 81 mg qd, f/u cbc 3.) Anemia - improved s/p transfusion, d/w Dr Branden Pringle, he suspects dilution , defer to Dr Pringle Problem Qualifiers (1) Cardiomyopathy: Qualified Code: I25.5 - Ischemic cardiomyopathy (2) CHF (congestive heart failure): Qualified Code: I50.43 - Acute on chronic combined systolic and diastolic congestive heart failure (3) CAD (coronary artery disease): Qualified Code: I25.10 - Coronary artery disease involving [place] coronary artery of [place] heart, angina presence unspecified Daniel Trujillo MD Oct 22, 2016 15:48
[2016-10-23] VITALS (27 sets, daily range): BP systolic 105–123; BP diastolic 64–71; PULSE 74–92; RESP 18–20; TEMP 97.5–98.1; O2SAT 94–99
[2016-10-23] MEDS: DILTIAZEM HCL 60 MG TAB PO SCH ×4 (03:26→21:32)
[2016-10-23] MEDS: CHLORHEXIDINE GLUCONATE 2 % 1 PACK (2 CLOTHS) TOP SCH (03:26)
[2016-10-23 06:12] LABS: HEMATOCRIT 38.1 % (39.0-51.0); MEAN CELL VOLUME 69.1 FL (80.0-100.0); MEAN CORPUSCULAR HEMOGLOBIN 21.5 PG (27.0-34.0); MEAN CORPUSCULAR HGB CONC 31.1 % (32.0-36.0); PLATELET COUNT 197 TH/MM3 (150-450); RED BLOOD COUNT 5.52 MIL/MM3 (4.50-5.90); RED CELL DISTRIBUTION WIDTH 17.8 % (11.6-17.2); REVIEW FLAG FINAL; WHITE BLOOD COUNT 14.2 TH/MM3 (4.0-11.0)
[2016-10-23 06:33] LABS: BICARBONATE 28.2 MEQ/L (21.0-32.0); POTASSIUM 5.6 MEQ/L (3.5-5.1)
[2016-10-23 08:27] LABS: APTT (PATIENT) 40.7 SEC (24.3-30.1)
[2016-10-23] MEDS: FAMOTIDINE 20 MG TAB PO SCH ×2 (08:27→21:32)
[2016-10-23] MEDS: RAMIPRIL 5 MG CAP PO SCH (08:27)
[2016-10-23] MEDS: ASPIRIN EC 81 MG TABEC PO SCH (08:27)
[2016-10-23] MEDS: predniSONE 20 MG TAB PO SCH ×2 (08:27→21:45)
[2016-10-23] MEDS: SPIRONOLACTONE 50 MG TAB PO SCH (08:27)
[2016-10-23] MEDS: SODIUM CHLORIDE 0.9% FLUSH 10 ML FLUSH SCH ×2 (08:28→21:32)
[2016-10-23] MEDS: DOCUSATE SODIUM 50 MG/SENNA 8.6 MG TAB PO SCH ×2 (08:28→21:32)
[2016-10-23] MEDS: CIPROFLOXACIN 750 MG TAB PO SCH ×2 (10:30→21:45)
--- NOTE | 2016-10-23 11:15 | HHI.PR ---
Subjective Remarks Patient denies cp/sob creatinine is trending down Objective Vitals Vital Signs Date Time Temp Pulse Resp B/P Pulse Ox O2 Delivery O2 Flow Rate FiO2 10/23/16 10:22 89 10/23/16 09:39 81 10/23/16 08:37 84 10/23/16 07:39 87 10/23/16 07:39 99 Nasal Cannula 2.00 10/23/16 07:39 98.0 87 18 121/68 99 10/23/16 06:00 74 10/23/16 05:00 80 10/23/16 04:00 Nasal Cannula 2.00 10/23/16 04:00 98.0 75 18 110/66 97 10/23/16 04:00 75 10/23/16 03:00 79 10/23/16 02:00 77 10/23/16 01:00 82 10/23/16 00:06 96 Nasal Cannula 2.00 10/23/16 00:00 Nasal Cannula 2.00 10/23/16 00:00 97.9 75 18 123/71 98 10/23/16 00:00 75 10/22/16 23:00 80 10/22/16 22:00 79 10/22/16 21:00 82 10/22/16 20:00 Nasal Cannula 2.00 10/22/16 20:00 98.2 79 20 110/62 97 10/22/16 20:00 79 10/22/16 18:42 91 10/22/16 16:00 97.9 102 16 98/61 98 10/22/16 16:00 102 10/22/16 14:00 93 10/22/16 12:00 81 10/22/16 12:00 98.0 81 18 109/57 99 I/O 10/22/16 10/22/16 10/22/16 10/23/16 10/23/16 10/23/16 07:00 15:00 23:00 07:00 15:00 23:00 Intake Total 776 ml 1323 ml 550 ml Output Total 800 ml 850 ml 700 ml Balance -24 ml 473 ml -150 ml Intake Oral 720 ml 600 ml 480 ml IV Total 56 ml 723 ml 70 ml Output Urine Total 800 ml 850 ml 700 ml # Bowel Movements 3 1 Result Diagram: 10/23/1651110/23/16511 Imaging Last Impressions Chest X-Ray 10/17/16 0000 Signed Impressions: Service Date/Time: Monday, October 17, 2016 11:47 - CONCLUSION: 1. Significant interval improvement of bilateral lower lobe airspace disease with residual consolidation in the posterior lower lobes bilaterally. The findings are most concerning for aspiration although pneumonia is in the differential diagnosis. Sincere Das MD Lower Extremity Ultrasound 10/09/16 0000 Signed Impressions: Service Date/Time: Sunday, October 09, 2016 10:52 - CONCLUSION: 1. No DVT identified. Janak Ortiz MD CT Angiography 10/09/16 0000 Signed Impressions: Service Date/Time: Sunday, October 09, 2016 10:23 - CONCLUSION: 1. No evidence for pulmonary embolism to the subsegmental level as questioned. 2. Redemonstration of severe centrilobular emphysema with extensive bilateral lower lobe airspace consolidation with probable necrosis. Smaller regions of airspace consolidation in the inferior lingula and right middle lobe. Overall findings are most consistent with severe aspiration versus necrotizing pneumonia. 3. 1.2 cm cavitary nodule in the right upper lobe. Additional nearly spiculated nodular opacities in the left lung base measuring up to 1.7 cm. Although the findings may be infectious in etiology followup to resolution is recommended given the extensive underlying lung disease. 4. Small pericardial effusion. 5. Moderate coronary artery calcifications. 6. Cholelithiasis. Sincere Das MD Lung Scan-V Nuclear Medicine 10/08/162037 Signed Impressions: Service Date/Time: Saturday, October 08, 2016 21:37 - CONCLUSION: Intermediate probability for pulmonary embolism. Jesus Hayes MD Abdomen/Pelvis CT 10/08/162028 Signed Impressions: Service Date/Time: Saturday, October 08, 2016 20:52 - CONCLUSION: 1. Extensive emphysema with extensive bibasilar consolidation with cavities likely necrotizing pneumonia. 2. Diverticulosis of the colon. 3. Cholelithiasis. 4. Bilobed distal abdominal aortic aneurysm measuring 3.2 cm with extensive atherosclerotic calcifications of the iliac vasculature. Critical stenosis cannot be excluded. Jesus Hayes MD Objective Remarks GENERAL: Cachectic looking SKIN: Warm and dry. HEAD: Normocephalic. EYES: No scleral icterus. No injection or drainage. NECK: Supple, trachea midline. No JVD or lymphadenopathy. CARDIOVASCULAR: Regular rate and rhythm without murmurs, gallops, or rubs. RESPIRATORY: Breath sounds equal bilaterally. No accessory muscle use. GASTROINTESTINAL: Abdomen soft, non-tender, nondistended. MUSCULOSKELETAL: No cyanosis, or edema. BACK: Nontender without obvious deformity. No CVA tenderness. Procedures 10/16- cardiac catheterization 3V disease Medications and IVs Current Medications Medications (Trade) Dose Ordered Sig/Satnam Route Start Time Stop Time Status Last Admin (Tylenol) 650 mg Q6H PRN PO 10/08/16 23:00 (Morphine Inj) 2 mg Q2H PRN IV 10/08/16 23:00 (Zofran Inj) 4 mg Q6H PRN IV 10/08/16 23:00 (Reglan Inj) 10 mg Q6H PRN IV 10/08/16 23:00 (Compazine Supp) 25 mg Q12H PRN RECTAL 10/08/16 23:00 Miscellaneous Information 1 Q361D XX 10/08/16 23:00 (Chlorhexidine 2% Cloth) Taper DAILY@04 TOP 10/09/16 04:00 10/05/17 03:59 10/19/16 03:49 (Chlorhexidine 2% Cloth) 3 pack UNSCH PRN TOP 10/08/16 23:00 (Shayy-Colace) 1 tab BID PO 10/09/16 09:00 10/22/16 21:25 (Milk Of Magnesia Liq) 30 ml Q12H PRN PO 10/08/16 23:00 (Senokot) 17.2 mg Q12H PRN PO 10/08/16 23:00 (Dulcolax Supp) 10 mg DAILY PRN RECTAL 10/08/16 23:00 Lactulose 30 ml 30 ml DAILY PRN PO 10/08/16 23:00 Potassium Chloride 100 ml @ 50 mls/hr Q2H PRN IV 10/09/16 14:15 10/10/16 10:10 (KCl 20 Meq Premix Inj) 100 ml @ 50 mls/hr Q2H PRN IV 10/09/16 14:15 10/12/16 10:39 Potassium Bicarb/ Potassium Chloride 50 meq 50 meq UNSCH PRN PO 10/09/16 14:15 10/12/16 06:35 Potassium Chloride 100 ml @ 25 mls/hr UNSCH PRN IV 10/09/16 14:15 Potassium Chloride 100 ml @ 50 mls/hr Q2H PRN IV 10/09/16 14:15 (Magnesium Sulfate Inj/NS Inj) 100 ml @ 50 mls/hr UNSCH PRN IV 10/09/16 14:15 Magnesium Oxide 800 mg 800 mg UNSCH PRN PO 10/09/16 14:15 (Magnesium Sulfate Inj/NS Inj) 100 ml @ 50 mls/hr UNSCH PRN IV 10/09/16 14:15 10/12/16 14:48 Potassium Phosphate 2000 mg 2,000 mg Q4H PRN PO 10/09/16 14:15 (Sodium Phosphate Inj/NS 250 ml Inj) 250 ml @ 42 mls/hr UNSCH PRN IV 10/09/16 14:15 Potassium Phosphate 2000 mg 2,000 mg UNSCH PRN PO/TUBE 10/09/16 14:15 10/11/16 23:28 (Potassium Phosphate Inj/NS 250 ml Inj) 260 ml @ 42 mls/hr UNSCH PRN IV 10/09/16 14:15 (Ecotrin Ec) 81 mg DAILY PO 10/11/16 09:00 10/23/16 08:27 Diltiazem HCl 60 mg 60 mg Q6H PO 10/11/16 09:00 10/23/16 08:27 (Cardizem Inj/NS Inj) 125 ml @ 0 mls/hr TITRATE IV 10/14/16 13:45 10/16/16 17:49 (Altace) 5 mg DAILY PO 10/16/16 09:00 10/23/16 08:27 (NS Flush) 2 ml BID .XX 10/16/16 21:00 10/23/16 08:28 Sodium Chloride 2 ml 2 ml UNSCH PRN .XX 10/16/16 13:30 (Heparin-D5W Inj) 250 ml @ 0 mls/hr TITRATE IV 10/17/16 15:00 10/21/16 17:25 (Deltasone) 20 mg BID PO 10/19/16 21:00 10/23/16 08:27 (Pepcid) 20 mg BID PO 10/19/16 21:00 10/23/16 08:27 (Cipro) 750 mg Q12HR PO 10/20/16 10:00 11/03/16 09:59 10/23/16 10:30 Urinary Catheter: No Vascular Central Line Catheter: No A/P Problem List: (1) Severe sepsis ICD Code: A41.9 Status: Acute Plan: Severe sepsis present on admission, patient tachycardic with very elevated WBC count of 40 2.3K and lactic acid of 5.4. Treated with supportive measures in the intensive care unit with IV fluids, broad-spectrum IV antibiotics - IV vancomycin and IV Zosyn as well as IV azithromycin. Blood cultures negative 5 Sputum culture is growing Pseudomonas aeruginosa Infectious disease consulted and following. (2) Acute hypoxemic respiratory failure ICD Code: J96.01 Status: Acute Plan: Patient was initially admitted to the intensive care unit under the care of nut roaster helper. The patient was treated with BiPAP which was discontinued after the patient respiratory status improved. Relistor failure likely secondary to bilateral pneumonia and underlying COPD which are both improving. Suspected possible necrotizing pneumonia, sputum culture positive for pseudomonas aeruginosa Blood cultures negative 5 (3) Bilateral pneumonia ICD Code: J18.9 Status: Acute Plan: Possible necrotizing pneumonia. Possible infected bullous lesions in his lungs, patient history of severe emphysema. Sputum culture growing Pseudomonas. Continue supplemental oxygen to keep an oxygen saturation of >92% Treated with IV steroids for underlying COPD exacerbation. Now on prednisone, continue prednisone taper. Pulmonology consulted on following Continue antibiotics as per infectious disease. The patient currently on oral ciprofloxacin. (4) Multiple lung nodules on CT ICD Code: R91.8 Status: Acute Plan: Pulmonology following. Due to antibiotics, supplemental oxygen, bronchodilators. (5) Leukocytosis ICD Code: D72.829 Status: Acute Plan: UVC still elevated, however patient is on oral steroids. Patient is afebrile (6) CAD (coronary artery disease) ICD Code: I25.10 Status: Chronic Plan: Seems to be stable. Status post cardiac catheterization with 2 vessel disease. Continue aspirin, DINA inhibitor heparin gtt. Patient was considered for CABG due to severe two-vessel disease, however Dr. Swanson from cardiovascular surgery dated the patient not to be a good candidate for surgery due to current nutritional and physical status. Continue with medical management as per Dr. Trujillo's advice. Plans for staged PCI. (7) Atrial fibrillation with RVR ICD Code: I48.91 Status: Resolved Plan: The patient status post A. fib with RVR and elevated cardiac enzymes, known sinus rhythm. On by mouth Cardizem 60 mg by mouth 4 times a day. Patient currently on heparin drip. Follow-up cardiology recommendations (8) Anemia ICD Code: D64.9 Status: Chronic Plan: Anemia seems to be chronic. Patient status post transfusion of 1 unit of packed red blood cells. Significantly improved after PRBC transfusion. (9) Severe protein-calorie malnutrition ICD Code: E43 Status: Acute Plan: Diet has been consulted. Recommended Ensure 3 times a day, Theragran-M daily and an appetite stimulant. Patient has been taking Ensure, I will start the patient on Theragran-M and Megace as an appetite stimulant. (10) Hyponatremia ICD Code: E87.1 Status: Acute Plan: Sodium has been trending down from 138-133-130 to 126. DC spironolactone, check urine and serum osmolality, place on fluid restriction 1 L per day. Continue to monitor BMP and trend sodium. (11) Hyperkalemia ICD Code: E87.5 Status: Acute Plan: Hemolyzed sample, repeat BMP. Assessment and Plan GI prophylaxis: Continue bowel regimen for constipation prevention. I will start the patient on Lactobacillus acidophilus since he is on antibiotics. VT prophylaxis: On heparin drip, continue Discharge Planning Patient w hyponatremia, for staged PCI. Problem Qualifiers (1) Leukocytosis: Qualified Code: D72.829 - Leukocytosis, unspecified type (2) CAD (coronary artery disease): Qualified Code: I25.10 - Coronary artery disease involving [place] coronary artery of [place] heart, angina presence unspecified (3) Anemia: Qualified Code: D64.9 - Anemia, unspecified type Dewayne Nazario MD Oct 23, 2016 11:15
--- NOTE | 2016-10-23 13:19 | PD.CARD.PN ---
Subjective Subjective Remarks alert in nad Objective Vital Signs / I&O Vital Signs Date Time Temp Pulse Resp B/P Pulse Ox O2 Delivery O2 Flow Rate FiO2 10/23/16 13:11 77 10/23/16 12:14 74 10/23/16 11:38 97.9 80 18 112/70 98 10/23/16 11:38 81 10/23/16 10:25 95 Nasal Cannula 2.00 10/23/16 10:22 89 10/23/16 09:39 81 10/23/16 08:37 84 10/23/16 07:39 87 10/23/16 07:39 99 Nasal Cannula 2.00 10/23/16 07:39 98.0 87 18 121/68 99 10/23/16 06:00 74 10/23/16 05:00 80 10/23/16 04:00 Nasal Cannula 2.00 10/23/16 04:00 98.0 75 18 110/66 97 10/23/16 04:00 75 10/23/16 03:00 79 10/23/16 02:00 77 10/23/16 01:00 82 10/23/16 00:06 96 Nasal Cannula 2.00 10/23/16 00:00 Nasal Cannula 2.00 10/23/16 00:00 97.9 75 18 123/71 98 10/23/16 00:00 75 10/22/16 23:00 80 10/22/16 22:00 79 10/22/16 21:00 82 10/22/16 20:00 Nasal Cannula 2.00 10/22/16 20:00 98.2 79 20 110/62 97 10/22/16 20:00 79 10/22/16 18:42 91 10/22/16 16:00 97.9 102 16 98/61 98 10/22/16 16:00 102 10/22/16 14:00 93 I/O 10/22/16 10/22/16 10/22/16 10/23/16 10/23/16 10/23/16 07:00 15:00 23:00 07:00 15:00 23:00 Intake Total 776 ml 1323 ml 550 ml Output Total 800 ml 850 ml 700 ml Balance -24 ml 473 ml -150 ml Intake Oral 720 ml 600 ml 480 ml IV Total 56 ml 723 ml 70 ml Output Urine Total 800 ml 850 ml 700 ml # Bowel Movements 3 1 Physical Exam GENERAL: SKIN: Warm and dry. HEAD: Normocephalic. EYES: No scleral icterus. No injection or drainage. NECK: Supple, trachea midline. No JVD or lymphadenopathy. CARDIOVASCULAR: Regular rate and rhythm without murmurs, gallops, or rubs. RESPIRATORY: Breath sounds equal bilaterally. No accessory muscle use. GASTROINTESTINAL: Abdomen soft, non-tender, nondistended. MUSCULOSKELETAL: No cyanosis, or edema. BACK: Nontender without obvious deformity. No CVA tenderness. Laboratory Laboratory Tests Test 10/23/16 10/23/16 05:12 07:58 White Blood Count 14.2 TH/MM3 Red Blood Count 5.52 MIL/MM3 Hemoglobin 11.9 GM/DL Hematocrit 38.1 % Mean Corpuscular Volume 69.1 FL Mean Corpuscular Hemoglobin 21.5 PG Mean Corpuscular Hemoglobin 31.1 % Concent Red Cell Distribution Width 17.8 % Platelet Count 197 TH/MM3 Mean Platelet Volume 10.5 FL Sodium Level 126 MEQ/L Potassium Level 5.6 MEQ/L Chloride Level 90 MEQ/L Carbon Dioxide Level 28.2 MEQ/L Anion Gap 8 MEQ/L Blood Urea Nitrogen 28 MG/DL Creatinine 0.41 MG/DL Estimat Glomerular Filtration 206 ML/MIN Rate Random Glucose 98 MG/DL Calcium Level 8.6 MG/DL Activated Partial 40.7 SEC Thromboplast Time Assessment and Plan Problem List: (1) Tobacco abuse (2) Anemia (3) Cardiomyopathy (4) CHF (congestive heart failure) (5) CAD (coronary artery disease) (6) Hyponatremia Assessment and Plan 1.) CAD/cardiomyopathy - betablocker held due to copd, continue aspirin, check lipids; increase altace 5 mg qd, hold aldactone 50 mg bid due to hyponatremia, not candidate for cabg per Dr Miller due to poor pfts, pci lad tues depending on my schedule, possible staged pci rca pending clinical response to lad pci, f/ u bnp/bmp in am 2.) Af - rvr, improved after transfusion and cardizem drip, cont iv hep, aspirin 81 mg qd, f/u cbc 3.) Anemia - improved s/p transfusion, d/w Dr Branden Pringle, he suspects dilution , defer to Dr Pringle Problem Qualifiers (1) Cardiomyopathy: Qualified Code: I25.5 - Ischemic cardiomyopathy (2) CHF (congestive heart failure): Qualified Code: I50.43 - Acute on chronic combined systolic and diastolic congestive heart failure (3) CAD (coronary artery disease): Qualified Code: I25.10 - Coronary artery disease involving [place] coronary artery of [place] heart, angina presence unspecified Daniel Trujillo MD Oct 23, 2016 13:19
[2016-10-23] MEDS: MULTIVITAMINS/MINERALS THERAPEUTIC TAB PO SCH (15:20)
[2016-10-23] MEDS: MEGESTROL ACETATE SUSP 400 MG/10 ML CUP PO SCH (15:20)
[2016-10-23 16:18] LABS: BICARBONATE 27.8 MEQ/L (21.0-32.0)
[2016-10-23 16:28] LABS: POTASSIUM 5.6 MEQ/L (3.5-5.1)
--- NOTE | 2016-10-23 18:19 | HHI.PR ---
Subjective Remarks 71 YOWM with Bilat infilt, lung nodule, wt loss Had cardiac cath, multi vessel disease On NC Mild sob No fever Feels little better Difficulty sleeping, wants sleeping pill Objective Vital Signs Vital Signs Date Time Temp Pulse Resp B/P Pulse Ox O2 Delivery O2 Flow Rate FiO2 10/23/16 18:12 81 10/23/16 17:37 94 Nasal Cannula 2.00 10/23/16 17:16 84 10/23/16 16:03 82 10/23/16 15:36 98.1 86 20 109/65 94 10/23/16 15:36 86 10/23/16 14:46 84 10/23/16 13:11 77 10/23/16 12:14 74 10/23/16 11:38 97.9 80 18 112/70 98 10/23/16 11:38 81 10/23/16 10:25 95 Nasal Cannula 2.00 10/23/16 10:22 89 10/23/16 09:39 81 10/23/16 08:37 84 10/23/16 07:39 87 10/23/16 07:39 99 Nasal Cannula 2.00 10/23/16 07:39 98.0 87 18 121/68 99 10/23/16 06:00 74 10/23/16 05:00 80 10/23/16 04:00 Nasal Cannula 2.00 10/23/16 04:00 98.0 75 18 110/66 97 10/23/16 04:00 75 10/23/16 03:00 79 10/23/16 02:00 77 10/23/16 01:00 82 10/23/16 00:06 96 Nasal Cannula 2.00 10/23/16 00:00 Nasal Cannula 2.00 10/23/16 00:00 97.9 75 18 123/71 98 10/23/16 00:00 75 10/22/16 23:00 80 10/22/16 22:00 79 10/22/16 21:00 82 10/22/16 20:00 Nasal Cannula 2.00 10/22/16 20:00 98.2 79 20 110/62 97 10/22/16 20:00 79 10/22/16 18:42 91 I/O 10/22/16 10/22/16 10/22/16 10/23/16 10/23/16 10/23/16 07:00 15:00 23:00 07:00 15:00 23:00 Intake Total 776 ml 1323 ml 550 ml 720 ml Output Total 800 ml 850 ml 700 ml 950 ml Balance -24 ml 473 ml -150 ml -230 ml Intake Oral 720 ml 600 ml 480 ml 720 ml IV Total 56 ml 723 ml 70 ml Output Urine Total 800 ml 850 ml 700 ml 950 ml # Voids 1 # Bowel Movements 3 1 1 Result Diagram: 10/23/16 0512 10/23/16 1502 Objective Remarks GENERAL: Cachectic WM, mild sob SKIN: Warm and dry. HEAD: Normocephalic. EYES: No scleral icterus. No injection or drainage. NECK: Supple, trachea midline. No JVD or lymphadenopathy. CARDIOVASCULAR: Regular rate and rhythm without murmurs, gallops, or rubs. RESPIRATORY: Breath sounds equal bilaterally. No accessory muscle use. GASTROINTESTINAL: Abdomen soft, non-tender, nondistended. MUSCULOSKELETAL: No cyanosis, or edema. BACK: Nontender without obvious deformity. No CVA tenderness. A/P Assessment and Plan Bilat lung infilt Lung nodule Weight loss COPD CAD CMP PLAN: Cont Abx Aerosol nebs Supplement 02 Heparin drip Temazepam 7.5 mg q hs prn For cardiac cath in AM Sebastian Meza MD Oct 23, 2016 18:19
[2016-10-23 23:08] LABS: BICARBONATE 29.1 MEQ/L (21.0-32.0)
[2016-10-23 23:10] LABS: POTASSIUM 5.6 MEQ/L (3.5-5.1)
[2016-10-23] MEDS: TEMAZEPAM 7.5 MG CAP PO PRN (23:26)
[2016-10-24] VITALS (23 sets, daily range): BP systolic 98–122; BP diastolic 50–71; PULSE 68–109; RESP 20; TEMP 97.4–98.2; O2SAT 94–100
[2016-10-24] MEDS ORDERED: INSULIN HUMAN REGULAR 1,000 UNITS/10 ML VIAL IV PUSH ONE (00:30)
[2016-10-24] MEDS ORDERED: SODIUM POLYSTYRENE SULFONATE SUSP 15 GM/60 ML CUP PO ONE (00:30)
[2016-10-24] MEDS ORDERED: DEXTROSE 50% IN WATER 50 ML VIAL(D50) IV PUSH ONE (00:30)
[2016-10-24] MEDS ORDERED: CALCIUM GLUCONATE 10% 1 GM/10 ML VIAL IV PUSH ONE (00:30)
[2016-10-24] MEDS ORDERED: CALCIUM GLUCONATE INJ 1 GM in SODIUM CHLORIDE 0.9% INJ 100 ML IV ONE (00:45)
[2016-10-24] MEDS: DILTIAZEM HCL 60 MG TAB PO SCH ×4 (01:34→20:05)
[2016-10-24] MEDS: CHLORHEXIDINE GLUCONATE 2 % 1 PACK (2 CLOTHS) TOP SCH (01:36)
[2016-10-24 05:27] LABS: HEMATOCRIT 39.7 % (39.0-51.0); MEAN CELL VOLUME 68.5 FL (80.0-100.0); MEAN CORPUSCULAR HEMOGLOBIN 21.3 PG (27.0-34.0); MEAN CORPUSCULAR HGB CONC 31.1 % (32.0-36.0); PLATELET COUNT 182 TH/MM3 (150-450); RED CELL DISTRIBUTION WIDTH 17.7 % (11.6-17.2); REVIEW FLAG FINAL; WHITE BLOOD COUNT 23.7 TH/MM3 (4.0-11.0)
[2016-10-24 05:46] LABS: BICARBONATE 31.1 MEQ/L (21.0-32.0); POTASSIUM 4.9 MEQ/L (3.5-5.1)
[2016-10-24 08:55] LABS: APTT (PATIENT) 33.7 SEC (24.3-30.1)
[2016-10-24] MEDS: DOCUSATE SODIUM 50 MG/SENNA 8.6 MG TAB PO SCH ×2 (09:00→21:00)
[2016-10-24] MEDS: SODIUM CHLORIDE 0.9% FLUSH 10 ML FLUSH SCH ×3 (09:00→21:00)
[2016-10-24] MEDS: predniSONE 20 MG TAB PO SCH ×2 (09:16→20:05)
[2016-10-24] MEDS: MULTIVITAMINS/MINERALS THERAPEUTIC TAB PO SCH (09:16)
[2016-10-24] MEDS: CIPROFLOXACIN 750 MG TAB PO SCH ×2 (09:16→20:05)
[2016-10-24] MEDS: FAMOTIDINE 20 MG TAB PO SCH ×2 (09:16→20:05)
[2016-10-24] MEDS: ASPIRIN EC 81 MG TABEC PO SCH (09:17)
[2016-10-24] MEDS: MEGESTROL ACETATE SUSP 400 MG/10 ML CUP PO SCH (09:17)
[2016-10-24] MEDS: RAMIPRIL 5 MG CAP PO SCH (09:17)
[2016-10-24] MEDS ORDERED: HEPARIN SODIUM - IV 10,000 UNITS/10 ML VIAL ONE (09:45)
[2016-10-24] MEDS ORDERED: HEPARIN-NS/PF INJ 500 ML ONE (09:45)
[2016-10-24] MEDS ORDERED: IOHEXOL 350 MG/ML 100 ML BTL (for Cath Lab) OTHER ONE (11:48)
--- NOTE | 2016-10-24 12:00 | RSPPFT ---
DATE OF PROCEDURE: 10/17/16 COMMENTS: Spirometry with FVC of 1.5, FEV1 of 0.9, FEV1/FVC ratio at 61%. A positive and significant response to acutely inhaled bronchodilator noted. IMPRESSION: 1. Severe airways obstruction. 2. Positive and significant response to acutely inhaled bronchodilator.
[2016-10-24] MEDS ORDERED: HEPARIN-D5W INJ 250 ML ONE (13:12)
[2016-10-24] MEDS ORDERED: CLOPIDOGREL 75 MG TAB ONE (13:28)
--- NOTE | 2016-10-24 13:32 | CATHPROC ---
[facility] HIS Report Study Information Study Number Admission Scheduled Start Study Start [id number] Oct 08 2016 9:45PM 10/24/2016 Oct 24 2016 11:45AM [place] [facility] Cardiac Catheterization Admit Source Facility Department Other [facility] - Scrub Wheel Operator Physician and Clinical Staff Initial Daniel Vuogn Laborer [employer] Jnenifer Larsen BSRN Other cathlab, cathlab Recorder Yung Diaz,MELLISA Gutiérrezub Nasim Gr RCIS(BS) Procedures Performed Procedure Location (Site) Vessel Name PTCA LAD Prox Left Coronary Stent LAD Prox Left Coronary Wire insertion Fem Art (left) Femoral Art Equipment Time Step Finisher Description Size Mfg Part Number Used/Scraped [id number] 12:53 [employer] WIRE, ASAHI PROWATER 180CM 180CM Used *[id number] TRANSDUCER, TRUWAVE [id number] 12:12 GHOSH RODGERS * Used W/STOCKCOCK *[id number] *[id number] 12:12 [employer] PACK, CCL CUSTOM * Used *[id number] 12:12 [employer] PACER PEN, SKIN DUAL W/ RULER * Used *[id number] 13:07 [employer] BALLOON, 2.5 X 10MM EUPHORA 10MM Used *[id number] 13:06 [employer] STENT, 3.0 12 INTEGRITY 3.0 12 Used *[id number] 13:09 [employer] MEDICAL 30 YANIRA INDEFLATOR Used *[id number] 12:57 [employer] MEDICAL SHEATH, FR6.5 PRELUDE 11CM FR 6.5 038ACT Used *[id number] 12:[address] WIRE, 3MMJ .035 180CM 180CM Used *[id number] 12:12 NAMIC MANIFOLD, 4 PORT * Used *[id number] 12:12 [employer] OMNIPAQUE, 350 MG, 150ML 150ML [id number] Used [id number] 12:12 HOU MEDICAL BLANKET,WARM AIR CCL * Used *[id number] Equipment Model, Serial, Lot Number and Expiration Data Description Model Number Serial Number Lot Number Expiration Date STENT, 3.0 12 INTEGRITY [id number] 09-21-2017 History: Allergies Allergy Reaction No Known Allergies History: Risk Factors Family History of Hypertension Dyslipidemia Previous OH Previous Heart Failure Premature CAD Yes No No No No Prior Valve Prior PCI Prior PCIDate Prior CABG Surgery No Yes 10/16/2016 No Cerebrovascular Peripheral Artery Chronic Lung On Dialysis Diabetes Disease Disease Disease No No No Yes No History: Stress Tests Stress or Imaging Studies Performed No History: OH/CV Data Previous Cath Date 10/16/2016 History: Other Current Smoker Method Packs a Day Years Used Pack Years Yes Cigarettes 1 60 60 Labs Hgb (g/dl) Hct (%) WBC (l/cumm) Platelets (thousands) 12.00-18.00 37.00-55.00 4.80-10.80 140.00-450.00 12.3 39.7 23.7 182 Glucose (mg/dl) BUN (mg/dl) Creatinine (mg/dl) BUN:Creatinine (1:x) 60.00-110.00 8.00-20.00 0.10-9.00 10.00-20.00 83 38 0.7 54.3 Na (meq/l) K (meq/l) 138.00-146.00 3.80-5.10 126 4.9 INR (PTT:PT) 0.50-2.00 1.1 CPK-MB (ng/ML) 0.00-7.00 Not Drawn Medication Medication Total Dose (Bolus/Oral) Medication Total Dosage/Unit 1% XYLOCAINE 20 mL AGGRASTAT BOLUS 21 mg HEPARIN 2940 units PLAVIX 600 mg Medications (Bolus/Oral) Medication Time Given Dosage/Unit Administered By Reason 1% XYLOCAINE 10/24/2016 12:56:18 PM 20 mL Daniel Bardales 20 mL 1% XYLOCAINE given in lab by Daniel Bardales in Left Groin via Subcutaneous. Ordered by Daniel Samaniego. HEPARIN 10/24/2016 1:02:12 PM 2940 units Jennifer Larsen 2940 units HEPARIN given in lab by Jennifer Larsen BSRN in Right Antecubital via Peripheral IV. Ord ered by Daniel Bardales. AGGRASTAT BOLUS 10/24/2016 1:22:39 PM 21 mg [place] Jennifer 21 mg AGGRASTAT BOLUS given in lab by Jennifer Larsen BSRN via Peripheral IV. Ordered by Daniel Bardales. PLAVIX 10/24/2016 1:31:45 PM 600 mg Jennifer Larsen 600 mg PLAVIX given in lab by Jennifer Larsen BSRN via Oral. Ordered by Daniel Bardales. Medication (Drip) Medication Time Given Dosage/Unit Concentration/Unit Diluent (ml) Solution AGGRASTAT DRIP 10/24/2016 1:23:34 PM 0.076 mcg/kg/min 12.5 mg 250 NaCl .9 0.076 mcg/kg/min AGGRASTAT DRIP given in lab by Jennifer Larsen BSRN via Peripheral IV. Pump/Drip F low = 3.8 ml/hr using NaCl .9 with a concentration of 12.5 mg in 250 ml. Ordered by Daniel Bardales. HEPARIN DRIP 10/24/2016 1:16:31 PM 800 units/hr 30959 units 250 D5W 800 units/hr HEPARIN DRIP given in lab by Jennifer Larsen BSRN in Right Antecubital via Peripheral IV. Pump/Drip Flow = 8 ml/hr [place] [address] units in 250 ml. Ordered by Daniel Bardales. Initial Case Assessment Cardiovascular HR NIBP Chest Pain 57 108/60 0 Edema Present Skin color Skin None Normal Warm Dry Circulatory - Right Pulses Dorsalis Pedis Femoral 2 2 Scale (0,1,2,3,4,d) Circulatory - Left Pulses Dorsalis Pedis Femoral 2 2 Scale (0,1,2,3,4,d) Circulatory - Lower Extremities Color Lower Right Color Lower Left Normal Normal Neurological State Oriented to time-place- Alert Moves all extremities person Respiration - General Respiration Rate SpO2 (%) O2 (lpm) (B/min) 20 97 3 Final Case Assessment Cardiovascular HR Rhythm NIBP Chest Pain 86 sr 103/56 0 Edema Present Skin color Skin None Normal Warm Dry Circulatory - Right Pulses Dorsalis Pedis Femoral 2 2 Scale (0,1,2,3,4,d) Circulatory - Left Pulses Dorsalis Pedis Femoral 2 2 Scale (0,1,2,3,4,d) Neurological State Oriented to time-place- Alert Moves all extremities person Respiration - General Respiration Rate SpO2 (%) O2 (lpm) (B/min) 18 99 2 Chronological Log Time Study Chronological Log 11:48:32 Patient arrived via Bed. 11:48:33 Patient Name, D.O.B, / Armband Verified By R.N. 11:48:34 Consent signed by the physician and the patient and verified by the Scrub Wheel Operator staff. 11:48:34 Pre-op and post- op instructions given; patient acknowledges understanding of instructions. Verbal Stimulation=~VERBAL~ Physical Stimulation=~PHYSICAL~ Airway=~AIRWAY~ Respiration=~RESPIR ATION~ 11:48:35 TOTAL=~TOTAL~. (0=absent, 1=limited, 2=present) 11:48:36 Presedation assessment performed by Scrub Wheel Operator RN. 11:48:36 Immediate Presedation assesment performed by physician. 11:48:37 Patient has been NPO for More than 6Hrs. 11:48:38 Skin Breakdown- ULCER ON BUTTOCKS. 11:48:41 Patient Warmer Placed on the Table. 11:48:43 Francisco Prominences Protected 11:48:45 A # 20 IV was noted in the Antecubital (right). Grade = 0 11:48:50 History and physical on the chart or being dictated. Vitals capture started with the following parameters, Patient=Adult, Interval=5 min, Initial Pr iklqvk=739 mmHg, 12:04:07 Deflation Rate=5 mmHg 12:04:36 HR=91 bpm, CNRI=187/64 mmhg, SpO2=98.0 %, Resp=21 B/min, Pain=0, Magy=8, Izaguirre=2 12:09:35 HR=94 bpm, DSQL=363/60 mmhg, SpO2=98.0 %, Resp=14 B/min, Pain=0, Magy=9, Izaguirre=2 12:12:58 Bilateral groins prepped with 2% chlorhexidine, and with a 3 min. waiting time. Assessment: Initial Case, HR=57 BPM, INHH=550/60 mmhg, Chest Pain=0, Edema=None, Color=Normal, Skin = Warm, Dry Right Pulses: Liban Ped=2, Femoral=2 Left Pulses: Liban Ped=2, Femoral=2 12:13:02 Lower Right Extremities: Color=Normal Lower Left Extremities: Color=Normal Neurological: State=Alert, Ox3, MORALES Respiration: Resp=20 B/min, SpO2=97 %, O2=3 lpm 12:14:25 Pressure channel 1 zeroed. 12:14:38 HR=90 bpm, MCNG=421/63 mmhg, SpO2=92.0 %, Resp=20 B/min, Pain=0, Magy=8, Izaguirre=2 12:19:37 HR=87 bpm, NIBP=98/58 mmhg, SpO2=98 %, Resp=18 B/min, Pain=0, Magy=8, Izaguirre=2 12:24:37 HR=89 bpm, NIBP=97/60 mmhg, SpO2=98.0 %, Resp=24 B/min, Magy=8 12:29:36 HR=88 bpm, SIES=007/61 mmhg, SpO2=98 %, Resp=23 B/min, Pain=0, Magy=8, Izaguirre=2 12:34:40 Reference ECG taken 12:34:41 HR=92 bpm, LYLE=696/45 mmhg, SpO2=66.0 %, Resp=22 B/min, Izaguirre=2 12:39:40 HR=88 bpm, NIBP=99/60 mmhg, SpO2=96.0 %, Resp=23 B/min, Izaguirre=2 12:44:41 HR=91 bpm, FPUD=712/50 mmhg, SpO2=95.0 %, Resp=19 B/min, Izaguirre=2 12:49:40 HR=84 bpm, NIBP=96/58 mmhg, SpO2=0.0 %, Resp=22 B/min, Izaguirre=2 12:51:30 MD arrived. 12:53:02 DR BARDALES DIDN'T WASH HIS HANDS Time Out. Correct patient, correct procedure,correct physician, ,power injector not loaded with contrast with surgical 12:53:27 team present. Time Out Concurred by MD, individual staff and CLAIMS SORTER in procedure. Not loaded at t his time. Time Out #2 - Consents verified, patient in correct position, all results are labled and displa yed, safety precautions 12:54:05 taken. Time Out concurred by MD, individual staff and CLAIMS SORTER in procedure. 12:54:39 HR=87 bpm, IEEO=705/59 mmhg, SpO2=98.0 %, Resp=27 B/min, Izaguirre=2 12:56:16 Case Start 12:56:18 20 mL 1% XYLOCAINE given in lab by Daniel Bardales in Left Groin via Subcutaneous. Ordered by Daniel Bardales. 12:57:31 Verbal Stimulation=2 Physical Stimulation=2 Airway=2 Respiration=2 TOTAL=8. (0=absent, 1=li mited, 2=present) 12:57:50 Access site was Left Femoral Artery. left art 12:58:00 A SHEATH, FR6.5 PRELUDE 11CM FR 6.5 was advanced into the Fem Art (left) using the Percutan eous technique. 12:58:23 Activated Clotting Time Drawn A XB 3.5 GUIDE CATHETER FR 6 was advanced over a wire. OMNIPAQUE, 350 MG, 150ML 150ML was used for 12:59:04 injections. 12:59:42 HR=86 bpm, AGML=097/55 mmhg, SpO2=99.0 %, Resp=25 B/min, Izaguirre=2 Recorded Pressure: Ao, HR=86, Condition=Condition 1 13:00:12 (Aorta) Ao 97/52/69 13:01:24 ACT (Normal Range 90-180) = 118 2940 units HEPARIN given in lab by Jennfier Larsen BSRN in Right Antecubital via Peripheral I V. Ordered by 13:02:12 Daniel Bardales. 13:03:47 A WIRE, ASAHI PROWATER 180CM 180CM was inserted via Fem Art (left). 13:04:22 Interventional wire has crossed the lesion 13:05:26 HR=90 bpm, NIBP=91/50 mmhg, SpO2=96.0 %, Resp=16 B/min, Izaguirre=2 An STENT, 3.0 12 INTEGRITY 3.0 12 Bare Metal Stent was inserted through a XB 3.5 GUIDE CATHETER FR 6 over a 13:05:30 WIRE, ASAHI PROWATER 180CM 180CM. 13:06:33 Stent not deployed. Stent removed and intact. 13:07:25 A BALLOON, 2.5 X 10MM EUPHORA 10MM was inserted over WIRE, ASAHI PROWATER 180CM 180CM via t he LAD Prox. A BALLOON, 2.5 X 10MM EUPHORA 10MM over a WIRE, ASAHI PROWATER 180CM 180CM in the LAD Prox was inflated 13:08:31 using a 30 YANIRA INDEFLATOR at 9 yanira for 10 sec. 13:09:38 HR=88 bpm, NIBP=90/55 mmhg, SpO2=98.0 %, Resp=22 B/min, Izaguirre=2 13:10:06 Activated Clotting Time Drawn 13:10:46 Balloon Removed. An STENT, 3.0 12 INTEGRITY 3.0 12 Bare Metal Stent was inserted through a XB 3.5 GUIDE CATHETER FR 6 over a 13:10:52 WIRE, ASAHI PROWATER 180CM 180CM. A STENT, 3.0 12 INTEGRITY 3.0 12 was deployed using a 30 YANIRA INDEFLATOR at 10 atmospheres for 1 5 seconds in 13:11:08 the LAD Prox. 13:14:00 Delivery device removed 13:14:39 HR=87 bpm, RLMY=297/56 mmhg, SpO2=99.0 %, Resp=23 B/min, Izaguirre=2 13:15:05 Wire removed 13:16:06 Catheter was removed 800 units/hr HEPARIN DRIP given in lab by Jennifer Larsen BSRN in Right Antecubital via Perip heral IV. Pump/Drip 13:16:31 Flow = 8 ml/hr [place] [address] units in 250 ml. Ordered by Ganga Bardales. 13:16:53 In the Fem Art (left) the SHEATH, FR6.5 PRELUDE 11CM FR 6.[address] by Daniel Branham. 13:16:57 Case End Assessment: Final Case, HR=86 BPM, Rhythm=sr, RIOD=167/56 mmhg, Chest Pain=0, Edema=None, Color =Normal, Skin = Warm, Dry Right Pulses: Liban Ped=2, Femoral=2 13:17:13 Left Pulses: Liban Ped=2, Femoral=2 Neurological: State=Alert, Ox3, MORALES Respiration: Resp=18 B/min, SpO2=99 %, O2=2 lpm 13:18:19 Catheter(s) removed without difficulty 13:18:22 Sterile dressing applied to site 13:18:34 ACT (Normal Range 90-180) = 218 13:18:43 No case complications noted. 13:18:45 Cine recording checked. 13:18:49 Bedside Report will be given. 13:18:52 Implantable Device card placed in patient's chart. 13:18:55 Contrast Scanned 13:19:42 HR=93 bpm, YJXD=739/57 mmhg, SpO2=86.0 %, Resp=17 B/min, Izaguirre=2 13:22:39 21 mg AGGRASTAT BOLUS given in lab by Jennifer Larsen BSRN via Peripheral IV. Ordered by Daniel Bardales. 0.076 mcg/kg/min AGGRASTAT DRIP given in lab by Jennifer Larsen BSRN via Peripheral IV. Pump/ Drip Flow = 3.8 13:23:34 ml/hr using NaCl .9 with a concentration of 12.5 mg in 250 ml. Ordered by Daniel Bardales. 13:24:43 HR=94 bpm, NIBP=99/57 mmhg, Resp=18 B/min, Izaguirre=2 13:29:35 Vitals capture stopped. 13:29:42 [facility] 13:31:45 600 mg PLAVIX given in lab by Jennifer Larsen BSRN via Oral. Ordered by Daniel Bardales. End Study - Contrast Media Used In Study Contrast Total Opened (mL) Total Used (mL) Total Wasted (mL) Omnipaque 75 75 0 End Study - Maximum Contrast Load Max Contrast Load (mL) 298.7 End Study - Radiation Exposure Fluoro Time (minutes) 4.6 End Study - Patient Disposition Complications Transferred To Interventional Outcome No Telemetry Bed successful
[2016-10-24] MEDS ORDERED: TIROFIBAN INFUSION INJ 250 ML IV SCH (13:47)
[2016-10-24] MEDS ORDERED: CLOPIDOGREL 300 MG TAB PO ONE (14:00)
[2016-10-24] MEDS ORDERED: MISC INFORMATION XX ONE (14:00)
[2016-10-24] MEDS ORDERED: SODIUM CHLORIDE 0.9% FLUSH 10 ML FLUSH PRN (14:00)
[2016-10-24 15:22] LABS: APTT (PATIENT) 119.5 SEC (24.3-30.1)
[2016-10-24] MEDS ORDERED: HEPARIN 25,000 UNITS-D5W 250 ML - PREMIX IV SCH (15:45)
[2016-10-24 18:05] LABS: APTT (PATIENT) 47.9 SEC (24.3-30.1)
--- NOTE | 2016-10-24 18:08 | HHI.PR ---
Subjective Remarks 71 YOWM with Bilat infilt, lung nodule, wt loss Had cardiac cath, multi vessel disease On NC Mild sob No fever Had cardiac procedure done Slept better Objective Vital Signs Vital Signs Date Time Temp Pulse Resp B/P Pulse Ox O2 Delivery O2 Flow Rate FiO2 10/24/16 17:01 108 10/24/16 16:03 97 10/24/16 15:46 109 10/24/16 15:46 100 Nasal Cannula 3.00 10/24/16 15:46 97.8 100 20 122/54 100 10/24/16 14:17 100 10/24/16 11:36 94 Nasal Cannula 2.00 10/24/16 11:08 96 Nasal Cannula 3.00 10/24/16 11:08 106 10/24/16 11:08 97.7 90 20 114/71 96 10/24/16 10:06 93 10/24/16 09:15 89 10/24/16 08:18 89 10/24/16 08:18 97 Nasal Cannula 3.00 10/24/16 08:18 97.4 94 20 107/64 97 10/24/16 06:00 86 10/24/16 05:00 80 10/24/16 04:00 97.5 88 20 98/57 95 10/24/16 04:00 87 10/24/16 04:00 95 Nasal Cannula 2.00 10/24/16 03:00 78 10/24/16 02:00 70 10/24/16 01:00 88 10/24/16 00:00 68 10/24/16 00:00 98.2 73 20 103/58 96 10/24/16 00:00 96 Nasal Cannula 2.00 10/23/16 23:00 92 10/23/16 22:00 78 10/23/16 21:00 74 10/23/16 20:00 97.5 86 20 105/64 94 10/23/16 20:00 96 Nasal Cannula 2.00 10/23/16 20:00 81 10/23/16 19:00 77 10/23/16 18:12 81 I/O 10/23/16 10/23/16 10/23/16 10/24/16 10/24/16 10/24/16 07:00 15:00 23:00 07:00 15:00 23:00 Intake Total 550 ml 720 ml 304 ml 1262 ml Output Total 700 ml 950 ml 700 ml Balance -150 ml -230 ml 304 ml 562 ml Intake Oral 480 ml 720 ml 120 ml 720 ml IV Total 70 ml 184 ml 542 ml Output Urine Total 700 ml 950 ml 700 ml # Voids 1 3 # Bowel Movements 1 1 2 1 Result Diagram: 10/24/164 10/24/164 Objective Remarks GENERAL: Cachectic WM, mild sob SKIN: Warm and dry. HEAD: Normocephalic. EYES: No scleral icterus. No injection or drainage. NECK: Supple, trachea midline. No JVD or lymphadenopathy. CARDIOVASCULAR: Regular rate and rhythm without murmurs, gallops, or rubs. RESPIRATORY: Breath sounds equal bilaterally. No accessory muscle use. GASTROINTESTINAL: Abdomen soft, non-tender, nondistended. MUSCULOSKELETAL: No cyanosis, or edema. BACK: Nontender without obvious deformity. No CVA tenderness. A/P Assessment and Plan Bilat lung infilt Lung nodule Weight loss COPD CAD CMP PLAN: Cont Abx Aerosol nebs Supplement 02 Temazepam 7.5 mg q hs prn Sebastian Meza MD Oct 24, 2016 18:08
--- NOTE | 2016-10-24 19:07 | HHI.PR ---
Subjective Remarks sp cardiac catheterization denies cp/sob stable vital signs Objective Vitals Vital Signs Date Time Temp Pulse Resp B/P Pulse Ox O2 Delivery O2 Flow Rate FiO2 10/24/16 18:10 94 10/24/16 17:01 108 10/24/16 16:03 97 10/24/16 15:46 109 10/24/16 15:46 100 Nasal Cannula 3.00 10/24/16 15:46 97.8 100 20 122/54 100 10/24/16 14:17 100 10/24/16 11:36 94 Nasal Cannula 2.00 10/24/16 11:08 96 Nasal Cannula 3.00 10/24/16 11:08 106 10/24/16 11:08 97.7 90 20 114/71 96 10/24/16 10:06 93 10/24/16 09:15 89 10/24/16 08:18 89 10/24/16 08:18 97 Nasal Cannula 3.00 10/24/16 08:18 97.4 94 20 107/64 97 10/24/16 06:00 86 10/24/16 05:00 80 10/24/16 04:00 97.5 88 20 98/57 95 10/24/16 04:00 87 10/24/16 04:00 95 Nasal Cannula 2.00 10/24/16 03:00 78 10/24/16 02:00 70 10/24/16 01:00 88 10/24/16 00:00 68 10/24/16 00:00 98.2 73 20 103/58 96 10/24/16 00:00 96 Nasal Cannula 2.00 10/23/16 23:00 92 10/23/16 22:00 78 10/23/16 21:00 74 10/23/16 20:00 97.5 86 20 105/64 94 10/23/16 20:00 96 Nasal Cannula 2.00 10/23/16 20:00 81 10/23/16 19:00 77 I/O 10/23/16 10/23/16 10/23/16 10/24/16 10/24/16 10/24/16 07:00 15:00 23:00 07:00 15:00 23:00 Intake Total 550 ml 720 ml 304 ml 1262 ml Output Total 700 ml 950 ml 700 ml Balance -150 ml -230 ml 304 ml 562 ml Intake Oral 480 ml 720 ml 120 ml 720 ml IV Total 70 ml 184 ml 542 ml Output Urine Total 700 ml 950 ml 700 ml # Voids 1 3 # Bowel Movements 1 1 2 1 Result Diagram: 10/24/16 0454 10/24/16 0454 Imaging Last Impressions Chest X-Ray 10/17/16 0000 Signed Impressions: Service Date/Time: Monday, October 17, 2016 11:47 - CONCLUSION: 1. Significant interval improvement of bilateral lower lobe airspace disease with residual consolidation in the posterior lower lobes bilaterally. The findings are most concerning for aspiration although pneumonia is in the differential diagnosis. Sincere Das MD Lower Extremity Ultrasound 10/09/16 0000 Signed Impressions: Service Date/Time: Sunday, October 09, 2016 10:52 - CONCLUSION: 1. No DVT identified. Janak Ortiz MD CT Angiography 10/09/16 0000 Signed Impressions: Service Date/Time: Sunday, October 09, 2016 10:23 - CONCLUSION: 1. No evidence for pulmonary embolism to the subsegmental level as questioned. 2. Redemonstration of severe centrilobular emphysema with extensive bilateral lower lobe airspace consolidation with probable necrosis. Smaller regions of airspace consolidation in the inferior lingula and right middle lobe. Overall findings are most consistent with severe aspiration versus necrotizing pneumonia. 3. 1.2 cm cavitary nodule in the right upper lobe. Additional nearly spiculated nodular opacities in the left lung base measuring up to 1.7 cm. Although the findings may be infectious in etiology followup to resolution is recommended given the extensive underlying lung disease. 4. Small pericardial effusion. 5. Moderate coronary artery calcifications. 6. Cholelithiasis. Sincere Das MD Lung Scan-VQ Nuclear Medicine 10/08/162037 Signed Impressions: Service Date/Time: Saturday, October 08, 2016 21:37 - CONCLUSION: Intermediate probability for pulmonary embolism. Jesus Hayes MD Abdomen/Pelvis CT 10/08/162028 Signed Impressions: Service Date/Time: Saturday, October 08, 2016 20:52 - CONCLUSION: 1. Extensive emphysema with extensive bibasilar consolidation with cavities likely necrotizing pneumonia. 2. Diverticulosis of the colon. 3. Cholelithiasis. 4. Bilobed distal abdominal aortic aneurysm measuring 3.2 cm with extensive atherosclerotic calcifications of the iliac vasculature. Critical stenosis cannot be excluded. Jesus Hayes MD Objective Remarks GENERAL: Cachectic looking SKIN: Warm and dry. Introducer cath present on left groin. No hematoma observed. HEAD: Normocephalic. EYES: No scleral icterus. No injection or drainage. NECK: Supple, trachea midline. No JVD or lymphadenopathy. CARDIOVASCULAR: Regular rate and rhythm without murmurs, gallops, or rubs. RESPIRATORY: Breath sounds equal bilaterally. No accessory muscle use. GASTROINTESTINAL: Abdomen soft, non-tender, nondistended. MUSCULOSKELETAL: No cyanosis, or edema. BACK: Nontender without obvious deformity. No CVA tenderness. Procedures 10/16- cardiac catheterization 3V disease Medications and IVs Current Medications Medications (Trade) Dose Ordered Sig/Satnam Route Start Time Stop Time Status Last Admin (Tylenol) 650 mg Q6H PRN PO 10/08/16 23:00 (Morphine Inj) 2 mg Q2H PRN IV 10/08/16 23:00 (Zofran Inj) 4 mg Q6H PRN IV 10/08/16 23:00 (Reglan Inj) 10 mg Q6H PRN IV 10/08/16 23:00 (Compazine Supp) 25 mg Q12H PRN RECTAL 10/08/16 23:00 Miscellaneous Information 1 Q361D XX 10/08/16 23:00 (Chlorhexidine 2% Cloth) Taper DAILY@04 TOP 10/09/16 04:00 10/05/17 03:59 10/19/16 03:49 (Chlorhexidine 2% Cloth) 3 pack UNSCH PRN TOP 10/08/16 23:00 (Shayy-Colace) 1 tab BID PO 10/09/16 09:00 10/23/16 21:32 (Milk Of Magnesia Liq) 30 ml Q12H PRN PO 10/08/16 23:00 (Senokot) 17.2 mg Q12H PRN PO 10/08/16 23:00 (Dulcolax Supp) 10 mg DAILY PRN RECTAL 10/08/16 23:00 Lactulose 30 ml 30 ml DAILY PRN PO 10/08/16 23:00 Potassium Chloride 100 ml @ 50 mls/hr Q2H PRN IV 10/09/16 14:15 10/10/16 10:10 (KCl 20 Meq Premix Inj) 100 ml @ 50 mls/hr Q2H PRN IV 10/09/16 14:15 10/12/16 10:39 Potassium Bicarb/ Potassium Chloride 50 meq 50 meq UNSCH PRN PO 10/09/16 14:15 10/12/16 06:35 Potassium Chloride 100 ml @ 25 mls/hr UNSCH PRN IV 10/09/16 14:15 Potassium Chloride 100 ml @ 50 mls/hr Q2H PRN IV 10/09/16 14:15 (Magnesium Sulfate Inj/NS Inj) 100 ml @ 50 mls/hr UNSCH PRN IV 10/09/16 14:15 Magnesium Oxide 800 mg 800 mg UNSCH PRN PO 10/09/16 14:15 (Magnesium Sulfate Inj/NS Inj) 100 ml @ 50 mls/hr UNSCH PRN IV 10/09/16 14:15 10/12/16 14:48 Potassium Phosphate 2000 mg 2,000 mg Q4H PRN PO 10/09/16 14:15 (Sodium Phosphate Inj/NS 250 ml Inj) 250 ml @ 42 mls/hr UNSCH PRN IV 10/09/16 14:15 Potassium Phosphate 2000 mg 2,000 mg UNSCH PRN PO/TUBE 10/09/16 14:15 10/11/16 23:28 (Potassium Phosphate Inj/NS 250 ml Inj) 260 ml @ 42 mls/hr UNSCH PRN IV 10/09/16 14:15 (Ecotrin Ec) 81 mg DAILY PO 10/11/16 09:00 10/24/16 09:17 Diltiazem HCl 60 mg 60 mg Q6H PO 10/11/16 09:00 10/24/16 15:00 (Cardizem Inj/NS Inj) 125 ml @ 0 mls/hr TITRATE IV 10/14/16 13:45 10/16/16 17:49 (Altace) 5 mg DAILY PO 10/16/16 09:00 10/24/16 09:17 (NS Flush) 2 ml BID .XX 10/16/16 21:00 10/24/16 09:00 (NS Flush) 2 ml UNSCH PRN .XX 10/16/16 13:30 (Deltasone) 20 mg BID PO 10/19/16 21:00 10/24/16 09:16 (Pepcid) 20 mg BID PO 10/19/16 21:00 10/24/16 09:16 (Cipro) 750 mg Q12HR PO 10/20/16 10:00 11/03/16 09:59 10/24/16 09:16 (Megace Liq) 400 mg DAILY PO 10/23/16 13:45 10/24/16 09:17 (Theragran M Tab) 1 tab DAILY PO 10/23/16 13:45 10/24/16 09:16 (Restoril) 7.5 mg HS PRN PO 10/23/16 18:30 10/23/16 23:26 (NS Flush) 2 ml UNSCH PRN .XX 10/24/16 14:00 (NS Flush) 2 ml BID .XX 10/24/16 21:00 Clopidogrel Bisulfate 75 mg 75 mg DAILY PO 10/25/16 09:00 Tirofiban/Sodium Chloride 250 ml @ 7.56 mls/hr Q24H IV 10/24/16 13:47 10/25/16 07:46 10/24/16 13:22 (Heparin-D5W Inj) 250 ml @ 0 mls/hr TITRATE IV 10/24/16 15:45 A/P Problem List: (1) Severe sepsis ICD Code: A41.9 Status: Acute Plan: Severe sepsis present on admission, patient tachycardic with very elevated WBC count of 40 2.3K and lactic acid of 5.4. Treated with supportive measures in the intensive care unit with IV fluids, broad-spectrum IV antibiotics - IV vancomycin and IV Zosyn as well as IV azithromycin. Blood cultures negative 5 Sputum culture is growing Pseudomonas aeruginosa Infectious disease consulted and following. Continue Ciprofloxacin (2) Acute hypoxemic respiratory failure ICD Code: J96.01 Status: Resolved Plan: Patient was initially admitted to the intensive care unit under the care of tactical air control party. The patient was treated with BiPAP which was discontinued after the patient respiratory status improved. Relistor failure likely secondary to bilateral pneumonia and underlying COPD which are both improving. Suspected possible necrotizing pneumonia, sputum culture positive for pseudomonas aeruginosa Blood cultures negative 5 (3) Bilateral pneumonia ICD Code: J18.9 Status: Acute Plan: Possible necrotizing pneumonia. Possible infected bullous lesions in his lungs, patient history of severe emphysema. Sputum culture growing Pseudomonas. Continue supplemental oxygen to keep an oxygen saturation of >92% Treated with IV steroids for underlying COPD exacerbation. Now on prednisone, continue prednisone taper. Pulmonology consulted on following Continue antibiotics as per infectious disease. The patient currently on oral ciprofloxacin. (4) Multiple lung nodules on CT ICD Code: R91.8 Status: Acute Plan: Pulmonology following. Continue antibiotics, supplemental oxygen, bronchodilators. (5) Leukocytosis ICD Code: D72.829 Status: Acute Plan: WBC is still elevated, however patient is on oral steroids. Patient is afebrile (6) CAD (coronary artery disease) ICD Code: I25.10 Status: Chronic Plan: Seems to be stable. Status post cardiac catheterization with 2 vessel disease. Continue aspirin, DINA inhibitor heparin gtt. Patient was considered for CABG due to severe two-vessel disease, however Dr. Swanson from cardiovascular surgery dated the patient not to be a good candidate for surgery due to current nutritional and physical status. Continue with medical management as per Dr. Trujillo's advice. 10/24 sp cardiac catheterization today. fu cardiology recommendations. (7) Atrial fibrillation with RVR ICD Code: I48.91 Status: Resolved Plan: The patient status post A. fib with RVR and elevated cardiac enzymes, known sinus rhythm. On by mouth Cardizem 60 mg by mouth 4 times a day. Patient currently on heparin drip. Follow-up cardiology recommendations (8) Anemia ICD Code: D64.9 Status: Chronic Plan: Anemia seems to be chronic. Patient status post transfusion of 1 unit of packed red blood cells. Significantly improved after PRBC transfusion. (9) Severe protein-calorie malnutrition ICD Code: E43 Status: Acute Plan: Diet has been consulted. Recommended Ensure 3 times a day, Theragran-M daily and an appetite stimulant. Patient has been taking Ensure, Started on Theragran-M and Megace as an appetite stimulant. Continue. (10) Hyponatremia ICD Code: E87.1 Status: Acute Plan: Sodium has been trending down from 138-133-130 to 126. DC spironolactone, check urine and serum osmolality, place on fluid restriction 1 L per day. Continue to monitor BMP and trend sodium. 10/24 Urine osmolality innapropriately elevated in comparison with serum osmolality. Patient has SIADH. Continue fluid restriction. Sodium is slowly trending up. Continue to monitor BMP. (11) Hyperkalemia ICD Code: E87.5 Status: Acute Plan: 10/24 Repeat BMP confirmed hyperkalemia Patient was administered Calcium gluconate IV, IV regular insulin and Kayexalate. Potassium level now down to 4.9 10/24 will recheck BMP. Assessment and Plan GI prophylaxis: Continue bowel regimen for constipation prevention. I will start the patient on Lactobacillus acidophilus since he is on antibiotics. VT prophylaxis: On heparin drip, continue Discharge Planning Patient w hyponatremia, for staged PCI. Problem Qualifiers (1) Bilateral pneumonia: Qualified Code: J18.9 - Pneumonia of both lower lobes due to infectious organism (2) Leukocytosis: Qualified Code: D72.829 - Leukocytosis, unspecified type (3) CAD (coronary artery disease): Qualified Code: I25.10 - Coronary artery disease involving [place] coronary artery of [place] heart, angina presence unspecified (4) Anemia: Qualified Code: D64.9 - Anemia, unspecified type Dewayne Nazario MD Oct 24, 2016 19:06
[2016-10-24] MEDS: TEMAZEPAM 7.5 MG CAP PO PRN (20:08)
[2016-10-24] MEDS ORDERED: SODIUM CHLORID 0.9% 500 ML INJ 500 ML IV ONE (23:15)
[2016-10-24] MEDS ORDERED: SODIUM CHLOR 0.9% 1000 ML INJ 1,000 ML IV SCH (23:15)
[2016-10-24 23:28] LABS: APTT (PATIENT) 49.3 SEC (24.3-30.1)
[2016-10-24 23:39] LABS: BICARBONATE 29.3 MEQ/L (21.0-32.0); POTASSIUM 4.5 MEQ/L (3.5-5.1)
[2016-10-25] VITALS (29 sets, daily range): BP systolic 83–120; BP diastolic 47–86; PULSE 60–96; RESP 18–20; TEMP 97–97.9; O2SAT 96–99
[2016-10-25] MEDS: DILTIAZEM HCL 60 MG TAB PO SCH ×4 (02:42→20:58)
[2016-10-25] MEDS: CHLORHEXIDINE GLUCONATE 2 % 1 PACK (2 CLOTHS) TOP SCH (02:42)
[2016-10-25 04:50] LABS: AUTOMATED NEUTROPHIL # 10.1 TH/MM3 (1.8-7.7); BASOPHIL % 0.1 % (0.0-2.0); HEMO FLAGS DIFF FINAL; LYMPH % 3.3 % (9.0-44.0); LYMPHOCYTE # 0.4 TH/MM3 (1.0-4.8); MEAN CELL VOLUME 67.1 FL (80.0-100.0); MEAN CORPUSCULAR HEMOGLOBIN 21.7 PG (27.0-34.0); MEAN CORPUSCULAR HGB CONC 32.4 % (32.0-36.0); MONO % 5.3 % (0.0-8.0); NEUT % 91.3 % (16.0-70.0); PLATELET COUNT 153 TH/MM3 (150-450); RED BLOOD COUNT 4.62 MIL/MM3 (4.50-5.90); RED CELL DISTRIBUTION WIDTH 16.3 % (11.6-17.2); WHITE BLOOD COUNT 11.1 TH/MM3 (4.0-11.0)
[2016-10-25 05:14] LABS: BICARBONATE 27.6 MEQ/L (21.0-32.0); POTASSIUM 4.4 MEQ/L (3.5-5.1)
[2016-10-25 05:23] LABS: HDL CHOLESTEROL 61.9 MG/DL (40.0-60.0)
[2016-10-25 05:34] LABS: CALCIUM-PROTEIN CORRECTED 8.6 MG/DL (8.5-10.1)
[2016-10-25 06:21] LABS: APTT (PATIENT) 30.6 SEC (24.3-30.1)
--- NOTE | 2016-10-25 08:20 | HHI.PR ---
Subjective Remarks Pt denies any pain, worsening SOB, nausea or vomiting. Appetite seems to be improving per patient. Still coughing up some but not much. Denies any CP/lightheadedness or dizziness. discussed w RN, pt's BP's have been running low but pt has been asymptomatic Objective Vitals Vital Signs Date Time Temp Pulse Resp B/P Pulse Ox O2 Delivery O2 Flow Rate FiO2 10/25/16 06:00 86 10/25/16 05:00 86 10/25/16 04:15 96 Nasal Cannula 3.00 10/25/16 04:00 80 18 83/50 96 10/25/16 04:00 87 10/25/16 03:00 88 10/25/16 02:00 80 10/25/16 01:00 96 10/25/16 00:10 96 Nasal Cannula 3.00 10/25/16 00:00 90 10/25/16 00:00 95 18 88/55 96 10/24/16 23:00 94 10/24/16 22:00 94 10/24/16 21:53 97 Nasal Cannula 4.00 10/24/16 21:00 94 10/24/16 20:00 97.7 94 20 105/50 96 10/24/16 20:00 102 10/24/16 20:00 96 Nasal Cannula 3.00 10/24/16 19:00 94 10/24/16 18:10 94 10/24/16 17:01 108 10/24/16 16:03 97 10/24/16 15:46 109 10/24/16 15:46 100 Nasal Cannula 3.00 10/24/16 15:46 97.8 100 20 122/54 100 10/24/16 14:17 100 10/24/16 11:36 94 Nasal Cannula 2.00 10/24/16 11:08 96 Nasal Cannula 3.00 10/24/16 11:08 106 10/24/16 11:08 97.7 90 20 114/71 96 10/24/16 10:06 93 10/24/16 09:15 89 I/O 10/24/16 10/24/16 10/24/16 10/25/16 10/25/16 10/25/16 07:00 15:00 23:00 07:00 15:00 23:00 Intake Total 304 ml 1262 ml 1090 ml Output Total 700 ml 750 ml Balance 304 ml 562 ml 340 ml Intake Oral 120 ml 720 ml 240 ml IV Total 184 ml 542 ml 850 ml Output Urine Total 700 ml 750 ml # Voids 3 # Bowel Movements 2 1 Result Diagram: 10/25/16 0430 10/25/16 0430 Imaging Last Impressions Chest X-Ray 10/17/16 0000 Signed Impressions: Service Date/Time: Monday, October 17, 2016 11:47 - CONCLUSION: 1. Significant interval improvement of bilateral lower lobe airspace disease with residual consolidation in the posterior lower lobes bilaterally. The findings are most concerning for aspiration although pneumonia is in the differential diagnosis. Sincere Das MD Lower Extremity Ultrasound 10/09/16 0000 Signed Impressions: Service Date/Time: Sunday, October 09, 2016 10:52 - CONCLUSION: 1. No DVT identified. Janak Ortiz MD CT Angiography 10/09/16 0000 Signed Impressions: Service Date/Time: Sunday, October 09, 2016 10:23 - CONCLUSION: 1. No evidence for pulmonary embolism to the subsegmental level as questioned. 2. Redemonstration of severe centrilobular emphysema with extensive bilateral lower lobe airspace consolidation with probable necrosis. Smaller regions of airspace consolidation in the inferior lingula and right middle lobe. Overall findings are most consistent with severe aspiration versus necrotizing pneumonia. 3. 1.2 cm cavitary nodule in the right upper lobe. Additional nearly spiculated nodular opacities in the left lung base measuring up to 1.7 cm. Although the findings may be infectious in etiology followup to resolution is recommended given the extensive underlying lung disease. 4. Small pericardial effusion. 5. Moderate coronary artery calcifications. 6. Cholelithiasis. Sincere Das MD Lung Scan-VQ Nuclear Medicine 10/08/162037 Signed Impressions: Service Date/Time: Saturday, October 08, 2016 21:37 - CONCLUSION: Intermediate probability for pulmonary embolism. Jesus Hayes MD Abdomen/Pelvis CT 10/08/162028 Signed Impressions: Service Date/Time: Saturday, October 08, 2016 20:52 - CONCLUSION: 1. Extensive emphysema with extensive bibasilar consolidation with cavities likely necrotizing pneumonia. 2. Diverticulosis of the colon. 3. Cholelithiasis. 4. Bilobed distal abdominal aortic aneurysm measuring 3.2 cm with extensive atherosclerotic calcifications of the iliac vasculature. Critical stenosis cannot be excluded. Jesus Hayes MD Objective Remarks GENERAL: Pale cachectic elderly man CARDIOVASCULAR: heart rate seems rrr w no obvious murmurs RESPIRATORY: very distant lung sounds. No accessory muscle use. no wheezing or crackles GASTROINTESTINAL: Abdomen soft, non-tender, nondistended. MUSCULOSKELETAL: No edema. Neuro: tired but alert, answers questions Procedures 10/16- cardiac catheterization 3V disease A/P Problem List: (1) Severe sepsis ICD Code: A41.9 Status: Acute (2) Acute hypoxemic respiratory failure ICD Code: J96.01 Status: Resolved (3) Bilateral pneumonia ICD Code: J18.9 Status: Acute (4) Multiple lung nodules on CT ICD Code: R91.8 Status: Acute (5) Leukocytosis ICD Code: D72.829 Status: Acute (6) CAD (coronary artery disease) ICD Code: I25.10 Status: Chronic (7) Atrial fibrillation with RVR ICD Code: I48.91 Status: Resolved (8) Anemia ICD Code: D64.9 Status: Chronic (9) Severe protein-calorie malnutrition ICD Code: E43 Status: Acute (10) Hyponatremia ICD Code: E87.1 Status: Acute (11) Hyperkalemia ICD Code: E87.5 Status: Acute Assessment and Plan (1) Severe sepsis Severe sepsis present on admission, patient was tachycardic with very elevated WBC count of 40 2.3K and lactic acid of 5.4. Treated with supportive measures in the intensive care unit with IV fluids, broad-spectrum IV antibiotics - IV vancomycin and IV Zosyn as well as IV azithromycin. Blood cultures negative 5 Sputum culture growing Pseudomonas aeruginosa Infectious disease consulted and following. Continue Ciprofloxacin (10/20-) (2) Hypotension BP low overnight, MAP between 63-65. will give One time 500ml bolus NS now. continue IVFs may need to increase rate if no improvement. Currently at 75ml/ hr. (3) Acute hypoxemic respiratory failure Patient was initially admitted to the intensive care unit under the care of clip loading machine feeder. The patient was treated with BiPAP which was discontinued after the patient respiratory status improved. Relistor failure likely secondary to bilateral pneumonia and underlying COPD which are both improving. Suspected possible necrotizing pneumonia, sputum culture positive for pseudomonas aeruginosa Blood cultures negative 5 (4) Bilateral pneumonia Possible necrotizing pneumonia. Possible infected bullous lesions in his lungs, patient history of severe emphysema. Sputum culture growing Pseudomonas. Continue supplemental oxygen to keep an oxygen saturation of >92% Treated with IV steroids for underlying COPD exacerbation. Now on prednisone, continue prednisone taper. changed to 20mg po daily today and continue to taper off. Pulmonology following Continue antibiotics as per infectious disease. The patient currently on oral ciprofloxacin. (5) Multiple lung nodules on CT Pulmonology following. Continue antibiotics, supplemental oxygen, bronchodilators. (6) Leukocytosis WBC down to 11.1. Patient is afebrile (7) CAD (coronary artery disease) Status post cardiac catheterization with 2 vessel disease. Continue aspirin, DINA inhibitor heparin gtt. Patient was considered for CABG due to severe two-vessel disease, however Dr. Swanson from cardiovascular surgery dated the patient not to be a good candidate for surgery due to current nutritional and physical status. Continue with medical management as per Dr. Trujillo's advice. 10/24 sp cardiac catheterization. Cards fallowing. TELE reviewed had a 10 run beat V tach but asymptomatic. Pt scheduled for staged pci rca (8) Atrial fibrillation with RVR \The patient status post A. fib with RVR and elevated cardiac enzymes, now sinus rhythm. On by mouth Cardizem 60 mg by mouth 4 times a day. Patient currently on heparin drip. Follow-up cardiology recommendations (9) Anemia Anemia seems to be chronic. Patient status post transfusion of 1 unit of packed red blood cells. Significantly improved after PRBC transfusion. (10) Severe protein-calorie malnutrition [employer] Tester following. Recommended Ensure 3 times a day, Theragran-M daily and an appetite stimulant. Patient has been taking Ensure, on Theragran-M and Megace as an appetite stimulant. Continue. (11) Hyponatremia Sodium has been trending down, today stable at 131 off spironolactone, on fluid restriction 1 L per day. Continue to monitor BMP and trend sodium. 10/24 Urine osmolality innapropriately elevated in comparison with serum osmolality. Patient has SIADH. Continue fluid restriction. Sodium is slowly trending up. Continue to monitor BMP. (12) Hyperkalemia s/p Calcium gluconate IV, IV regular insulin and Kayexalate. Potassium level now stable GI prophylaxis: Continue bowel regimen for constipation prevention. on Lactobacillus acidophilus DVT prophylaxis: On heparin drip, continue Discharge Planning scheduled for procedure by cards around 12:30 today Problem Qualifiers (1) Bilateral pneumonia: Qualified Code: J18.9 - Pneumonia of both lower lobes due to infectious organism (2) Leukocytosis: Qualified Code: D72.829 - Leukocytosis, unspecified type (3) CAD (coronary artery disease): Qualified Code: I25.10 - Coronary artery disease involving [place] coronary artery of [place] heart, angina presence unspecified (4) Anemia: Qualified Code: D64.9 - Anemia, unspecified type Natali Chao MD Oct 25, 2016 08:20 Discharge Planning transfer to [facility] plan [facility] 10/16/16 if hgb stable Problem Qualifiers (1) Bilateral pneumonia: Qualified Code: J18.9 - Pneumonia of both lower lobes due to infectious organism (2) Leukocytosis: Qualified Code: D72.829 - Leukocytosis, unspecified type (3) CAD (coronary artery disease): Qualified Code: I25.10 - Coronary artery disease involving [place] coronary artery of [place] heart, angina presence unspecified (4) Anemia: Qualified Code: D64.9 - Anemia, unspecified type Natali Chao MD Oct 25, 2016 08:20 Qualified Code: I25.10 - Coronary artery disease involving [place] coronary artery of [place] heart, angina presence unspecified (4) Anemia: Qualified Code: D64.9 - Anemia, unspecified type Natali Chao MD Oct 25, 2016 08:20
[2016-10-25] MEDS ORDERED: SODIUM CHLORID 0.9% 500 ML INJ 500 ML IV ONE (08:30)
[2016-10-25] MEDS: RAMIPRIL 5 MG CAP PO SCH (08:49)
[2016-10-25] MEDS: MULTIVITAMINS/MINERALS THERAPEUTIC TAB PO SCH (08:50)
[2016-10-25] MEDS: CLOPIDOGREL 75 MG TAB PO SCH (08:50)
[2016-10-25] MEDS: ASPIRIN EC 81 MG TABEC PO SCH (08:50)
[2016-10-25] MEDS: DOCUSATE SODIUM 50 MG/SENNA 8.6 MG TAB PO SCH ×2 (08:50→20:58)
[2016-10-25] MEDS: predniSONE 20 MG TAB PO SCH (08:50)
[2016-10-25] MEDS: MEGESTROL ACETATE SUSP 400 MG/10 ML CUP PO SCH (08:50)
[2016-10-25] MEDS: FAMOTIDINE 20 MG TAB PO SCH ×2 (08:50→20:57)
[2016-10-25] MEDS: CIPROFLOXACIN 750 MG TAB PO SCH ×3 (08:50→21:00)
[2016-10-25] MEDS: SODIUM CHLORIDE 0.9% FLUSH 10 ML FLUSH SCH ×3 (08:51→20:58)
--- NOTE | 2016-10-25 10:36 | MR ---
cc: ROSANNE BARDALES M.D. DATE: 10/24/2016 PROCEDURE PERFORMED PCI with bare metal stent of the proximal right coronary artery. INDICATION Non-STEMI, congestive heart failure, [place] Heart Association class IV congestive heart failure, intolerance to optimal medical therapy with severe hyponatremia on Aldactone, sodium of 124, intolerance of optimal medical therapy also due to inability to give beta jimy due to severe COPD. The patient was also deemed not a candidate for coronary artery bypass graft procedure by Dr. Nahomi Miller. PROCEDURE The patient was brought to the cardiac catheterization laboratory, prepped and draped in the usual sterile fashion. 10 ccs of 1% lidocaine was used to locally anesthetize the left common femoral artery area. A 6-[place] sheath was placed in the left common femoral artery. Initial ACT 156, additional 70 units per kilo of heparin was given, ACT 218. A 6-[place] XB 3.5 guide 0.014 [employer] guidewire, an attempt was made to directly stent the lesion with a 3-0 12 Integrity stent, however, due to severity of stenosis the stent would not cross the lesion. Therefore, the lesion was predilated with a 2-5 10 Euphora balloon, one inflation 8 atmospheres for 20 seconds. I was then able to deliver the 3-0 12 integrity stent, deployed one inflation 10 atmospheres for 20 seconds. Stenosis went from 95% to 0% with NATALI-III flow. CONCLUSION 1. Non-STEMI, [place] Heart Association class IV congestive heart failure, intolerance to optimal medical therapy due to severe hyponatremia and severe COPD. 2. Successful PCI bare metal stent of the proximal LAD from 95% to 0% with NATALI-III flow. 3. Due to the inability to discern the culprit lesion for the non-STEMI and a 90% mid circumflex vessel stenosis and 95% proximal right coronary artery stenosis, will leave the sheath in overnight, continue IV heparin and stage the mid left circumflex vessel tomorrow. If the patient remains hemodynamically stable and tolerates staged procedure, will consider intervention on the right coronary artery as well. Otherwise, recommend Plavix 600 mg p.o. load, then 75 mg a day for 12-15 months. Aspirin 162 mg daily. Continue heparin drip, Aggrastat drip, medical management of coronary artery disease and congestive heart failure. MD SUBHA Patel/TLL /1:25 PM /10:23 AM
[2016-10-25] MEDS ORDERED: IOHEXOL 350 MG/ML 100 ML BTL (for Cath Lab) OTHER ONE (12:02)
[2016-10-25] MEDS ORDERED: SODIUM NITROPRUSSIDE 50 MG/2 ML VIAL ONE (12:14)
[2016-10-25] MEDS ORDERED: HEPARIN SODIUM - IV 10,000 UNITS/10 ML VIAL ONE (13:11)
--- NOTE | 2016-10-25 14:14 | CATHPROC ---
[employer] HIS Report Study Information Study Number Admission Scheduled Start Study Start [id number] Oct 08 2016 9:45PM 10/25/2016 Oct 25 2016 11:50AM [place] Service Cardiac Catheterization Admit Source Facility Department Emergency department [facility] - Diet Assistant Physician and Clinical Staff Initial Daniel Vuong Geospatial Image Analyst Jesenia Ivy,MELLISA Other Ana Sanford,RN Recorder Ana Garcia,RT(R) Recorder Winston Mcintyre,RT(R) Scrub Renny Larsen,RT(R) TECH2 Procedures Performed Procedure Location (Site) Vessel Name Coronary Angiograms LCA Left Coronary L Heart Cath PTCA CIRC Mid CIRC PTCA CIRC Prox CIRC PTCA ADD ON'S Stent CIRC Mid CIRC Stent CIRC Prox CIRC Wire insertion Fem Art (right) Femoral Art Equipment Time Hvac Commercial Salesperson Description Size Mfg Part Number Used/Scraped [id number] 13:04 [employer]U [employer] WIRE, ASAHI PROWATER 180CM 180CM Used *[id number] 13:15 [employer] WIRE, ASAHI PROWATER 180CM 180CM Used *[id number] [id number] 13:43 [employer]IT[employer] WIRE, ASAHI PROWATER 180CM 180CM Used *[id number] TRANSDUCER, TRUWAVE [id number] 11:53 GHOSH IVY * Used W/STOCKCOCK *[id number] *[id number] 11:53 [employer] INDUSTRIES PACK, CCL CUSTOM * Used *[id number] 11:53 [employer] PACER PEN, SKIN DUAL W/ RULER * Used *[id number] 13:20 [employer] BALLOON, 2.5 X 10MM EUPHORA 10MM Used *[id number] BALLOON, 2.5 X 12MM NC [id number] 13:49 MEDTRONIC 12MM Used EUPHORA *[id number] 13:45 [employer] STENT, 3.0 9 INTEGRITY 3.0 9 Used *[id number] 13:13 MEDTRONIC STENT, 3.0 9 INTEGRITY 3.0 9 Used *[id number] 13:08 [employer] MEDICAL 30 YANIRA INDEFLATOR Used *[id number] 13:07 [employer] MEDICAL SHEATH, FR6.5 PRELUDE 11CM FR 6.5 038ACT Used *[id number] 11:53 MERIT MEDICAL WIRE, 3MMJ .035 180CM 180CM Used *[id number] 11:53 NAMIC MANIFOLD, 4 PORT * Used *[id number] 13:08 [employer] OMNIPAQUE, 300 MG, 150ML 150ML [id number] Used 11:53 NYCOMED OMNIPAQUE, 350 MG, 150ML 150ML [id number] Used [id number] 11:53 HOU MEDICAL BLANKET,WARM AIR CCL * Used *[id number] 11:53 TERUMO MEDICAL SHEATH, FR4 TERUMO (10CM) FR 4 [id number] Used 13:27 [employer] CATHETER, FR6 GUIDELINER FR 6 5571 *[id number] Used Equipment Model, Serial, Lot Number and Expiration Data Description Model Number Serial Number Lot Number Expiration Date BALLOON, 2.5 X 12MM NE [id number] 08-19-2018 EUPHORA STENT, 3.0 9 INTEGRITY [id number] 05-29-2018 STENT, 3.0 9 INTEGRITY [id number] 01-23-2018 History: Current Medications Medication Dosage/Unit Route Frequency Last Date/Time Taken ASA PLAVIX Aggrastat History: Allergies Allergy Reaction No Known Allergies History: Risk Factors Family History of Hypertension Dyslipidemia Previous WI Previous Heart Failure Premature CAD Yes No No No No Prior Valve Prior PCI Prior PCIDate Prior CABG Surgery No Yes 10/24/2016 No Cerebrovascular Peripheral Artery Chronic Lung On Dialysis Diabetes Disease Disease Disease No No No Yes No History: Symptoms/Diagnosis Selection Items SOB History: CV Disease Selection Items Known CAD History: Stress Tests Stress or Imaging Studies Performed No History: Other Disease Selection Items CAD HTN History: WI/CV Data Previous Cath Date 10/16/2016 History: Other Current Smoker Method Packs a Day Years Used Pack Years Yes Cigarettes 1 60 60 Labs Hgb (g/dl) Hct (%) WBC (l/cumm) Platelets (thousands) 12.00-18.00 37.00-55.00 4.80-10.80 140.00-450.00 10.0 31 11.1 153 Glucose (mg/dl) BUN (mg/dl) Creatinine (mg/dl) BUN:Creatinine (1:x) 60.00-110.00 8.00-20.00 0.10-9.00 10.00-20.00 127 35 0.4 87.5 Na (meq/l) K (meq/l) 138.00-146.00 3.80-5.10 131 4.4 CPK (u/l) CPK-MB (ng/ML) 37.00-289.00 0.00-7.00 23 Not Drawn Medication Medication Total Dose (Bolus/Oral) Medication Total Dosage/Unit 1% XYLOCAINE 20 mL HEPARIN 3000 units Medications (Bolus/Oral) Medication Time Given Dosage/Unit Administered By Reason 1% XYLOCAINE 10/25/2016 1:06:05 PM 20 mL Ronnie Daniel 20 mL 1% XYLOCAINE given in lab by Daniel Canchola in Left Groin via Subcutaneous. HEPARIN 10/25/2016 1:12:50 PM 3000 units Jesenia Ivy 3000 units HEPARIN given in lab by Jesenia Ivy RN in Right Arm via Peripheral IV. Medication (Drip) Medication Time Given Dosage/Unit Concentration/Unit Diluent (ml) Solution AGGRASTAT DRIP 10/25/2016 12:13:30 PM 0.076 mcg/kg/min 12.5 mg 250 NaCl .9 Patient arrived on 0.076 mcg/kg/min AGGRASTAT DRIP in Right Wrist via Peripheral IV. Pump/Drip Flow = 3.8 ml/hr using NaCl .9 with a concentration of 12.5 mg in 250 ml. IV Solutions 10/25/2016 12:14:17 PM 0 mL (IV) 500 NaCl .9 Patient arrived on IV Solutions in Right Arm via Peripheral IV. Pump/Drip Flow = 20 ml/hr using NaCl .9. Initial Case Assessment Cardiovascular HR Rhythm NIBP Chest Pain 78 Sinus 96/51 0 Edema Present Skin color Skin None Normal Warm Dry Circulatory - Right Pulses Dorsalis Pedis Femoral 1 1 Scale (0,1,2,3,4,d) Circulatory - Left Pulses Dorsalis Pedis Femoral 1 1 Scale (0,1,2,3,4,d) Neurological State Oriented to time-place- Alert Moves all extremities person Respiration - General Respiration Rate SpO2 (%) O2 (lpm) (B/min) 21 97 2 Final Case Assessment Cardiovascular HR Rhythm NIBP Chest Pain 74 reg 103/54 0 Edema Present Skin color Skin None Normal Warm Circulatory - Right Pulses Dorsalis Pedis Femoral 2 2 Scale (0,1,2,3,4,d) Circulatory - Left Pulses Dorsalis Pedis Femoral 2 2 Scale (0,1,2,3,4,d) Circulatory - Lower Extremities Color Lower Right Color Lower Left Normal Normal Neurological State Oriented to time-place- Alert Moves all extremities person Respiration - General Respiration Rate SpO2 (%) O2 (lpm) (B/min) 27 100 4 Chronological Log Time Study Chronological Log 12:01:37 Patient arrived via Bed. 12:01:39 Patient Name, D.O.B, / Armband Verified By R.N. 12:01:52 Pre-op and post- op instructions given; patient acknowledges understanding of instructions. Vitals capture started with the following parameters, Patient=Adult, Interval=5 min, Initial Pr bcqciu=064 mmHg, 12:07:22 Deflation Rate=5 mmHg 12:07:59 HR=84 bpm, NIBP=99/44 mmhg, SpO2=98.0 %, Resp=18 B/min, Pain=0, Magy=9, Izaguirre=2 12:08:57 HEPARIN DISCONTINUED IN PT'S ROOM 11:48AM 12:10:26 Reference ECG taken 12:10:41 Verbal Stimulation=2 Physical Stimulation=2 Airway=2 Respiration=2 TOTAL=8. (0=absent, 1=li mited, 2=present) 12:11:16 Patient has been NPO for More than 6Hrs. 12:11:18 Skin Breakdown-SHEATH SUTURED IN LEFT GROIN FROM PREVIOUS CATH 12:11:57 Patient Warmer Placed on the Table. 12:12:04 A # 20 IV was noted in the Wrist (right). Grade = 0 12:12:52 HR=72 bpm, NIBP=96/51 mmhg, Resp=21 B/min, Pain=0, Magy=9, Izaguirre=2 Patient arrived on 0.076 mcg/kg/min AGGRASTAT DRIP in Right Wrist via Peripheral IV. Pump/Drip Flow = 3.8 ml/hr 12:13:30 using NaCl .9 with a concentration of 12.5 mg in 250 ml. 12:14:17 Patient arrived on IV Solutions in Right Arm via Peripheral IV. Pump/Drip Flow = 20 ml/hr u sing NaCl .9. 12:15:06 A # 20 IV was noted in the Upper Arm (right). Grade = 0 12:16:44 Francisco Prominences Protected 12:16:52 History and physical on the chart or being dictated. Assessment: Initial Case, HR=78 BPM, Rhythm=Sinus, NIBP=96/51 mmhg, Chest Pain=0, Edema=None, Color=Normal, Skin = Warm, Dry Right Pulses: Liban Ped=1, Femoral=1 12:17:12 Left Pulses: Liban Ped=1, Femoral=1 Neurological: State=Alert, Ox3, MORALES Respiration: Resp=21 B/min, SpO2=97 %, O2=2 lpm 12:17:51 HR=79 bpm, NIBP=98/56 mmhg, Resp=20 B/min, Pain=0, Magy=9, Izaguirre=2 12:20:23 Right groin prepped with 2% chlorhexidine, and with a 3 min. waiting time. 12:22:52 HR=68 bpm, LORH=581/52 mmhg, Resp=19 B/min, Pain=0, Magy=9, Izaguirre=2 12:24:08 Pressure channel 1 zeroed. 12:24:47 MD paged 12:27:53 HR=65 bpm, NIBP=94/49 mmhg, SpO2=89.0 %, Resp=18 B/min, Pain=0, Magy=9, Izaguirre=2 12:32:52 HR=77 bpm, NIBP=94/42 mmhg, Resp=20 B/min, Pain=0, Magy=9, Izaguirre=2 12:37:53 HR=65 bpm, NIBP=97/50 mmhg, SpO2=90.0 %, Resp=18 B/min, Pain=0, Magy=9, Izaguirre=2 12:42:54 HR=64 bpm, NIBP=98/49 mmhg, ZuZ6=235.0 %, Resp=20 B/min, Pain=0, Magy=9, Izaguirre=2 12:47:55 HR=66 bpm, SZID=432/53 mmhg, RuW6=213.0 %, Resp=16 B/min, Pain=0, Magy=9, Izaguirre=2 12:52:56 HR=66 bpm, NIBP=95/50 mmhg, SpO2=95.0 %, Resp=20 B/min, Pain=0, Magy=9, Izaguirre=2 12:57:59 HR=71 bpm, NIBP=90/37 mmhg, YrU8=543.0 %, Resp=19 B/min, Pain=0, Magy=9, Izaguirre=2 13:02:14 MD arrived. 13:02:54 HR=66 bpm, JROZ=840/53 mmhg, SpO2=99.0 %, Resp=19 B/min, Pain=0, Magy=9, Izaguirre=2 Time Out. Correct patient, correct procedure,correct physician, ,power injector not loaded with contrast with surgical 13:05:28 team present. Time Out Concurred by MD, individual staff and PUBLIC ADDRESS TECHNICIAN in procedure Time Out #2 - Consents verified, patient in correct position, all results are labled and displa lanie, safety precautions 13:05:41 taken. Time Out concurred by MD, individual staff and PUBLIC ADDRESS TECHNICIAN in procedure. 13:05:51 Case Start 13:05:55 Verbal Stimulation=2 Physical Stimulation=2 Airway=2 Respiration=2 TOTAL=8. (0=absent, 1=li mited, 2=present) 13:06:05 20 mL 1% XYLOCAINE given in lab by Daniel Canchola in Left Groin via Subcutaneous. A SHEATH, FR6.5 PRELUDE 11CM FR 6.5 was exchanged in the Fem Art (right). This was necessary in order to insure 13:06:14 sterility. 13:06:58 Activated Clotting Time Drawn A XB 4.0 GUIDE CATHETER FR 6 was advanced over a wire. OMNIPAQUE, 350 MG, 150ML 150ML was used for 13:07:35 injections. 13:07:51 OMNIPAQUE, 300 MG, 150ML 150ML and 30 YANIRA INDEFLATOR added. Recorded Pressure: Ao, HR=65, Condition=Condition 1 13:08:14 (Aorta) Ao 103/46/67 13:08:38 HR=67 bpm, NIBP=97/50 mmhg, Resp=26 B/min, Pain=0, Magy=9, Izaguirre=2 13:08:48 The LCA was injected and visualized at various angles. OMNIPAQUE, 350 MG, 150ML 150ML used . 13:11:00 ACT (Normal Range 90-180) = 115 13:11:46 A WIRE, [employer] PROWATER 180CM 180CM was inserted via Fem Art (right). 13:12:26 Interventional wire has crossed the lesion 13:12:50 3000 units HEPARIN given in lab by Jesenia Ivy RN in Right Arm via Peripheral IV. 13:12:59 HR=69 bpm, OCTI=858/49 mmhg, JpN2=054.0 %, Resp=14 B/min, Pain=0, Magy=9, Izaguirre=2 An STENT, 3.0 9 INTEGRITY 3.0 9 Bare Metal Stent was inserted through a XB 4.0 GUIDE CATHETER F R 6 over a 13:14:10 WIRE, ASAHI PROWATER 180CM 180CM. 13:15:04 Stent not deployed. Stent removed and intact. 13:15:50 A WIRE, ASAHI PROWATER 180CM 180CM was inserted via Fem Art (right). second 13:16:01 A BALLOON, 2.5 X 10MM EUPHORA 10MM was inserted over WIRE, ASAHI PROWATER 180CM 180CM via t he CIRC Mid. A BALLOON, 2.5 X 10MM EUPHORA 10MM over a WIRE, ASAHI PROWATER 180CM 180CM in the CIRC Mid was inflated 13:17:31 using a 30 YANIRA INDEFLATOR at 10 yanira for 20 sec. 13:18:02 HR=70 bpm, NIBP=95/48 mmhg, LtP5=990.0 %, Resp=17 B/min, Pain=0, Magy=9, Izaguirre=2 A BALLOON, 2.5 X 10MM EUPHORA 10MM over a WIRE, ASAHI PROWATER 180CM 180CM in the CIRC Mid was inflated 13:20:00 using a 30 YANIRA INDEFLATOR at 12 yanira for 15 sec. 13:21:26 Balloon Removed. Recorded Pressure: Ao, HR=71, Condition=Condition 1 13:21:58 (Aorta) Ao 106/46/68 An STENT, 3.0 9 INTEGRITY 3.0 9 Bare Metal Stent was inserted through a XB 4.0 GUIDE CATHETER F R 6 over a 13:22:36 WIRE, ASAHI PROWATER 180CM 180CM. 13:22:57 HR=80 bpm, PFJF=660/54 mmhg, SpO2=92 %, Resp=20 B/min, Pain=0, Magy=9, Izaguirre=2 13:24:50 Stent not deployed. Stent removed and intact. An STENT, 3.0 9 INTEGRITY 3.0 9 Bare Metal Stent was inserted through a XB 4.0 GUIDE CATHETER F R 6 over a 13:24:55 WIRE, [facility] 180CM 180CM. stent placed on [facility] 13:26:51 Stent not deployed. Stent removed and intact. 13:26:59 labs drawn for type and cross/blood transfusion A CATHETER, FR6 GUIDELINER FR 6 was advanced over a wire. OMNIPAQUE, 350 MG, 150ML 150ML was us ed for 13:27:25 injections. 13:28:10 HR=80 bpm, NIBP=95/46 mmhg, FxV2=368.0 %, Resp=27 B/min, Pain=0, Magy=9, Izaguirre=2 13:29:18 [facility] Wire removed 13:30:40 Activated Clotting Time Drawn An STENT, 3.0 9 INTEGRITY 3.0 9 Bare Metal Stent was inserted through a CATHETER, FR6 GUIDELINE R FR 6 over a 13:30:52 WIRE, [facility] 180CM 180CM. 13:32:13 ACT (Normal Range 90-180) = 253 13:33:01 HR=75 bpm, NIBP=93/45 mmhg, SpO2=91 %, Resp=17 B/min, Pain=0, Magy=9, Izaguirre=2 A STENT, 3.0 9 INTEGRITY 3.0 9 was deployed using a 30 YANIRA INDEFLATOR at 14 atmospheres for 30 seconds in the 13:33:46 CIRC Mid. 13:35:59 Delivery device removed 13:36:12 Wire removed 13:36:13 Catheter was removed 13:37:51 Case End 13:39:05 HR=75 bpm, MLAQ=801/54 mmhg, XzJ4=850.0 %, Resp=23 B/min, Pain=0, Magy=9, Izaguirre=2 13:41:30 dr canchola scrubbed in to fix proximal crx lesion 13:41:57 Pressure channel 1 zeroed. 13:43:05 HR=73 bpm, EKSW=951/42 mmhg, AgC1=615.0 %, Resp=17 B/min, Pain=0, Magy=9, Izaguirre=2 A XB 4.0 GUIDE CATHETER FR 6 was advanced over a wire. OMNIPAQUE, 350 MG, 150ML 150ML was used for 13:43:31 injections. 13:44:59 A WIRE, ASAHI PROWATER 180CM 180CM was inserted via Fem Art (right). 13:46:19 Interventional wire has crossed the lesion An STENT, 3.0 9 INTEGRITY 3.0 9 Bare Metal Stent was inserted through a XB 4.0 GUIDE CATHETER F R 6 over a 13:46:36 WIRE, ASAHI PROWATER 180CM 180CM. 13:48:02 HR=73 bpm, JBYJ=818/54 mmhg, JdX4=325.0 %, Resp=28 B/min 13:48:03 Stent not deployed. Stent removed and intact. A BALLOON, 2.5 X 12MM NC EUPHORA 12MM was inserted over WIRE, ASAHI PROWATER 180CM 180CM via th e CIRC 13:49:14 Prox. A BALLOON, 2.5 X 12MM NC EUPHORA 12MM over a WIRE, ASAHI PROWATER 180CM 180CM in the CIRC Prox was 13:50:12 inflated using a 30 YANIRA INDEFLATOR at 10 yanira for 15 sec. 13:51:37 Balloon Removed. An STENT, 3.0 9 INTEGRITY 3.0 9 Bare Metal Stent was inserted through a XB 4.0 GUIDE CATHETER F R 6 over a 13:52:25 WIRE, ASAHI PROWATER 180CM 180CM. 13:53:05 HR=76 bpm, FKYE=602/51 mmhg, NjU0=548.0 %, Resp=21 B/min, Pain=0, Magy=9, Izaguirre=2 13:53:37 Stent not deployed. Stent removed and intact. A CATHETER, FR6 GUIDELINER FR 6 was advanced over a wire. OMNIPAQUE, 300 MG, 150ML 150ML was us ed for 13:55:09 injections. An STENT, 3.0 9 INTEGRITY 3.0 9 Bare Metal Stent was inserted through a CATHETER, FR6 GUIDELINE R FR 6 over a 13:56:23 WIRE, ASAHI PROWATER 180CM 180CM. 13:56:42 Pt temperature taken- 97.6 13:58:02 HR=72 bpm, BNEX=139/54 mmhg, VbR7=046.0 %, Resp=25 B/min, Pain=0, Magy=9, Izaguirre=2 A STENT, 3.0 9 INTEGRITY 3.0 9 was deployed using a 30 YANIRA INDEFLATOR at 10 atmospheres for 15 seconds in the 13:58:08 CIRC Prox. 13:58:41 Delivery device removed 13:59:07 The LCA was injected and visualized at various angles. contrast used. 13:59:14 blood transfusion started 13:59:38 Wire removed 13:59:43 guide liner Catheter was removed 13:59:54 Catheter was removed 13:59:58 Case End Assessment: Final Case, HR=74 BPM, Rhythm=reg, OZYA=105/54 mmhg, Chest Pain=0, Edema=None, [place] r=Normal, Skin = Warm Right Pulses: Liban Ped=2, Femoral=2 Left Pulses: Liban Ped=2, Femoral=2 14:00:03 Lower Right Extremities: Color=Normal Lower Left Extremities: Color=Normal Neurological: State=Alert, Ox3, MORALES Respiration: Resp=27 B/min, IqZ5=239 %, O2=4 lpm 14:01:00 Catheter(s) removed without difficulty In the Fem Art (right) the SHEATH, FR6.5 PRELUDE 11CM FR 6.[address] by Renny Larsen, RT(R) 14:01:21 TECH2. and connected to A-line in electroplating laborer 14:01:32 Sterile dressing applied to site 14:01:33 No case complications noted. 14:01:34 Cine recording checked. 14:01:37 Bedside Report will be given. 14:01:40 Contrast Scanned 14:01:50 A Left Heart Cath was performed. 14:02:59 HR=83 bpm, XSXQ=602/61 mmhg, NiE7=409.0 %, Resp=28 B/min, Pain=0, Magy=9, Izaguirre=2 14:10:17 [facility] - Contrast Media Used In Study Contrast Total Opened (mL) Total Used (mL) Total Wasted (mL) Omnipaque 150 150 0 End Study - Maximum Contrast Load Max Contrast Load (mL) 522.7 End Study - Radiation Exposure Fluoro Time (minutes) 21.0 End Study - Patient Disposition Complications Transferred To Interventional Outcome No Regular Bed successful
[2016-10-25] MEDS ORDERED: TIROFIBAN INFUSION INJ 250 ML IV SCH (14:17)
[2016-10-25] MEDS ORDERED: SODIUM CHLORIDE 0.9% FLUSH 10 ML FLUSH PRN (14:30)
[2016-10-25] MEDS ORDERED: MISC INFORMATION XX ONE (14:30)
[2016-10-25 16:09] LABS: APTT (PATIENT) 47.6 SEC (24.3-30.1)
--- NOTE | 2016-10-25 19:13 | HHI.PR ---
Subjective Remarks 71 YOWM with Bilat infilt, lung nodule, wt loss Had cardiac cath, multi vessel disease On NC Mild sob No fever Slept better For PCI in AM Feels hungry. Objective Vital Signs Vital Signs Date Time Temp Pulse Resp B/P Pulse Ox O2 Delivery O2 Flow Rate FiO2 10/25/16 17:30 97.8 68 18 101/50 97 10/25/16 16:16 96 Nasal Cannula 3.00 10/25/16 15:00 97 Nasal Cannula 3.00 10/25/16 13:15 97.7 10/25/16 11:45 97.9 86 20 120/50 98 10/25/16 08:00 97.6 81 20 85/48 99 10/25/16 07:00 99 Nasal Cannula 3.00 10/25/16 06:00 86 10/25/16 05:00 86 10/25/16 04:15 96 Nasal Cannula 3.00 10/25/16 04:00 80 18 83/50 96 10/25/16 04:00 87 10/25/16 03:00 88 10/25/16 02:00 80 10/25/16 01:00 96 10/25/16 00:10 96 Nasal Cannula 3.00 10/25/16 00:00 90 10/25/16 00:00 95 18 88/55 96 10/24/16 23:00 94 10/24/16 22:00 94 10/24/16 21:53 97 Nasal Cannula 4.00 10/24/16 21:00 94 10/24/16 20:00 97.7 94 20 105/50 96 10/24/16 20:00 102 10/24/16 20:00 96 Nasal Cannula 3.00 I/O 10/24/16 10/24/16 10/24/16 10/25/16 10/25/16 10/25/16 07:00 15:00 23:00 07:00 15:00 23:00 Intake Total 304 ml 1262 ml 1090 ml Output Total 700 ml 750 ml Balance 304 ml 562 ml 340 ml Intake Oral 120 ml 720 ml 240 ml IV Total 184 ml 542 ml 850 ml Output Urine Total 700 ml 750 ml # Voids 3 # Bowel Movements 2 1 Result Diagram: 10/25/1642910/25/16 0430 Objective Remarks GENERAL: Cachectic WM, mild sob SKIN: Warm and dry. HEAD: Normocephalic. EYES: No scleral icterus. No injection or drainage. NECK: Supple, trachea midline. No JVD or lymphadenopathy. CARDIOVASCULAR: Regular rate and rhythm without murmurs, gallops, or rubs. RESPIRATORY: Breath sounds equal bilaterally. No accessory muscle use. GASTROINTESTINAL: Abdomen soft, non-tender, nondistended. MUSCULOSKELETAL: No cyanosis, or edema. BACK: Nontender without obvious deformity. No CVA tenderness. A/P Assessment and Plan Bilat lung infilt Lung nodule Weight loss COPD CAD CMP PLAN: Cont Abx Aerosol nebs Supplement 02 Temazepam 7.5 mg q hs prn For PCI in AM Sebastian Meza MD Oct 25, 2016 19:13
[2016-10-25] MEDS ORDERED: HEPARIN 25,000 UNITS-D5W 250 ML - PREMIX IV SCH (19:15)
[2016-10-26] VITALS (20 sets, daily range): BP systolic 93–116; BP diastolic 45–64; PULSE 66–94; RESP 18–20; TEMP 97–98.4; O2SAT 97–98
[2016-10-26] MEDS: DILTIAZEM HCL 60 MG TAB PO SCH ×3 (02:45→16:20)
[2016-10-26 03:07] LABS: APTT (PATIENT) 41.1 SEC (24.3-30.1)
[2016-10-26] MEDS: CHLORHEXIDINE GLUCONATE 2 % 1 PACK (2 CLOTHS) TOP SCH (03:20)
[2016-10-26 04:18] LABS: AUTOMATED NEUTROPHIL # 7.4 TH/MM3 (1.8-7.7); BASOPHIL % 0.2 % (0.0-2.0); HEMATOCRIT 32.7 % (39.0-51.0); LYMPHOCYTE # 0.4 TH/MM3 (1.0-4.8); MEAN CELL VOLUME 70.8 FL (80.0-100.0); MEAN CORPUSCULAR HEMOGLOBIN 23.7 PG (27.0-34.0); MEAN CORPUSCULAR HGB CONC 33.4 % (32.0-36.0); MONO % 6.1 % (0.0-8.0); NEUT % 88.7 % (16.0-70.0); PLATELET COUNT 83 TH/MM3 (150-450); RED BLOOD COUNT 4.62 MIL/MM3 (4.50-5.90); RED CELL DISTRIBUTION WIDTH 23.3 % (11.6-17.2); WHITE BLOOD COUNT 8.4 TH/MM3 (4.0-11.0)
[2016-10-26 04:38] LABS: BICARBONATE 27.8 MEQ/L (21.0-32.0); POTASSIUM 4.5 MEQ/L (3.5-5.1)
[2016-10-26 05:10] LABS: HEMO FLAGS AUTO DIFF
[2016-10-26 05:14] LABS: ACANTHOCYTES 1+ (NORMAL)
[2016-10-26 05:15] LABS: OVALOCYTES 1+ (NORMAL); PLATELET ESTIMATE SMEAR LOW (NORMAL); PLATELET MORPHOLOGY NORMAL (NORMAL); SCAN/DIFF AUTO DIFF CONFIRMED
--- NOTE | 2016-10-26 08:20 | HHI.PR ---
Subjective Remarks Pt states that he is "worn out" and doesn't want any more procedures done. he would like to go home. denies any CP/SOB/palpitations/nausea/vomiting. Objective Vitals Vital Signs Date Time Temp Pulse Resp B/P Pulse Ox O2 Delivery O2 Flow Rate FiO2 10/26/16 06:00 69 10/26/16 05:00 77 10/26/16 04:00 77 10/26/16 03:00 98 Nasal Cannula 3.00 10/26/16 03:00 71 10/26/16 03:00 97.0 77 18 116/52 98 107/64 10/26/16 02:00 67 10/26/16 01:00 79 10/26/16 00:00 88 10/25/16 23:00 98 Nasal Cannula 3.00 10/25/16 23:00 64 10/25/16 23:00 97.0 69 18 111/55 98 112/47 10/25/16 22:51 97 Nasal Cannula 4.00 10/25/16 22:00 70 10/25/16 21:00 64 10/25/16 20:00 97.5 66 18 107/58 98 96/86 10/25/16 20:00 64 10/25/16 19:00 72 10/25/16 19:00 Nasal Cannula 3.00 10/25/16 19:00 97.5 66 18 107/58 98 96/86 10/25/16 18:00 62 10/25/16 17:30 97.8 68 18 101/50 97 10/25/16 17:00 60 10/25/16 16:16 96 Nasal Cannula 3.00 10/25/16 16:00 64 10/25/16 15:00 97 Nasal Cannula 3.00 10/25/16 15:00 72 10/25/16 14:00 64 10/25/16 13:15 97.7 10/25/16 13:00 72 10/25/16 12:00 68 10/25/16 11:45 97.9 86 20 120/50 98 10/25/16 11:00 70 10/25/16 10:00 70 10/25/16 09:00 66 I/O 10/25/16 10/25/16 10/25/16 10/26/16 10/26/16 10/26/16 07:00 15:00 23:00 07:00 15:00 23:00 Intake Total 1090 ml 1100 ml 2096 ml Output Total 750 ml 850 ml 500 ml Balance 340 ml 250 ml 1596 ml Intake Oral 240 ml 600 ml 1200 ml IV Total 850 ml 500 ml 896 ml Output Urine Total 750 ml 850 ml 500 ml # Bowel Movements 1 Result Diagram: 10/26/16 0400 10/26/16 0400 Imaging Last Impressions Chest X-Ray 10/17/16 0000 Signed Impressions: Service Date/Time: Monday, October 17, 2016 11:47 - CONCLUSION: 1. Significant interval improvement of bilateral lower lobe airspace disease with residual consolidation in the posterior lower lobes bilaterally. The findings are most concerning for aspiration although pneumonia is in the differential diagnosis. Sincere Das MD Lower Extremity Ultrasound 10/09/16 0000 Signed Impressions: Service Date/Time: Sunday, October 09, 2016 10:52 - CONCLUSION: 1. No DVT identified. Janak Ortiz MD CT Angiography 10/09/16 0000 Signed Impressions: Service Date/Time: Sunday, October 09, 2016 10:23 - CONCLUSION: 1. No evidence for pulmonary embolism to the subsegmental level as questioned. 2. Redemonstration of severe centrilobular emphysema with extensive bilateral lower lobe airspace consolidation with probable necrosis. Smaller regions of airspace consolidation in the inferior lingula and right middle lobe. Overall findings are most consistent with severe aspiration versus necrotizing pneumonia. 3. 1.2 cm cavitary nodule in the right upper lobe. Additional nearly spiculated nodular opacities in the left lung base measuring up to 1.7 cm. Although the findings may be infectious in etiology followup to resolution is recommended given the extensive underlying lung disease. 4. Small pericardial effusion. 5. Moderate coronary artery calcifications. 6. Cholelithiasis. Sincere Das MD Lung Scan-V Nuclear Medicine 10/08/[id number] Signed Impressions: Service Date/Time: Saturday, October 08, 2016 21:37 - CONCLUSION: Intermediate probability for pulmonary embolism. Jesus Hayes MD Abdomen/Pelvis CT 10/08/[id number] Signed Impressions: Service Date/Time: Saturday, October 08, 2016 20:52 - CONCLUSION: 1. Extensive emphysema with extensive bibasilar consolidation with cavities likely necrotizing pneumonia. 2. Diverticulosis of the colon. 3. Cholelithiasis. 4. Bilobed distal abdominal aortic aneurysm measuring 3.2 cm with extensive atherosclerotic calcifications of the iliac vasculature. Critical stenosis cannot be excluded. Jesus Hayes MD Objective Remarks GENERAL: Pale cachectic elderly man CARDIOVASCULAR: heart rate seems rrr w no obvious murmurs RESPIRATORY: very distant lung sounds. No accessory muscle use. no wheezing or crackles GASTROINTESTINAL: Abdomen soft, non-tender, nondistended. MUSCULOSKELETAL: No edema. Neuro: tired but alert, answers questions Procedures 10/16- cardiac catheterization 3V disease A/P Problem List: (1) Severe sepsis ICD Code: A41.9 Status: Acute (2) Acute hypoxemic respiratory failure ICD Code: J96.01 Status: Resolved (3) Bilateral pneumonia ICD Code: J18.9 Status: Acute (4) Multiple lung nodules on CT ICD Code: R91.8 Status: Acute (5) Leukocytosis ICD Code: D72.829 Status: Acute (6) CAD (coronary artery disease) ICD Code: I25.10 Status: Chronic (7) Atrial fibrillation with RVR ICD Code: I48.91 Status: Resolved (8) Anemia ICD Code: D64.9 Status: Chronic (9) Severe protein-calorie malnutrition ICD Code: E43 Status: Acute (10) Hyponatremia ICD Code: E87.1 Status: Acute (11) Hyperkalemia ICD Code: E87.5 Status: Acute Assessment and Plan (1) Severe sepsis Severe sepsis present on admission, patient was tachycardic with very elevated WBC count of 40 2.3K and lactic acid of 5.4. Treated with supportive measures in the intensive care unit with IV fluids, broad-spectrum IV antibiotics - IV vancomycin and IV Zosyn as well as IV azithromycin. Blood cultures negative 5 Sputum culture growing Pseudomonas aeruginosa Infectious disease consulted and following. Continue Ciprofloxacin (10/20-) x14 days (end date 11/03/16) per ID (2) Hypotension resolved. s/p One time 500ml bolus NS yesterday. (3) Acute hypoxemic respiratory failure Patient was initially admitted to the intensive care unit under the care of greenhouse assistant. The patient was treated with BiPAP which was discontinued after the patient respiratory status improved. Relistor failure likely secondary to bilateral pneumonia and underlying COPD which are both much improved. see management above (4) Bilateral pneumonia Possible necrotizing pneumonia. Possible infected bullous lesions in his lungs, patient history of severe emphysema. Sputum culture growing Pseudomonas. Continue supplemental oxygen to keep an oxygen saturation of >92% Treated with IV steroids for underlying COPD exacerbation. Now on prednisone, continue prednisone taper. changed to 20mg po daily yesterday and continue to taper off. Pulmonology following Continue antibiotics as per infectious disease. (5) Multiple lung nodules on CT Pulmonology following. Continue antibiotics, supplemental oxygen, bronchodilators. (6) Leukocytosis WBC down to 8.4. Patient is afebrile (7) CAD (coronary artery disease) Status post cardiac catheterization with 2 vessel disease. Continue aspirin, DINA inhibitor heparin gtt. Patient was considered for CABG due to severe two-vessel disease, however Dr. Swanson from cardiovascular surgery dated the patient not to be a good candidate for surgery due to current nutritional and physical status. Continue with medical management as per Dr. Trujillo's advice. 10/24 sp cardiac catheterization. Cards fallowing. TELE reviewed had a 10 run beat V tach but asymptomatic. Pt is s/p PCI w bare metal stent of proximal R coronary art. Pt refusing any other procedures at this time and "would like to take a break" (8) Atrial fibrillation with RVR The patient status post A. fib with RVR and elevated cardiac enzymes, now sinus rhythm. On by mouth Cardizem 60 mg by mouth 4 times a day. Patient currently on heparin drip. Follow-up cardiology recommendations (9) Anemia Anemia seems to be chronic. Patient status post transfusion of 1 unit of packed red blood cells. Significantly improved after PRBC transfusion. (10) Severe protein-calorie malnutrition [employer] following. Recommended Ensure 3 times a day, Theragran-M daily and an appetite stimulant. Patient has been taking Ensure, on Theragran-M and Megace as an appetite stimulant. Continue. (11) Hyponatremia Sodium has been trending down, today stable at 130 off spironolactone, on fluid restriction 1 L per day. Continue to monitor BMP and trend sodium. 10/24 Urine osmolality innapropriately elevated in comparison with serum osmolality. Patient has SIADH. Continue fluid restriction. Sodium is slowly trending up. Continue to monitor BMP. (12) Hyperkalemia s/p Calcium gluconate IV, IV regular insulin and Kayexalate. Potassium level now stable GI prophylaxis: Continue bowel regimen for constipation prevention. on Lactobacillus acidophilus DVT prophylaxis: On heparin drip, continue Discharge Planning Pt refusing any other procedure. Per RN, Dr. Trujillo will be speaking w patient shortly. Will await final recs. Anticipate d/c to SNF Problem Qualifiers (1) Bilateral pneumonia: Qualified Code: J18.9 - Pneumonia of both lower lobes due to infectious organism (2) Leukocytosis: Qualified Code: D72.829 - Leukocytosis, unspecified type (3) CAD (coronary artery disease): Qualified Code: I25.10 - Coronary artery disease involving [place] coronary artery of [place] heart, angina presence unspecified (4) Anemia: Qualified Code: D64.9 - Anemia, unspecified type Natali Chao MD Oct 26, 2016 08:20
[2016-10-26] MEDS: CLOPIDOGREL 75 MG TAB PO SCH (09:00)
[2016-10-26] MEDS: SODIUM CHLORIDE 0.9% FLUSH 10 ML FLUSH SCH (09:00)
[2016-10-26] MEDS ORDERED: ATROPINE SULFATE 1 MG/10 ML SYRINGE ONE (09:13)
[2016-10-26] MEDS ORDERED: ATORVASTATIN 20 MG TAB PO ONE (09:45)
[2016-10-26] MEDS: CIPROFLOXACIN 750 MG TAB PO SCH (10:28)
[2016-10-26] MEDS: ASPIRIN EC 81 MG TABEC PO SCH (10:28)
[2016-10-26] MEDS: MULTIVITAMINS/MINERALS THERAPEUTIC TAB PO SCH (10:28)
[2016-10-26] MEDS: RAMIPRIL 5 MG CAP PO SCH (10:28)
[2016-10-26] MEDS: predniSONE 20 MG TAB PO SCH (10:28)
[2016-10-26] MEDS: DOCUSATE SODIUM 50 MG/SENNA 8.6 MG TAB PO SCH (10:28)
[2016-10-26] MEDS: MEGESTROL ACETATE SUSP 400 MG/10 ML CUP PO SCH (10:29)
[2016-10-26] MEDS: FAMOTIDINE 20 MG TAB PO SCH (10:29)
--- NOTE | 2016-10-26 12:33 | PD.WCN.NOT ---
Wound Consult Description: Sacral stage IV pressure injury Communicated with: MELLISA Adame Dr. Recommendation: Foam adhesive to sacrum stage IV pressure injury every 5 days and PRN for saturation or dislodgement. Specialty surface (Advanced IV) if patient is not discharged today. Additional Information: Patient seen on [facility] for wound to sacrum per nursing documentation. Patient states that he has had this wound for about 3 weeks. Patient is noted to be cachetic, slow moving, yet independently positioned himself to his left side for assessment. Wound was cleansed with with NS and gauze. Wound presents as pressure related full thickness skinloss measuring 0.7cm x 1cm x <0.1cm with 100% white tissue, that appears to be fascia, in a round shape with blanchable erythema noted to the periwound. There is a healed scar noted distally to this wound outside the periwound area. Foam adhesive was put back in place and patient was encouraged to relieve pressure by repositioning often. Francia Lovelace [facility] Oct 26, 2016 12:33
--- NOTE | 2016-10-26 12:54 | MA ---
cc: ROSANNE BARDALES M.D. DATE: 10/25/2016 PROCEDURE PERFORMED PCI of bare metal stent of the mid-left circumflex wall and PCI bare metal stent of the proximal circumflex. INDICATIONS Non-STEMI. Indeterminate culprit. The patient has on presentation a 95% proximal LAD lesion and 95% proximal circumflex vessel stenosis and a 95% proximal right coronary stenosis. He remains oxygen dependent with decompensated congestive heart failure, anginal equivalent, [place] [employer] Class IV angina, severe coronary artery disease, cardiomyopathy. PROCEDURE The patient was brought to the Cardiac Catheterization Laboratory, prepped and draped in the usual sterile fashion. The existing sheath in the left femoral artery was exchanged under sterile technique with a new sterile 6-Malag[place] sheath. Initial ACT was 130. 70 units/kg of heparin was given and his ACT was 253. A 6-[place]ag[place] XB 4.0 guide and 0.014 [place] guidewire were used to cross the proximal mid-left circumflex vessel stenosis. I attempted to deliver a 3.0/9 Integrity stent. This would not cross the proximal stenosis. I then used a kieran wire and still was not able to deliver a 3.0/9 Integrity stent. I was able to predilate the mid-lesion with a 2.5/10 Compliant Euphora balloon one inflation atmosphere for 20 seconds. The kieran wire was then removed. I then used a GuideLiner catheter and to successfully deliver a 3.0/9 integrity stent to the mid-left circumflex vessel. This was deployed one inflation at 9 atmospheres for 20 seconds. The stenosis went from 80% to 0% with NATALI-3 flow. I then turned my attention to the proximal left circumflex vessel stenosis. I was not able to directly stent this with a 3.0/9 Integrity stent due to vessel stenosis severity. The lesion was predilated with a 2.5/10 Non-Compliant Euphora balloon one inflation at 10 atmospheres for 20 seconds. I still was not able to deliver the 3.0/9 Integrity stent. I then used the GuideLiner catheter to successfully deliver the 3.0/9 Integrity stent. This was deployed one inflation at 14 atmospheres for 20 seconds. The stenosis went from 95% to 0% with NATALI-3 flow. CONCLUSION 1. Successful PCI with bare metal stent of the mid-left circumflex vessel stenosis from 80% to 0% with NATALI-3 flow. 2. Successful PCI with bare metal stent of the proximal circumflex vessel stenosis from 95% to 0% with NATALI-3 flow. RECOMMENDATIONS 1. Recommend Aggrastat drip per protocol. 2. Continue aspirin 162 mg daily, Plavix 75 mg daily. 3. I am empirically transfusing the patient with 2 units of packed red blood cells due to the drop in hemoglobin from 12.3 to 10.0. The patient's previous anemia, suspect he may have occult bleeding. He is hemodynamically stable, however. 4. Plan is to proceed with staged PCI of the proximal right coronary artery provided the patient is clinically and hemodynamically stable tomorrow. MD SUBHA Patel/SSB /2:12 PM /12:45 PM
--- NOTE | 2016-10-26 13:57 | PD.CARD.PN ---
Subjective Subjective Remarks alert in nad Objective Vital Signs / I&O Vital Signs Date Time Temp Pulse Resp B/P Pulse Ox O2 Delivery O2 Flow Rate FiO2 10/26/16 12:00 98.0 73 18 110/54 98 10/26/16 11:00 81 10/26/16 11:00 98 Nasal Cannula 3.00 10/26/16 10:00 68 10/26/16 09:04 97 Nasal Cannula 3.00 10/26/16 09:00 66 10/26/16 08:00 97 Nasal Cannula 3.00 10/26/16 08:00 98.4 18 101/45 97 93/49 10/26/16 08:00 70 10/26/16 07:00 78 10/26/16 06:00 69 10/26/16 05:00 77 10/26/16 04:00 77 10/26/16 03:00 98 Nasal Cannula 3.00 10/26/16 03:00 71 10/26/16 03:00 97.0 77 18 116/52 98 107/64 10/26/16 02:00 67 10/26/16 01:00 79 10/26/16 00:00 88 10/25/16 23:00 98 Nasal Cannula 3.00 10/25/16 23:00 64 10/25/16 23:00 97.0 69 18 111/55 98 112/47 10/25/16 22:51 97 Nasal Cannula 4.00 10/25/16 22:00 70 10/25/16 21:00 64 10/25/16 20:00 97.5 66 18 107/58 98 96/86 10/25/16 20:00 64 10/25/16 19:00 72 10/25/16 19:00 Nasal Cannula 3.00 10/25/16 19:00 97.5 66 18 107/58 98 96/86 10/25/16 18:00 62 10/25/16 17:30 97.8 68 18 101/50 97 10/25/16 17:00 60 10/25/16 16:16 96 Nasal Cannula 3.00 10/25/16 16:00 64 10/25/16 15:00 97 Nasal Cannula 3.00 10/25/16 15:00 72 10/25/16 14:00 64 I/O 6/21/17 6/2110/25/16 10/26/16 10/26/16 10/26/16 07:00 15:00 23:00 07:00 15:00 23:00 Intake Total 1090 ml 1100 ml 2096 ml Output Total 750 ml 850 ml 500 ml Balance 340 ml 250 ml 1596 ml Intake Oral 240 ml 600 ml 1200 ml IV Total 850 ml 500 ml 896 ml Output Urine Total 750 ml 850 ml 500 ml # Bowel Movements 1 Physical Exam GENERAL: SKIN: Warm and dry. HEAD: Normocephalic. EYES: No scleral icterus. No injection or drainage. NECK: Supple, trachea midline. No JVD or lymphadenopathy. CARDIOVASCULAR: Regular rate and rhythm without murmurs, gallops, or rubs. RESPIRATORY: Breath sounds equal bilaterally. No accessory muscle use. GASTROINTESTINAL: Abdomen soft, non-tender, nondistended. MUSCULOSKELETAL: No cyanosis, or edema. BACK: Nontender without obvious deformity. No CVA tenderness. Laboratory Laboratory Tests Test 10/25/16 10/26/16 10/26/16 15:55 02:40 04:00 Activated Partial 47.6 SEC 41.1 SEC Thromboplast Time White Blood Count 8.4 TH/MM3 Red Blood Count 4.62 MIL/MM3 Hemoglobin 10.9 GM/DL Hematocrit 32.7 % Mean Corpuscular Volume 70.8 FL Mean Corpuscular Hemoglobin 23.7 PG Mean Corpuscular Hemoglobin 33.4 % Concent Red Cell Distribution Width 23.3 % Platelet Count 83 TH/MM3 Mean Platelet Volume 9.9 FL Neutrophils (%) (Auto) 88.7 % Lymphocytes (%) (Auto) 5.0 % Monocytes (%) (Auto) 6.1 % Eosinophils (%) (Auto) 0.0 % Basophils (%) (Auto) 0.2 % Neutrophils # (Auto) 7.4 TH/MM3 Lymphocytes # (Auto) 0.4 TH/MM3 Monocytes # (Auto) 0.5 TH/MM3 Eosinophils # (Auto) 0.0 TH/MM3 Basophils # (Auto) 0.0 TH/MM3 CBC Comment AUTO DIFF Differential Comment AUTO DIFF CONFIRMED Platelet Estimate LOW Platelet Morphology Comment NORMAL Ovalocytes 1+ Acanthocytes 1+ Sodium Level 130 MEQ/L Potassium Level 4.5 MEQ/L Chloride Level 97 MEQ/L Carbon Dioxide Level 27.8 MEQ/L Anion Gap 5 MEQ/L Blood Urea Nitrogen 21 MG/DL Creatinine 0.26 MG/DL Estimat Glomerular Filtration 348 ML/MIN Rate Random Glucose 98 MG/DL Calcium Level 7.7 MG/DL Total Creatine Kinase 79 U/L B-Type Natriuretic Peptide 207 PG/ML Assessment and Plan Problem List: (1) Tobacco abuse (2) Anemia (3) Cardiomyopathy (4) CHF (congestive heart failure) (5) CAD (coronary artery disease) (6) Hyponatremia Assessment and Plan 1.) CAD/cardiomyopathy - betablocker held due to copd, continue aspirin, check lipids; increase altace 5 mg qd, hold aldactone 50 mg bid due to hyponatremia, not candidate for cabg per Dr Miller due to poor pfts, pci lad tues depending on my schedule, possible staged pci rca pending clinical response to lad pci, f/ u bnp/bmp in am 2.) Af - rvr, improved after transfusion and cardizem drip, cont iv hep, aspirin 81 mg qd, f/u cbc 3.) Anemia - improved s/p transfusion, d/w Dr Branden Pringle, he suspects dilution , defer to Dr Pringle 4.) Patient declines pci rca, dc aggrastat and hep due to thrombocytopenia, sheath pulled, consult hematology 5.) OK to dc from cv standpoint, f/u with me in office [place], rx aspirin, plavix if ok with hematology, lipitor, altace, beta jimy held due to severe copd; d/ w patient and charge nurse Problem Qualifiers (1) Cardiomyopathy: Qualified Code: I25.5 - Ischemic cardiomyopathy (2) CHF (congestive heart failure): Qualified Code: I50.43 - Acute on chronic combined systolic and diastolic congestive heart failure (3) CAD (coronary artery disease): Qualified Code: I25.10 - Coronary artery disease involving [place] coronary artery of [place] heart, angina presence unspecified Daniel Trujillo MD Oct 26, 2016 13:57
[2016-10-26] MEDS ORDERED: ASPI-99 PO (14:44)
[2016-10-26] MEDS ORDERED: MEGE40SU PO (14:44)
[2016-10-26] MEDS ORDERED: DILT60TA33 PO (14:44)
[2016-10-26] MEDS ORDERED: PLAV75TA29 PO (14:44)
[2016-10-26] MEDS ORDERED: RAMI5CAP PO (14:44)
[2016-10-26] MEDS ORDERED: LIPI20TA PO (14:45)
[2016-10-26] MEDS ORDERED: PRED20 PO (14:47)
[2016-10-26] MEDS ORDERED: CIPR750T2 PO (14:48)
--- NOTE | 2016-10-26 14:51 | HHI.DS ---
Discharge Summary Admission Date Oct 08, 2016 at 21:45 Discharge Date: Oct 26, 2016 Admitting Diagnosis Pneumonia, Sepsis, SOB, hypoxemia on RA (1) Severe sepsis ICD Code: A41.9 Diagnosis: Principal (2) Acute hypoxemic respiratory failure ICD Code: J96.01 Diagnosis: Principal (3) Bilateral pneumonia ICD Code: J18.9 Diagnosis: Principal (4) Multiple lung nodules on CT ICD Code: R91.8 Diagnosis: Principal (5) Leukocytosis ICD Code: D72.829 Diagnosis: Principal (6) CAD (coronary artery disease) ICD Code: I25.10 Diagnosis: Principal (7) Atrial fibrillation with RVR ICD Code: I48.91 Diagnosis: Principal (8) Anemia ICD Code: D64.9 Diagnosis: Principal (9) Severe protein-calorie malnutrition ICD Code: E43 Diagnosis: Principal (10) Hyponatremia ICD Code: E87.1 Diagnosis: Principal (11) Hyperkalemia ICD Code: E87.5 Diagnosis: Principal Procedures 10/16- cardiac catheterization 3V disease Brief History - From Admission 71 year old male presents with a generalized weakness and shortness of breath. The patient reports that the shortness of breath began today. He lives at home alone in an apartment and called one of the other residents at his apartment for assistance. They were unable to get into his home since the patient was unable to come to the door related to weakness. Ambulance services gain entry into the patient's home and the patient was noted to have an increased respiratory rate with an O2 saturation of 86% on room air. He was placed on a nonrebreather mask and his O2 saturations came up into the upper 90s. He quit smoking 2 months ago. He last saw his primary care physician at the [facility] 2 years ago. He reports that he has had problems with no appetite over the last 2 years. The patient denies having any chest pain. The patient reports that he has had a cough productive of white sputum. He denies any known recent fevers, neck pain, chest pain, abdominal pain, vomiting, diarrhea, urinary symptoms, or focal neurologic symptoms. CBC/BMP: 10/26/16 0400 10/26/16 0400 Significant Findings Laboratory Tests Test 10/23/16 10/23/16 10/24/16 10/24/16 15:02 21:45 04:54 08:11 Sodium Level 124 MEQ/L 124 MEQ/L 126 MEQ/L (136-145) (136-145) (136-145) Potassium Level 5.6 MEQ/L 5.6 MEQ/L (3.5-5.1) (3.5-5.1) Chloride Level 87 MEQ/L 86 MEQ/L 86 MEQ/L (98-107) (98-107) (98-107) Blood Urea Nitrogen 35 MG/DL (7-18) 40 MG/DL (7-18) 38 MG/DL (7-18) Creatinine 0.57 MG/DL (0.60-1.30) Random Glucose 125 MG/DL 108 MG/DL (74-106) (74-106) White Blood Count 23.7 TH/MM3 (4.0-11.0) Hemoglobin 12.3 GM/DL (13.0-17.0) Mean Corpuscular Volume 68.5 FL (80.0-100.0) Mean Corpuscular Hemoglobin 21.3 PG (27.0-34.0) Mean Corpuscular Hemoglobin 31.1 % Concent (32.0-36.0) Red Cell Distribution Width 17.7 % (11.6-17.2) B-Type Natriuretic Peptide 111 PG/ML (0-100) Activated Partial 33.7 SEC Thromboplast Time (24.3-30.1) Test 10/24/16 10/24/16 10/24/16 10/25/16 14:41 17:45 23:00 04:30 Activated Partial 119.5 SEC 47.9 SEC 49.3 SEC Thromboplast Time (24.3-30.1) (24.3-30.1) (24.3-30.1) Sodium Level 130 MEQ/L 131 MEQ/L (136-145) (136-145) Chloride Level 91 MEQ/L 95 MEQ/L (98-107) (98-107) Blood Urea Nitrogen 36 MG/DL (7-18) 35 MG/DL (7-18) Creatinine 0.50 MG/DL 0.42 MG/DL (0.60-1.30) (0.60-1.30) Random Glucose 126 MG/DL 127 MG/DL (74-106) (74-106) Calcium Level 7.9 MG/DL 7.4 MG/DL (8.5-10.1) (8.5-10.1) White Blood Count 11.1 TH/MM3 (4.0-11.0) Hemoglobin 10.0 GM/DL (13.0-17.0) Hematocrit 31.0 % (39.0-51.0) Mean Corpuscular Volume 67.1 FL (80.0-100.0) Mean Corpuscular Hemoglobin 21.7 PG (27.0-34.0) Mean Platelet Volume 11.2 FL (7.0-11.0) Neutrophils (%) (Auto) 91.3 % (16.0-70.0) Lymphocytes (%) (Auto) 3.3 % (9.0-44.0) Neutrophils # (Auto) 10.1 TH/MM3 (1.8-7.7) Lymphocytes # (Auto) 0.4 TH/MM3 (1.0-4.8) Total Creatine Kinase 23 U/L (39-308) B-Type Natriuretic Peptide 202 PG/ML (0-100) Total Protein 4.9 GM/DL (6.4-8.2) HDL Cholesterol 61.9 MG/DL (40.0-60.0) Test 10/25/16 10/25/16 10/26/16 10/26/16 05:35 15:55 02:40 04:00 Activated Partial 30.6 SEC 47.6 SEC 41.1 SEC Thromboplast Time (24.3-30.1) (24.3-30.1) (24.3-30.1) Hemoglobin 10.9 GM/DL (13.0-17.0) Hematocrit 32.7 % (39.0-51.0) Mean Corpuscular Volume 70.8 FL (80.0-100.0) Mean Corpuscular Hemoglobin 23.7 PG (27.0-34.0) Red Cell Distribution Width 23.3 % (11.6-17.2) Platelet Count 83 TH/MM3 (150-450) Neutrophils (%) (Auto) 88.7 % (16.0-70.0) Lymphocytes (%) (Auto) 5.0 % (9.0-44.0) Lymphocytes # (Auto) 0.4 TH/MM3 (1.0-4.8) Platelet Estimate LOW (NORMAL) Ovalocytes 1+ (NORMAL) Acanthocytes 1+ (NORMAL) Sodium Level 130 MEQ/L (136-145) Chloride Level 97 MEQ/L (98-107) Blood Urea Nitrogen 21 MG/DL (7-18) Creatinine 0.26 MG/DL (0.60-1.30) Calcium Level 7.7 MG/DL (8.5-10.1) B-Type Natriuretic Peptide 207 PG/ML (0-100) Imaging Last Impressions Chest X-Ray 10/17/16 0000 Signed Impressions: Service Date/Time: Monday, October 17, 2016 11:47 - CONCLUSION: 1. Significant interval improvement of bilateral lower lobe airspace disease with residual consolidation in the posterior lower lobes bilaterally. The findings are most concerning for aspiration although pneumonia is in the differential diagnosis. Sincere aDs MD Lower Extremity Ultrasound 10/09/16 0000 Signed Impressions: Service Date/Time: Sunday, October 09, 2016 10:52 - CONCLUSION: 1. No DVT identified. Janak Ortiz MD CT Angiography 10/09/16 0000 Signed Impressions: Service Date/Time: Sunday, October 09, 2016 10:23 - CONCLUSION: 1. No evidence for pulmonary embolism to the subsegmental level as questioned. 2. Redemonstration of severe centrilobular emphysema with extensive bilateral lower lobe airspace consolidation with probable necrosis. Smaller regions of airspace consolidation in the inferior lingula and right middle lobe. Overall findings are most consistent with severe aspiration versus necrotizing pneumonia. 3. 1.2 cm cavitary nodule in the right upper lobe. Additional nearly spiculated nodular opacities in the left lung base measuring up to 1.7 cm. Although the findings may be infectious in etiology followup to resolution is recommended given the extensive underlying lung disease. 4. Small pericardial effusion. 5. Moderate coronary artery calcifications. 6. Cholelithiasis. Sincere Das MD Lung Scan-V Nuclear Medicine [id number] Signed Impressions: Service Date/Time: Saturday, October 08, 2016 21:37 - CONCLUSION: Intermediate probability for pulmonary embolism. Jesus Hayes MD Abdomen/Pelvis CT 10/08/[id number] Signed Impressions: Service Date/Time: Saturday, October 08, 2016 20:52 - CONCLUSION: 1. Extensive emphysema with extensive bibasilar consolidation with cavities likely necrotizing pneumonia. 2. Diverticulosis of the colon. 3. Cholelithiasis. 4. Bilobed distal abdominal aortic aneurysm measuring 3.2 cm with extensive atherosclerotic calcifications of the iliac vasculature. Critical stenosis cannot be excluded. Jesus Hayes MD PE at Discharge GENERAL: Pale cachectic elderly man CARDIOVASCULAR: heart rate seems rrr w no obvious murmurs RESPIRATORY: very distant lung sounds. No accessory muscle use. no wheezing or crackles GASTROINTESTINAL: Abdomen soft, non-tender, nondistended. MUSCULOSKELETAL: No edema. Neuro: tired but alert, answers questions Hospital Course (1) Severe sepsis Severe sepsis present on admission, patient was tachycardic with very elevated WBC count of 40 2.3K and lactic acid of 5.4. Treated with supportive measures in the intensive care unit with IV fluids, broad-spectrum IV antibiotics - IV vancomycin and IV Zosyn as well as IV azithromycin. Blood cultures negative 5 Sputum culture growing Pseudomonas aeruginosa Infectious disease consulted and following. Continue Ciprofloxacin (10/20-) x14 days (end date 11/03/16) per ID (2) Acute hypoxemic respiratory failure/Bilateral pneumonia Patient was initially admitted to the intensive care unit under the care of crystal flat grinder. The patient was treated with BiPAP which was discontinued after the patient respiratory status improved. Pt found to have pseudomonas PNA. He was treated w IV steroids for COPD exacerbation and placed on a po steroid taper. on Abx as stated above. (3) Multiple lung nodules on CT Pulmonology following and f/u w them as an outpatient Continue antibiotics, supplemental oxygen, bronchodilators. (4) CAD (coronary artery disease) Status post cardiac catheterization with 2 vessel disease. Patient was considered for CABG, due to severe two-vessel disease, however Dr. Swanson from cardiovascular surgery dated the patient not to be a good candidate for surgery due to current nutritional and physical status. Continue with aggressive medical management as per Dr. Trujillo's advice. 10/24 sp cardiac catheterization. Pt is s/p PCI w bare metal stent of proximal R coronary art. Pt refusing any other procedures at this time and "would like to take a break". Cards have cleared pt for discharge w close f/u as an outpatient. Pt will be d/c on ASA, lipitor, plavix and altace (5) Atrial fibrillation with RVR The patient status post A. fib with RVR and elevated cardiac enzymes, now sinus rhythm.On by mouth Cardizem 60 mg by mouth 4 times a day. (6) Anemia Anemia seems to be chronic. Patient status post transfusion of 1 unit of packed red blood cells. Significantly improved after PRBC transfusion. (7) Severe protein-calorie malnutrition Cloth Shrinking Tester following. Recommended Ensure 3 times a day, Theragran-M daily and an appetite stimulant. Patient has been taking Ensure, on Theragran-M and Megace as an appetite stimulant. Continue. (8) Hyponatremia Sodium has been trending down, today stable at 130 off spironolactone, on fluid restriction 1 L per day. Urine osmolality innapropriately elevated in comparison with serum osmolality. Patient has SIADH. Continue fluid restriction. Pt Condition on Discharge: Stable Discharge Disposition: Discharge to SNF Discharge Time: > 30 minutes Discharge Instructions DIET: Follow Instructions for: Heart Healthy Diet Fluid Restrictions: 1000ml/day Activities you can perform: Regular-No Restrictions Follow up Referrals: Appointment for Follow Up PCP Follow-up - 1 Week Pulmonology - 1 Week New Medications: Atorvastatin (Lipitor) 20 Mg Tab 20 MG PO HS Cholesterol Management #[address] (Adult Aspirin EC Low Strength) 81 Mg Tabec 81 MG PO DAILY Days 30 TAB Ciprofloxacin (Ciprofloxacin) 750 Mg Tab 750 MG PO Q12HR #17 TAB Clopidogrel (Plavix) 75 Mg Tab 75 MG PO DAILY Days 30 TAB Diltiazem (Cardizem) 60 Mg Tab 60 MG PO Q6H Days 30 TAB Megestrol Liq (Megestrol Liq) 40 Mg/Ml Susp 400 MG PO DAILY Days 30 Prednisone (Prednisone) 20 Mg Tab 20 MG PO DAILY take 20mg po x 1 day (start 10/27/16) then 10mg po daily x 4 days Days 5 TAB Ramipril (Ramipril) 5 Mg Cap 5 MG PO DAILY Days 30 Natali Penny MD Oct 26, 2016 14:50
--- NOTE | 2016-10-26 18:38 | HHI.PR ---
Subjective Remarks 71 YOWM with Bilat infilt, lung nodule, wt loss Had cardiac cath, multi vessel disease On NC Mild sob No fever Slept better Had Stent and PCI of circumflex . Objective Vital Signs Vital Signs Date Time Temp Pulse Resp B/P Pulse Ox O2 Delivery O2 Flow Rate FiO2 10/26/16 18:00 80 10/26/16 17:00 82 10/26/16 16:00 98.4 76 20 102/52 97 10/26/16 16:00 88 10/26/16 15:00 86 10/26/16 15:00 97 Nasal Cannula 3.00 10/26/16 14:00 92 10/26/16 13:00 94 10/26/16 12:00 86 10/26/16 12:00 98.0 73 18 110/54 98 10/26/16 11:00 81 10/26/16 11:00 98 Nasal Cannula 3.00 10/26/16 10:00 68 10/26/16 09:04 97 Nasal Cannula 3.00 10/26/16 09:00 66 10/26/16 08:00 97 Nasal Cannula 3.00 10/26/16 08:00 98.4 18 101/45 97 93/49 10/26/16 08:00 70 10/26/16 07:00 78 10/26/16 06:00 69 10/26/16 05:00 77 10/26/16 04:00 77 10/26/16 03:00 98 Nasal Cannula 3.00 10/26/16 03:00 71 10/26/16 03:00 97.0 77 18 116/52 98 107/64 10/26/16 02:00 67 10/26/16 01:00 79 10/26/16 00:00 88 10/25/16 23:00 98 Nasal Cannula 3.00 10/25/16 23:00 64 10/25/16 23:00 97.0 69 18 111/55 98 112/47 10/25/16 22:51 97 Nasal Cannula 4.00 10/25/16 22:00 70 10/25/16 21:00 64 10/25/16 20:00 97.5 66 18 107/58 98 96/86 10/25/16 20:00 64 10/25/16 19:00 72 10/25/16 19:00 Nasal Cannula 3.00 10/25/16 19:00 97.5 66 18 107/58 98 96/86 I/O 10/25/16 10/25/16 10/25/16 10/26/16 10/26/16 10/26/16 07:00 15:00 23:00 07:00 15:00 23:00 Intake Total 1090 ml 1100 ml 2096 ml 900 ml Output Total 750 ml 850 ml 500 ml 800 ml Balance 340 ml 250 ml 1596 ml 100 ml Intake Oral 240 ml 600 ml 1200 ml 600 ml IV Total 850 ml 500 ml 896 ml 300 ml Output Urine Total 750 ml 850 ml 500 ml 800 ml # Bowel Movements 1 Result Diagram: 10/26/16 04010/26/160 Objective Remarks GENERAL: Cachectic WM, mild sob SKIN: Warm and dry. HEAD: Normocephalic. EYES: No scleral icterus. No injection or drainage. NECK: Supple, trachea midline. No JVD or lymphadenopathy. CARDIOVASCULAR: Regular rate and rhythm without murmurs, gallops, or rubs. RESPIRATORY: Breath sounds equal bilaterally. No accessory muscle use. GASTROINTESTINAL: Abdomen soft, non-tender, nondistended. MUSCULOSKELETAL: No cyanosis, or edema. BACK: Nontender without obvious deformity. No CVA tenderness. A/P Assessment and Plan Bilat lung infilt Lung nodule Weight loss COPD CAD CMP PLAN: Cont Abx Aerosol nebs Supplement 02 DC plans for gardens DW pt will need rpt CT to FU lung nodules He will Follow at [facility] Sebastian Meza MD Oct 26, 2016 18:38
[2016-10-26] MEDS ORDERED: ATORVASTATIN 20 MG TAB PO SCH (21:00)
== END 2016-10-26 18:45 | DRG 853 ==
LOC: NEPE 18:55 → NEDA 21:45 → HIMW 10-09 00:05 → HCIS 10-22 18:15
PROVIDERS: ADMIT Hospitalist; ATTEND Hospitalist
PROC: 5A09357 Assistance with Respiratory Ventilation, Less than 24 Consecutive Hours, Continuous Positive Airway Pressure (ICD-10-PCS; 2016-10-08)
PROC: 30233N1 Transfusion of Nonautologous Red Blood Cells into Peripheral Vein, Percutaneous Approach (ICD-10-PCS; 2016-10-14)
PROC: B2111ZZ Fluoroscopy of Multiple Coronary Arteries using Low Osmolar Contrast (ICD-10-PCS; 2016-10-16)
PROC: 4A023N8 Measurement of Cardiac Sampling and Pressure, Bilateral, Percutaneous Approach (ICD-10-PCS; 2016-10-16)
PROC: B2151ZZ Fluoroscopy of Left Heart using Low Osmolar Contrast (ICD-10-PCS; 2016-10-16)
PROC: 02703DZ Dilation of Coronary Artery, One Artery with Intraluminal Device, Percutaneous Approach (ICD-10-PCS; 2016-10-24)
PROC: 02703EZ Dilation of Coronary Artery, One Artery with Two Intraluminal Devices, Percutaneous Approach (ICD-10-PCS; principal; 2016-10-25 12:30)
DX: A41.9 Sepsis, unspecified organism (principal); J85.0 Gangrene and necrosis of lung; I21.4 Non-ST elevation (NSTEMI) myocardial infarction; R65.21 Severe sepsis with septic shock; J96.01 Acute respiratory failure with hypoxia; E43 Unspecified severe protein-calorie malnutrition; J15.1 Pneumonia due to Pseudomonas; I50.43 Acute on chronic combined systolic (congestive) and diastolic (congestive) heart failure; E87.0 Hyperosmolality and hypernatremia; I74.5 Embolism and thrombosis of iliac artery; I47.2 Ventricular tachycardia; N17.9 Acute kidney failure, unspecified; D68.9 Coagulation defect, unspecified; R64 Cachexia; I42.9 Cardiomyopathy, unspecified; E87.2 Acidosis; J44.1 Chronic obstructive pulmonary disease with (acute) exacerbation; Z68.1 Body mass index [BMI] 19.9 or less, adult; J44.0 Chronic obstructive pulmonary disease with (acute) lower respiratory infection; E22.2 Syndrome of inappropriate secretion of antidiuretic hormone; D64.9 Anemia, unspecified; I71.4 Abdominal aortic aneurysm, without rupture; I25.10 Atherosclerotic heart disease of native coronary artery without angina pectoris; I50.9 Heart failure, unspecified; I25.119 Atherosclerotic heart disease of native coronary artery with unspecified angina pectoris; I25.5 Ischemic cardiomyopathy; K57.30 Diverticulosis of large intestine without perforation or abscess without bleeding; E87.6 Hypokalemia; I25.84 Coronary atherosclerosis due to calcified coronary lesion; I48.0 Paroxysmal atrial fibrillation; E87.5 Hyperkalemia; G47.9 Sleep disorder, unspecified; D69.6 Thrombocytopenia, unspecified; R91.1 Solitary pulmonary nodule; K80.20 Calculus of gallbladder without cholecystitis without obstruction; Z53.29 Procedure and treatment not carried out because of patient's decision for other reasons; Z87.891 Personal history of nicotine dependence; Z99.81 Dependence on supplemental oxygen
CPT/HCPCS: 36430; 36600; 71010; 71020; 71275; 74176; 76937; 78582; 80048; 80053; 80061; 81001; 82550; 82552; 82607; 82728; 82746; 82805; 82810; 82948; 83540; 83550; 83605; 83690; 83735; 83880; 83930; 83935; 84100; 84132; 84155; 84443; 84484; 85002; 85007; 85025; 85027; 85379; 85610; 85730; 86850; 86900; 86901; 86920; 87040; 87070; 87077; 87186; 87205; 87641; 87804; 92928; 93005; 93306; 93454; 93460; 93970; 94002; 94010; 94640; 94664; 94667; 94668; 96374; 96375; A9540; A9567; C1725; C1769; C1876; C1887; C1893; J0456; J0461; J0610; J1644; J1815; J1940; J2543; J2920; J2930; J3246; J3370; J3475; J3480; J7030; J7040; J7042; J7050; J7070; J7512; P9016; Q9967

== ENCOUNTER 2016-11-03 12:26 | Inpatient (IN) | payer MEDICARE ==
[2016-11-03] VITALS (13 sets, daily range): BP systolic 77–118; BP diastolic 42–64; PULSE 65–90; RESP 16–20; TEMP 97.4–97.8; O2SAT 93–99
[~2016-11-03] VITALS: Ht 175.3 cm; Wt 45.0 kg
[~2016-11-03 12:26] MED LIST changes: +ASPI-99 PO; +CIPR750T2 PO; +DILT60TA33 PO; -ENOX40P SQ; +LIPI20TA PO; +MEGE40SU PO; -OXYC1SOL5 PO; +PLAV75TA29 PO; +PRED20 PO; +RAMI5CAP PO; -Z.0.WALKERFRONT
[2016-11-03] MEDS ORDERED: SODIUM CHLOR 0.9% 1000 ML INJ 1,000 ML IV SCH ×2 (12:43→13:51)
--- NOTE | 2016-11-03 13:23 | PD ---
HPI Chief Complaint: General Weakness Time Seen by Provider: 13:21 Travel History International Travel<30 days: No Contact w/Intl Traveler<30days: No Traveled to known affect area: No History of Present Illness HPI 71-year-old male that presents to the ED for evaluation of generalized weakness. Patient comes by ambulance for evaluation of this. Patient has a chronic history of SIADH as well as anemia and was recently admitted for severe sepsis. Patient also was found to be in atrial fibrillation and required 2 heart catheters with a stent placed with the last heart catheter done on October 24. Patient for the past 2 days has been feeling weak. She is not able to ambulate. Patient is A chronic. Patient does take blood thinners. Per patient he feels weak all throughout. No fevers chills or sweats. No pain of any kind. On his last admission he required transfusion secondary to anemia and possible bleeding. Patient reports that he's been compliant with his medications. Patient comes from a senior living. Patient was found to be hypotensive by ambulance when the brought him here. Patient was found to be with a blood pressure in the 60s. Patient was given 500 mL of saline in the paravertebral the blood pressure to the 80s. Patient does appear to be pale on exam. Patient is somewhat confused but able to answer questions a properly. No signs of trauma. He again denies any chest pain shortness of breath or diarrhea any other symptom other than weakness. PFSH Past Medical History Arthritis: No Asthma: No Autoimmune Disease: No Heart Rhythm Problems: No Cancer: No Cardiovascular Problems: No High Cholesterol: No Chemotherapy: No Chest Pain: No Congestive Heart Failure: No COPD: No Cerebrovascular Accident: No Coronary Artery Disease: No Diabetes: No Diminished Hearing: Yes Endocrine: No GERD: No Genitourinary: No Hiatal Hernia: No Hypertension: Yes Immune Disorder: No Kidney Stones: No Musculoskeletal: Yes (FX RIGHT ANKLE, FX RIGHT COLLARBONE) Neurologic: No Psychiatric: No Reproductive: No Respiratory: Yes Migraines: No Renal Failure: No Seizures: No Sickle Cell Disease: No Sleep Apnea: No Thyroid Disease: No Ulcer: No Tetanus Vaccination: > 5 Years Influenza Vaccination: Yes Past Surgical History Abdominal Surgery: No AICD: No Arteriovenous Shunt: No Cardiac Surgery: No Ear Surgery: No Eye Surgery: No Genitourinary Surgery: No Gynecologic Surgery: No Insulin Pump: No Joint Replacement: No Oral Surgery: Yes (jaw surgery) Pacemaker: No Thoracic Surgery: No Other Surgery: Yes Social History Alcohol Use: No Tobacco Use: No (quit 2 months ago) Substance Use: No Allergies-Medications (Allergen,Severity, Reaction): Coded Allergies: No Known Allergies (Unverified , 11/03/16) Reported Meds & Prescriptions Reported Meds & Active Scripts Active Ciprofloxacin (Ciprofloxacin HCl) 750 Mg Tab 750 Mg PO Q12HR Prednisone 20 Mg Tab 20 Mg PO DAILY 5 Days take 20mg po x 1 day (start 10/27/16) then 10mg po daily x 4 days Lipitor (Atorvastatin Calcium) 20 Mg Tab 20 Mg PO HS Ramipril 5 Mg Cap 5 Mg PO DAILY 30 Days Megestrol Liq (Megestrol Acetate) 40 Mg/Ml Susp 400 Mg PO DAILY 30 Days Cardizem (Diltiazem HCl) 60 Mg Tab 60 Mg PO Q6H 30 Days Plavix (Clopidogrel Bisulfate) 75 Mg Tab 75 Mg PO DAILY 30 Days Adult Aspirin EC Low Strength (Aspirin) 81 Mg Tabec 81 Mg PO DAILY 30 Days Review of Systems Except as stated in HPI: all other systems reviewed are Neg Physical Exam Narrative GENERAL: SKIN: Warm and dry. Very cachectic. HEAD: Atraumatic. Normocephalic. EYES: Pupils equal and round. No scleral icterus. No injection or drainage. ENT: No nasal bleeding or discharge. Mucous membranes pink and moist. Tongue is midline. No uvula deviation. NECK: Trachea midline. No JVD. CARDIOVASCULAR: Regular rate and rhythm. No murmurs, S3, S4. RESPIRATORY: No accessory muscle use. Clear to auscultation. Breath sounds equal bilaterally. GASTROINTESTINAL: Abdomen soft, non-tender, nondistended. Hepatic and splenic margins not palpable. MUSCULOSKELETAL: Extremities without clubbing, cyanosis, or edema. No obvious deformities. Full range of motion of the upper and lower extremities bilaterally. 2+ pulses bilaterally. NEUROLOGICAL: Awake and alert. No obvious cranial nerve deficits. Motor grossly within normal limits. 4 out of 5 muscle strength in the arms and legs. Normal speech. PSYCHIATRIC: Appropriate mood and affect; insight and judgment normal. Data Data Last Documented VS Vital Signs Date Time Temp Pulse Resp B/P Pulse Ox O2 Delivery O2 Flow Rate FiO2 11/03/16 15:00 89 16 77/42 98 Nasal Cannula 4 11/03/16 12:30 97.6 Orders Electrocardiogram (11/03/16 12:43) Complete Blood Count With Diff (11/03/16 12:43) Comprehensive Metabolic Panel (11/03/16 12:43) Creatine Kinase (Cpk) (11/03/16 12:43) Ckmb (Isoenzyme) Profile (11/03/16 12:43) Troponin I (11/03/16 12:43) Prothrombin Time / Inr (Pt) (11/03/16 12:43) Act Partial Throm Time (Ptt) (11/03/16 12:43) Blood Culture (11/03/16 12:43) Lipase (11/03/16 12:43) Urinalysis - C+S If Indicated (11/03/16 12:43) Cath For Specimen (11/03/16 12:43) Magnesium (Mg) (11/03/16 12:43) Thyroid Stimulating Hormone (11/03/16 12:43) Chest, Single Ap (11/03/16 12:43) Iv Access Insert/Monitor (11/03/16 12:43) Ecg Monitoring (11/03/16 12:43) Oximetry (11/03/16 12:43) Lactic Acid (11/03/16 12:43) Sodium Chlor 0.9% 1000 Ml Inj (Ns 1000 M (11/03/16 12:43) Type And Screen (11/03/16 12:46) Urinary Catheter Insert/Apply (11/03/16 13:51) Sodium Chlor 0.9% 1000 Ml Inj (Ns 1000 M (11/03/16 13:51) Red Blood Cells (Rbc) (11/03/16 14:12) Blood Product Administration .UPON TRANSFUSION (11/03/16 14:12) Norepinephrine Inj (Levophed Inj) (11/03/16 14:53) Cefepime Inj (Maxipime Inj) (11/03/16 15:00) Vancomycin Inj (Vancomycin Inj) (11/03/16 15:00) Admit Order (Ed Use Only) (11/03/16 15:38) Labs Laboratory Tests Test 11/03/16 11/03/16 11/03/16 13:20 13:45 14:18 White Blood Count 7.6 TH/MM3 Red Blood Count 3.88 MIL/MM3 Hemoglobin 9.1 GM/DL Hematocrit 27.8 % Mean Corpuscular Volume 71.6 FL Mean Corpuscular Hemoglobin 23.6 PG Mean Corpuscular Hemoglobin 32.9 % Concent Red Cell Distribution Width 25.3 % Platelet Count 113 TH/MM3 Mean Platelet Volume 10.2 FL Neutrophils (%) (Auto) 82.2 % Lymphocytes (%) (Auto) 6.3 % Monocytes (%) (Auto) 10.8 % Eosinophils (%) (Auto) 0.6 % Basophils (%) (Auto) 0.1 % Neutrophils # (Auto) 6.3 TH/MM3 Lymphocytes # (Auto) 0.5 TH/MM3 Monocytes # (Auto) 0.8 TH/MM3 Eosinophils # (Auto) 0.0 TH/MM3 Basophils # (Auto) 0.0 TH/MM3 CBC Comment AUTO DIFF Differential Comment AUTO DIFF CONFIRMED Target Cells 1+ Ovalocytes 1+ Acanthocytes 1+ Sodium Level 124 MEQ/L Potassium Level 5.2 MEQ/L Chloride Level 91 MEQ/L Carbon Dioxide Level 21.6 MEQ/L Anion Gap 11 MEQ/L Blood Urea Nitrogen 31 MG/DL Creatinine 0.74 MG/DL Estimat Glomerular Filtration 104 ML/MIN Rate Random Glucose 83 MG/DL Lactic Acid Level 2.6 mmol/L Calcium Level 8.0 MG/DL Magnesium Level 1.8 MG/DL Total Bilirubin 1.5 MG/DL Aspartate Amino Transf 35 U/L (AST/SGOT) Alanine Aminotransferase 33 U/L (ALT/SGPT) Alkaline Phosphatase 82 U/L Total Creatine Kinase 67 U/L Troponin I 0.11 NG/ML Total Protein 6.0 GM/DL Albumin 2.7 GM/DL Lipase 61 U/L Thyroid Stimulating Hormone 2.540 uIU/ML 3rd Gen Blood Type O NEGATIVE Antibody Screen NEGATIVE Urine Color YELLOW Urine Turbidity CLEAR Urine pH 6.5 Urine Specific [place] 1.015 Urine Protein NEG mg/dL Urine Glucose (UA) NEG mg/dL Urine Ketones NEG mg/dL Urine Occult Blood SMALL Urine Nitrite NEG Urine Bilirubin NEG Urine Urobilinogen LESS THAN 2.0 MG/DL Urine Leukocyte Esterase NEG Urine RBC 90 /hpf Urine WBC 3 /hpf Urine Mucus FEW /lpf Microscopic Urinalysis Comment CATH-CULT NOT IND Crossmatch Leukocyte-Reduced Red Blood Cells Blood Bank Comment MDM Medical Decision Making Medical Screen Exam Complete: Yes Emergency Medical Condition: Yes Medical Record Reviewed: Yes Interpretation(s) CBC & BMP Diagram 6/30/17 13:20 lactic acid of 2.6 Ekg shows sinus rhythm with no sign of acute ischemia or arrhythmia. Read by me and attending. Troponin of 0.11 CKMB negative LFTS and lipase WNL Differential Diagnosis Generalized weakness versus anemia versus pneumonia versus sepsis versus hypotension versus severe hypotension versus dehydration versus SIADH versus coronary artery disease versus ACS Narrative Course 71-year-old male that presents to the ED for evaluation of generalized weakness. Patient was properly examined and was found to have signs and symptoms consistent what appears to be generalized weakness. Very concerning for severe anemia or hypotension. Patient is blood pressure is very low. Patient was given IV fluids here. Labs and imaging were ordered. Type and screen was ordered as well. Labs and imaging came back showing what appears to be anemia, positive troponin, hyponatremia, elevated lactic acid possible from sepsis urine came within normal limits. Patient's blood pressure came down with 1 L of saline but his BP seems to be coming down and he is becoming symptomatic. hemocult done by me and was negative. Patient was assessed by my attending Dr Sanchez who evaluated the patient and decision was made to start Blood products as well as central line. My attending placed the central line, please refer to his note. Patient and family agrees with this plan. Patient will be admitted to the setter off secondary to his multiple illnesses. Dr Acosta agrees to admission. Procedures EKG Prior to Arrival: No HemaPrompt Point of Care Internal Pos. & Neg. Controls: Passed Fecal Specimen Occult Blood: Negative Sepsis Criteria SIRS Criteria (2 or more): WBC > 28708, < 4000 or > 10% bands Diagnosis Primary Impression: Hyperkalemia Additional Impressions: Hyponatremia Anemia Qualified Code: D64.9 - Anemia, unspecified type Lactic acid acidosis Elevated troponin Admitting Information Admitting Physician Requests: Admit Chuy Mullen Nov 03, 2016 13:23
[2016-11-03 13:52] LABS: AUTOMATED NEUTROPHIL # 6.3 TH/MM3 (1.8-7.7); BASOPHIL % 0.1 % (0.0-2.0); EOSINOPHIL % 0.6 % (0.0-4.0); HEMATOCRIT 27.8 % (39.0-51.0); LYMPH % 6.3 % (9.0-44.0); LYMPHOCYTE # 0.5 TH/MM3 (1.0-4.8); MEAN CELL VOLUME 71.6 FL (80.0-100.0); MEAN CORPUSCULAR HEMOGLOBIN 23.6 PG (27.0-34.0); MEAN CORPUSCULAR HGB CONC 32.9 % (32.0-36.0); MONO % 10.8 % (0.0-8.0); NEUT % 82.2 % (16.0-70.0); PLATELET COUNT 113 TH/MM3 (150-450); RED BLOOD COUNT 3.88 MIL/MM3 (4.50-5.90); RED CELL DISTRIBUTION WIDTH 25.3 % (11.6-17.2); WHITE BLOOD COUNT 7.6 TH/MM3 (4.0-11.0)
[2016-11-03 13:54] LABS: HEMO FLAGS AUTO DIFF
[2016-11-03 14:12] LABS: BLOOD, URINE SMALL (NEG); GLUCOSE,URINE NEG (NEG); KETONE, URINE NEG (NEG); MUCUS URINE FEW /lpf (OCC); NITRITE,URINE NEG (NEG); PH, URINE 6.5 (5.0-8.5); URINE COLOR YELLOW (YELLW/STRAW)
[2016-11-03 14:21] LABS: COMMENT (UR) CATH-CULT NOT IND; CULTURE IF INDICATED CATH CULTURE NOT IND
--- NOTE | 2016-11-03 14:23 | EKG ---
Date Performed: 11/03/2016 Time Performed: 12:48:23 PTAGE: 71 years EKG: Sinus rhythm LOW QRS VOLTAGE IN EXTREMITY LEADS ANTEROSEPTAL MYOCARDIAL INFARCTION ABNORMAL ECG NO SIGNIFICANT CH RAMESH FROM PRIOR ELECTROCARDIOGRAM. PREVIOUS TRACING : 11/03/2016 12.47 DOCTOR: Wilson Blood Interpretating Date/Time 11/03/2016 14:20:52
[2016-11-03 14:24] LABS: ALKALINE PHOSPHATASE 82 U/L (45-117); ALT (GPT) 33 U/L (12-78); ANION GAP 11 MEQ/L (5-15); AST (GOT) 35 U/L (15-37); BICARBONATE 21.6 MEQ/L (21.0-32.0); BLOOD UREA NITROGEN 31 MG/DL (7-18); CHLORIDE 91 MEQ/L (98-107); GLOMERULAR FILTRATION RATE 104 ML/MIN (>89); MAGNESIUM 1.8 MG/DL (1.5-2.5); TOTAL BILIRUBIN ADULT 1.5 MG/DL (0.2-1.0)
[2016-11-03 14:28] LABS: ACANTHOCYTES 1+ (NORMAL); CREATINE KINASE 67 U/L (39-308); OVALOCYTES 1+ (NORMAL); POTASSIUM 5.2 MEQ/L (3.5-5.1); SCAN/DIFF AUTO DIFF CONFIRMED; TARGET CELLS 1+ (NORMAL)
[2016-11-03 14:36] LABS: SODIUM (NA) 124 MEQ/L (136-145)
[2016-11-03] MEDS ORDERED: NOREPINEPHRINE 4 MG/4 ML AMP ONE (14:53)
[2016-11-03] MEDS ORDERED: CEFEPIME INJ 2,000 MG in SODIUM CHLORIDE 0.9% INJ 100 ML IV ONE (15:00)
[2016-11-03] MEDS ORDERED: VANCOMYCIN INJ 1,000 MG in SODIUM CHLOR 0.9% 250 ML INJ 250 ML IV ONE (15:00)
--- NOTE | 2016-11-03 15:01 | PD ---
Data Data Last Documented VS Vital Signs Date Time Temp Pulse Resp B/P Pulse Ox O2 Delivery O2 Flow Rate FiO2 11/03/16 15:30 97.8 86 20 90/44 98 Nasal Cannula 4 Orders Electrocardiogram (11/03/16 12:43) Complete Blood Count With Diff (11/03/16 12:43) Comprehensive Metabolic Panel (11/03/16 12:43) Creatine Kinase (Cpk) (11/03/16 12:43) Ckmb (Isoenzyme) Profile (11/03/16 12:43) Troponin I (11/03/16 12:43) Prothrombin Time / Inr (Pt) (11/03/16 12:43) Act Partial Throm Time (Ptt) (11/03/16 12:43) Blood Culture (11/03/16 12:43) Lipase (11/03/16 12:43) Urinalysis - C+S If Indicated (11/03/16 12:43) Cath For Specimen (11/03/16 12:43) Magnesium (Mg) (11/03/16 12:43) Thyroid Stimulating Hormone (11/03/16 12:43) Chest, Single Ap (11/03/16 12:43) Iv Access Insert/Monitor (11/03/16 12:43) Ecg Monitoring (11/03/16 12:43) Oximetry (11/03/16 12:43) Lactic Acid (11/03/16 12:43) Sodium Chlor 0.9% 1000 Ml Inj (Ns 1000 M (11/03/16 12:43) Type And Screen (11/03/16 12:46) Urinary Catheter Insert/Apply (11/03/16 13:51) Sodium Chlor 0.9% 1000 Ml Inj (Ns 1000 M (11/03/16 13:51) Red Blood Cells (Rbc) (11/03/16 14:12) Blood Product Administration .UPON TRANSFUSION (11/03/16 14:12) Norepinephrine Inj (Levophed Inj) (11/03/16 14:53) Cefepime Inj (Maxipime Inj) (11/03/16 15:00) Vancomycin Inj (Vancomycin Inj) (11/03/16 15:00) Admit Order (Ed Use Only) (11/03/16 15:38) Labs Laboratory Tests Test 11/03/16 11/03/16 11/03/1611/03/17 13:20 13:45 14:18 15:15 White Blood Count 7.6 TH/MM3 Red Blood Count 3.88 MIL/MM3 Hemoglobin 9.1 GM/DL Hematocrit 27.8 % Mean Corpuscular Volume 71.6 FL Mean Corpuscular Hemoglobin 23.6 PG Mean Corpuscular Hemoglobin 32.9 % Concent Red Cell Distribution Width 25.3 % Platelet Count 113 TH/MM3 Mean Platelet Volume 10.2 FL Neutrophils (%) (Auto) 82.2 % Lymphocytes (%) (Auto) 6.3 % Monocytes (%) (Auto) 10.8 % Eosinophils (%) (Auto) 0.6 % Basophils (%) (Auto) 0.1 % Neutrophils # (Auto) 6.3 TH/MM3 Lymphocytes # (Auto) 0.5 TH/MM3 Monocytes # (Auto) 0.8 TH/MM3 Eosinophils # (Auto) 0.0 TH/MM3 Basophils # (Auto) 0.0 TH/MM3 CBC Comment AUTO DIFF Differential Comment AUTO DIFF CONFIRMED Target Cells 1+ Ovalocytes 1+ Acanthocytes 1+ Sodium Level 124 MEQ/L Potassium Level 5.2 MEQ/L Chloride Level 91 MEQ/L Carbon Dioxide Level 21.6 MEQ/L Anion Gap 11 MEQ/L Blood Urea Nitrogen 31 MG/DL Creatinine 0.74 MG/DL Estimat Glomerular Filtration 104 ML/MIN Rate Random Glucose 83 MG/DL Lactic Acid Level 2.6 mmol/L Calcium Level 8.0 MG/DL Magnesium Level 1.8 MG/DL Total Bilirubin 1.5 MG/DL Aspartate Amino Transf 35 U/L (AST/SGOT) Alanine Aminotransferase 33 U/L (ALT/SGPT) Alkaline Phosphatase 82 U/L Total Creatine Kinase 67 U/L Troponin I 0.11 NG/ML Total Protein 6.0 GM/DL Albumin 2.7 GM/DL Lipase 61 U/L Thyroid Stimulating Hormone 2.540 uIU/ML 3rd Gen Blood Type O NEGATIVE Antibody Screen NEGATIVE Urine Color YELLOW Urine Turbidity CLEAR Urine pH 6.5 Urine Specific [place] 1.015 Urine Protein NEG mg/dL Urine Glucose (UA) NEG mg/dL Urine Ketones NEG mg/dL Urine Occult Blood SMALL Urine Nitrite NEG Urine Bilirubin NEG Urine Urobilinogen LESS THAN 2.0 MG/DL Urine Leukocyte Esterase NEG Urine RBC 90 /hpf Urine WBC 3 /hpf Urine Mucus FEW /lpf Microscopic Urinalysis Comment CATH-CULT NOT IND Crossmatch Leukocyte-Reduced Red Blood Cells Blood Bank Comment Prothrombin Time 12.7 SEC Prothromb Time International 1.1 RATIO Ratio Activated Partial 34.7 SEC Thromboplast Time MDM Medical Record Reviewed: Yes Supervised Visit with JERRY: Yes Narrative Course CBC & BMP Diagram 11/03/16 13:20 Lactic acid 2.6 Troponin 0.11 EKG reveals a sinus rhythm with a rate of [address] elevations Cefepime and Vanco started. 2 L saline transfused. Patient will be admitted to the [facility]. The patient's son stated they do not want chest compressions or intubation however a central line with pressor support and antibiotics is considered to be within a reasonable scope of intervention. Procedures Procedure Narrative CENTRAL VENOUS LINE: The site was prepped with Betadine and sterilely draped. It was infiltrated with 1% lidocaine plain. The right internal jugular access failed after multiple times. A second trial was performed at the right femoral vein site with aseptic technique also unsuccessful after multiple attempts. Janak Sanchez MD Nov 03, 2016 15:01
--- NOTE | 2016-11-03 16:17 | PD.PROCEDR ---
Central Line Procedure REASON FOR PROCEDURE Central venous access PROCEDURE PERFORMED Central line placement: left femoral CONSENT Informed consent for procedure was obtained from son. The risks and benefits of the procedure were discussed to include but limited to bleeding, clot formation, infection, and even . ANESTHESIA Local injection of 1% Lidocaine DESCRIPTION OF THE PROCEDURE The patient was placed in supine, mild Trendelenburg position. The area was exposed and cleansed with ChloraPrep, times two. Large sterile drape was used to cover the patient, with the site exposed, under sterile conditions including cap, face mask, sterile gown, and sterile gloves. On single attempt, the introducer needle was inserted with negative pressure in syringe and venous flash was obtained. The guide wire was then advanced without any restriction and the needle was removed. The dilator was used without any complications. Using Seldinger technique the 7Fcatheter was advanced over the guide wire to a depth of 20centimeters. The guide wire was removed. All ports were aspirated with dark venous blood return and flushed easily with sterile saline. All ports were capped. Antibiotic disc was placed around central line at puncture site. The central line was secured to the skin with two interrupted 2.0 silk sutures. The area was bandaged with sterile see-through central line bandage. RADIOLOGICAL DATA Ultrasound guidance was used to locate left femoral. Doppler/color flow was used to confirm venous flow. COMPLICATIONS: No apparent complications ESTIMATED BLOOD LOSS: Less than 1 cc. Rebekah White MD Nov 03, 2016 16:17
[2016-11-03] MEDS ORDERED: POTASSIUM PHOSPHATE INJ 30 MMOL in SODIUM CHLOR 0.9% 250 ML INJ 250 ML IV PRN (16:45)
[2016-11-03] MEDS ORDERED: LACTULOSE SYRUP 20 GM/30 ML CUP PO PRN (16:45)
[2016-11-03] MEDS ORDERED: BISACODYL 10 MG SUPP RECTAL PRN (16:45)
[2016-11-03] MEDS ORDERED: SENNOSIDES 8.6 MG TAB PO PRN (16:45)
[2016-11-03] MEDS ORDERED: SODIUM PHOSPHATE INJ 30 MMOL in SODIUM CHLOR 0.9% 250 ML INJ 240 ML IV PRN (16:45)
[2016-11-03] MEDS ORDERED: POTASSIUM CHLORIDE 25 MEQ EFFERVESCENT TAB PO PRN (16:45)
[2016-11-03] MEDS ORDERED: CHLORHEXIDINE GLUCONATE 2 % 1 PACK (2 CLOTHS) TOP PRN (16:45)
[2016-11-03] MEDS ORDERED: POTASSIUM CHLOR 20 MEQ PREMIX 100 ML IV PRN ×2 (16:45)
[2016-11-03] MEDS ORDERED: MAGNESIUM SULFATE INJ 4 GM in SODIUM CHLORIDE 0.9% INJ 92 ML IV PRN (16:45)
[2016-11-03] MEDS ORDERED: POTASSIUM PHOSPHATE MONOBASIC 500 MG TAB PO PRN (16:45)
[2016-11-03] MEDS ORDERED: RESP: ALBUTEROL 2.5 MG/IPRATROPIUM 0.5 MG NEB (PRN) INH (16:45)
[2016-11-03] MEDS ORDERED: MAGNESIUM OXIDE 400 MG TAB PO PRN (16:45)
[2016-11-03] MEDS ORDERED: MAGNESIUM SULFATE INJ 2 GM in SODIUM CHLORIDE 0.9% INJ 96 ML IV PRN (16:45)
[2016-11-03] MEDS ORDERED: POTASSIUM CHLOR 40 MEQ PREMIX 100 ML IV PRN ×2 (16:45)
[2016-11-03] MEDS ORDERED: SODIUM CHLORIDE 0.9% FLUSH 10 ML FLUSH IV FLUSH PRN (16:45)
[2016-11-03] MEDS ORDERED: ACETAMINOPHEN 325 MG TAB PO PRN (16:45)
[2016-11-03] MEDS ORDERED: MISCELLANEOUS NURSING INFORMATION XX SCH (16:45)
[2016-11-03] MEDS ORDERED: ONDANSETRON HCL 4 MG/2 ML VIAL IV PRN (16:45)
[2016-11-03] MEDS ORDERED: MAGNESIUM HYDROXIDE SUSP 30 ML CUP PO PRN (16:45)
[2016-11-03] MEDS ORDERED: POTASSIUM PHOSPHATE MONOBASIC 500 MG TAB PO/TUBE PRN (16:45)
[2016-11-03 16:55] LABS: APTT (PATIENT) 34.7 SEC (24.3-30.1); INTERNATIONAL NORMALIZED RATIO 1.1 RATIO; PROTHROMBIN TIME - PATIENT 12.7 SEC (9.8-11.6)
--- NOTE | 2016-11-03 17:06 | RADRPT ---
EXAM DATE/TIME: 11/03/2016 16:44 [facility] COMPARISON: CHEST SINGLE AP, October 09, 2016, 3:08. INDICATIONS : Short of breath, syncope. MEDICAL HISTORY : Chronic obstructive pulmonary disease. SURGICAL HISTORY : None. ENCOUNTER: Initial ACUITY: 1 day PAIN SCORE: 0/10 LOCATION: Bilateral chest FINDINGS: Lungs are hyperexpanded with diffuse interstitial prominence. Minimal by basilar airspace disease sig nificantly improved from prior radiographs. Cardiomediastinal contours are stable. Bony thorax is int act. CONCLUSION: 1. Changes of obstructive pulmonary disease with marked interval improvement of bilateral lower lobe airspace disease with only minimal residual airspace disease which may reflect scarring. 2. Otherwise, no acute abnormality. Sincere Das MD on November 03, 2016 at 17:02 Board Certified Radiologist. This report was verified electronically.
--- NOTE | 2016-11-03 17:38 | HHI.HP ---
[facility] Service Critical Care Medicine Primary Care Physician Nayan [facility] Admission Diagnosis hypotension, hyponatremia, symptomatic anemia, hyperkalemia Diagnosis: Travel History International Travel<30 Days: No Contact w/Intl Traveler <30 Da: No Traveled to Known Affected Are: No History of Present Illness 71-year-old male that presents to the ED for evaluation of generalized weakness. The patient was recently discharged on 10/26/16. Patient has a chronic history of SIADH as well as anemia and was recently admitted for severe sepsis,Afib RVR, NYHA Class IV heart failure, NSTEMI with PCI stents placed as staged procedures for 90% mid circumflex,and 95% proximal RCA lesions, as he was not a surgical candidate. Patient for the past 2 days has been feeling weak. He is not able to ambulate. No fevers chills or sweats. Denies angina. On his last admission he required transfusion secondary to anemia and possible bleeding. Patient reports that he's been compliant with his medications. Patient currently resides in [facility]. Patient was found to be hypotensive by ambulance when the brought him here. Patient was found to be with a blood pressure in the 60s. Per EMS,the patient was given 500 mL of saline bolus the blood pressure to the 80s. Critical care medicine was consulted. Upon arrival to the ED, the pt was alert and appropriately responsive. The patient had received a 2 liter bolus BP 87/53 and levophed had been initiated currently at 5 mcgs, and 1 u PRBC transfusing. History PFSH Past Medical History Arthritis: No Asthma: No Autoimmune Disease: No Heart Rhythm Problems: No Cancer: No Cardiovascular Problems: No High Cholesterol: No Chemotherapy: No Chest Pain: No Congestive Heart Failure: No COPD: No Cerebrovascular Accident: No Coronary Artery Disease: No Diabetes: No Diminished Hearing: Yes Endocrine: No GERD: No Genitourinary: No Hiatal Hernia: No Hypertension: Yes Immune Disorder: No Kidney Stones: No Musculoskeletal: Yes (FX RIGHT ANKLE, FX RIGHT COLLARBONE) Neurologic: No Psychiatric: No Reproductive: No Respiratory: Yes Migraines: No Renal Failure: No Seizures: No Sickle Cell Disease: No Sleep Apnea: No Thyroid Disease: No Ulcer: No Tetanus Vaccination: > 5 Years Influenza Vaccination: Yes Past Surgical History Abdominal Surgery: No AICD: No Arteriovenous Shunt: No Cardiac Surgery: No Ear Surgery: No Eye Surgery: No Genitourinary Surgery: No Gynecologic Surgery: No Insulin Pump: No Joint Replacement: No Oral Surgery: Yes (jaw surgery) Pacemaker: No Thoracic Surgery: No Other Surgery: Yes Social History Alcohol Use: No Tobacco Use: No (quit 2 months ago) Substance Use: No Allergies-Medications Allergies-Medications (Allergen,Severity, Reaction): Coded Allergies: No Known Allergies (Unverified , 11/03/16) Reported Meds & Prescriptions Reported Meds & Active Scripts Active Ciprofloxacin (Ciprofloxacin HCl) 750 Mg Tab 750 Mg PO Q12HR Prednisone 20 Mg Tab 20 Mg PO DAILY 5 Days take 20mg po x 1 day (start 10/27/16) then 10mg po daily x 4 days Lipitor (Atorvastatin Calcium) 20 Mg Tab 20 Mg PO HS Ramipril 5 Mg Cap 5 Mg PO DAILY 30 Days Megestrol Liq (Megestrol Acetate) 40 Mg/Ml Susp 400 Mg PO DAILY 30 Days Cardizem (Diltiazem HCl) 60 Mg Tab 60 Mg PO Q6H 30 Days Plavix (Clopidogrel Bisulfate) 75 Mg Tab 75 Mg PO DAILY 30 Days Adult Aspirin EC Low Strength (Aspirin) 81 Mg Tabec 81 Mg PO DAILY 30 Days ROS Review of Systems Except as stated in HPI: all other systems reviewed are Neg Past Family Social History Allergies: Coded Allergies: No Known Allergies (Unverified , 11/03/16) Physical Exam Vital Signs Vital Signs Date Time Temp Pulse Resp B/P Pulse Ox O2 Delivery O2 Flow Rate FiO2 11/03/16 15:45 97.7 87 18 101/45 99 Nasal Cannula 4 11/03/16 15:30 97.8 86 20 90/44 98 Nasal Cannula 4 11/03/16 15:00 89 16 77/42 98 Nasal Cannula 4 11/03/16 14:00 90 18 88/50 99 Nasal Cannula 4 11/03/16 13:00 90 16 92/54 98 Nasal Cannula 4 11/03/16 12:58 97 Nasal Cannula 2 11/03/16 12:58 96 Nasal Cannula 2 11/03/16 12:30 97.6 82 16 88/53 98 Nasal Cannula 4 11/03/16 12:30 97.6 82 16 88/53 98 Physical Exam GENERAL: Thin malnourished critically ill week appearing male. Appropriately responding SKIN: Warm and dry. Poor skin turgor HEAD: Atraumatic. Normocephalic. EYES: Pupils equal and round. No scleral icterus. No injection or drainage. ENT: No nasal bleeding or discharge. Mucous membranes dry NECK: Trachea midline. No JVD. Neck veins flat CARDIOVASCULAR: Normal rate, regular rhythm. RESPIRATORY: No accessory muscle use. Clear to auscultation. Breath sounds equal bilaterally. GASTROINTESTINAL: Abdomen soft, non-tender, nondistended. No guarding. MUSCULOSKELETAL: Extremities without clubbing, cyanosis, or edema. No obvious deformities. NEUROLOGICAL: Awake and alert. RASS 0. No gross focal/sensory deficits. Follows commands in all 4 extremities. Laboratory Laboratory Tests Test 11/03/16 11/03/16 11/03/16 11/03/16 13:20 13:45 14:18 15:15 White Blood Count 7.6 Red Blood Count 3.88 Hemoglobin 9.1 Hematocrit 27.8 Mean Corpuscular Volume 71.6 Mean Corpuscular Hemoglobin 23.6 Mean Corpuscular Hemoglobin 32.9 Concent Red Cell Distribution Width 25.3 Platelet Count 113 Mean Platelet Volume 10.2 Neutrophils (%) (Auto) 82.2 Lymphocytes (%) (Auto) 6.3 Monocytes (%) (Auto) 10.8 Eosinophils (%) (Auto) 0.6 Basophils (%) (Auto) 0.1 Neutrophils # (Auto) 6.3 Lymphocytes # (Auto) 0.5 Monocytes # (Auto) 0.8 Eosinophils # (Auto) 0.0 Basophils # (Auto) 0.0 CBC Comment AUTO DIFF Differential Comment AUTO DIFF CONFIRMED Target Cells 1+ Ovalocytes 1+ Acanthocytes 1+ Sodium Level 124 Potassium Level 5.2 Chloride Level 91 Carbon Dioxide Level 21.6 Anion Gap 11 Blood Urea Nitrogen 31 Creatinine 0.74 Estimat Glomerular Filtration 104 Rate Random Glucose 83 Lactic Acid Level 2.6 Calcium Level 8.0 Magnesium Level 1.8 Total Bilirubin 1.5 Aspartate Amino Transf 35 (AST/SGOT) Alanine Aminotransferase 33 (ALT/SGPT) Alkaline Phosphatase 82 Total Creatine Kinase 67 Troponin I 0.11 Total Protein 6.0 Albumin 2.7 Lipase 61 Thyroid Stimulating Hormone 2.540 3rd Gen Blood Type O NEGATIVE Antibody Screen NEGATIVE Urine Color YELLOW Urine Turbidity CLEAR Urine pH 6.5 Urine Specific [place] 1.015 Urine Protein NEG Urine Glucose (UA) NEG Urine Ketones NEG Urine Occult Blood SMALL Urine Nitrite NEG Urine Bilirubin NEG Urine Urobilinogen LESS THAN 2.0 Urine Leukocyte Esterase NEG Urine RBC 90 Urine WBC 3 Urine Mucus FEW Microscopic Urinalysis Comment CATH-CULT NOT IND Crossmatch Leukocyte-Reduced Red Blood Cells Blood Bank Comment Prothrombin Time 12.7 Prothromb Time International 1.1 Ratio Activated Partial 34.7 Thromboplast Time Date/Time Procedure Status Source Growth 11/03/16 13:40 Aerobic Blood Culture Received Blood Peripheral Pending 11/03/16 13:40 Anaerobic Blood Culture Received Blood Peripheral Pending Result Diagram: 11/03/16 1320 11/03/[address] abdomen/pelvis pending Septic Shock Reassessment Heart: Regular rate and rhythm Lungs: Clear Skin: Warm, Dry Peripheral Pulses: Weak Right Radial Weak Left Radial Capillary Refill: Brisk Assessment and Plan Assessment and Plan Assessment 1. Hypotension 2. Generalized weakness 3. NYHA Class IV heart failure 4. Chronic hyponatremia 5. 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 S/P PCI [id number] 10/2016 7. Lactic acidemia 8. Centrilobular emphysema 9. Dehydration 10. COPD 11. Distal Abdominal aortic aneurysm 3.2 cm 12. Hyperkalemia 13. Emphysema 14. Hematuria Plan Plan by systems: Neurologic: Tylenol 650 mg every 6 hours when necessary for pain Respiratory: Bronchodilators every 6 hours scheduled, every 2 hours when necessary Maintain head of bed 30 Obtain chest x-ray Cardiovascular: 10/09 echocardiogram ejection fraction 3540 %, no RWMA, mild MR, mild TR, systolic function slightly decreased Continue Plavix, ASA, and atorvastatin Hold Cardizem in the setting of hypotension Obtain troponins Follow-up BNP Renal: Insert Sage -- Strict I/Os FEN/GI: Normal saline at 42 cc/hour. Monitor sodium level every 12 hours. Patient's sodium level normally ranges [id number], during previous hospitalization. Avoid rapid increases, Cerner for central pontine myelinolysis Obtain CT of the abdomen and pelvis Heart healthy diet-2 g sodium, with Ensure supplementation Bowel regimen Heme/ID: Monitor H&H every 12 hours Monitor serial lactate Empiric antibiotics, will de-escalate. Previous admission -pneumonia Pseudomonas Obtain sputum culture Follow-up blood cultures Obtain urine Legionella streptococcal antigens Obtain influenza A and B Obtain LFTs Endocrine: Glucose monitoring per ICU protocol -- SSI Prophylaxis: GI Prophylaxis Protonix PO DVT Prophylaxis -- SCDs Will hold pharmacological prophylaxis in the setting of hematuria Lines: Left femoral triple-lumen 11/03, peripheral IVs 2 Dispo: my billing statement This patient remains critically ill with one or more organ systems which are or may become a threat to life. I have spent in excess of 40 minutes discontinuously in the care and management of this patient. This time is exclusive of procedures, and includes, but is not limited to, evaluation of the patient, review of the medical record, discussions with family, consultants, nursing staff, or respiratory therapy, and documentation in the medical record. Code Status Full Discussed Condition With Extensive discussion with son Guzman Putnam [phone], healthcare POA, and ED RN at bedside Rebekah White MD Nov 03, 2016 17:38
--- NOTE | 2016-11-03 17:47 | RADRPT ---
EXAM DATE/TIME: 11/03/2016 17:31 [facility] COMPARISON: CHEST SINGLE AP, November 03, 2016, 16:44. INDICATIONS : Central line placement. MEDICAL HISTORY : Chronic obstructive pulmonary disease. SURGICAL HISTORY : None. ENCOUNTER: Subsequent ACUITY: 1 day PAIN SCORE: 0/10 LOCATION: Bilateral chest FINDINGS: Emphysematous changes are present in both lungs with moderate bibasilar clinical changes worse on the left than the right. There is no pneumothorax. Heart and vascularity are normal. CONCLUSION: There is no new pneumothorax following attempted line placement. Taqueria Ortiz MD FACR on November 03, 2016 at 17:43 Board Certified Radiologist. This report was verified electronically.
[2016-11-03] MEDS ORDERED: Vancomycin Consult Pharmacy 1 EA OTHER SCH (18:30)
[2016-11-03] MEDS: SODIUM CHLOR 0.9% 1000 ML INJ 1,000 ML IV SCH (18:30)
--- NOTE | 2016-11-03 18:44 | RADRPT ---
EXAM DATE/TIME: 11/03/2016 18:16 [facility] COMPARISON: CT ABDOMEN & PELVIS W/O CONTRAST, October 08, 2016, 20:52. INDICATIONS : Patient with hematuria. ORAL CONTRAST: No oral contrast ingested. RADIATION DOSE: 6.88 CTDIvol (mGy) MEDICAL HISTORY : Hypertension. SURGICAL HISTORY : right hip surgery ENCOUNTER: Initial ACUITY: 1 day PAIN SCALE: 5/10 LOCATION: lower quadrant TECHNIQUE: Volumetric scanning of the abdomen and pelvis was performed. Using automated exposure control and ad justment of the mA and/or kV according to patient size, radiation dose was kept as low as reasonably achievable to obtain optimal diagnostic quality images. DICOM format image data is available electro nically for review and comparison. FINDINGS: LOWER LUNGS: Hyperinflation underlying emphysema is noted as well as scarring. Previously noted bibasilar consolid ation has improved with mild or residual. There are small effusions. LIVER: Homogeneous density without lesion. There is no dilation of the biliary tree. Ultiple small calcifie d gallstones are again noted. SPLEEN: Normal size without lesion. PANCREAS: [place] unremarkable with suboptimal visualization. KIDNEYS: Normal in size and shape. There is no mass, stone, or hydronephrosis. ADRENAL GLANDS: Within normal limits. VASCULAR: Atherosclerotic changes are again noted with tortuosity, dense calcifications and small infrarenal ab dominal aortic aneurysm measure 3.4 x 3 cm which is not significantly changed. BOWEL/MESENTERY: A nonspecific bowel gas pattern is again identified with multiple loops of nondilated air containing small bowel multiple small air-fluid levels. Gas and stool is noted segmentally in the colon. There i s no evidence of free air. Scattered diverticuli are again noted. ABDOMINAL WALL: Within normal limits. RETROPERITONEUM: There is no lymphadenopathy. BLADDER: No definite wall thickening or mass. A Sage catheter is noted in place and there are air fluid level s. REPRODUCTIVE: Within normal limits. INGUINAL: There is no lymphadenopathy or hernia. MUSCULOSKELETAL: Osteopenia, degenerative changes and scoliosis are again noted. There are postsurgical changes in the right hip. CONCLUSION: 1. Nonspecific bowel gas pattern which may represent an ileus. A moderate amount stool is present and there are multiple diverticuli. 2. Interval improvement in consolidation in both lung bases with milder residual and small effusions. There is underlying scarring and emphysema. 3. Stable small infrarenal abdominal aortic aneurysm. 4. Numerous small calcified gallstones again noted. 5. The kidneys appear stable and unremarkable with no renal calculi or acute obstruction. 6. Sage catheter in the bladder with air fluid level. There is suboptimal visualization. Eros Kaur MD on November 03, 2016 at 18:35 Board Certified Radiologist. This report was verified electronically.
[2016-11-03] MEDS: PIPERACIL-TAZO 3.375 GM PREMIX 50 ML IV SCH (20:00)
[2016-11-03] MEDS: DOCUSATE SODIUM 50 MG/SENNA 8.6 MG TAB PO SCH (21:00)
[2016-11-03] MEDS: SODIUM CHLORIDE 0.9% FLUSH 10 ML FLUSH IV FLUSH SCH (21:00)
[2016-11-03 22:25] LABS: BICARBONATE 21.7 MEQ/L (21.0-32.0); INDIRECT BILIRUBIN 1.5 MG/DL (0.0-0.8); POTASSIUM 3.7 MEQ/L (3.5-5.1)
[2016-11-03] MEDS: RESP: ALBUTEROL 2.5 MG/IPRATROPIUM 0.5 MG NEB (SCH) INH (22:25)
[2016-11-04] VITALS (16 sets, daily range): BP systolic 91–103; BP diastolic 51–55; PULSE 99–126; RESP 15–24; TEMP 98.2–98.8; O2SAT 94–100
[2016-11-04 01:47] LABS: HEMATOCRIT 26.2 % (39.0-51.0)
[2016-11-04 02:14] LABS: REVIEW FLAG FINAL
[2016-11-04] MEDS: PIPERACIL-TAZO 3.375 GM PREMIX 50 ML IV SCH ×4 (02:23→20:04)
[2016-11-04] MEDS: CHLORHEXIDINE GLUCONATE 2 % 1 PACK (2 CLOTHS) TOP SCH (04:00)
[2016-11-04] MEDS: RESP: ALBUTEROL 2.5 MG/IPRATROPIUM 0.5 MG NEB (SCH) INH ×4 (04:22→21:46)
[2016-11-04] MEDS ORDERED: TERBUTALINE INJ 1 MG/ML AMP SQ PRN (04:45)
[2016-11-04] MEDS ORDERED: NOREPINEPHRINE-DEXTROSE DRIP 250 ML IV SCH (04:45)
[2016-11-04] MEDS: SODIUM CHLORIDE 0.9% FLUSH 10 ML FLUSH IV FLUSH SCH ×2 (08:28→20:04)
[2016-11-04] MEDS: PANTOPRAZOLE SOD 40 MG DELAYED RELEASE TAB PO SCH (08:29)
[2016-11-04] MEDS: DOCUSATE SODIUM 50 MG/SENNA 8.6 MG TAB PO SCH ×2 (08:29→20:04)
--- NOTE | 2016-11-04 14:31 | HHI.CCPN ---
Subjective Remarks/Hospital Course 71-year-old male that presents to the ED for evaluation of generalized weakness. The patient was recently discharged on 10/26/16. Patient has a chronic history of SIADH as well as anemia and was recently admitted for severe sepsis,Afib RVR, NYHA Class IV heart failure, NSTEMI with PCI stents placed as staged procedures for 90% mid circumflex,and 95% proximal RCA lesions, as he was not a surgical candidate. Patient for the past 2 days has been feeling weak. He is not able to ambulate. No fevers chills or sweats. Denies angina. On his last admission he required transfusion secondary to anemia and possible bleeding. Patient reports that he's been compliant with his medications. Patient currently resides in [facility]. Patient was found to be hypotensive by ambulance when the brought him here. Patient was found to be with a blood pressure in the 60s. Per EMS,the patient was given 500 mL of saline bolus the blood pressure to the 80s. Critical care medicine was consulted. Upon arrival to the ED, the pt was alert and appropriately responsive. The patient had received a 2 liter bolus BP 87/53 and levophed had been initiated currently at 5 mcgs, and 1 u PRBC transfusing. Subjective: 11/04: Norepinephrine discontinued this a.m.. The patient's systolic blood pressure ranges from 92 low 100's, just as previous admission. The patient's tolerating a diet with supplemental Ensure shakes. The patient is alert and oriented physical therapy has been ordered to be initiated. Noted troponin levels no escalation in values. The patient has chronic hyponatremia with a sodium level normally [id number]. Resolution of hematuria noted. Objective Vital Signs Date Time Temp Pulse Resp B/P Pulse Ox O2 Delivery O2 Flow Rate FiO2 11/04/16 08:07 96 Nasal Cannula 4.00 11/04/16 08:00 105 11/04/16 08:00 98.7 20 103/52 Intake and Output 11/03/16 11/03/16 11/04/16 08:00 16:00 00:00 Intake Total 2450 ml Output Total 3350 ml Balance -900 ml Result Diagram: 11/04/16 0100 11/04/16 0419 Other Results Microbiology Date/Time Procedure Status Source Growth 11/03/16 13:45 Legionella Antigen - Final Complete Urine Catheterized Urine PRESUMPTIVE NEGATIVE FOR LEGIONELLA P... 11/03/16 13:45 Streptococcus pneumoniae Antigen (M - Final Complete Urine Catheterized Urine PRESUMPTIVE NEGATIVE FOR STREPTOCOCCU... Imaging CT abdomen/pelvis pending Objective Remarks GENERAL: Thin malnourished critically ill week appearing male. Appropriately responding SKIN: Warm and dry. Poor skin turgor HEAD: Atraumatic. Normocephalic. EYES: Pupils equal and round. No scleral icterus. No injection or drainage. ENT: No nasal bleeding or discharge. Mucous membranes dry NECK: Trachea midline. No JVD. Neck veins flat CARDIOVASCULAR: Normal rate, regular rhythm. RESPIRATORY: No accessory muscle use. Clear to auscultation. Breath sounds equal bilaterally. GASTROINTESTINAL: Abdomen soft, non-tender, nondistended. No guarding. MUSCULOSKELETAL: Extremities without clubbing, cyanosis, or edema. No obvious deformities. NEUROLOGICAL: Awake and alert. RASS 0. No gross focal/sensory deficits. Follows commands in all 4 extremities. Urinary Catheter: Yes Sage insert reason: Measure Accurate Output Date of Insertion: Nov 03, 2016 Vascular Central Line Catheter: Yes Assessment to: Continue Date of Insertion: Nov 03, 2016 A/P Assessment and Plan Assessment 1. Hypotension 2. Generalized weakness 3. NYHA Class IV heart failure 4. Chronic hyponatremia 5. 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 S/P PCI [id number] 10/2016 7. Lactic acidemia 8. Centrilobular emphysema 9. Dehydration 10. COPD 11. Distal Abdominal aortic aneurysm 3.2 cm 12. Hyperkalemia 13. Emphysema 14. Hematuria Plan Plan by systems: Neurologic: Tylenol 650 mg every 6 hours when necessary for pain Respiratory: Bronchodilators every 6 hours scheduled, every 2 hours when necessary Maintain head of bed 30 Obtain chest x-ray Cardiovascular: 10/09 echocardiogram ejection fraction 3540 %, no RWMA, mild MR, mild TR, systolic function slightly decreased Continue Plavix, ASA, and atorvastatin Hold Cardizem in the setting of hypotension Troponin 0.11->0.11->0.11 Follow-up BNP Renal: Insert Sgae -- Strict I/Os FEN/GI: Normal saline at 42 cc/hour. Monitor sodium level every 12 hours. Patient's sodium level normally ranges [id number], during previous hospitalization. 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 Previous admission -pneumonia Pseudomonas Obtain sputum culture Follow-up blood cultures urine Legionella ,streptococcal antigens- both negative influenza A and B-negative Obtain LFTs Endocrine: Glucose monitoring per ICU protocol -- SSI Prophylaxis: GI Prophylaxis Protonix PO DVT Prophylaxis -- SCDs Heparin BID Lines: Left femoral triple-lumen 11/03, peripheral IVs 2 Dispo: Level 3 Discussed with SHIPPING TRACK SUPERVISOR and Dr. Trujillo, Cardiology Physician Rebekah Gardner MD Nov 04, 2016 14:31
[2016-11-04 15:06] LABS: BICARBONATE 28.4 MEQ/L (21.0-32.0); POTASSIUM 3.6 MEQ/L (3.5-5.1)
[2016-11-04 15:27] LABS: CALCIUM-PROTEIN CORRECTED 8.7 MG/DL (8.5-10.1)
[2016-11-04] MEDS: SENNOSIDES 8.6 MG TAB PO SCH (15:30)
[2016-11-04 16:36] LABS: HEMATOCRIT 24.4 % (39.0-51.0)
[2016-11-04] MEDS: SODIUM CHLOR 0.9% 1000 ML INJ 1,000 ML IV SCH (17:40)
[2016-11-04] MEDS: VANCOMYCIN INJ 600 MG in SODIUM CHLOR 0.9% 250 ML INJ 250 ML IV SCH (17:41)
[2016-11-04] MEDS: HEPARIN SODIUM - SQ 10,000 UNITS/ML VIAL SQ SCH (20:04)
[2016-11-05] VITALS (20 sets, daily range): BP systolic 81–112; BP diastolic 48–58; PULSE 100–116; RESP 12–22; TEMP 97.9–98.4; O2SAT 92–100
[2016-11-05 01:54] LABS: HEMATOCRIT 22.6 % (39.0-51.0)
[2016-11-05 01:56] LABS: REVIEW FLAG FINAL
[2016-11-05] MEDS: PIPERACIL-TAZO 3.375 GM PREMIX 50 ML IV SCH ×4 (02:32→19:55)
[2016-11-05] MEDS: CHLORHEXIDINE GLUCONATE 2 % 1 PACK (2 CLOTHS) TOP SCH (04:00)
[2016-11-05] MEDS: RESP: ALBUTEROL 2.5 MG/IPRATROPIUM 0.5 MG NEB (SCH) INH ×4 (04:10→21:23)
[2016-11-05] MEDS: SENNOSIDES 8.6 MG TAB PO SCH ×2 (05:00→17:00)
[2016-11-05] MEDS: SODIUM CHLORIDE 0.9% FLUSH 10 ML FLUSH IV FLUSH SCH ×2 (09:00→19:56)
[2016-11-05] MEDS: HEPARIN SODIUM - SQ 10,000 UNITS/ML VIAL SQ SCH ×2 (09:00→19:56)
[2016-11-05] MEDS: PANTOPRAZOLE SOD 40 MG DELAYED RELEASE TAB PO SCH (09:00)
[2016-11-05] MEDS: DOCUSATE SODIUM 50 MG/SENNA 8.6 MG TAB PO SCH ×2 (09:00→19:56)
--- NOTE | 2016-11-05 12:29 | HHI.PR ---
Subjective Remarks 71 years old transfer from ICU Pressure still on the lower side today however patient doesn't have symptom no chest pain short of breath dizziness or lightheaded Discussed with the nurse She also has more insure protein shake Objective Vitals Vital Signs Date Time Temp Pulse Resp B/P Pulse Ox O2 Delivery O2 Flow Rate FiO2 11/05/16 08:00 116 11/05/16 07:32 100 Nasal Cannula 3.00 11/05/16 07:00 97.9 115 18 95/51 92 11/05/16 06:00 115 11/05/16 04:00 98.1 100 13 95/53 100 11/05/16 04:00 100 11/05/16 03:04 115 22 81/53 100 11/05/16 02:00 111 11/05/16 02:00 111 16 87/48 97 11/05/16 01:00 109 13 90/53 100 11/05/16 00:00 114 11/05/16 00:00 98.3 114 12 99/52 100 11/04/16 23:00 122 19 92/55 99 11/04/16 22:00 120 11/04/16 22:00 120 19 95/53 96 11/04/16 21:46 98 Nasal Cannula 3.00 11/04/16 20:00 98.2 120 18 93/54 99 11/04/16 20:00 120 11/04/16 18:00 126 11/04/16 16:00 98.3 123 24 91/55 96 11/04/16 16:00 123 11/04/16 14:00 118 I/O 11/04/16 11/04/16 11/04/16 11/05/16 11/05/16 11/05/16 07:00 15:00 23:00 07:00 15:00 23:00 Intake Total 1688 ml 1670 ml 1235 ml 501 ml Output Total 374 ml 650 ml 275 ml 350 ml Balance 1314 ml 1020 ml 960 ml 151 ml Intake Oral 1240 ml 1200 ml 720 ml 240 ml IV Total 448 ml 470 ml 515 ml 261 ml Output Urine Total 374 ml 650 ml 275 ml 350 ml # Bowel Movements 0 0 1 Result Diagram: 11/05/16 0122 11/05/16 0122 Objective Remarks GENERAL: This is a well-nourished, well-developed patient, in no apparent distress. SKIN: No rashes, warm and dry HEAD: Atraumatic. Normocephalic. EYES: Pupils equal round and reactive. Extraocular motions intact. No scleral icterus. ENT: Nose without bleeding, or drainage, Airway patent. NECK: Trachea midline. Supple CARDIOVASCULAR: Regular rate and rhythm without murmurs, gallops, or rubs. RESPIRATORY: Fair air entry bilaterally. No wheezes, rales, or rhonchi. GASTROINTESTINAL: Abdomen soft, non-tender, nondistended. Positive bowel sounds MUSCULOSKELETAL: Extremities without clubbing, cyanosis, or edema. Pedal pulses appreciated NEUROLOGICAL: Awake and alert. Moves all extremity. Normal speech.no focal neurological deficit Date of Insertion: Nov 03, 2016 Date of Insertion: Nov 03, 2016 A/P Assessment and Plan 71-year-old male that presents to the ED for evaluation of generalized weakness. The patient was recently discharged on 10/26/16. Patient has a chronic history of SIADH as well as anemia and was recently admitted for severe sepsis,Afib RVR, NYHA Class IV heart failure, NSTEMI with PCI stents placed as staged procedures for 90% mid circumflex,and 95% proximal RCA lesions, as he was not a surgical candidate. Patient for the past 2 days has been feeling weak. He is not able to ambulate. No fevers chills or sweats. Denies angina. On his last admission he required transfusion secondary to anemia and possible bleeding. Patient reports that he's been compliant with his medications. Patient currently resides in [facility]. Patient was found to be hypotensive by ambulance when the brought him here. Patient was found to be with a blood pressure in the 60s. Per EMS,the patient was given 500 mL of saline bolus the blood pressure to the 80s. Critical care medicine was consulted. Upon arrival to the ED, the pt was alert and appropriately responsive. The patient had received a 2 liter bolus BP 87/53 and levophed had been initiated currently at 5 mcgs, and 1 u PRBC transfusing. Subjective: 11/04: Norepinephrine discontinued this a.m.. The patient's systolic blood pressure ranges from 92 low 100's, just as previous admission. The patient's tolerating a diet with supplemental Ensure shakes. The patient is alert and oriented physical therapy has been ordered to be initiated. Noted troponin levels no escalation in values. The patient has chronic hyponatremia with a sodium level normally [id number]. Resolution of hematuria noted. 11/05: Pressure still low 95/51 with increased heart rate, hemoglobin 7.4, BNP 303 , blood cultures still negative, chest x-ray showing scarring, will consider stopping antibiotic iv, A/P 1. Hypotension 2. Generalized weakness 3. NYHA Class IV heart failure 4. Chronic hyponatremia 5. 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 S/P PCI [id number] 10/2016 7. Lactic acidemia 8. Centrilobular emphysema 9. Dehydration 10. COPD 11. Distal Abdominal aortic aneurysm 3.2 cm 12. Hyperkalemia 13. Emphysema 14. Hematuria Plan Bronchodilators every 6 hours scheduled, every 2 hours when necessary Maintain head of bed 30 Follow chest x-ray 10/09 echocardiogram ejection fraction 3540 %, no RWMA, mild MR, mild TR, systolic function slightly decreased Continue Plavix, ASA, and atorvastatin Hold Cardizem in the setting of hypotension Troponin 0.11->0.11->0.11 Follow-up BNP Normal saline at 42 cc/hour. Monitor sodium level every 12 hours. Patient's sodium level normally ranges [id number], during previous hospitalization. 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 Previous admission -pneumonia Pseudomonas Obtain sputum culture Follow-up blood cultures urine Legionella ,streptococcal antigens- both negative influenza A and B-negative Obtain LFTs Glucose monitoring per ICU protocol -- SSI Prophylaxis: GI Prophylaxis Protonix PO DVT Prophylaxis -- SCDs Heparin BID Berna Perez MD Nov 05, 2016 12:29
[2016-11-05] MEDS ORDERED: CLOPIDOGREL 75 MG TAB PO ONE (12:30)
[2016-11-05] MEDS ORDERED: ASPIRIN EC 81 MG TABEC PO ONE (12:30)
[2016-11-05] MEDS ORDERED: FUROSEMIDE 40 MG/4 ML VIAL IV PUSH SCH (14:00)
--- NOTE | 2016-11-05 14:00 | MB ---
cc: ROSANNE BARDALES M.D. DATE OF CONSULTATION: 11/05/2016. HISTORY OF PRESENT ILLNESS: Eros is a very pleasant 71-year-old gentleman with history of coronary artery disease, cardiomyopathy, severe COPD, pneumonia cachexia, weight loss, severe weakness and fatigue at a rehab facility. He underwent percutaneous coronary intervention of the left anterior descending and the left circumflex vessel last admission. He re-presents with shortness of breath as his chief complaint. He states his appetite has improved. He otherwise denies any fever, chills, cough, GI or bleeding, paroxysmal nocturnal dyspnea, orthopnea, syncope or dizziness. Blood pressure was noted to be in the 60s in the emergency room. PAST MEDICAL HISTORY: His past medical history is per the history of present illness. 1. History of right ankle and right collarbone fractures. 2. History of jaw surgery. 3. Atrial fibrillation. SOCIAL HISTORY: Quit smoking two months ago. Denies alcohol use. ALLERGIES: NONE. MEDICATIONS PRIOR TO ADMISSION: 1. Prednisone. 2. Ciprofloxacin. 3. Lipitor 20. 4. Ramipril 5 milligrams daily. 5. Cardizem 60 q. 6 hours. 6. Plavix 75. 7. Aspirin 81 milligrams daily. MEDICATIONS IN THE HOSPITAL: 1. Heparin 5000 subcutaneous q. 12 hours. 2. Vancomycin IV q. 24 hours. 3. Pantoprazole 40 daily. 4. Norepinephrine drip. 5. Dobutamine. 6. Piperacillin / tazobactam. 7. Potassium supplementation. PHYSICAL EXAMINATION: VITAL SIGNS: Pulse 116, blood pressure 95/51, respiratory rate 18, temperature 97.9. GENERAL: He is alert and oriented times three and in no acute distress. NECK: The neck is supple. No jugular venous distention. No bruits. CARDIOVASCULAR EXAM: S1-S2. No murmurs, rubs or gallops. LUNGS: Clear to auscultation bilaterally. ABDOMEN: The abdomen is soft, nontender and nondistended with positive bowel sounds. EXTREMITIES: No lower extremity edema. LABORATORY DATA: Sodium 134, potassium 3.6, chloride 98, bicarb 28.4, BUN is 26, creatinine is 0.40, calcium 7.3, lactic acid 1.8. Troponin 0.11. BNP is 303. His first three troponins were 0.11, 0.11 and 0.11. Direct bilirubin 0.5, indirect bilirubin 1.5, total bilirubin 2.0. Lactic acid initially 2.6. Initial sodium was 124, potassium 5.2, albumin 2.1. INR 1.1. EKGS: EKG shows normal sinus rhythm at 82 beats per minute, anteroseptal Q-waves, poor R-wave progression.. IMAGING STUDIES: Chest x-ray: There is no pneumothorax following attempted line placemnt. Emphysematous changes are present in both lungs. Moderate left basilar clinical changes worse on the left than the right. Abdomen and pelvis CT: Nonspecific bowel gas pattern which may represent an ileus, moderate amount of stool is present and there are multiple diverticula. Interval improvement in consolidation in both lung bases with mild residual and small effusions and underlying scarring and emphysema, small infrarenal abdominal aortic aneurysm. DIAGNOSIS: He has the following diagnoses: 1. NSTEMI. 2. Cardiomyopathy. 3. Decompensated congestive heart failure. 4. COPD. 5. Anemia. 6. Hyponatremia. 7. Hyperbilirubinemia. 8. Hypoalbuminemia. 9. Hyperkalemia. 10. Lactic acidosis. 11. Hypotension. 12. Anemia. 13. Shock from anemia. 14. Coronary artery disease. DISCUSSION: At this point in time, I think the patient's troponin elevation is secondary to severe anemia and hypotension. He has a known 95% stenosis in the proximal right coronary artery which is heavily calcified. The patient has refused percutaneous coronary intervention for this vessel at his last admission. I do think he should be re-started on his aspirin and Plavix given the stent in the proximal left anterior descending and the proximal left circumflex. I do think he should be transfused two units of blood with 40 of IV Lasix in-between units. Certainly will need to follow up his BMP, CBC and BNP closely. I think the patient can probably be medically managed but if we cannot get him out of congestive heart failure after the transfusion to a hemoglobin greater than 10, we may need to strongly consider percutaneous coronary intervention of the right coronary artery. Also recommend continued nutritional support, antibiotics as needed. MD SUBHA Patel/GEOVANNA /12:05 PM /1:49 PM
[2016-11-05] MEDS: VANCOMYCIN INJ 600 MG in SODIUM CHLOR 0.9% 250 ML INJ 250 ML IV SCH (18:00)
[2016-11-05] MEDS: SODIUM CHLOR 0.9% 1000 ML INJ 1,000 ML IV SCH (18:01)
[2016-11-06] VITALS (11 sets, daily range): BP systolic 106–117; BP diastolic 51–58; PULSE 67–111; RESP 12–21; TEMP 97.2–98.2; O2SAT 96–98
[2016-11-06 01:56] LABS: REVIEW FLAG FINAL
[2016-11-06] MEDS: PIPERACIL-TAZO 3.375 GM PREMIX 50 ML IV SCH ×4 (02:35→23:06)
[2016-11-06] MEDS: RESP: ALBUTEROL 2.5 MG/IPRATROPIUM 0.5 MG NEB (SCH) INH ×2 (04:00→07:33)
[2016-11-06] MEDS: CHLORHEXIDINE GLUCONATE 2 % 1 PACK (2 CLOTHS) TOP SCH (04:00)
[2016-11-06] MEDS: SENNOSIDES 8.6 MG TAB PO SCH ×2 (05:00→17:00)
[2016-11-06 05:05] LABS: BASOPHIL % 0.5 % (0.0-2.0); EOSINOPHIL # 0.2 TH/MM3 (0-0.4); EOSINOPHIL % 7.8 % (0.0-4.0); HEMATOCRIT 32.1 % (39.0-51.0); LYMPH % 14.6 % (9.0-44.0); LYMPHOCYTE # 0.4 TH/MM3 (1.0-4.8); MEAN CELL VOLUME 76.6 FL (80.0-100.0); MEAN CORPUSCULAR HEMOGLOBIN 26.5 PG (27.0-34.0); MEAN CORPUSCULAR HGB CONC 34.7 % (32.0-36.0); MONO % 11.7 % (0.0-8.0); NEUT % 65.4 % (16.0-70.0); PLATELET COUNT 82 TH/MM3 (150-450); RED BLOOD COUNT 4.19 MIL/MM3 (4.50-5.90); RED CELL DISTRIBUTION WIDTH 24.8 % (11.6-17.2); WHITE BLOOD COUNT 3.1 TH/MM3 (4.0-11.0)
[2016-11-06 05:23] LABS: HEMO FLAGS AUTO DIFF
[2016-11-06 07:07] LABS: ACANTHOCYTES OCC (NORMAL)
[2016-11-06 07:09] LABS: PLATELET ESTIMATE SMEAR LOW (NORMAL); PLATELET MORPHOLOGY NORMAL (NORMAL); SCAN/DIFF AUTO DIFF CONFIRMED
[2016-11-06 07:20] LABS: BICARBONATE 30.6 MEQ/L (21.0-32.0); MAGNESIUM 1.1 MG/DL (1.5-2.5); POTASSIUM 3.8 MEQ/L (3.5-5.1)
[2016-11-06] MEDS: HEPARIN SODIUM - SQ 10,000 UNITS/ML VIAL SQ SCH ×2 (07:59→23:07)
[2016-11-06] MEDS: DOCUSATE SODIUM 50 MG/SENNA 8.6 MG TAB PO SCH ×2 (07:59→21:00)
[2016-11-06] MEDS: PANTOPRAZOLE SOD 40 MG DELAYED RELEASE TAB PO SCH (07:59)
[2016-11-06] MEDS: CLOPIDOGREL 75 MG TAB PO SCH (07:59)
[2016-11-06] MEDS: ASPIRIN EC 81 MG TABEC PO SCH (08:01)
[2016-11-06] MEDS ORDERED: RAMIPRIL 2.5 MG CAP PO ONE (09:00)
[2016-11-06] MEDS ORDERED: ATORVASTATIN 20 MG TAB PO ONE (09:00)
[2016-11-06] MEDS: SODIUM CHLORIDE 0.9% FLUSH 10 ML FLUSH IV FLUSH SCH ×2 (09:00→21:00)
--- NOTE | 2016-11-06 09:05 | PD.CARD.PN ---
Subjective Subjective Remarks alert in nad Objective Vital Signs / I&O Vital Signs Date Time Temp Pulse Resp B/P Pulse Ox O2 Delivery O2 Flow Rate FiO2 11/06/16 07:33 98 Nasal Cannula 3.00 11/06/16 06:00 83 11/06/16 04:00 98.2 90 12 113/56 97 11/06/16 04:00 90 11/06/16 02:00 98 11/06/16 00:00 111 11/06/16 00:00 111 21 107/57 96 11/05/16 22:00 114 11/05/16 21:23 95 Nasal Cannula 3.00 11/05/16 21:00 114 19 105/58 94 11/05/16 20:00 109 11/05/16 20:00 98.1 109 19 102/57 93 11/05/16 18:00 109 11/05/16 16:00 112 11/05/16 16:00 98.0 112 18 112/53 99 11/05/16 15:00 98.4 104 22 99/56 100 11/05/16 14:00 111 11/05/16 12:00 109 11/05/16 11:00 98.0 114 20 93/52 98 11/05/16 10:00 114 I/O 11/05/16 11/05/16 11/05/16 11/06/16 11/06/16 11/06/16 07:00 15:00 23:00 07:00 15:00 23:00 Intake Total 501 ml 1085 ml 1483 ml 614 ml Output Total 350 ml 525 ml 2200 ml 1325 ml Balance 151 ml 560 ml -717 ml -711 ml Intake Oral 240 ml 711 ml 480 ml 240 ml IV Total 261 ml 374 ml 443 ml 239 ml Packed Cells 560 ml 135 ml Output Urine Total 350 ml 525 ml 2200 ml 1325 ml # Bowel Movements 1 3 1 Physical Exam GENERAL: SKIN: Warm and dry. HEAD: Normocephalic. EYES: No scleral icterus. No injection or drainage. NECK: Supple, trachea midline. No JVD or lymphadenopathy. CARDIOVASCULAR: Regular rate and rhythm without murmurs, gallops, or rubs. RESPIRATORY: Breath sounds equal bilaterally. No accessory muscle use. GASTROINTESTINAL: Abdomen soft, non-tender, nondistended. MUSCULOSKELETAL: No cyanosis, or edema. BACK: Nontender without obvious deformity. No CVA tenderness. Laboratory Laboratory Tests Test 11/05/16 11/06/16 11/06/16 13:31 01:08 04:48 Blood Type O NEGATIVE Crossmatch Leukocyte-Reduced Red Blood Cells Blood Bank Comment Hemoglobin 10.7 GM/DL 11.1 GM/DL Hematocrit 31.0 % 32.1 % Sodium Level 130 MEQ/L 129 MEQ/L White Blood Count 3.1 TH/MM3 Red Blood Count 4.19 MIL/MM3 Mean Corpuscular Volume 76.6 FL Mean Corpuscular Hemoglobin 26.5 PG Mean Corpuscular Hemoglobin 34.7 % Concent Red Cell Distribution Width 24.8 % Platelet Count 82 TH/MM3 Mean Platelet Volume 9.4 FL Neutrophils (%) (Auto) 65.4 % Lymphocytes (%) (Auto) 14.6 % Monocytes (%) (Auto) 11.7 % Eosinophils (%) (Auto) 7.8 % Basophils (%) (Auto) 0.5 % Neutrophils # (Auto) 2.0 TH/MM3 Lymphocytes # (Auto) 0.4 TH/MM3 Monocytes # (Auto) 0.4 TH/MM3 Eosinophils # (Auto) 0.2 TH/MM3 Basophils # (Auto) 0.0 TH/MM3 CBC Comment AUTO DIFF Differential Comment AUTO DIFF CONFIRMED Platelet Estimate LOW Platelet Morphology Comment NORMAL Basophilic Stippling FAINT Ovalocytes Acanthocytes OCC Potassium Level 3.8 MEQ/L Chloride Level 91 MEQ/L Carbon Dioxide Level 30.6 MEQ/L Anion Gap 7 MEQ/L Blood Urea Nitrogen 17 MG/DL Creatinine 0.40 MG/DL Estimat Glomerular Filtration 211 ML/MIN Rate Random Glucose 78 MG/DL Calcium Level 7.8 MG/DL Phosphorus Level 2.1 MG/DL Magnesium Level 1.1 MG/DL B-Type Natriuretic Peptide 323 PG/ML Assessment and Plan Problem List: (1) CHF (congestive heart failure) (2) Anemia (3) Cardiomyopathy (4) CAD (coronary artery disease) (5) NSTEMI (non-ST elevated myocardial infarction) (6) Atrial fibrillation with RVR (7) COPD (chronic obstructive pulmonary disease) (8) Hyponatremia Assessment and Plan 1.) CAD - assymptomatic, continue aspirin 81 mg qd, plavix 75 mg qd, start lipitor 20 mg hs, keep hgb > 10, still has 95% proximal rca, heavily calcified 2.) Cardiomyopathy - mild bnp elevation, f/u bnp in am, start altace 2.5 mg qd, beta jimy held due to severe copd 3.) Anemia - appears to have occult blood loss, defer workup to hospitalist Daniel Trujillo MD Nov 06, 2016 09:05
--- NOTE | 2016-11-06 11:13 | PD.CONS ---
Consult Service Palliative Care Consult Requested By Dr. White . Primary Care Physician [facility] . Reason for Consultation a. To assist with evaluation and management of symptoms including: Dyspnea , fatigue/weakness b. To assist medical decision maker(s) with: better understanding of current medical conditions; weighing benefits/burdens of medical treatment options; making medical treatment decisions. . HPI History of Present Illness This 71-year-old male, with past history of end-stage lung disease, cardiomyopathy, weight loss, and recent non-STEMI and Pseudomonas pneumonia, had been discharged from this facility on 10/26/16 and sent to a Rehab facility. During that hospitalization last month, a CT scan revealed some lung nodules, severe COPD, and possible necrosis from infection. In addition, the patient had LAD, circumflex, and RCA 95% lesions, and he had stenting of the LAD and circumflex. However, the patient was quite weak at his Rehab facility, and was found to be hypotensive with systolic blood pressure in the 60s on 11/03/16 and he was sent back to the hospital. He was noted to be confused and profoundly weak. In the emergency department, findings included * Confusion, weakness * 1097.6, pulse 89, respirations 16, initial blood pressure in the 60s * White count 7.6, hemoglobin 9.1 * Sodium 124, creatinine 0.74, albumin 2.7, potassium 5.2 * Lactic acid 2.6 * Hemoccult negative stool * Troponin 0.11 * Chest x-ray with significant COPD, and some active disease at the left base The patient was admitted and provided with some cautious fluids as well as pressor drugs. His sodium level gradually came up, and he was able to eat and drink (although his appetite has been poor and he has had only small amounts). He has had no chest pain or other pain. The patient has been declining in health over the last 2 or more years, and he says he has gradually lost 87 pounds in the past 5 years, a slow and steady loss according to the patient. He is now quite cachectic, but he was living alone prior to his hospitalization a month ago. The patient says he was found by the [facility] to have a lung nodule on which they did a needle biopsy about 18 months ago, and he says the results of that biopsy were negative. He does not know how many nodules he had at that time. Palliative Care was consulted now to assist with symptom management, and to enter into discussions with the patient and his family regarding his current illnesses, prognosis, and the benefits and burdens of the various treatment options going forward. . Function/Cognitive Trajectory Prior to his hospitalization a month ago, the patient was living alone at home and functioning independently. He definitely was getting weaker and still losing weight, but was ambulatory and did not have supplemental oxygen at home. . Review of Systems Constitutional: COMPLAINS OF: Fatigue, Weight loss Endocrine: DENIES: Polyuria Eyes: DENIES: Eye inflammation Ears, nose, mouth, throat: DENIES: Epistaxis Respiratory: COMPLAINS OF: Cough, Shortness of breath, DENIES: Hemoptysis Cardiovascular: DENIES: Chest pain, Syncope Gastrointestinal: DENIES: Bloody stools, Constipation, Diarrhea, Vomiting blood Genitourinary: DENIES: Hematuria Musculoskeletal: DENIES: Back pain Integumentary: DENIES: Rash Hematologic/Lymphatics: DENIES: Lymphadenopathy Immunologic/Allergic: DENIES: Urticaria Neurologic: DENIES: Localized weakness, Seizures Psychiatric: COMPLAINS OF: Confusion (at the time of admission, but cleared now ), DENIES: Hallucinations, Agitation Past Family Social History Coded Allergies: No Known Allergies (Unverified , 11/03/16) Past Medical History * General debility, with worsening cachexia, fatigue, weakness, loss of appetite * End-stage lung disease, with severe COPD and recent necrotizing Pseudomonas pneumonia * Lung nodules on CT scan; history of needle biopsy of lung nodule at the [facility] ( it was benign) * Cardiomyopathy, history of CHF * CAD, with an NSTEMI, 2 recent stents, and a remaining 95% RCA lesion * Atrial fib with RVR, recent * SIADH, hyponatremia * Malnutrition, albumin 2.7 * Anemia * Diverticulosis * Cholelithiasis * Early decubitus, sacral . Past Surgical History * Mandible * Right knee * Right ankle fracture * Hip fracture 2014 * Cardiac cath X October 2016, 2 stents placed * Lung needle biopsy about 18 months ago at the [facility] . Reported Medications Ciprofloxacin (Ciprofloxacin HCl) 750 Mg Tab 750 Mg PO Q12HR Prednisone 20 Mg Tab 20 Mg PO DAILY 5 Days take 20mg po x 1 day (start 10/27/16) then 10mg po daily x 4 days Lipitor (Atorvastatin Calcium) 20 Mg Tab 20 Mg PO HS Ramipril 5 Mg Cap 5 Mg PO DAILY 30 Days Megestrol Liq (Megestrol Acetate) 40 Mg/Ml Susp 400 Mg PO DAILY 30 Days Cardizem (Diltiazem HCl) 60 Mg Tab 60 Mg PO Q6H 30 Days Plavix (Clopidogrel Bisulfate) 75 Mg Tab 75 Mg PO DAILY 30 Days Adult Aspirin EC Low Strength (Aspirin) 81 Mg Tabec 81 Mg PO DAILY 30 Days . Current Medications Medications (Trade) Dose Ordered Sig/Satnam Route Start Time Stop Time Status Last Admin (NS 1000 ml Inj) 1,000 ml @ 30 mls/hr Q24H IV 11/03/16 18:30 11/05/16 18:01 (NS Flush) 2 ml UNSCH PRN IV FLUSH 11/03/16 16:45 (NS Flush) 2 ml BID IV FLUSH 11/03/16 21:00 11/05/16 19:56 (Tylenol) 650 mg Q6H PRN PO 11/03/16 16:45 (Protonix) 40 mg DAILY PO 11/04/16 09:00 11/06/16 07:59 (Zofran Inj) 4 mg Q6H PRN IV 11/03/16 16:45 Miscellaneous Information 1 Q361D XX 11/03/16 16:45 (Chlorhexidine 2% Cloth) 3 pack Taper DAILY@04 TOP 11/04/16 04:00 10/31/17 03:59 11/06/16 04:00 (Chlorhexidine 2% Cloth) 3 pack UNSCH PRN TOP 11/03/16 16:45 (Shayy-Colace) 1 tab BID PO 11/03/16 21:00 11/06/16 07:59 (Milk Of Magnesia Liq) 30 ml Q12H PRN PO 11/03/16 16:45 (Dulcolax Supp) 10 mg DAILY PRN RECTAL 11/03/16 16:45 Lactulose 30 ml 30 ml DAILY PRN PO 11/03/16 16:45 Potassium Chloride 100 ml @ 50 mls/hr Q2H PRN IV 11/03/16 16:45 (KCl 20 Meq Premix Inj) 100 ml @ 50 mls/hr Q2H PRN IV 11/03/16 16:45 Potassium Bicarb/ Potassium Chloride 50 meq 50 meq UNSCH PRN PO 11/03/16 16:45 Potassium Chloride 100 ml @ 25 mls/hr UNSCH PRN IV 11/03/16 16:45 Potassium Chloride 100 ml @ 50 mls/hr Q2H PRN IV 11/03/16 16:45 (Magnesium Sulfate Inj/NS Inj) 100 ml @ 50 mls/hr UNSCH PRN IV 11/03/16 16:45 Magnesium Oxide 800 mg 800 mg UNSCH PRN PO 11/03/16 16:45 (Magnesium Sulfate Inj/NS Inj) 100 ml @ 50 mls/hr UNSCH PRN IV 11/03/16 16:45 Potassium Phosphate 2000 mg 2,000 mg Q4H PRN PO 11/03/16 16:45 (Sodium Phosphate Inj/NS 250 ml Inj) 250 ml @ 42 mls/hr UNSCH PRN IV 11/03/16 16:45 Potassium Phosphate 2000 mg 2,000 mg UNSCH PRN PO/TUBE 11/03/16 16:45 Potassium Phosphate 30 mmol/ Sodium Chloride 260 ml @ 42 mls/hr UNSCH PRN IV 11/03/16 16:45 Pharmacy Profile Note 0 ml @ 0 mls/hr UNSCH OTHER 11/03/16 18:30 Piperacillin Sod/ Tazobactam Sod 50 ml @ 100 mls/hr Q6H IV 11/03/16 20:00 11/06/16 07:58 (Vancomycin Inj/ NS 250 ml Inj) 256 ml @ 250 mls/hr Q24H IV 11/04/16 18:00 11/05/16 18:00 Miscellaneous Information SPECIFIC LAB TO BE [facility]... ONCE ONCE .XX 11/06/16 17:45 11/06/16 17:46 (Levophed-Dextrose Drip) 250 ml @ 0 mls/hr TITRATE IV 11/04/16 04:45 11/04/16 05:05 (Brethine Inj) 1 mg UNSCH PRN SQ 11/04/16 04:45 (Senokot) 17.2 mg Q12H PO 11/04/16 17:00 11/04/16 15:30 (Heparin Inj) 5,000 units Q12HR SQ 11/04/16 21:00 11/06/16 07:59 (Plavix) 75 mg DAILY PO 11/06/16 09:00 11/06/16 07:59 (Ecotrin Ec) 81 mg DAILY PO 11/06/16 09:00 11/06/16 08:01 (Lipitor) 20 mg HS PO 11/07/16 21:00 (Altace) 2.5 mg DAILY PO 11/07/16 09:00 Family History Positive for COPD and coronary artery disease. . Substance Use Tobacco: The patient has smoked for many years, but reportedly quit a couple months ago. Alcohol: He drinks no alcohol. Prescription med abuse: None Illicits: None . Psychosocial History The patient was born in the [place], [place] area, and grew up there. He served 6 years in the [employer] including in [place] where he reports he was exposed to Agent [place]. 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 He has been twice, . He has a son Guzman living in the [facility] and a daughter Anai living in [place]. . Spiritual/Cultural Factors The patient has a Latter Day background, he has not wanted renal dietitian support yet. . Living Will: Never completed Health Care Surrogate: Copy in medical record Durable Power of Optical Lab Technician: Never completed Health Care Surrogate(s): Last month, he designated his son Guzman as primary HCS and daughter Anai as secondary. . Today's verbally stated goals: The patient has a clear understanding of his worsening debility and cachexia. His goal is to get out of the hospital and back to Rehab, and if he can get strong enough to get back home. He does understand that living at home independently is a long shot, but he wants to try that. If that fails, he will likely be living at an [facility]. The patient does not want to be intubated or mechanically ventilated. He DOES want CPR, defibrillation, and ACLS meds. . Family/friends goals: Patient's son Guzman confirms his support for his father's goals. . Ethical and Legal Issues There are no ethical issues that would impact his care were decision-making at this time. The patient has capacity for decision-making at this time. He has designated his son Guzman and daughter Anai as primary and secondary HCS respectively. . Physical Exam Vital Signs Date Time Temp Pulse Resp B/P Pulse Ox O2 Delivery O2 Flow Rate FiO2 11/06/16 08:00 83 11/06/16 08:00 97.8 96 18 106/58 97 11/06/16 07:33 98 Nasal Cannula 3.00 11/06/16 06:00 83 11/06/16 04:00 98.2 90 12 113/56 97 11/06/16 04:00 90 11/06/16 02:00 98 11/06/16 00:00 111 11/06/16 00:00 111 21 107/57 96 11/05/16 22:00 114 11/05/16 21:23 95 Nasal Cannula 3.00 11/05/16 21:00 114 19 105/58 94 11/05/16 20:00 109 11/05/16 20:00 98.1 109 19 102/57 93 11/05/16 18:00 109 11/05/16 16:00 112 11/05/16 16:00 98.0 112 18 112/53 99 11/05/16 15:00 98.4 104 22 99/56 100 11/05/16 14:00 111 11/05/16 12:00 109 11/05/16 11:00 98.0 114 20 93/52 98 11/05/16 11/06/16 19:00 07:00 Intake Total 1085 ml 2097 ml Output Total 525 ml 3525 ml Balance 560 ml -1428 ml Intake Oral 711 ml 720 ml IV Total 374 ml 682 ml Packed Cells 695 ml Output Urine Total 525 ml 3525 ml # Bowel Movements 3 1 Exam CONSTITUTIONAL/GENERAL: This is weak, cachectic patient, in no apparent distress. TUBES/LINES/DRAINS: IV, supplemental nasal oxygen, Sage catheter SKIN: No jaundice, rashes. There is an early stage 4 cm decubitus over his sacrum. Ecchymoses on upper extremities. No wounds seen anteriorly. Skin temperature appropriate. Not diaphoretic. HEAD: Atraumatic. Normocephalic. EYES: Pupils equal and round and reactive. Extraocular motions intact. No scleral icterus. No injection or drainage. Fundi not examined. ENT: Hearing grossly normal. Nose without bleeding or purulent drainage. Throat without visible erythema, exudates, masses, or lesions. NECK: Trachea midline. Supple, nontender. No palpable thyroid enlargement or nodularity. CARDIOVASCULAR: Regular rate and rhythm without murmurs, gallops, or rubs. No JVD. Peripheral pulses symmetric. RESPIRATORY/CHEST: Symmetric, unlabored respirations. Markedly diminished breath sounds on the right, somewhat diminished on the left. No wheezes, rales, or rhonchi. GASTROINTESTINAL: Abdomen soft, non-tender, nondistended. No hepato-splenomegaly , or palpable masses. No guarding. Bowel sounds present. GENITOURINARY: Without palpable bladder distension. Sage catheter in place. MUSCULOSKELETAL: Extremities without clubbing, cyanosis, or edema. No joint tenderness or effusion noted. No calf tenderness. No mottling or clubbing. LYMPHATICS: No palpable cervical or supraclavicular adenopathy. NEUROLOGICAL: Awake and alert. Motor and sensory grossly within normal limits, but he has global weakness. Follows commands. Cognitively sharp. Moves all extremities. PSYCHIATRIC: No obvious anxiety/depression. no apparent hallucinations or other psychotic thought process. . Diagnostic Tests Laboratory Laboratory Tests Test 11/03/16 11/03/16 11/03/16 11/03/16 13:20 13:45 14:18 15:15 White Blood Count 7.6 TH/MM3 (4.0-11.0) Red Blood Count 3.88 MIL/MM3 (4.50-5.90) Hemoglobin 9.1 GM/DL (13.0-17.0) Hematocrit 27.8 % (39.0-51.0) Mean Corpuscular Volume 71.6 FL (80.0-100.0) Mean Corpuscular Hemoglobin 23.6 PG (27.0-34.0) Mean Corpuscular Hemoglobin 32.9 % Concent (32.0-36.0) Red Cell Distribution Width 25.3 % (11.6-17.2) Platelet Count 113 TH/MM3 (150-450) Mean Platelet Volume 10.2 FL (7.0-11.0) Neutrophils (%) (Auto) 82.2 % (16.0-70.0) Lymphocytes (%) (Auto) 6.3 % (9.0-44.0) Monocytes (%) (Auto) 10.8 % (0.0-8.0) Eosinophils (%) (Auto) 0.6 % (0.0-4.0) Basophils (%) (Auto) 0.1 % (0.0-2.0) Neutrophils # (Auto) 6.3 TH/MM3 (1.8-7.7) Lymphocytes # (Auto) 0.5 TH/MM3 (1.0-4.8) Monocytes # (Auto) 0.8 TH/MM3 (0-0.9) Eosinophils # (Auto) 0.0 TH/MM3 (0-0.4) Basophils # (Auto) 0.0 TH/MM3 (0-0.2) CBC Comment AUTO DIFF Differential Comment AUTO DIFF CONFIRMED Target Cells 1+ (NORMAL) Ovalocytes 1+ (NORMAL) Acanthocytes 1+ (NORMAL) Sodium Level 124 MEQ/L (136-145) Potassium Level 5.2 MEQ/L (3.5-5.1) Chloride Level 91 MEQ/L (98-107) Carbon Dioxide Level 21.6 MEQ/L (21.0-32.0) Anion Gap 11 MEQ/L (5-15) Blood Urea Nitrogen 31 MG/DL (7-18) Creatinine 0.74 MG/DL (0.60-1.30) Estimat Glomerular Filtration 104 ML/MIN Rate (>89) Random Glucose 83 MG/DL (74-106) Lactic Acid Level 2.6 mmol/L (0.4-2.0) Calcium Level 8.0 MG/DL (8.5-10.1) Magnesium Level 1.8 MG/DL (1.5-2.5) Total Bilirubin 1.5 MG/DL (0.2-1.0) Aspartate Amino Transf 35 U/L (15-37) (AST/SGOT) Alanine Aminotransferase 33 U/L (12-78) (ALT/SGPT) Alkaline Phosphatase 82 U/L (45-117) Total Creatine Kinase 67 U/L (39-308) Troponin I 0.11 NG/ML (0.02-0.05) Total Protein 6.0 GM/DL (6.4-8.2) Albumin 2.7 GM/DL (3.4-5.0) Lipase 61 U/L (73-393) Thyroid Stimulating Hormone 2.540 uIU/ML 3rd Gen (0.358-3.740) Blood Type O NEGATIVE Antibody Screen NEGATIVE Urine Color YELLOW (YELLW/STRAW) Urine Turbidity CLEAR (CLEAR) Urine pH 6.5 (5.0-8.5) Urine Specific [place] 1.015 (1.002-1.035) Urine Protein NEG mg/dL (NEG-TRACE) Urine Glucose (UA) NEG mg/dL (NEG) Urine Ketones NEG mg/dL (NEG) Urine Occult Blood SMALL (NEG) Urine Nitrite NEG (NEG) Urine Bilirubin NEG (NEG) Urine Urobilinogen LESS THAN 2.0 MG/DL (LESS THAN 2.0) Urine Leukocyte Esterase NEG (NEG) Urine RBC 90 /hpf (0-3) Urine WBC 3 /hpf (0-5) Urine Mucus FEW /lpf (OCC) Microscopic Urinalysis Comment CATH-CULT NOT IND Crossmatch Leukocyte-Reduced Red Blood Cells Blood Bank Comment Prothrombin Time 12.7 SEC (9.8-11.6) Prothromb Time International 1.1 RATIO Ratio Activated Partial 34.7 SEC Thromboplast Time (24.3-30.1) Test 11/03/16 11/03/16 11/04/16 11/04/16 20:10 21:05 01:00 04:19 Nasal Screen MRSA (PCR) MRSA NOT DETECTED (NOT DETECT) Sodium Level 130 MEQ/L 132 MEQ/L (136-145) (136-145) Potassium Level 3.7 MEQ/L (3.5-5.1) Chloride Level 99 MEQ/L (98-107) Carbon Dioxide Level 21.7 MEQ/L (21.0-32.0) Anion Gap 9 MEQ/L (5-15) Blood Urea Nitrogen 21 MG/DL (7-18) Creatinine 0.32 MG/DL 0.47 MG/DL (0.60-1.30) (0.60-1.30) Estimat Glomerular Filtration 274 ML/MIN 176 ML/MIN Rate (>89) (>89) Random Glucose 87 MG/DL (74-106) Calcium Level 7.5 MG/DL (8.5-10.1) Phosphorus Level 3.0 MG/DL (2.5-4.9) Total Bilirubin 2.0 MG/DL (0.2-1.0) Direct Bilirubin 0.5 MG/DL (0.0-0.2) Indirect Bilirubin 1.5 MG/DL (0.0-0.8) Aspartate Amino Transf 30 U/L (15-37) (AST/SGOT) Alanine Aminotransferase 24 U/L (12-78) (ALT/SGPT) Alkaline Phosphatase 63 U/L (45-117) Total Creatine Kinase 209 U/L (39-308) Troponin I 0.11 NG/ML 0.11 NG/ML 0.11 NG/ML (0.02-0.05) (0.02-0.05) (0.02-0.05) Total Protein 4.5 GM/DL (6.4-8.2) Albumin 2.1 GM/DL (3.4-5.0) Random Cortisol 23.2 MCG/DL Hemoglobin 8.9 GM/DL (13.0-17.0) Hematocrit 26.2 % (39.0-51.0) Test 11/04/16 11/04/16 11/05/16 11/05/16 14:20 15:30 01:22 13:31 Sodium Level 134 MEQ/L 133 MEQ/L (136-145) (136-145) Potassium Level 3.6 MEQ/L (3.5-5.1) Chloride Level 98 MEQ/L (98-107) Carbon Dioxide Level 28.4 MEQ/L (21.0-32.0) Anion Gap 8 MEQ/L (5-15) Blood Urea Nitrogen 26 MG/DL (7-18) Creatinine 0.40 MG/DL (0.60-1.30) Estimat Glomerular Filtration 211 ML/MIN Rate (>89) Random Glucose 124 MG/DL (74-106) Lactic Acid Level 1.8 mmol/L (0.4-2.0) Calcium Level 7.3 MG/DL (8.5-10.1) Protein Corrected Calcium 8.7 MG/DL (8.5-10.1) Total Protein 4.7 GM/DL (6.4-8.2) Hemoglobin 8.1 GM/DL 7.4 GM/DL (13.0-17.0) (13.0-17.0) Hematocrit 24.4 % 22.6 % (39.0-51.0) (39.0-51.0) B-Type Natriuretic Peptide 303 PG/ML (0-100) Blood Type O NEGATIVE Crossmatch Leukocyte-Reduced Red Blood Cells Blood Bank Comment Test 11/06/16 11/06/16 11/06/16 01:08 04:48 08:27 Hemoglobin 10.7 GM/DL 11.1 GM/DL (13.0-17.0) (13.0-17.0) Hematocrit 31.0 % 32.1 % (39.0-51.0) (39.0-51.0) Sodium Level 130 MEQ/L 129 MEQ/L (136-145) (136-145) White Blood Count 3.1 TH/MM3 (4.0-11.0) Red Blood Count 4.19 MIL/MM3 (4.50-5.90) Mean Corpuscular Volume 76.6 FL (80.0-100.0) Mean Corpuscular Hemoglobin 26.5 PG (27.0-34.0) Mean Corpuscular Hemoglobin 34.7 % Concent (32.0-36.0) Red Cell Distribution Width 24.8 % (11.6-17.2) Platelet Count 82 TH/MM3 (150-450) Mean Platelet Volume 9.4 FL (7.0-11.0) Neutrophils (%) (Auto) 65.4 % (16.0-70.0) Lymphocytes (%) (Auto) 14.6 % (9.0-44.0) Monocytes (%) (Auto) 11.7 % (0.0-8.0) Eosinophils (%) (Auto) 7.8 % (0.0-4.0) Basophils (%) (Auto) 0.5 % (0.0-2.0) Neutrophils # (Auto) 2.0 TH/MM3 (1.8-7.7) Lymphocytes # (Auto) 0.4 TH/MM3 (1.0-4.8) Monocytes # (Auto) 0.4 TH/MM3 (0-0.9) Eosinophils # (Auto) 0.2 TH/MM3 (0-0.4) Basophils # (Auto) 0.0 TH/MM3 (0-0.2) CBC Comment AUTO DIFF Differential Comment AUTO DIFF CONFIRMED Platelet Estimate LOW (NORMAL) Platelet Morphology Comment NORMAL (NORMAL) Basophilic Stippling FAINT (NORMAL) Ovalocytes (NORMAL) Acanthocytes OCC (NORMAL) Potassium Level 3.8 MEQ/L (3.5-5.1) Chloride Level 91 MEQ/L (98-107) Carbon Dioxide Level 30.6 MEQ/L (21.0-32.0) Anion Gap 7 MEQ/L (5-15) Blood Urea Nitrogen 17 MG/DL (7-18) Creatinine 0.40 MG/DL (0.60-1.30) Estimat Glomerular Filtration 211 ML/MIN Rate (>89) Random Glucose 78 MG/DL (74-106) Calcium Level 7.8 MG/DL (8.5-10.1) Phosphorus Level 2.1 MG/DL (2.5-4.9) Magnesium Level 1.1 MG/DL (1.5-2.5) B-Type Natriuretic Peptide 323 PG/ML (0-100) Random Cortisol 18.0 MCG/DL Result Diagram: 11/06/1644711/06/16 044 Microbiology Microbiology Date/Time Procedure Status Source Growth 11/03/16 13:20 Aerobic Blood Culture - Preliminary Resulted Blood Peripheral NO GROWTH IN 2 DAYS 11/03/16 13:20 Anaerobic Blood Culture - Preliminary Resulted Blood Peripheral NO GROWTH IN 2 DAYS 11/03/16 13:40 Aerobic Blood Culture - Preliminary Resulted Blood Peripheral NO GROWTH IN 2 DAYS 11/03/16 13:40 Anaerobic Blood Culture - Preliminary Resulted Blood Peripheral NO GROWTH IN 2 DAYS 11/03/16 13:45 Legionella Antigen - Final Complete Urine Catheterized Urine PRESUMPTIVE NEGATIVE FOR LEGIONELLA P... 11/03/16 13:45 Streptococcus pneumoniae Antigen (M - Final Complete Urine Catheterized Urine PRESUMPTIVE NEGATIVE FOR STREPTOCOCCU... Imaging Last Impressions Chest X-Ray 11/03/16 1243 Signed Impressions: Service Date/Time: Thursday, November 03, 2016 16:44 - CONCLUSION: 1. Changes of obstructive pulmonary disease with marked interval improvement of bilateral lower lobe airspace disease with only minimal residual airspace disease which may reflect scarring. 2. Otherwise, no acute abnormality. Sincere Das MD Abdomen/Pelvis CT 11/03/16 0000 Signed Impressions: Service Date/Time: Thursday, November 03, 2016 18:16 - CONCLUSION: 1. Nonspecific bowel gas pattern which may represent an ileus. A moderate amount stool is present and there are multiple diverticuli. 2. Interval improvement in consolidation in both lung bases with milder residual and small effusions. There is underlying scarring and emphysema. 3. Stable small infrarenal abdominal aortic aneurysm. 4. Numerous small calcified gallstones again noted. 5. The kidneys appear stable and unremarkable with no renal calculi or acute obstruction. 6. Sage catheter in the bladder with air fluid level. There is suboptimal visualization. Eros Kaur MD Patient/Family Conference Present at Family Conference: Patient's son Guzman by telephone . Family Conference Time (mins): 33 Family Conference Location: Telephone Issues Discussed: * Palliative care role, purpose, approach * Hospice care role, purpose, approach * Additional medical, psychosocial, and spiritual history * Patients general health, functional status, and cognitive changes in the months leading up to the current hospitalization * Patient/family understanding of the current medical problems * Patient/family understanding of prognosis * Patients goals of care as best understood from advance directives and/or conversations and/or values * Current medical treatment options and benefits/burdens of those options * Likely scenarios comparing ongoing aggressive care with a transition to comfort measures only * Questions answered to the best of my ability * Palliative care contact information provided The patient has a clear understanding of his worsening debility and cachexia. His goal is to get out of the hospital and back to Rehab, and if he can get strong enough to get back home. He does understand that living at home independently is a long shot, but he wants to try that. If that fails, he will likely be living at an [facility]. The patient does not want to be intubated or mechanically ventilated. He DOES want CPR, defibrillation, and ACLS meds. . Assessment and Plan Disease Oriented Problem List: (1) general debility, with worsening cachexia, fatigue, weakness, and loss of appetite (2) end-stage lung disease, with severe COPD and recent necrotizing Pseudomonas pneumonia (3) CAD with an NSTEMI, 2 recent stents, and a remaining 95% RCA lesion (4) lung nodules on CT scan; history of needle biopsy of a nodule at the [facility] 18 months ago (benign) (5) cardiomyopathy, history of CHF (6) Atrial fibrillation with RVR (7) SIADH, hyponatremia (8) malnutrition, albumin 2.7 (9) atrial fib with RVR, recent (10) anemia (11) early decubitus, sacral (12) cholelithiasis on CT scan (13) diverticulosis Symptom Scale: (1) dyspnea 0-10 Scale: 1 (worse with any exertion) (2) fatigue/weakness 0-10 Scale: Unable to quantify Pertinent Non-Medical Issues Psychosocial: Originally from [place], served 6 years in the [employer] including serving in [employer], 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 twice and was living alone. Spiritual: Latter Day background Legal: The patient has capacity for decision-making at this time. He has designated his son Guzman and daughter Anai as primary and secondary HCS respectively. Ethical issues impacting care: None . Important Contacts Son: Guzman Putnam (in [place]) [phone] Daughter: Anai Putnam (living in [place]) [phone] . Prognosis This patient has end-stage lung disease and also significant heart disease. He has been declining for at least a couple years and is now cachectic and malnourished. He is appropriate for hospice services when his goals become comfort oriented. . Code Status: Alternative Code (no intubation) Plan * ALTERNATE CODE: On 11/06/16, the patient and his son confirmed that the patient does not want intubation or mechanical ventilation (but will accept CPR/ACLS) * GOALS: The patient has a clear understanding of his worsening debility and cachexia. His goal is to get out of the hospital and back to Rehab, and - if he can get strong enough - to get back home. He does understand that living at home independently again is a long shot, but he wants to try that. If that fails, he will likely be living at an [facility]. The patient does NOT want to be intubated or mechanically ventilated. He DOES want CPR, defibrillation, and ACLS meds. * DECISION-MAKING: The patient has capacity for decision-making at this time. He has designated his son Guzman and daughter Anai as primary and secondary HCS respectively. * SYMPTOMS: The patient is not dyspneic while on supplemental O2 and lying in the bed. He has no significant pain at this time. His profound fatigue and weakness is being addressed with encouraging oral intake and a plan for Rehab. * I will send for records of his scans and lung biopsy from the [facility] in [place] ( to see if the nodules are the same as they were 18 months ago or if there is something different now). This may of course impact his prognosis even more. * Palliative Care will continue to follow the patient during this hospitalization. . Thank you for the opportunity to participate in the care of Mr. Putnam. Michelle Keys MD Nov 06, 2016 11:13
--- NOTE | 2016-11-06 16:43 | HHI.PR ---
Subjective Remarks Patient laying in bed, denied acute complain, no abdominal pain chest pain short of breath diarrhea or constipation Discussed with grinder set up operator thread will transfer to medical floor blood pressure improved. Per the nurse patient has area of redness on optical scans on the sacrum Objective Vitals Vital Signs Date Time Temp Pulse Resp B/P Pulse Ox O2 Delivery O2 Flow Rate FiO2 11/06/16 16:29 97.2 103 18 106/54 98 11/06/16 16:00 Nasal Cannula 3.00 11/06/16 14:00 83 11/06/16 12:00 83 11/06/16 12:00 98.0 96 18 117/58 97 11/06/16 10:00 83 11/06/16 08:00 83 11/06/16 08:00 97.8 96 18 106/58 97 11/06/16 07:33 98 Nasal Cannula 3.00 11/06/16 06:00 83 11/06/16 04:00 98.2 90 12 113/56 97 11/06/16 04:00 90 11/06/16 02:00 98 11/06/16 00:00 111 11/06/16 00:00 111 21 107/57 96 11/05/16 22:00 114 11/05/16 21:23 95 Nasal Cannula 3.00 11/05/16 21:00 114 19 105/58 94 11/05/16 20:00 109 11/05/16 20:00 98.1 109 19 102/57 93 11/05/16 18:00 109 I/O 11/05/16 11/05/16 11/05/16 11/06/16 11/06/16 11/06/16 07:00 15:00 23:00 07:00 15:00 23:00 Intake Total 501 ml 1085 ml 1483 ml 614 ml 630 ml Output Total 350 ml 525 ml 2200 ml 1325 ml 850 ml Balance 151 ml 560 ml -717 ml -711 ml -220 ml Intake Oral 240 ml 711 ml 480 ml 240 ml 480 ml IV Total 261 ml 374 ml 443 ml 239 ml 150 ml Packed Cells 560 ml 135 ml Output Urine Total 350 ml 525 ml 2200 ml 1325 ml 850 ml # Bowel Movements 1 3 1 2 Result Diagram: 11/06/16 0448 11/06/16 0448 Objective Remarks GENERAL: This is a well-nourished, well-developed patient, in no apparent distress. SKIN: No rashes, warm and dry HEAD: Atraumatic. Normocephalic. EYES: Pupils equal round and reactive. Extraocular motions intact. No scleral icterus. ENT: Nose without bleeding, or drainage, Airway patent. NECK: Trachea midline. Supple CARDIOVASCULAR: Regular rate and rhythm without murmurs, gallops, or rubs. RESPIRATORY: Fair air entry bilaterally. No wheezes, rales, or rhonchi. GASTROINTESTINAL: Abdomen soft, non-tender, nondistended. Positive bowel sounds MUSCULOSKELETAL: Extremities without clubbing, cyanosis, or edema. Pedal pulses appreciated NEUROLOGICAL: Awake and alert. Moves all extremity. Normal speech.no focal neurological deficit Date of Insertion: Nov 03, 2016 Date of Insertion: Nov 03, 2016 A/P Assessment and Plan 71-year-old male that presents to the ED for evaluation of generalized weakness. The patient was recently discharged on 10/26/16. Patient has a chronic history of SIADH as well as anemia and was recently admitted for severe sepsis,Afib RVR, NYHA Class IV heart failure, NSTEMI with PCI stents placed as staged procedures for 90% mid circumflex,and 95% proximal RCA lesions, as he was not a surgical candidate. Patient for the past 2 days has been feeling weak. He is not able to ambulate. No fevers chills or sweats. Denies angina. On his last admission he required transfusion secondary to anemia and possible bleeding. Patient reports that he's been compliant with his medications. Patient currently [facility] in [facility]. Patient was found to be hypotensive by ambulance when the brought him here. Patient was found to be with a blood pressure in the 60s. Per EMS,the patient was given 500 mL of saline bolus the blood pressure to the 80s. Critical care medicine was consulted. Upon arrival to the ED, the pt was alert and appropriately responsive. The patient had received a 2 liter bolus BP 87/53 and levophed had been initiated currently at 5 mcgs, and 1 u PRBC transfusing. Subjective: 11/04: Norepinephrine discontinued this a.m.. The patient's systolic blood pressure ranges from 92 low 100's, just as previous admission. The patient's tolerating a diet with supplemental Ensure shakes. The patient is alert and oriented physical therapy has been ordered to be initiated. Noted troponin levels no escalation in values. The patient has chronic hyponatremia with a sodium level normally [id number]. Resolution of hematuria noted. 11/05: Pressure still low 95/51 with increased heart rate, hemoglobin 7.4, BNP 303 , blood cultures still negative, chest x-ray showing scarring, will consider stopping antibiotic iv, 11/06: blood pressure improved, hemoglobin improved to 11.1, will transfer to medical [facility] open skin wound>> consult wound care A/P 1. Hypotension 2. Generalized weakness 3. NYHA Class IV heart failure 4. Chronic hyponatremia 5. 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 S/P PCI [id number] 10/2016 7. Lactic acidemia 8. Centrilobular emphysema 9. Dehydration 10. COPD 11. Distal Abdominal aortic aneurysm 3.2 cm 12. Hyperkalemia 13. Emphysema 14. Hematuria Plan Bronchodilators every 6 hours scheduled, every 2 hours when necessary Maintain head of bed 30 Follow chest x-ray 10/09 echocardiogram ejection fraction 3540 %, no RWMA, mild MR, mild TR, systolic function slightly decreased Continue Plavix, ASA, and atorvastatin Hold Cardizem in the setting of hypotension Troponin 0.11->0.11->0.11 Follow-up BNP Normal saline at 42 cc/hour. Monitor sodium level every 12 hours. Patient's sodium level normally ranges 296900, during previous hospitalization. 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 Previous admission -pneumonia Pseudomonas Obtain sputum culture Follow-up blood cultures urine Legionella ,streptococcal antigens- both negative influenza A and B-negative Obtain LFTs Glucose monitoring per ICU protocol -- SSI Prophylaxis: GI Prophylaxis Protonix PO DVT Prophylaxis -- SCDs Heparin BID Berna Perez MD Nov 06, 2016 16:43
[2016-11-06] MEDS: SODIUM CHLOR 0.9% 1000 ML INJ 1,000 ML IV SCH (17:31)
[2016-11-06] MEDS ORDERED: PHARMACY ORDERED LAB ONE (17:45)
[2016-11-06] MEDS: VANCOMYCIN INJ 600 MG in SODIUM CHLOR 0.9% 250 ML INJ 250 ML IV SCH (18:33)
[2016-11-06 22:16] LABS: HEMATOCRIT 27.4 % (39.0-51.0); REVIEW FLAG FINAL
[2016-11-07] VITALS (11 sets, daily range): BP systolic 98–126; BP diastolic 53–77; PULSE 88–111; RESP 18–20; TEMP 95.9–98.8; O2SAT 95–99
[2016-11-07] MEDS: PIPERACIL-TAZO 3.375 GM PREMIX 50 ML IV SCH ×2 (01:34→08:58)
[2016-11-07] MEDS: RESP: ALBUTEROL 2.5 MG/IPRATROPIUM 0.5 MG NEB (SCH) INH ×4 (03:05→20:27)
[2016-11-07] MEDS: CHLORHEXIDINE GLUCONATE 2 % 1 PACK (2 CLOTHS) TOP SCH (04:00)
[2016-11-07] MEDS: SENNOSIDES 8.6 MG TAB PO SCH ×2 (05:00→17:00)
[2016-11-07] MEDS ORDERED: VANCOMYCIN INJ 750 MG in SODIUM CHLOR 0.9% 250 ML INJ 250 ML IV SCH (06:00)
[2016-11-07 07:31] LABS: HEMATOCRIT 32.2 % (39.0-51.0); MEAN CELL VOLUME 76.7 FL (80.0-100.0); MEAN CORPUSCULAR HEMOGLOBIN 26.2 PG (27.0-34.0); MEAN CORPUSCULAR HGB CONC 34.1 % (32.0-36.0); PLATELET COUNT 114 TH/MM3 (150-450); RED CELL DISTRIBUTION WIDTH 25.3 % (11.6-17.2); WHITE BLOOD COUNT 3.5 TH/MM3 (4.0-11.0)
[2016-11-07 07:34] LABS: REVIEW FLAG AUTO DIFF
[2016-11-07 08:04] LABS: BICARBONATE 28.7 MEQ/L (21.0-32.0); MAGNESIUM 1.1 MG/DL (1.5-2.5); POTASSIUM 3.9 MEQ/L (3.5-5.1)
[2016-11-07 08:26] LABS: CALCIUM-PROTEIN CORRECTED 8.7 MG/DL (8.5-10.1)
--- NOTE | 2016-11-07 08:33 | PD.CARD.PN ---
Subjective Subjective Remarks asleep in nad Objective Vital Signs / I&O Vital Signs Date Time Temp Pulse Resp B/P Pulse Ox O2 Delivery O2 Flow Rate FiO2 11/07/16 08:00 97.4 98 20 98/53 98 11/07/16 07:27 97 Nasal Cannula 3.00 11/07/16 04:42 98.8 105 18 105/59 95 11/07/16 03:11 103 11/07/16 03:05 98 Nasal Cannula 3.00 11/07/16 00:40 97.1 95 18 116/77 99 11/06/16 23:00 Nasal Cannula 3.00 11/06/16 20:20 97.3 67 16 109/51 98 11/06/16 16:29 97.2 103 18 106/54 98 11/06/16 16:00 Nasal Cannula 3.00 11/06/16 14:00 83 11/06/16 12:00 83 11/06/16 12:00 98.0 96 18 117/58 97 11/06/16 10:00 83 I/O 11/06/16 11/06/16 11/06/16 11/07/16 11/07/16 11/07/16 07:00 15:00 23:00 07:00 15:00 23:00 Intake Total 614 ml 630 ml 860 ml 1190 ml Output Total 1325 ml 850 ml 376 ml 1800 ml Balance -711 ml -220 ml 484 ml -610 ml Intake Oral 240 ml 480 ml 1190 ml Oral Supplement 474 ml IV Total 239 ml 150 ml 386 ml Packed Cells 135 ml Output Urine Total 1325 ml 850 ml 375 ml 1800 ml Stool Total 1 ml # Bowel Movements 1 2 2 Physical Exam GENERAL: SKIN: Warm and dry. HEAD: Normocephalic. EYES: No scleral icterus. No injection or drainage. NECK: Supple, trachea midline. No JVD or lymphadenopathy. CARDIOVASCULAR: Regular rate and rhythm without murmurs, gallops, or rubs. RESPIRATORY: Breath sounds equal bilaterally. No accessory muscle use. GASTROINTESTINAL: Abdomen soft, non-tender, nondistended. MUSCULOSKELETAL: No cyanosis, or edema. BACK: Nontender without obvious deformity. No CVA tenderness. Laboratory Laboratory Tests Test 11/06/16 11/06/16 11/07/16 17:25 21:02 06:52 Vancomycin Level Trough 2.7 MCG/ML Hemoglobin 9.1 GM/DL 11.0 GM/DL Hematocrit 27.4 % 32.2 % White Blood Count 3.5 TH/MM3 Red Blood Count 4.20 MIL/MM3 Mean Corpuscular Volume 76.7 FL Mean Corpuscular Hemoglobin 26.2 PG Mean Corpuscular Hemoglobin 34.1 % Concent Red Cell Distribution Width 25.3 % Platelet Count 114 TH/MM3 Mean Platelet Volume 9.0 FL Sodium Level 128 MEQ/L Potassium Level 3.9 MEQ/L Chloride Level 93 MEQ/L Carbon Dioxide Level 28.7 MEQ/L Anion Gap 6 MEQ/L Blood Urea Nitrogen 10 MG/DL Creatinine 0.29 MG/DL Estimat Glomerular Filtration 306 ML/MIN Rate Random Glucose 92 MG/DL Calcium Level 7.4 MG/DL Protein Corrected Calcium 8.7 MG/DL Magnesium Level 1.1 MG/DL B-Type Natriuretic Peptide 276 PG/ML Total Protein 4.8 GM/DL Assessment and Plan Problem List: (1) CHF (congestive heart failure) (2) Anemia (3) Cardiomyopathy (4) CAD (coronary artery disease) (5) NSTEMI (non-ST elevated myocardial infarction) (6) Atrial fibrillation with RVR (7) COPD (chronic obstructive pulmonary disease) (8) Hyponatremia Assessment and Plan 1.) CAD - assymptomatic, continue aspirin 81 mg qd, plavix 75 mg qd, start lipitor 20 mg hs, keep hgb > 10, still has 95% proximal rca, heavily calcified 2.) Cardiomyopathy - mild bnp elevation, f/u bnp in am, start altace 2.5 mg qd, beta jimy held due to severe copd, increase in keya not done due to hypotension and unstable hgb 3.) Anemia - appears to have occult blood loss, defer workup to hospitalist Daniel Trujillo MD Nov 07, 2016 08:33
[2016-11-07] MEDS: ASPIRIN EC 81 MG TABEC PO SCH (08:51)
[2016-11-07] MEDS: CLOPIDOGREL 75 MG TAB PO SCH (08:52)
[2016-11-07] MEDS: PANTOPRAZOLE SOD 40 MG DELAYED RELEASE TAB PO SCH (08:52)
[2016-11-07] MEDS: DOCUSATE SODIUM 50 MG/SENNA 8.6 MG TAB PO SCH ×2 (08:55→21:01)
[2016-11-07] MEDS: HEPARIN SODIUM - SQ 10,000 UNITS/ML VIAL SQ SCH ×2 (08:55→21:01)
[2016-11-07] MEDS: RAMIPRIL 2.5 MG CAP PO SCH (08:56)
[2016-11-07] MEDS: SODIUM CHLORIDE 0.9% FLUSH 10 ML FLUSH IV FLUSH SCH ×2 (08:56→21:00)
[2016-11-07 13:17] LABS: TRANSFERRIN IRON PROFILE 113 MG/DL (200-360)
[2016-11-07 13:19] LABS: FERRITIN 1612 NG/ML (26-388)
[2016-11-07] MEDS: MAGNESIUM SULFATE 1 GM PREMIX 100 ML IV SCH ×2 (14:06→15:56)
--- NOTE | 2016-11-07 14:18 | PD.CONS ---
HPI History of Present Illness This is a 71 year old male with a history of end-stage lung disease, cardiomyopathy, recent non-STEMI (S/P bare metal stent placement last month), and recent pseudomonas pneumonia who was sent from a local rehab facility for evaluation of generalized weakness. He was recently hospitalized for a non- STEMI and underwent cardiac catheterization (10/25/16)-----> 95% proximal LAD lesion, 95% proximal circumflex vessel stenosis, and 95% proximal right coronary stenosis and had PCI bare metal stent of the proximal circumflex. He was subsequently started on Plavix and ASA. He is now admitted for generalized weakness, hypotension, acute on chronic diastolic and systolic heart failure, COPD, emphysema, dehydration, electrolyte abnormalities, anemia, and hematuria. GI has been consulted for evaluation of anemia. On 10/26/16, he was noted to have an HH of of 10.9/32.7. On this admission, it was noted to be 9.1/27.8. Stool was hemoccult negative in the ER. He has required 4 transfusions since October of 2016. He has had a weight loss of 87 lbs over the past 1.5 years. He reported to another provider that he has had decreased appetite, but tells me that his appetite has been fine at home, that he is able to eat and also has been taking ensure. He states that he does not have any issues with eating and has been "eating fine." He denies any heartburn, reflux, abdominal pain, nausea , vomiting, bowel changes, constipation, diarrhea, blood in his stool or dark tarry stools. He last had a colonoscopy "many years ago" and reports that this was normal without any polyps. He denies any hx of peptic ulcer disease. He denies the use of Ibuprofen or Aleve. He does not drink alcohol. He denies any family history of esophageal, gastric, or colorectal cancer. PFSH Past Medical History End-stage lung disease, with severe COPD, Emphysema Recent pseudomonas pneumonia Hx lung nodules on CT scan; history of needle biopsy of lung nodule at the [facility] ( it was benign) Cardiomyopathy, history of CHF CAD, with an NSTEMI, 2 recent bare metal stents, and a remaining 95% RCA lesion Atrial fib with RVR, recent SIADH, hyponatremia Malnutrition Anemia Diverticulosis Cholelithiasis Early decubitus, sacral Past Surgical History Mandible surgery Right knee surgery Right ankle fracture Hip fracture 2014 Cardiac cath X October 2016, 2 stents placed Lung needle biopsy about 18 months ago at the [facility] Colonoscopy Coded Allergies: No Known Allergies (Unverified , 11/03/16) Medications Allergies Coded Allergies Type Severity Reaction Last Updated Verified No Known Allergies 11/03/16 No Active Scripts Medications Dose Route/Sig Days Date Category Dose Instructions Ciprofloxacin (Ciprofloxacin HCl) 750 Mg Tab 750 Mg PO Q12HR 10/26/16 Rx Prednisone 20 Mg Tab 20 Mg PO DAILY 5 10/26/16 Rx take 20mg po x 1 day (start 10/27/16) then 10mg po daily x 4 days Lipitor (Atorvastatin Calcium) 20 Mg Tab 20 Mg PO HS 10/26/16 Rx Ramipril 5 Mg Cap 5 Mg PO DAILY 30 10/26/16 Rx Megestrol Liq (Megestrol Acetate) 40 Mg/Ml Susp 400 Mg PO DAILY 30 10/26/16 Rx Cardizem (Diltiazem HCl) 60 Mg Tab 60 Mg PO Q6H 30 10/26/16 Rx Plavix (Clopidogrel Bisulfate) 75 Mg Tab 75 Mg PO DAILY 30 10/26/16 Rx Adult Aspirin EC Low Strength (Aspirin) 81 Mg Tabec 81 Mg PO DAILY 30 10/26/16 Rx Family History Denies any family history of esophageal, gastric, or colorectal cancer. Social History Quit smoking about 1 year ago. No ETOH use. Review of Systems Constitutional: COMPLAINS OF: Fatigue, Weight loss, Change in appetite (pt denies for me, but admitted to other providers), DENIES: Fever, Chills Respiratory: COMPLAINS OF: Cough, Wheezing, Shortness of breath Gastrointestinal: DENIES: Abdominal pain, Black stools, Bloody stools, Constipation, Diarrhea, Nausea, Vomiting, Anorexia (denies), Swelling of Abdomen , Heartburn, Hematemesis Musculoskeletal: COMPLAINS OF: Joint pain Hematologic/lymphatic: DENIES: Bruising Neurologic: DENIES: Headache Psychiatric: DENIES: Confusion GI Exam Vitals I&O Vital Signs Date Time Temp Pulse Resp B/P Pulse Ox O2 Delivery O2 Flow Rate FiO2 11/07/16 11:50 96.6 98 20 99/56 98 11/07/16 08:00 97.4 98 20 98/53 98 11/07/16 07:27 97 Nasal Cannula 3.00 11/07/16 04:42 98.8 105 18 105/59 95 11/07/16 03:11 103 11/07/16 03:05 98 Nasal Cannula 3.00 11/07/16 00:40 97.1 95 18 116/77 99 11/06/16 23:00 Nasal Cannula 3.00 11/06/16 20:20 97.3 67 16 109/51 98 11/06/16 16:29 97.2 103 18 106/54 98 11/06/16 16:00 Nasal Cannula 3.00 11/06/16 14:00 83 I/O 11/06/16 11/06/16 11/06/16 11/07/16 11/07/16 11/07/16 07:00 15:00 23:00 07:00 15:00 23:00 Intake Total 614 ml 630 ml 860 ml 1190 ml Output Total 1325 ml 850 ml 376 ml 1800 ml Balance -711 ml -220 ml 484 ml -610 ml Intake Oral 240 ml 480 ml 1190 ml Oral Supplement 474 ml IV Total 239 ml 150 ml 386 ml Packed Cells 135 ml Output Urine Total 1325 ml 850 ml 375 ml 1800 ml Stool Total 1 ml # Bowel Movements 1 2 2 Imaging Last Impressions Chest X-Ray 11/03/16 1243 Signed Impressions: Service Date/Time: Thursday, November 03, 2016 16:44 - CONCLUSION: 1. Changes of obstructive pulmonary disease with marked interval improvement of bilateral lower lobe airspace disease with only minimal residual airspace disease which may reflect scarring. 2. Otherwise, no acute abnormality. Sincere Das MD Abdomen/Pelvis CT 11/03/16 0000 Signed Impressions: Service Date/Time: Thursday, November 03, 2016 18:16 - CONCLUSION: 1. Nonspecific bowel gas pattern which may represent an ileus. A moderate amount stool is present and there are multiple diverticuli. 2. Interval improvement in consolidation in both lung bases with milder residual and small effusions. There is underlying scarring and emphysema. 3. Stable small infrarenal abdominal aortic aneurysm. 4. Numerous small calcified gallstones again noted. 5. The kidneys appear stable and unremarkable with no renal calculi or acute obstruction. 6. Sage catheter in the bladder with air fluid level. There is suboptimal visualization. Eros Kaur MD Laboratory Test 11/06/16 11/06/16 11/07/16 17:25 21:02 06:52 Vancomycin Level Trough 2.7 MCG/ML Hemoglobin 9.1 GM/DL 11.0 GM/DL Hematocrit 27.4 % 32.2 % White Blood Count 3.5 TH/MM3 Red Blood Count 4.20 MIL/MM3 Mean Corpuscular Volume 76.7 FL Mean Corpuscular Hemoglobin 26.2 PG Mean Corpuscular Hemoglobin 34.1 % Concent Red Cell Distribution Width 25.3 % Platelet Count 114 TH/MM3 Mean Platelet Volume 9.0 FL Sodium Level 128 MEQ/L Potassium Level 3.9 MEQ/L Chloride Level 93 MEQ/L Carbon Dioxide Level 28.7 MEQ/L Anion Gap 6 MEQ/L Blood Urea Nitrogen 10 MG/DL Creatinine 0.29 MG/DL Estimat Glomerular Filtration 306 ML/MIN Rate Random Glucose 92 MG/DL Calcium Level 7.4 MG/DL Protein Corrected Calcium 8.7 MG/DL Magnesium Level 1.1 MG/DL Iron Level 80 MCG/DL Total Iron Binding Capacity 158 MCG/DL Percent Iron Saturation 50.6 % Transferrin 113 MG/DL Ferritin 1612 NG/ML B-Type Natriuretic Peptide 276 PG/ML Total Protein 4.8 GM/DL Date/Time Procedure Status Source Growth 11/03/16 13:45 Legionella Antigen - Final Complete Urine Catheterized Urine PRESUMPTIVE NEGATIVE FOR LEGIONELLA P... 11/03/16 13:45 Streptococcus pneumoniae Antigen (M - Final Complete Urine Catheterized Urine PRESUMPTIVE NEGATIVE FOR STREPTOCOCCU... 11/03/16 13:40 Aerobic Blood Culture - Preliminary Resulted Blood Peripheral NO GROWTH IN 4 DAYS 11/03/16 13:40 Anaerobic Blood Culture - Preliminary Resulted Blood Peripheral NO GROWTH IN 4 DAYS Physical Examination GEN: Cachectic HEENT: Normocephalic; atraumatic; no jaundice. CHEST: Resp shallow/even, diminished throughout, O2 3L via n/c CARDIAC: RRR ABDOMEN: Soft, mildly bloated, nontender; no hepatosplenomegaly; bowel sounds are present in all four quadrants. EXTREMITIES: No clubbing, cyanosis, or edema. 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 Assessment and Plan Plan ASSESSMENT: - Anemia. On 10/26/16, he was noted to have an HH of of 10.9/32.7. On this admission, it was noted to be 9.1/27.8. Stool was hemoccult negative in the ER. He has required 4 transfusions since October of 2016. He has lost 87 lbs over the past 1.5 years and reported decreased appetite to other providers, but tells me his appetite is fine and that he is eating at home and drinking supplemental ensure. He denies any heartburn, n/ v, abd pain, changes in bowels, constipation, diarrhea, melena, or hematochezia. Last colonoscopy was "many years ago" states that it was normal and he did not have polyps. No hx of PUD. Abdomen/Pelvis CT (11/03/16)----> 1. Nonspecific bowel gas pattern which may represent an ileus. A moderate amount stool is present and there are multiple diverticuli. 2. Interval improvement in consolidation in both lung bases with milder residual and small effusions. There is underlying scarring and emphysema. 3. Stable small infrarenal abdominal aortic aneurysm. 4. Numerous small calcified gallstones again noted. 5. The kidneys appear stable and unremarkable with no renal calculi or acute obstruction. 6. Sage catheter in the bladder with air fluid level. There is suboptimal visualization. He had recent PCI with bare metal stent placement to the mid left circumflex wall and proximal circumflex. He is on Plavix and asa. Because of his advanced respiratory disease and his recent stent placement with bare metal stent- he is a very high risk for any endoscopic evaluation. He is not having gross active bleeding and therefore we will check hemoccults. If these are positive, we will consider air contrast barium swallow/upper gi series for further evaluation. Consider endoscopic evaluation only if active bleeding and once has been cleared by cardiology, with regards to holding the plavix and asa. - Abnormal weight loss, FTT. CT as above. Last colonoscopy many years ago. Taking ensure. - CAD with recent bare metal stent placement,Afib. Cardiac catheterization ()-----> 95% proximal LAD lesion, 95% proximal circumflex vessel stenosis, and 95% proximal right coronary stenosis and had PCI bare metal stent of the proximal circumflex. He was subsequently started on Plavix and ASA. On heparin - CHF, Hx afib per cardiology. - End-stage lung disease with emphysema/copd and recent PSAE pneumonia. Pt is on 3L via NC and reports this is how much he using at home. Per attending. - Hx SIADH with electrolyte abnormalities, AAA, generalized weakness, dehydration per attending. PLAN: - Heart healthy diet with ensure - Cont. PPI - Monitor HH - Transfuse as necessary - Hemoccult Stool x 3 - Consider upper gi series if stool guiac positive - Consider endoscopic evaluation only if active bleeding and cleared by cardiology- with regards to plavix/asa/heparin - Supportive care - Further recommendations to follow based on results of above - Pt seen and examined by Dr. Chappell and myself and this note is written on his behalf Maricruz Mercedes Nov 07, 2016 14:18
--- NOTE | 2016-11-07 15:35 | HHI.HCPN ---
Reason for visit a. To assist with evaluation and management of symptoms including: Dyspnea , fatigue/weakness b. To assist medical decision maker(s) with: better understanding of current medical conditions; weighing benefits/burdens of medical treatment options; making medical treatment decisions. . Subjective/Interval History INTERVAL NOTE: No change in how the patient feels. He denies significant pain, and his dyspnea is minimal while at bedrest, but significant with any exertion. Gastroenterology has evaluated the patient because of his anemia, and some additional stool testing for Hemoccult is underway. . Advance Directives Living Will: Never completed Health Care Surrogate: Copy in medical record Durable Power of Loss Prevention Representative: Never completed Advance Directive Specifics Health Care Surrogate(s): Last month, he designated his son Guzman as primary HCS and daughter Anai as secondary. . Objective Vital Signs Date Time Temp Pulse Resp B/P Pulse Ox O2 Delivery O2 Flow Rate FiO2 11/07/16 11:50 96.6 98 20 99/56 98 11/07/16 08:00 97.4 98 20 98/53 98 11/07/16 07:27 97 Nasal Cannula 3.00 11/07/16 04:42 98.8 105 18 105/59 95 11/07/16 03:11 103 11/07/16 03:05 98 Nasal Cannula 3.00 11/07/16 00:40 97.1 95 18 116/77 99 11/06/16 23:00 Nasal Cannula 3.00 11/06/16 20:20 97.3 67 16 109/51 98 11/06/16 16:29 97.2 103 18 106/54 98 11/06/16 16:00 Nasal Cannula 3.00 Intake & Output 11/07/16 11/07/16 07:00 19:00 Intake Total 1190 ml Output Total 1800 ml Balance -610 ml Intake Oral 1190 ml Output Urine Total 1800 ml # Bowel Movements 2 Physical Exam CONSTITUTIONAL/GENERAL: This is weak, cachectic patient, in no apparent distress. TUBES/LINES/DRAINS: IV, supplemental nasal oxygen, Sage catheter SKIN: No jaundice, rashes. There is an early stage 4 cm decubitus over his sacrum. Ecchymoses on upper extremities. No wounds seen anteriorly. Skin temperature appropriate. Not diaphoretic. NECK: Trachea midline. Supple, nontender. No palpable thyroid enlargement or nodularity. CARDIOVASCULAR: Regular rate and rhythm without murmurs, gallops, or rubs. No JVD. Peripheral pulses symmetric. RESPIRATORY/CHEST: Symmetric, unlabored respirations. Markedly diminished breath sounds on the right, somewhat diminished on the left. No wheezes, rales, or rhonchi. GASTROINTESTINAL: Abdomen soft, non-tender, nondistended. No hepato-splenomegaly , or palpable masses. No guarding. Bowel sounds present. MUSCULOSKELETAL: Extremities without clubbing, cyanosis, or edema. No joint tenderness or effusion noted. No calf tenderness. No mottling or clubbing. NEUROLOGICAL: Awake and alert. Motor and sensory grossly within normal limits, but he has global weakness. Follows commands. Cognitively sharp. Moves all extremities. PSYCHIATRIC: No obvious anxiety/depression. no apparent hallucinations or other psychotic thought process. . Diagnostic Tests Laboratory Laboratory Tests Test 11/05/16 11/05/16 11/06/16 11/06/16 01:22 13:31 01:08 04:48 Hemoglobin 7.4 GM/DL 10.7 GM/DL 11.1 GM/DL (13.0-17.0) (13.0-17.0) (13.0-17.0) Hematocrit 22.6 % 31.0 % 32.1 % (39.0-51.0) (39.0-51.0) (39.0-51.0) Sodium Level 133 MEQ/L 130 MEQ/L 129 MEQ/L (136-145) (136-145) (136-145) Blood Type O NEGATIVE Crossmatch Leukocyte-Reduced Red Blood Cells Blood Bank Comment White Blood Count 3.1 TH/MM3 (4.0-11.0) Red Blood Count 4.19 MIL/MM3 (4.50-5.90) Mean Corpuscular Volume 76.6 FL (80.0-100.0) Mean Corpuscular Hemoglobin 26.5 PG (27.0-34.0) Mean Corpuscular Hemoglobin 34.7 % Concent (32.0-36.0) Red Cell Distribution Width 24.8 % (11.6-17.2) Platelet Count 82 TH/MM3 (150-450) Mean Platelet Volume 9.4 FL (7.0-11.0) Neutrophils (%) (Auto) 65.4 % (16.0-70.0) Lymphocytes (%) (Auto) 14.6 % (9.0-44.0) Monocytes (%) (Auto) 11.7 % (0.0-8.0) Eosinophils (%) (Auto) 7.8 % (0.0-4.0) Basophils (%) (Auto) 0.5 % (0.0-2.0) Neutrophils # (Auto) 2.0 TH/MM3 (1.8-7.7) Lymphocytes # (Auto) 0.4 TH/MM3 (1.0-4.8) Monocytes # (Auto) 0.4 TH/MM3 (0-0.9) Eosinophils # (Auto) 0.2 TH/MM3 (0-0.4) Basophils # (Auto) 0.0 TH/MM3 (0-0.2) CBC Comment AUTO DIFF Differential Comment AUTO DIFF CONFIRMED Platelet Estimate LOW (NORMAL) Platelet Morphology Comment NORMAL (NORMAL) Basophilic Stippling FAINT (NORMAL) Ovalocytes (NORMAL) Acanthocytes OCC (NORMAL) Potassium Level 3.8 MEQ/L (3.5-5.1) Chloride Level 91 MEQ/L (98-107) Carbon Dioxide Level 30.6 MEQ/L (21.0-32.0) Anion Gap 7 MEQ/L (5-15) Blood Urea Nitrogen 17 MG/DL (7-18) Creatinine 0.40 MG/DL (0.60-1.30) Estimat Glomerular Filtration 211 ML/MIN Rate (>89) Random Glucose 78 MG/DL (74-106) Calcium Level 7.8 MG/DL (8.5-10.1) Phosphorus Level 2.1 MG/DL (2.5-4.9) Magnesium Level 1.1 MG/DL (1.5-2.5) B-Type Natriuretic Peptide 323 PG/ML (0-100) Test 11/06/16 11/06/16 11/06/16 11/07/16 08:27 17:25 21:02 06:52 Random Cortisol 18.0 MCG/DL Vancomycin Level Trough 2.7 MCG/ML (5.0-10.0) Hemoglobin 9.1 GM/DL 11.0 GM/DL (13.0-17.0) (13.0-17.0) Hematocrit 27.4 % 32.2 % (39.0-51.0) (39.0-51.0) White Blood Count 3.5 TH/MM3 (4.0-11.0) Red Blood Count 4.20 MIL/MM3 (4.50-5.90) Mean Corpuscular Volume 76.7 FL (80.0-100.0) Mean Corpuscular Hemoglobin 26.2 PG (27.0-34.0) Mean Corpuscular Hemoglobin 34.1 % Concent (32.0-36.0) Red Cell Distribution Width 25.3 % (11.6-17.2) Platelet Count 114 TH/MM3 (150-450) Mean Platelet Volume 9.0 FL (7.0-11.0) Sodium Level 128 MEQ/L (136-145) Potassium Level 3.9 MEQ/L (3.5-5.1) Chloride Level 93 MEQ/L (98-107) Carbon Dioxide Level 28.7 MEQ/L (21.0-32.0) Anion Gap 6 MEQ/L (5-15) Blood Urea Nitrogen 10 MG/DL (7-18) Creatinine 0.29 MG/DL (0.60-1.30) Estimat Glomerular Filtration 306 ML/MIN Rate (>89) Random Glucose 92 MG/DL (74-106) Calcium Level 7.4 MG/DL (8.5-10.1) Protein Corrected Calcium 8.7 MG/DL (8.5-10.1) Magnesium Level 1.1 MG/DL (1.5-2.5) Iron Level 80 MCG/DL (65-175) Total Iron Binding Capacity 158 MCG/DL (250-450) Percent Iron Saturation 50.6 % (20-50) Transferrin 113 MG/DL (200-360) Ferritin 1612 NG/ML (26-388) B-Type Natriuretic Peptide 276 PG/ML (0-100) Total Protein 4.8 GM/DL (6.4-8.2) Result Diagram: 11/07/16 0652 11/07/16 0652 Imaging Last Impressions Chest X-Ray 11/03/16 1243 Signed Impressions: Service Date/Time: Thursday, November 03, 2016 16:44 - CONCLUSION: 1. Changes of obstructive pulmonary disease with marked interval improvement of bilateral lower lobe airspace disease with only minimal residual airspace disease which may reflect scarring. 2. Otherwise, no acute abnormality. Sincere Das MD Abdomen/Pelvis CT 11/03/16 0000 Signed Impressions: Service Date/Time: Thursday, November 03, 2016 18:16 - CONCLUSION: 1. Nonspecific bowel gas pattern which may represent an ileus. A moderate amount stool is present and there are multiple diverticuli. 2. Interval improvement in consolidation in both lung bases with milder residual and small effusions. There is underlying scarring and emphysema. 3. Stable small infrarenal abdominal aortic aneurysm. 4. Numerous small calcified gallstones again noted. 5. The kidneys appear stable and unremarkable with no renal calculi or acute obstruction. 6. Sage catheter in the bladder with air fluid level. There is suboptimal visualization. Eros Kaur MD Assessment and Plan Disease Oriented Problem List: (1) general debility, with worsening cachexia, fatigue, weakness, and loss of appetite (2) end-stage lung disease, with severe COPD and recent necrotizing Pseudomonas pneumonia (3) CAD with an NSTEMI, 2 recent stents, and a remaining 95% RCA lesion (4) lung nodules on CT scan; history of needle biopsy of a nodule at the [facility] 18 months ago (benign) (5) cardiomyopathy, history of CHF (6) Atrial fibrillation with RVR (7) SIADH, hyponatremia (8) malnutrition, albumin 2.7 (9) atrial fib with RVR, recent (10) anemia (11) early decubitus, sacral (12) cholelithiasis on CT scan (13) diverticulosis Symptom Scale: (1) dyspnea 0-10 Scale: 1 (worse with any exertion) (2) fatigue/weakness 0-10 Scale: Unable to quantify Pertinent Non-Medical Issues Psychosocial: Originally from [facility], served 6 years in the [employer] including serving in [employer], accounting 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 twice and was living alone. Spiritual: Sabianist background Legal: The patient has capacity for decision-making at this time. He has designated his son Guzman and daughter Anai as primary and secondary HCS respectively. Ethical issues impacting care: None . Important Contacts Son: Guzman Putnam (in [place]) [phone] Daughter: Anai Putnam (living in [place]) [phone] . Prognosis This patient has end-stage lung disease and also significant heart disease. He has been declining for at least a couple years and is now cachectic and malnourished. He is appropriate for hospice services when his goals become comfort oriented. . Code Status: Alternative Code (no intubation) Plan * ALTERNATE CODE: On 11/06/16, the patient and his son confirmed that the patient does not want intubation or mechanical ventilation (but will accept CPR/ACLS) * GOALS: The patient has a clear understanding of his worsening debility and cachexia. His goal is to get out of the hospital and back to Rehab, and - if he can get strong enough - to get back home. He does understand that living at home independently again is a long shot, but he wants to try that. If that fails, he will likely be living at an [facility]. The patient does NOT want to be intubated or mechanically ventilated. He DOES want CPR, defibrillation, and ACLS meds. * DECISION-MAKING: The patient has capacity for decision-making at this time. He has designated his son Guzman and daughter Anai as primary and secondary HCS respectively. * SYMPTOMS: The patient is not dyspneic while on supplemental O2 and lying in the bed. He has no significant pain at this time. His profound fatigue and weakness is being addressed with encouraging oral intake and a plan for Rehab. * We sent for records of his scans and lung biopsy from the IN in [place] (to see if the nodules are the same as they were 18 months ago or if there is something different now). This may of course impact his prognosis even more. * Palliative Care will continue to follow the patient during this hospitalization. . Time Spent Total Floor Time (mins): 29 Face to Face Time (mins): 17 >50% Counseling/Coord of Care: Yes (s/w Jeremy Mercedes PA-C) Attestation To help prompt me to consider important information that might be impacting today's encounter and assessment, information from prior notes written by myself or my colleagues may have been "brought forward" into today's note. My signature on this note, however, is an attestation that I personally performed the exam, history, and/or decision-making noted today, and, unless otherwise indicated, the interactions with patient, family, and staff as well as the review of records all occurred today. I also attest that the listed assessment and stated plan reflect my best clinical judgment today based on the combination of historical information, prior notes, and today's exam/ interactions. When time spent is documented, it refers only to time spent today by the signer, or if indicated, combined time spent today by collaborating physician/nurse practitioner. Michelle Keys MD Nov 07, 2016 15:35
--- NOTE | 2016-11-07 17:29 | HHI.PR ---
Subjective Remarks Denied complaint Had a bowel movement yesterday not aware of blood in it No abdominal pain nausea or vomiting No fever or chills will DC iv antibiotic Anemia withH/O positive Hemoccult I don't have a documented, I will repeat it and I will consult GI Objective Vitals Vital Signs Date Time Temp Pulse Resp B/P Pulse Ox O2 Delivery O2 Flow Rate FiO2 11/07/16 16:00 98.2 101 20 104/62 98 11/07/16 11:50 96.6 98 20 99/56 98 11/07/16 08:00 97.4 98 20 98/53 98 11/07/16 07:45 88 11/07/16 07:45 Nasal Cannula 3.00 11/07/16 07:27 97 Nasal Cannula 3.00 11/07/16 04:42 98.8 105 18 105/59 95 11/07/16 03:11 103 11/07/16 03:05 98 Nasal Cannula 3.00 11/07/16 00:40 97.1 95 18 116/77 99 11/06/16 23:00 Nasal Cannula 3.00 11/06/16 20:20 97.3 67 16 109/51 98 I/O 11/06/16 11/06/16 11/06/16 11/07/16 11/07/16 11/07/16 07:00 15:00 23:00 07:00 15:00 23:00 Intake Total 614 ml 630 ml 860 ml 1190 ml Output Total 1325 ml 850 ml 376 ml 1800 ml Balance -711 ml -220 ml 484 ml -610 ml Intake Oral 240 ml 480 ml 1190 ml Oral Supplement 474 ml IV Total 239 ml 150 ml 386 ml Packed Cells 135 ml Output Urine Total 1325 ml 850 ml 375 ml 1800 ml Stool Total 1 ml # Bowel Movements 1 2 2 Result Diagram: 11/07/16 0652 11/07/16 0652 Objective Remarks GENERAL: This is a well-nourished, well-developed patient, in no apparent distress. SKIN: No rashes, warm and dry HEAD: Atraumatic. Normocephalic. EYES: Pupils equal round and reactive. Extraocular motions intact. No scleral icterus. ENT: Nose without bleeding, or drainage, Airway patent. NECK: Trachea midline. Supple CARDIOVASCULAR: Regular rate and rhythm without murmurs, gallops, or rubs. RESPIRATORY: Fair air entry bilaterally. No wheezes, rales, or rhonchi. GASTROINTESTINAL: Abdomen soft, non-tender, nondistended. Positive bowel sounds MUSCULOSKELETAL: Extremities without clubbing, cyanosis, or edema. Pedal pulses appreciated NEUROLOGICAL: Awake and alert. Moves all extremity. Normal speech.no focal neurological deficit Date of Insertion: Nov 03, 2016 Date of Insertion: Nov 03, 2016 A/P Assessment and Plan 71-year-old male that presents to the ED for evaluation of generalized weakness. The patient was recently discharged on 10/26/16. Patient has a chronic history of SIADH as well as anemia and was recently admitted for severe sepsis,Afib RVR, NYHA Class IV heart failure, NSTEMI with PCI stents placed as staged procedures for 90% mid circumflex,and 95% proximal RCA lesions, as he was not a surgical candidate. Patient for the past 2 days has been feeling weak. He is not able to ambulate. No fevers chills or sweats. Denies angina. On his last admission he required transfusion secondary to anemia and possible bleeding. Patient reports that he's been compliant with his medications. Patient currently resides in [facility]. Patient was found to be hypotensive by ambulance when the brought him here. Patient was found to be with a blood pressure in the 60s. Per EMS,the patient was given 500 mL of saline bolus the blood pressure to the 80s. Critical care medicine was consulted. Upon arrival to the ED, the pt was alert and appropriately responsive. The patient had received a 2 liter bolus BP 87/53 and levophed had been initiated currently at 5 mcgs, and 1 u PRBC transfusing. Subjective: 11/04: Norepinephrine discontinued this a.m.. The patient's systolic blood pressure ranges from 92 low 100's, just as previous admission. The patient's tolerating a diet with supplemental Ensure shakes. The patient is alert and oriented physical therapy has been ordered to be initiated. Noted troponin levels no escalation in values. The patient has chronic hyponatremia with a sodium level normally [id number]. Resolution of hematuria noted. 11/05: Pressure still low 95/51 with increased heart rate, hemoglobin 7.4, BNP 303 , blood cultures still negative, chest x-ray showing scarring, will consider stopping antibiotic iv, 11/06: blood pressure improved, hemoglobin improved to 11.1, will transfer to [facility] open skin wound>> consult wound care 11/07: Anemia with increased RDW mostly blood loss through GI>> consult GI, check iron panel Hypomagnesemia>> replace iv No leukocytosis or fever no remarkable culture>> will DC iv antibiotic and monitor of antibiotic Platelet count improved to 114 Discussed extensively with palliative care A/P 1. Hypotension 2. Generalized weakness 3. NYHA Class IV heart failure 4. Chronic hyponatremia 5. 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 S/P PCI [id number] 10/2016 7. Lactic acidemia 8. Centrilobular emphysema 9. Dehydration 10. COPD 11. Distal Abdominal aortic aneurysm 3.2 cm 12. Hyperkalemia 13. Emphysema 14. Hematuria Plan Bronchodilators every 6 hours scheduled, every 2 hours when necessary Maintain head of bed 30 Follow chest x-ray 10/09 echocardiogram ejection fraction 3540 %, no RWMA, mild MR, mild TR, systolic function slightly decreased Continue Plavix, ASA, and atorvastatin Hold Cardizem in the setting of hypotension Troponin 0.11->0.11->0.11 Follow-up BNP Normal saline at 42 cc/hour. Monitor sodium level every 12 hours. Patient's sodium level normally ranges 750359, during previous hospitalization. 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 Previous admission -pneumonia Pseudomonas Obtain sputum culture Follow-up blood cultures urine Legionella ,streptococcal antigens- both negative influenza A and B-negative Obtain LFTs Glucose monitoring per ICU protocol -- SSI Prophylaxis: GI Prophylaxis Protonix PO DVT Prophylaxis -- SCDs Heparin BID Berna Perez MD Nov 07, 2016 17:29
[2016-11-07] MEDS: SODIUM CHLOR 0.9% 1000 ML INJ 1,000 ML IV SCH (18:30)
[2016-11-07] MEDS: ATORVASTATIN 20 MG TAB PO SCH (21:00)
[2016-11-08] VITALS (12 sets, daily range): BP systolic 88–124; BP diastolic 50–66; PULSE 103–117; RESP 18–20; TEMP 96–99.1; O2SAT 96–97
[2016-11-08] MEDS: CHLORHEXIDINE GLUCONATE 2 % 1 PACK (2 CLOTHS) TOP SCH (04:00)
[2016-11-08] MEDS: SENNOSIDES 8.6 MG TAB PO SCH ×2 (05:00→17:09)
[2016-11-08] MEDS ORDERED: PHARMACY ORDERED LAB ONE (05:45)
[2016-11-08] MEDS: RAMIPRIL 2.5 MG CAP PO SCH (08:58)
[2016-11-08] MEDS: ASPIRIN EC 81 MG TABEC PO SCH (08:58)
[2016-11-08] MEDS: PANTOPRAZOLE SOD 40 MG DELAYED RELEASE TAB PO SCH (08:58)
[2016-11-08] MEDS: DOCUSATE SODIUM 50 MG/SENNA 8.6 MG TAB PO SCH ×2 (08:59→22:09)
[2016-11-08] MEDS: SODIUM CHLORIDE 0.9% FLUSH 10 ML FLUSH IV FLUSH SCH ×2 (08:59→22:12)
[2016-11-08] MEDS: CLOPIDOGREL 75 MG TAB PO SCH (08:59)
[2016-11-08] MEDS: HEPARIN SODIUM - SQ 10,000 UNITS/ML VIAL SQ SCH ×2 (09:00→22:13)
[2016-11-08 11:15] LABS: HEMATOCRIT 32.5 % (39.0-51.0); MEAN CELL VOLUME 77.7 FL (80.0-100.0); MEAN CORPUSCULAR HEMOGLOBIN 25.5 PG (27.0-34.0); MEAN CORPUSCULAR HGB CONC 32.8 % (32.0-36.0); PLATELET COUNT 133 TH/MM3 (150-450); RED BLOOD COUNT 4.19 MIL/MM3 (4.50-5.90); RED CELL DISTRIBUTION WIDTH 25.4 % (11.6-17.2); WHITE BLOOD COUNT 4.1 TH/MM3 (4.0-11.0)
[2016-11-08 11:19] LABS: REVIEW FLAG FINAL
[2016-11-08 11:43] LABS: BICARBONATE 25.6 MEQ/L (21.0-32.0); POTASSIUM 4.1 MEQ/L (3.5-5.1)
--- NOTE | 2016-11-08 12:42 | PD.CARD.PN ---
Subjective Subjective Remarks alert in nad Objective Vital Signs / I&O Vital Signs Date Time Temp Pulse Resp B/P Pulse Ox O2 Delivery O2 Flow Rate FiO2 11/08/16 11:54 96.3 111 18 105/58 96 11/08/16 10:25 103 11/08/16 09:03 Nasal Cannula 3.00 11/08/16 08:00 98.1 109 20 114/58 97 11/08/16 06:50 108/66 11/08/16 04:00 97.0 114 18 88/50 97 11/08/16 02:00 Nasal Cannula 3.00 11/08/16 01:58 114 11/08/16 00:00 99.1 117 20 118/58 97 11/07/16 20:28 98 Nasal Cannula 3.00 11/07/16 20:00 95.9 111 20 126/58 97 11/07/16 16:00 98.2 101 20 104/62 98 I/O 11/07/16 11/07/16 11/07/16 11/08/16 11/08/16 11/08/16 07:00 15:00 23:00 07:00 15:00 23:00 Intake Total 1190 ml 408 ml 236 ml Output Total 1800 ml 1950 ml Balance -610 ml -1542 ml 236 ml Intake Oral 1190 ml 48 ml 236 ml IV Total 360 ml Output Urine Total 1800 ml 1950 ml # Bowel Movements 2 2 Physical Exam GENERAL: SKIN: Warm and dry. HEAD: Normocephalic. EYES: No scleral icterus. No injection or drainage. NECK: Supple, trachea midline. No JVD or lymphadenopathy. CARDIOVASCULAR: Regular rate and rhythm without murmurs, gallops, or rubs. RESPIRATORY: Breath sounds equal bilaterally. No accessory muscle use. GASTROINTESTINAL: Abdomen soft, non-tender, nondistended. MUSCULOSKELETAL: No cyanosis, or edema. BACK: Nontender without obvious deformity. No CVA tenderness. Laboratory Laboratory Tests Test 11/08/16 10:20 White Blood Count 4.1 TH/MM3 Red Blood Count 4.19 MIL/MM3 Hemoglobin 10.7 GM/DL Hematocrit 32.5 % Mean Corpuscular Volume 77.7 FL Mean Corpuscular Hemoglobin 25.5 PG Mean Corpuscular Hemoglobin 32.8 % Concent Red Cell Distribution Width 25.4 % Platelet Count 133 TH/MM3 Mean Platelet Volume 8.5 FL Sodium Level 128 MEQ/L Potassium Level 4.1 MEQ/L Chloride Level 94 MEQ/L Carbon Dioxide Level 25.6 MEQ/L Anion Gap 8 MEQ/L Blood Urea Nitrogen 7 MG/DL Creatinine 0.24 MG/DL Estimat Glomerular Filtration 381 ML/MIN Rate Random Glucose 102 MG/DL Calcium Level 7.8 MG/DL B-Type Natriuretic Peptide 230 PG/ML Assessment and Plan Problem List: (1) CHF (congestive heart failure) (2) Anemia (3) Cardiomyopathy (4) CAD (coronary artery disease) (5) NSTEMI (non-ST elevated myocardial infarction) (6) Atrial fibrillation with RVR (7) COPD (chronic obstructive pulmonary disease) (8) Hyponatremia Assessment and Plan 1.) CAD - assymptomatic, continue aspirin 81 mg qd, plavix 75 mg qd, start lipitor 20 mg hs, keep hgb > 10, still has 95% proximal rca, heavily calcified, f/u cbc 2.) Cardiomyopathy - mild bnp elevation, f/u bnp in am, start altace 2.5 mg qd, beta jimy held due to severe copd, increase in keya not done due to hypotension and unstable hgb 3.) Anemia - appears to have occult blood loss, defer workup to hospitalist 4.) Hyponatremia - diuretics held, consult renal RonnieDaniel MD Nov 08, 2016 12:41
--- NOTE | 2016-11-08 12:53 | HHI.PR ---
Subjective Remarks Laying in bed tonight complain No fever or chills no chest pain Discussed with wound care patient had a full skin loss he needed foam icterus Objective Vitals Vital Signs Date Time Temp Pulse Resp B/P Pulse Ox O2 Delivery O2 Flow Rate FiO2 11/08/16 11:54 96.3 111 18 105/58 96 11/08/16 10:25 103 11/08/16 09:03 Nasal Cannula 3.00 11/08/16 08:00 98.1 109 20 114/58 97 11/08/16 06:50 108/66 11/08/16 04:00 97.0 114 18 88/50 97 11/08/16 02:00 Nasal Cannula 3.00 11/08/16 01:58 114 11/08/16 00:00 99.1 117 20 118/58 97 11/07/16 20:28 98 Nasal Cannula 3.00 11/07/16 20:00 95.9 111 20 126/58 97 11/07/16 16:00 98.2 101 20 104/62 98 I/O 11/07/16 11/07/16 11/07/16 11/08/16 11/08/16 11/08/16 07:00 15:00 23:00 07:00 15:00 23:00 Intake Total 1190 ml 408 ml 236 ml Output Total 1800 ml 1950 ml Balance -610 ml -1542 ml 236 ml Intake Oral 1190 ml 48 ml 236 ml IV Total 360 ml Output Urine Total 1800 ml 1950 ml # Bowel Movements 2 2 Result Diagram: 11/08/16 1020 11/08/16 1020 Objective Remarks GENERAL: This is a well-nourished, well-developed patient, in no apparent distress. SKIN: No rashes, warm and dry HEAD: Atraumatic. Normocephalic. EYES: Pupils equal round and reactive. Extraocular motions intact. No scleral icterus. ENT: Nose without bleeding, or drainage, Airway patent. NECK: Trachea midline. Supple CARDIOVASCULAR: Regular rate and rhythm without murmurs, gallops, or rubs. RESPIRATORY: Fair air entry bilaterally. No wheezes, rales, or rhonchi. GASTROINTESTINAL: Abdomen soft, non-tender, nondistended. Positive bowel sounds MUSCULOSKELETAL: Extremities without clubbing, cyanosis, or edema. Pedal pulses appreciated NEUROLOGICAL: Awake and alert. Moves all extremity. Normal speech.no focal neurological deficit Date of Insertion: Nov 03, 2016 Date of Insertion: Nov 03, 2016 A/P Assessment and Plan 71-year-old male that presents to the ED for evaluation of generalized weakness. The patient was recently discharged on 10/26/16. Patient has a chronic history of SIADH as well as anemia and was recently admitted for severe sepsis,Afib RVR, NYHA Class IV heart failure, NSTEMI with PCI stents placed as staged procedures for 90% mid circumflex,and 95% proximal RCA lesions, as he was not a surgical candidate. Patient for the past 2 days has been feeling weak. He is not able to ambulate. No fevers chills or sweats. Denies angina. On his last admission he required transfusion secondary to anemia and possible bleeding. Patient reports that he's been compliant with his medications. Patient currently resides in [facility]. Patient was found to be hypotensive by ambulance when the brought him here. Patient was found to be with a blood pressure in the 60s. Per EMS,the patient was given 500 mL of saline bolus the blood pressure to the 80s. Critical care medicine was consulted. Upon arrival to the ED, the pt was alert and appropriately responsive. The patient had received a 2 liter bolus BP 87/53 and levophed had been initiated currently at 5 mcgs, and 1 u PRBC transfusing. A/P (1) general debility, with worsening cachexia, fatigue, weakness, and loss of appetite (2) end-stage lung disease, with severe COPD and recent necrotizing Pseudomonas pneumonia (3) CAD with an NSTEMI, 2 recent stents, and a remaining 95% RCA lesion (4) lung nodules on CT scan; history of needle biopsy of a nodule at the [facility] 18 months ago (benign) (5) cardiomyopathy, history of CHF (6) Atrial fibrillation with RVR (7) SIADH, hyponatremia (8) malnutrition, albumin 2.7 (9) atrial fib with RVR, recent (10) anemia (11) early decubitus, sacral (12) cholelithiasis on CT scan (13) diverticulosis General Plan: Bronchodilators every 6 hours scheduled, every 2 hours when necessary 10/09 echocardiogram ejection fraction 3540 %, no RWMA, mild MR, mild TR, systolic function slightly decreased Continue Plavix, ASA, and atorvastatin Troponin 0.11->0.11->0.11 Follow-up BNP 11/03 CT of the abdomen and pelvis- small AAA, Heart healthy diet-2 g sodium, with Ensure supplementation Bowel regimen Monitor H&H Status post iv Empiric antibiotics. Previous admission -pneumonia Pseudomonas Follow-up blood cultures urine Legionella ,streptococcal antigens- both negative influenza A and B-negative Obtain LFTs Glucose monitoring per ICU protocol -- SSI Prophylaxis: GI Prophylaxis Protonix PO DVT Prophylaxis -- SCDs Heparin BID Daily update : 11/04: Norepinephrine discontinued this a.m.. The patient's systolic blood pressure ranges from 92 low 100's, just as previous admission. The patient's tolerating a diet with supplemental Ensure shakes. The patient is alert and oriented physical therapy has been ordered to be initiated. Noted troponin levels no escalation in values. The patient has chronic hyponatremia with a sodium level normally [id number]. Resolution of hematuria noted. 11/05: Pressure still low 95/51 with increased heart rate, hemoglobin 7.4, BNP 303, blood cultures still negative, chest x-ray showing scarring, will consider stopping antibiotic iv, 11/06: blood pressure improved, hemoglobin improved to 11.1, will transfer to [facility] open skin wound>> consult wound care 11/07: Anemia with increased RDW mostly blood loss through GI>> consult GI, check iron panel Hypomagnesemia>> replace iv No leukocytosis or fever no remarkable culture>> will DC iv antibiotic and monitor of antibiotic Platelet count improved to 114 Discussed extensively with palliative care 11/08: Ferritin is 1600 with normal iron, low TIBC is not consistent with iron deficiency anemia, rather may need to workup hemochromatosis>>HFE mutation testing, ? Contributing to CHF, hyponatremia ?SIADH pituitary Hemoccult in the stool negative. Appreciate GI consultation, unlikely need for EGD with the above result Platelet count improved to 133, hemoglobin stable around 11 Hyponatremia: Cardiology consulted renal, I ordered serum and urine osmolality, most likely SIADH Berna Perez MD Nov 08, 2016 12:53 -- SCDs Heparin BID Berna Perez MD Nov 08, 2016 12:53
--- NOTE | 2016-11-08 13:28 | PD.WCN.NOT ---
Wound Consult Description: Pressure Ulcer to sacrum per Dr Perez Communicated with: MELLISA Vail Dr Recommendation: 1. Remove optifoam gentle dressing from sacrum every 3 days and PRN for saturation or dislodgement 2. Cleanse with NS and gauze 3. Apply optifoam gentle border 4. Date dressing *Obtain and place patient on [facility] surface or equivalent *Continue to turn and reposition patient every 2 hours and PRN for comfort from left to right Additional Information: Patient seen on with MELLISA Vail for wound evaluation of sacrum wound. Patient was on his back when entering room and when asked how long he has had this wound states "Since Adriana was a tadpole", mortgage loan underwriter laughed and clarified that this was not a new wound and he said correct. Patient was positioned to his left side for assessment. Foam adhesive was removed from sacrum to reveal a full thickness wound measuring 2.2cm x 3.3cm x <0.1cm on the sacrum. Wound presents with ~90% white tissue and ~10% pink tissue noted throughout wound bed with irregularly oval shaped wound margins and slightly blanching periwound indicating a mixed etiology of moisture and pressure. Wound was cleansed with NS and gauze. Wound bed is moist and without active drainage and no odor is present. Patient states pain at the wound site and pulls away from mortgage loan underwriter when gently cleansing wound. New foam adhesive was placed over shallow moist wound bed until proper dressing can be ordered and obtained from [facility]. Francia Lovelace [facility] Nov 08, 2016 13:28
[2016-11-08] MEDS: MAGNESIUM OXIDE 400 MG TAB PO SCH ×2 (14:21→22:09)
--- NOTE | 2016-11-08 16:26 | PD.CONS ---
HPI Service Nephrology Consult Requested By Reason for Consult Hyponatremia Primary Care Physician [facility] History of Present Illness This is a 71 y/o male admitted on 11/03 from the [facility] for low blood pressure. He was recently admitted for severe sepsis, Afib RVR, NYHA Class IV heart failure, NSTEMI with PCI stents placed due to blockages of 90% mid circumflex, and 95% proximal RCA lesions, as he was not a surgical candidate. This admission he did required pressors at one point, the hypotension was thought to be due to decompensated heart failure, and cardiology has been following. He has preserved renal function, but has been hyponatremic as low as 124. He has received 0.9% NS since arrival, initially had improvement but the serum sodium has leveled off at 128. We were consulted for management. Looking back he has had hyponatremia through his last admission, sodium ranged from 124-134. Previous to that he had normal sodium level or even had slight hypernatremia. PMH of anemia, A fib, CHF class IV, and lung nodules. He is a former heavy smoker. He had the pulmonary nodules biopsied at outside facility, no report is available, but the patient reports it was "tar from smoking not cancer". He has no neuro deficits today. Denies history of seizure, gout, or thyroid disorder. (Ana Soriano) Review of Systems Constitutional: COMPLAINS OF: Fatigue, Weight loss, DENIES: Change in appetite Respiratory: DENIES: Shortness of breath Cardiovascular: DENIES: Chest pain, Dyspnea on Exertion, Lower Extremity Edema Gastrointestinal: DENIES: Abdominal pain (Ana Soriano) Past Family Social History Allergies: Coded Allergies: No Known Allergies (Unverified , 11/03/16) Past Medical History * General debility, with worsening cachexia, fatigue, weakness, loss of appetite * End-stage lung disease, with severe COPD and recent necrotizing Pseudomonas pneumonia * Lung nodules on CT scan; history of needle biopsy of lung nodule at the [place] ( it was benign) * Cardiomyopathy, history of CHF * CAD, with an NSTEMI, 2 recent stents, and a remaining 95% RCA lesion * Atrial fib with RVR, recent * SIADH, hyponatremia * Malnutrition, albumin 2.7 * Anemia * Diverticulosis * Cholelithiasis * Early decubitus, sacral Past Surgical History * Mandible * Right knee * Right ankle fracture * Hip fracture 2014 * Cardiac cath X October 2016, 2 stents placed * Lung needle biopsy about 18 months ago at the [place] Reported Medications Ciprofloxacin (Ciprofloxacin HCl) 750 Mg Tab 750 Mg PO Q12HR Prednisone 20 Mg Tab 20 Mg PO DAILY 5 Days take 20mg po x 1 day (start 10/27/16) then 10mg po daily x 4 days Lipitor (Atorvastatin Calcium) 20 Mg Tab 20 Mg PO HS Ramipril 5 Mg Cap 5 Mg PO DAILY 30 Days Megestrol Liq (Megestrol Acetate) 40 Mg/Ml Susp 400 Mg PO DAILY 30 Days Cardizem (Diltiazem HCl) 60 Mg Tab 60 Mg PO Q6H 30 Days Plavix (Clopidogrel Bisulfate) 75 Mg Tab 75 Mg PO DAILY 30 Days Adult Aspirin EC Low Strength (Aspirin) 81 Mg Tabec 81 Mg PO DAILY 30 Days Active Ordered Medications Current Medications Medications (Trade) Dose Ordered Sig/Satnam Route Start Time Stop Time Status Last Admin (NS 1000 ml Inj) 1,000 ml @ 30 mls/hr Q24H IV 11/03/16 18:30 11/05/16 18:01 (NS Flush) 2 ml UNSCH PRN IV FLUSH 11/03/16 16:45 (NS Flush) 2 ml BID IV FLUSH 11/03/16 21:00 11/07/16 08:56 (Tylenol) 650 mg Q6H PRN PO 11/03/16 16:45 (Protonix) 40 mg DAILY PO 11/04/16 09:00 11/08/16 08:58 (Zofran Inj) 4 mg Q6H PRN IV 11/03/16 16:45 Miscellaneous Information 1 Q361D XX 11/03/16 16:45 (Chlorhexidine 2% Cloth) 3 pack Taper DAILY@04 TOP 11/04/16 04:00 10/31/17 03:59 11/06/16 04:00 (Chlorhexidine 2% Cloth) 3 pack UNSCH PRN TOP 11/03/16 16:45 (Shayy-Colace) 1 tab BID PO 11/03/16 21:00 11/07/16 21:01 (Milk Of Magnesia Liq) 30 ml Q12H PRN PO 11/03/16 16:45 (Dulcolax Supp) 10 mg DAILY PRN RECTAL 11/03/16 16:45 (Lactulose Liq) 30 ml DAILY PRN PO 11/03/16 16:45 (Brethine Inj) 1 mg UNSCH PRN SQ 11/04/16 04:45 (Senokot) 17.2 mg Q12H PO 11/04/16 17:00 11/04/16 15:30 (Heparin Inj) 5,000 units Q12HR SQ 11/04/16 21:00 11/08/16 09:00 (Plavix) 75 mg DAILY PO 11/06/16 09:00 11/08/16 08:59 (Ecotrin Ec) 81 mg DAILY PO 11/06/16 09:00 11/08/16 08:58 (Lipitor) 20 mg HS PO 11/07/16 21:00 11/07/16 21:00 (Altace) 2.5 mg DAILY PO 11/07/16 09:00 (Mag-Ox) 400 mg Q12HR PO 11/08/16 13:15 11/23/16 13:14 11/08/16 14:21 Family History no hx of renal disorders or sodium disorders Social History former heavy smoker, 3 PPD at one time no ETOH , lives with x currently residing in rehab alternate code status (Ana Soriano) Physical Exam Vital Signs Vital Signs Date Time Temp Pulse Resp B/P Pulse Ox O2 Delivery O2 Flow Rate FiO2 11/08/16 11:54 96.3 111 18 105/58 96 11/08/16 10:25 103 11/08/16 10:16 96 Nasal Cannula 2.00 11/08/16 09:03 Nasal Cannula 3.00 11/08/16 08:00 98.1 109 20 114/58 97 11/08/16 06:50 108/66 11/08/16 04:00 97.0 114 18 88/50 97 11/08/16 02:00 Nasal Cannula 3.00 11/08/16 01:58 114 11/08/16 00:00 99.1 117 20 118/58 97 11/07/16 20:28 98 Nasal Cannula 3.00 11/07/16 20:00 95.9 111 20 126/58 97 Physical Exam Cachectic male, awake and alert, disheveled on oxygen via nasal cannula lungs clear S1/S2, irreg irreg but rate controlled abdomen flat, non tender extremities: no edema skin: intact Laboratory Laboratory Tests Test 11/08/16 10:20 White Blood Count 4.1 Red Blood Count 4.19 Hemoglobin 10.7 Hematocrit 32.5 Mean Corpuscular Volume 77.7 Mean Corpuscular Hemoglobin 25.5 Mean Corpuscular Hemoglobin 32.8 Concent Red Cell Distribution Width 25.4 Platelet Count 133 Mean Platelet Volume 8.5 Sodium Level 128 Potassium Level 4.1 Chloride Level 94 Carbon Dioxide Level 25.6 Anion Gap 8 Blood Urea Nitrogen 7 Creatinine 0.24 Estimat Glomerular Filtration 381 Rate Random Glucose 102 Serum Osmolality 262 Calcium Level 7.8 Magnesium Level 1.4 B-Type Natriuretic Peptide 230 Date/Time Procedure Status Source Growth 11/08/16 11:20 Stool Occult Blood (BERKLEY) - Final Complete Stool Stool HEMOCCULT NEGATIVE (Ana Soriano) Result Diagram: 11/08/16 1020 11/08/16 1020 Imaging Last Impressions Chest X-Ray 11/03/16 1243 Signed Impressions: Service Date/Time: Thursday, November 03, 2016 16:44 - CONCLUSION: 1. Changes of obstructive pulmonary disease with marked interval improvement of bilateral lower lobe airspace disease with only minimal residual airspace disease which may reflect scarring. 2. Otherwise, no acute abnormality. Sincere Das MD Abdomen/Pelvis CT 11/03/16 0000 Signed Impressions: Service Date/Time: Thursday, November 03, 2016 18:16 - CONCLUSION: 1. Nonspecific bowel gas pattern which may represent an ileus. A moderate amount stool is present and there are multiple diverticuli. 2. Interval improvement in consolidation in both lung bases with milder residual and small effusions. There is underlying scarring and emphysema. 3. Stable small infrarenal abdominal aortic aneurysm. 4. Numerous small calcified gallstones again noted. 5. The kidneys appear stable and unremarkable with no renal calculi or acute obstruction. 6. Sage catheter in the bladder with air fluid level. There is suboptimal visualization. Eros Kaur MD (Ana Soriano) Assessment and Plan Problem List: (1) Hyponatremia Plan: appears euvolemic after fluid resuscitation since admission serum osmolality is low urine sodium, urine osmolality, TSH, uric acid are ordered and pending he has pulmonary nodules, ? lung CA, may have SIADH, results of biopsy have been requested at this time await results of above continue IVF, 0.9% at 30 cc/hr he may be a candidate for use of Tolvaptan (2) CAD (coronary artery disease) Plan: cardiology is following medical management recommended (Ana Soriano) Assessment and Plan patient was seen and examined. Hyponatremia may be due to SIADH, or due to non osmotic release of ADH due to hypotension. Stop IVF. Needs oral fluid restriction initially, if hyponatremia worsens, consider Tolvaptan. Serum Na has been stable for the past several days. (Nitesh Vail MD) Ana Soriano Nov 08, 2016 16:26 Nitesh Vail MD Nov 08, 2016 17:47
--- NOTE | 2016-11-08 16:34 | HHI.HCPN ---
Reason for visit a. To assist with evaluation and management of symptoms including: Dyspnea , fatigue/weakness b. To assist medical decision maker(s) with: better understanding of current medical conditions; weighing benefits/burdens of medical treatment options; making medical treatment decisions. . Subjective/Interval History INTERVAL NOTE: No change in how the patient feels. He denies significant pain, and his dyspnea is minimal while at bedrest, but significant with any exertion. His sodium is 128, creatinine 0.24, and he remains afebrile. We sent for records from the [facility] in [place], primarily to see what his chest scans showed an just what was biopsied back then, and to compare with the current CT scan to see if any of the nodules now are new or different. . Advance Directives Living Will: Never completed Health Care Surrogate: Copy in medical record Durable Power of Shrimp Peeling Machine Tender: Never completed Advance Directive Specifics Health Care Surrogate(s): Last month, he designated his son Guzman as primary HCS and daughter Anai as secondary. . Objective Vital Signs Date Time Temp Pulse Resp B/P Pulse Ox O2 Delivery O2 Flow Rate FiO2 11/08/16 16:03 98.0 106 18 110/56 97 11/08/16 11:54 96.3 111 18 105/58 96 11/08/16 10:25 103 11/08/16 10:16 96 Nasal Cannula 2.00 11/08/16 09:03 Nasal Cannula 3.00 11/08/16 08:00 98.1 109 20 114/58 97 11/08/16 06:50 108/66 11/08/16 04:00 97.0 114 18 88/50 97 11/08/16 02:00 Nasal Cannula 3.00 11/08/16 01:58 114 11/08/16 00:00 99.1 117 20 118/58 97 11/07/16 20:28 98 Nasal Cannula 3.00 11/07/16 20:00 95.9 111 20 126/58 97 Intake & Output 11/08/16 11/08/16 07:00 19:00 Intake Total 408 ml 236 ml Output Total 1950 ml 850 ml Balance -1542 ml -614 ml Intake Oral 48 ml 236 ml IV Total 360 ml Output Urine Total 1950 ml 850 ml # Bowel Movements 2 Physical Exam CONSTITUTIONAL/GENERAL: This is weak, cachectic patient, in no apparent distress. SKIN: No jaundice, rashes. There is an early stage 4 cm decubitus over his sacrum. Ecchymoses on upper extremities. No wounds seen anteriorly. Skin temperature appropriate. Not diaphoretic. NECK: Trachea midline. Supple, nontender. No palpable thyroid enlargement or nodularity. CARDIOVASCULAR: Regular rate and rhythm without murmurs, gallops, or rubs. No JVD. Peripheral pulses symmetric. RESPIRATORY/CHEST: Symmetric, unlabored respirations. Markedly diminished breath sounds on the right, somewhat diminished on the left. No wheezes, rales, or rhonchi. GASTROINTESTINAL: Abdomen soft, non-tender, nondistended. No hepato-splenomegaly , or palpable masses. No guarding. Bowel sounds present. MUSCULOSKELETAL: Extremities without clubbing, cyanosis, or edema. NEUROLOGICAL: Awake and alert. Motor and sensory grossly within normal limits, but he has global weakness. Follows commands. Cognitively sharp. Moves all extremities. PSYCHIATRIC: No obvious anxiety/depression. no apparent hallucinations or other psychotic thought process. . Diagnostic Tests Laboratory Laboratory Tests Test 11/06/16 11/06/16 11/06/16 11/06/16 01:08 04:48 08:27 17:25 Hemoglobin 10.7 GM/DL 11.1 GM/DL (13.0-17.0) (13.0-17.0) Hematocrit 31.0 % 32.1 % (39.0-51.0) (39.0-51.0) Sodium Level 130 MEQ/L 129 MEQ/L (136-145) (136-145) White Blood Count 3.1 TH/MM3 (4.0-11.0) Red Blood Count 4.19 MIL/MM3 (4.50-5.90) Mean Corpuscular Volume 76.6 FL (80.0-100.0) Mean Corpuscular Hemoglobin 26.5 PG (27.0-34.0) Mean Corpuscular Hemoglobin 34.7 % Concent (32.0-36.0) Red Cell Distribution Width 24.8 % (11.6-17.2) Platelet Count 82 TH/MM3 (150-450) Mean Platelet Volume 9.4 FL (7.0-11.0) Neutrophils (%) (Auto) 65.4 % (16.0-70.0) Lymphocytes (%) (Auto) 14.6 % (9.0-44.0) Monocytes (%) (Auto) 11.7 % (0.0-8.0) Eosinophils (%) (Auto) 7.8 % (0.0-4.0) Basophils (%) (Auto) 0.5 % (0.0-2.0) Neutrophils # (Auto) 2.0 TH/MM3 (1.8-7.7) Lymphocytes # (Auto) 0.4 TH/MM3 (1.0-4.8) Monocytes # (Auto) 0.4 TH/MM3 (0-0.9) Eosinophils # (Auto) 0.2 TH/MM3 (0-0.4) Basophils # (Auto) 0.0 TH/MM3 (0-0.2) CBC Comment AUTO DIFF Differential Comment AUTO DIFF CONFIRMED Platelet Estimate LOW (NORMAL) Platelet Morphology Comment NORMAL (NORMAL) Basophilic Stippling FAINT (NORMAL) Ovalocytes (NORMAL) Acanthocytes OCC (NORMAL) Potassium Level 3.8 MEQ/L (3.5-5.1) Chloride Level 91 MEQ/L (98-107) Carbon Dioxide Level 30.6 MEQ/L (21.0-32.0) Anion Gap 7 MEQ/L (5-15) Blood Urea Nitrogen 17 MG/DL (7-18) Creatinine 0.40 MG/DL (0.60-1.30) Estimat Glomerular Filtration 211 ML/MIN Rate (>89) Random Glucose 78 MG/DL (74-106) Calcium Level 7.8 MG/DL (8.5-10.1) Phosphorus Level 2.1 MG/DL (2.5-4.9) Magnesium Level 1.1 MG/DL (1.5-2.5) B-Type Natriuretic Peptide 323 PG/ML (0-100) Random Cortisol 18.0 MCG/DL Vancomycin Level Trough 2.7 MCG/ML (5.0-10.0) Test 11/06/16 11/07/16 11/08/16 21:02 06:52 10:20 Hemoglobin 9.1 GM/DL 11.0 GM/DL 10.7 GM/DL (13.0-17.0) (13.0-17.0) (13.0-17.0) Hematocrit 27.4 % 32.2 % 32.5 % (39.0-51.0) (39.0-51.0) (39.0-51.0) White Blood Count 3.5 TH/MM3 4.1 TH/MM3 (4.0-11.0) (4.0-11.0) Red Blood Count 4.20 MIL/MM3 4.19 MIL/MM3 (4.50-5.90) (4.50-5.90) Mean Corpuscular Volume 76.7 FL 77.7 FL (80.0-100.0) (80.0-100.0) Mean Corpuscular Hemoglobin 26.2 PG 25.5 PG (27.0-34.0) (27.0-34.0) Mean Corpuscular Hemoglobin 34.1 % 32.8 % Concent (32.0-36.0) (32.0-36.0) Red Cell Distribution Width 25.3 % 25.4 % (11.6-17.2) (11.6-17.2) Platelet Count 114 TH/MM3 133 TH/MM3 (150-450) (150-450) Mean Platelet Volume 9.0 FL 8.5 FL (7.0-11.0) (7.0-11.0) Sodium Level 128 MEQ/L 128 MEQ/L (136-145) (136-145) Potassium Level 3.9 MEQ/L 4.1 MEQ/L (3.5-5.1) (3.5-5.1) Chloride Level 93 MEQ/L 94 MEQ/L (98-107) (98-107) Carbon Dioxide Level 28.7 MEQ/L 25.6 MEQ/L (21.0-32.0) (21.0-32.0) Anion Gap 6 MEQ/L (5-15) 8 MEQ/L (5-15) Blood Urea Nitrogen 10 MG/DL (7-18) 7 MG/DL (7-18) Creatinine 0.29 MG/DL 0.24 MG/DL (0.60-1.30) (0.60-1.30) Estimat Glomerular Filtration 306 ML/MIN 381 ML/MIN Rate (>89) (>89) Random Glucose 92 MG/DL 102 MG/DL (74-106) (74-106) Calcium Level 7.4 MG/DL 7.8 MG/DL (8.5-10.1) (8.5-10.1) Protein Corrected Calcium 8.7 MG/DL (8.5-10.1) Magnesium Level 1.1 MG/DL 1.4 MG/DL (1.5-2.5) (1.5-2.5) Iron Level 80 MCG/DL (65-175) Total Iron Binding Capacity 158 MCG/DL (250-450) Percent Iron Saturation 50.6 % (20-50) Transferrin 113 MG/DL (200-360) Ferritin 1612 NG/ML (26-388) B-Type Natriuretic Peptide 276 PG/ML 230 PG/ML (0-100) (0-100) Total Protein 4.8 GM/DL (6.4-8.2) Serum Osmolality 262 MOSM/KG (275-295) Result Diagram: 11/08/16 1020 11/08/16 1020 Microbiology Microbiology Date/Time Procedure Status Source Growth 11/07/16 18:05 Stool Occult Blood ([facility]) - Final Complete Stool Stool HEMOCCULT NEGATIVE 11/08/16 11:20 Stool Occult Blood ([facility]) - Final Complete Stool Stool HEMOCCULT NEGATIVE Assessment and Plan Disease Oriented Problem List: (1) general debility, with worsening cachexia, fatigue, weakness, and loss of appetite (2) end-stage lung disease, with severe COPD and recent necrotizing Pseudomonas pneumonia (3) CAD with an NSTEMI, 2 recent stents, and a remaining 95% RCA lesion (4) lung nodules on CT scan; history of needle biopsy of a nodule at the [facility] 18 months ago (benign) (5) cardiomyopathy, history of CHF (6) Atrial fibrillation with RVR (7) SIADH, hyponatremia (8) malnutrition, albumin 2.7 (9) atrial fib with RVR, recent (10) anemia (11) early decubitus, sacral (12) cholelithiasis on CT scan (13) diverticulosis Symptom Scale: (1) dyspnea 0-10 Scale: 1 (worse with any exertion) (2) fatigue/weakness 0-10 Scale: Unable to quantify Pertinent Non-Medical Issues Psychosocial: Originally from [facility], served 6 years in the [employer] including serving in [employer], accounting 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 twice and was living alone. Spiritual: [employer] background Legal: The patient has capacity for decision-making at this time. He has designated his son Guzman and daughter Anai as primary and secondary HCS respectively. Ethical issues impacting care: None . Important Contacts Son: Guzman Putnam (in [place]) [phone] Daughter: Anai Putnam (living in [place]) [phone] . Prognosis This patient has end-stage lung disease and also significant heart disease. He has been declining for at least a couple years and is now cachectic and malnourished. He is appropriate for hospice services when his goals become comfort oriented. . Code Status: Alternative Code (no intubation) Plan * ALTERNATE CODE: On 11/06/16, the patient and his son confirmed that the patient does NOT want intubation or mechanical ventilation (but will accept CPR/ACLS) * GOALS: The patient has a clear understanding of his worsening debility and cachexia. His goal is to get out of the hospital and back to Rehab, and - if he can get strong enough - to get back home. He does understand that living at home independently again is a long shot, but he wants to try that. If that fails, he will likely be living at an [facility]. The patient does NOT want to be intubated or mechanically ventilated. He DOES want CPR, defibrillation, and ACLS meds. * DECISION-MAKING: The patient has capacity for decision-making at this time. He has designated his son Guzman and daughter Anai as primary and secondary HCS respectively. * SYMPTOMS: The patient is not dyspneic while on supplemental O2 and lying in the bed. He has no significant pain at this time. His profound fatigue and weakness is being addressed with encouraging oral intake and a plan for Rehab. * We sent for records of his scans and [facility] in [place] (to see if the nodules are the same as they were 18 months ago or if there is something different now). This may of course impact his prognosis even more. I am awaiting the receipt of that info. * Palliative Care will continue to follow the patient during this hospitalization. . Time Spent Total Floor Time (mins): 27 Face to Face Time (mins): 18 >50% Counseling/Coord of Care: Yes Attestation To help prompt me to consider important information that might be impacting today's encounter and assessment, information from prior notes written by myself or my colleagues may have been "brought forward" into today's note. My signature on this note, however, is an attestation that I personally performed the exam, history, and/or decision-making noted today, and, unless otherwise indicated, the interactions with patient, family, and staff as well as the review of records all occurred today. I also attest that the listed assessment and stated plan reflect my best clinical judgment today based on the combination of historical information, prior notes, and today's exam/ interactions. When time spent is documented, it refers only to time spent today by the signer, or if indicated, combined time spent today by collaborating physician/nurse practitioner. Michelle Keys MD Nov 08, 2016 16:34
--- NOTE | 2016-11-08 16:49 | HHI.GIFU ---
Subjective Remarks Pt resting in bed. says he's eating ok. Per RN he isn't really eating meals but he drinks ensure and had ice cream today Objective Vitals I&O Vital Signs Date Time Temp Pulse Resp B/P Pulse Ox O2 Delivery O2 Flow Rate FiO2 11/08/16 16:03 98.0 106 18 110/56 97 11/08/16 11:54 96.3 111 18 105/58 96 11/08/16 10:25 103 11/08/16 10:16 96 Nasal Cannula 2.00 11/08/16 09:03 Nasal Cannula 3.00 11/08/16 08:00 98.1 109 20 114/58 97 11/08/16 06:50 108/66 11/08/16 04:00 97.0 114 18 88/50 97 11/08/16 02:00 Nasal Cannula 3.00 11/08/16 01:58 114 11/08/16 00:00 99.1 117 20 118/58 97 11/07/16 20:28 98 Nasal Cannula 3.00 11/07/16 20:00 95.9 111 20 126/58 97 I/O 11/07/16 11/07/16 11/07/16 11/08/16 11/08/16 11/08/16 07:00 15:00 23:00 07:00 15:00 23:00 Intake Total 1190 ml 408 ml 236 ml Output Total 1800 ml 1950 ml 850 ml Balance -610 ml -1542 ml -614 ml Intake Oral 1190 ml 48 ml 236 ml IV Total 360 ml Output Urine Total 1800 ml 1950 ml 850 ml # Bowel Movements 2 2 Laboratory Laboratory Tests Test 11/08/16 11/08/16 10:20 16:10 White Blood Count 4.1 Red Blood Count 4.19 Hemoglobin 10.7 Hematocrit 32.5 Mean Corpuscular Volume 77.7 Mean Corpuscular Hemoglobin 25.5 Mean Corpuscular Hemoglobin 32.8 Concent Red Cell Distribution Width 25.4 Platelet Count 133 Mean Platelet Volume 8.5 Sodium Level 128 Potassium Level 4.1 Chloride Level 94 Carbon Dioxide Level 25.6 Anion Gap 8 Blood Urea Nitrogen 7 Creatinine 0.24 Estimat Glomerular Filtration 381 Rate Random Glucose 102 Serum Osmolality 262 Calcium Level 7.8 Magnesium Level 1.4 B-Type Natriuretic Peptide 230 Urine Random Sodium 94 Date/Time Procedure Status Source Growth 11/08/16 11:20 Stool Occult Blood ([facility]) - Final Complete Stool Stool HEMOCCULT NEGATIVE Imaging Last Impressions Chest X-Ray 11/03/16 1243 Signed Impressions: Service Date/Time: Thursday, November 03, 2016 16:44 - CONCLUSION: 1. Changes of obstructive pulmonary disease with marked interval improvement of bilateral lower lobe airspace disease with only minimal residual airspace disease which may reflect scarring. 2. Otherwise, no acute abnormality. Sincere Das MD Abdomen/Pelvis CT 11/03/16 0000 Signed Impressions: Service Date/Time: Thursday, November 03, 2016 18:16 - CONCLUSION: 1. Nonspecific bowel gas pattern which may represent an ileus. A moderate amount stool is present and there are multiple diverticuli. 2. Interval improvement in consolidation in both lung bases with milder residual and small effusions. There is underlying scarring and emphysema. 3. Stable small infrarenal abdominal aortic aneurysm. 4. Numerous small calcified gallstones again noted. 5. The kidneys appear stable and unremarkable with no renal calculi or acute obstruction. 6. Sage catheter in the bladder with air fluid level. There is suboptimal visualization. Eros Kaur MD Physical Exam HEENT: PERRL; normocephalic; atraumatic; no jaundice. CHEST: diminished CARDIAC: RRR ABDOMEN: Soft, nondistended, nontender; no hepatosplenomegaly; bowel sounds are present in all four quadrants. EXTREMITIES: No clubbing, cyanosis, or edema. SKIN: Normal; no rash; no jaundice. [employer]: No focal deficits; alert and oriented times three. Assessment and Plan Plan ASSESSMENT: - Anemia. Stable. On 10/26/16, he was noted to have an HH of of 10.9/32.7. On this admission, it was noted to be 9.1/27.8. Stool was hemoccult negative in the ER. He has required 4 transfusions since October of 2016. He has lost 87 lbs over the past 1.5 years and reported decreased appetite to other providers, but tells me his appetite is fine and that he is eating at home and drinking supplemental ensure. He denies any heartburn, n/ v, abd pain, changes in bowels, constipation, diarrhea, melena, or hematochezia. Last colonoscopy was "many years ago" states that it was normal and he did not have polyps. No hx of PUD. Abdomen/Pelvis CT (11/03/16)----> 1. Nonspecific bowel gas pattern which may represent an ileus. A moderate amount stool is present and there are multiple diverticuli. 2. Interval improvement in consolidation in both lung bases with milder residual and small effusions. There is underlying scarring and emphysema. 3. Stable small infrarenal abdominal aortic aneurysm. 4. Numerous small calcified gallstones again noted. 5. The kidneys appear stable and unremarkable with no renal calculi or acute obstruction. 6. Sage catheter in the bladder with air fluid level. There is suboptimal visualization. He had recent PCI with bare metal stent placement to the mid left circumflex wall and proximal circumflex. He is on Plavix and asa. Because of his advanced respiratory disease and his recent stent placement with bare metal stent- he is a very high risk for any endoscopic evaluation. He is not having gross active bleeding and therefore we will check hemoccults. If these are positive, we will consider air contrast barium swallow/upper gi series for further evaluation. Consider endoscopic evaluation only if active bleeding and once has been cleared by cardiology, with regards to holding the plavix and asa. 2 x hemoccult neg, 3rd specimen pending. - Abnormal weight loss, FTT. CT as above. Last colonoscopy many years ago. Taking ensure. - CAD with recent bare metal stent placement,Afib. Cardiac catheterization ()-----> 95% proximal LAD lesion, 95% proximal circumflex vessel stenosis, and 95% proximal right coronary stenosis and had PCI bare metal stent of the proximal circumflex. He was subsequently started on Plavix and ASA. On heparin - CHF, Hx afib per cardiology. - End-stage lung disease with emphysema/copd and recent PSAE pneumonia. Pt is on 3L via NC and reports this is how much he using at home. Per attending. - Hx SIADH with electrolyte abnormalities, AAA, generalized weakness, dehydration per attending. PLAN: - Heart healthy diet with ensure - Cont. PPI - Monitor HH - Transfuse as necessary - await 3rd hemoccult - Consider upper gi series if stool guiac positive - Consider endoscopic evaluation only if active bleeding and cleared by cardiology- with regards to plavix/asa/heparin - Supportive care - Further recommendations to follow based on results of above - Pt seen and examined by Dr. Chappell and myself and this note is written on his behalf Dianelys Talbot Nov 08, 2016 16:49
[2016-11-08] MEDS: ATORVASTATIN 20 MG TAB PO SCH (22:10)
[2016-11-09] VITALS (9 sets, daily range): BP systolic 96–116; BP diastolic 56–73; PULSE 74–110; RESP 18–20; TEMP 95.5–97.7; O2SAT 93–99
[2016-11-09] MEDS: CHLORHEXIDINE GLUCONATE 2 % 1 PACK (2 CLOTHS) TOP SCH (04:00)
[2016-11-09] MEDS: SENNOSIDES 8.6 MG TAB PO SCH ×2 (05:00→17:33)
[2016-11-09 07:35] LABS: BICARBONATE 27.9 MEQ/L (21.0-32.0); POTASSIUM 4.4 MEQ/L (3.5-5.1); URIC ACID 2.1 MG/DL (2.6-7.2)
[2016-11-09 07:39] LABS: HEMATOCRIT 32.7 % (39.0-51.0); MEAN CELL VOLUME 77.8 FL (80.0-100.0); MEAN CORPUSCULAR HEMOGLOBIN 25.8 PG (27.0-34.0); MEAN CORPUSCULAR HGB CONC 33.2 % (32.0-36.0); PLATELET COUNT 154 TH/MM3 (150-450); WHITE BLOOD COUNT 3.9 TH/MM3 (4.0-11.0)
[2016-11-09 07:53] LABS: REVIEW FLAG FINAL
[2016-11-09] MEDS: CLOPIDOGREL 75 MG TAB PO SCH (08:39)
[2016-11-09] MEDS: PANTOPRAZOLE SOD 40 MG DELAYED RELEASE TAB PO SCH (08:39)
[2016-11-09] MEDS: HEPARIN SODIUM - SQ 10,000 UNITS/ML VIAL SQ SCH ×2 (08:41→22:32)
[2016-11-09] MEDS: MAGNESIUM OXIDE 400 MG TAB PO SCH ×2 (08:41→22:34)
[2016-11-09] MEDS: ASPIRIN EC 81 MG TABEC PO SCH (08:46)
[2016-11-09] MEDS: SODIUM CHLORIDE 0.9% FLUSH 10 ML FLUSH IV FLUSH SCH ×2 (08:48→22:34)
[2016-11-09] MEDS: RAMIPRIL 2.5 MG CAP PO SCH (08:48)
[2016-11-09] MEDS: DOCUSATE SODIUM 50 MG/SENNA 8.6 MG TAB PO SCH ×2 (08:48→21:00)
--- NOTE | 2016-11-09 09:35 | RADRPT ---
EXAM DATE/TIME: 11/09/2016 08:04 [facility] COMPARISON: No previous studies available for comparison. INDICATIONS : Gallstones. Hemochromatosis. MEDICAL HISTORY : Hypertension. Emphysema. Dyspnea. Right ankle fracture. Right collarbone fracture. SURGICAL HISTORY : Jaw surgery. Right hip. ENCOUNTER: Initial ACUITY: 2 days PAIN SCORE: 0/10 LOCATION: Bilateral upper quadrant MEASUREMENTS: LIVER: 15.9 cm length COMMON DUCT: 5 mm RIGHT KIDNEY: 11.0 x 4.7 x 4.1 cm SPLEEN: 13.0 cm length FINDINGS: LIVER: Normal echotexture without focal lesion or ductal dilatation. The portal system is patent. There is n o ascites. COMMON DUCT: No intraluminal mass or stone visualized. GALLBLADDER: Multiple small gallstones are seen throughout the gallbladder. The gallstones are mobile. There is no thickening of the gallbladder wall. There is no fluid around the gallbladder. PANCREAS: The visualized portions are within normal limits. RIGHT KIDNEY: No hydronephrosis, stone or mass. SPLEEN: No focal lesion. CONCLUSION: 1. Multiple gallstones in the gallbladder. No biliary tract obstruction. 2. The liver is grossly within normal limits. 3. Mild prominence of the spleen at 13 cm. Rigo Gonzales MD on November 09, 2016 at 9:30 Board Certified Radiologist. This report was verified electronically.
--- NOTE | 2016-11-09 09:46 | PD.CARD.PN ---
Subjective Subjective Remarks asleep in nad Objective Vital Signs / I&O Vital Signs Date Time Temp Pulse Resp B/P Pulse Ox O2 Delivery O2 Flow Rate FiO2 11/09/16 08:54 Nasal Cannula 2.00 11/09/16 08:37 96 Nasal Cannula 2.00 11/09/16 08:28 95 11/09/16 08:28 95 11/09/16 07:54 97.7 90 18 97/61 99 11/09/16 04:00 95.5 76 20 97/56 96 11/09/16 00:00 96.1 74 20 106/64 93 11/09/16 00:00 Nasal Cannula 2.00 11/08/16 20:00 96.0 105 20 124/57 97 11/08/16 18:24 97 Nasal Cannula 2.00 11/08/16 18:00 109 11/08/16 16:03 98.0 106 18 110/56 97 11/08/16 11:54 96.3 111 18 105/58 96 11/08/16 10:25 103 11/08/16 10:16 96 Nasal Cannula 2.00 I/O 11/08/16 11/08/16 11/08/16 11/09/16 11/09/16 11/09/16 07:00 15:00 23:00 07:00 15:00 23:00 Intake Total 408 ml 236 ml 366 ml Output Total 1950 ml 850 ml 1900 ml 1825 ml Balance -1542 ml -614 ml -1534 ml -1825 ml Intake Oral 48 ml 236 ml IV Total 360 ml 366 ml Output Urine Total 1950 ml 850 ml 1900 ml 1825 ml # Bowel Movements 2 1 Physical Exam GENERAL: SKIN: Warm and dry. HEAD: Normocephalic. EYES: No scleral icterus. No injection or drainage. NECK: Supple, trachea midline. No JVD or lymphadenopathy. CARDIOVASCULAR: Regular rate and rhythm without murmurs, gallops, or rubs. RESPIRATORY: Breath sounds equal bilaterally. No accessory muscle use. GASTROINTESTINAL: Abdomen soft, non-tender, nondistended. MUSCULOSKELETAL: No cyanosis, or edema. BACK: Nontender without obvious deformity. No CVA tenderness. Laboratory Laboratory Tests Test 11/08/16 11/08/16 11/09/16 10:20 16:10 06:26 White Blood Count 4.1 TH/MM3 3.9 TH/MM3 Red Blood Count 4.19 MIL/MM3 4.20 MIL/MM3 Hemoglobin 10.7 GM/DL 10.9 GM/DL Hematocrit 32.5 % 32.7 % Mean Corpuscular Volume 77.7 FL 77.8 FL Mean Corpuscular Hemoglobin 25.5 PG 25.8 PG Mean Corpuscular Hemoglobin 32.8 % 33.2 % Concent Red Cell Distribution Width 25.4 % 26.0 % Platelet Count 133 TH/MM3 154 TH/MM3 Mean Platelet Volume 8.5 FL 8.7 FL Sodium Level 128 MEQ/L 129 MEQ/L Potassium Level 4.1 MEQ/L 4.4 MEQ/L Chloride Level 94 MEQ/L 94 MEQ/L Carbon Dioxide Level 25.6 MEQ/L 27.9 MEQ/L Anion Gap 8 MEQ/L 7 MEQ/L Blood Urea Nitrogen 7 MG/DL 8 MG/DL Creatinine 0.24 MG/DL 0.31 MG/DL Estimat Glomerular Filtration 381 ML/MIN 284 ML/MIN Rate Random Glucose 102 MG/DL 85 MG/DL Serum Osmolality 262 MOSM/KG Calcium Level 7.8 MG/DL 8.2 MG/DL Magnesium Level 1.4 MG/DL B-Type Natriuretic Peptide 230 PG/ML 230 PG/ML Urine Osmolality 263 MOSM/KG Urine Random Sodium 94 MEQ/L Uric Acid 2.1 MG/DL Thyroid Stimulating Hormone 2.330 uIU/ML 3rd Gen Assessment and Plan Problem List: (1) CHF (congestive heart failure) (2) Anemia (3) Cardiomyopathy (4) CAD (coronary artery disease) (5) NSTEMI (non-ST elevated myocardial infarction) (6) Atrial fibrillation with RVR (7) COPD (chronic obstructive pulmonary disease) (8) Hyponatremia Assessment and Plan 1.) CAD - assymptomatic, continue aspirin 81 mg qd, plavix 75 mg qd, start lipitor 20 mg hs, keep hgb > 10, still has 95% proximal rca, heavily calcified, f/u cbc 2.) Cardiomyopathy - mild bnp elevation, f/u bnp in am, start altace 2.5 mg qd, beta jimy held due to severe copd, increase in keya not done due to hypotension and unstable hgb 3.) Anemia - appears to have occult blood loss, defer workup to hospitalist 4.) Hyponatremia - diuretics held, consult renal RonnieDaniel MD Nov 09, 2016 09:46
[2016-11-09] MEDS ORDERED: MAGNESIUM OXIDE 400 MG TAB PO ONE (10:00)
--- NOTE | 2016-11-09 11:18 | HHI.NPPN ---
Subjective General Problems: Hypotension Interval History He is awake, alert. Sodium is now 129. Relative hypotension persists. (Ana Soriano) Objective Data Data 11/08/16 11/09/16 19:00 07:00 Intake Total 602 ml Output Total 850 ml 3725 ml Balance -248 ml -3725 ml Intake Oral 236 ml IV Total 366 ml Output Urine Total 850 ml 3725 ml # Bowel Movements 1 Vital Signs Date Time Temp Pulse Resp B/P Pulse Ox O2 Delivery O2 Flow Rate FiO2 11/09/16 08:54 Nasal Cannula 2.00 11/09/16 08:37 96 Nasal Cannula 2.00 11/09/16 08:28 95 11/09/16 08:28 95 11/09/16 07:54 97.7 90 18 97/61 99 11/09/16 04:00 95.5 76 20 97/56 96 11/09/16 00:00 96.1 74 20 106/64 93 11/09/16 00:00 Nasal Cannula 2.00 11/08/16 20:00 96.0 105 20 124/57 97 11/08/16 18:24 97 Nasal Cannula 2.00 11/08/16 18:00 109 11/08/16 16:03 98.0 106 18 110/56 97 11/08/16 11:54 96.3 111 18 105/58 96 (Ana Soriano) -: 11/09/16 0626 11/09/16 0626 Microbiology 11/08/16 Stool Occult Blood ([facility]) - Final, Complete HEMOCCULT NEGATIVE Imaging Last 72 hours Impressions Liver Ultrasound 11/09/16 0000 Signed Impressions: Service Date/Time: November 08:04 - CONCLUSION: 1. Multiple gallstones in the gallbladder. No biliary tract obstruction. 2. The liver is grossly within normal limits. 3. Mild prominence of the spleen at 13 cm. Rigo Gonzales MD (Ana Soriano) Physical Exam General Appearance: No Acute Distress, Comfortable, Malnourished Appearance Remarks cachectic, emaciated (Ana Soriano) Neck Neck Exam: Neck Supple (Ana Soriano) Pulmonary Resp Exam: Breath Sounds Equal, Crackles, Rhonchi, Sputum Resp Remarks course cough during exam (Ana Soriano) Gastrointestinal/Abdomen GI Exam: Soft, Non-Tender (Ana Soriano) Musculoskeletal MS Exam: Joints Intact, Atrophy (Ana Soriano) Integumentary Skin Exam: Warm, Dry (Ana Soriano) Extremeties Extremities Exam: No Edema, Pedal Pulses Palpable (Ana Soriano) Neurologic Neuro Exam: Alert, Awake, Oriented, Speech Clear, Moving All Extremities ( Ana Soriano) Psychiatric Psych Exam: Appropriate Responses (Ana Soriano) Assessment/Plan Discussed Condition With: Patient Assessment Summary: Hypotension Electrolyte Assessment: Hyponatremia Problem List: (1) Hyponatremia Plan: euvolemic hyponatremia sodium level has improved slightly serum osmolality and uric acid consistent with SIADH; although hypotension can cause nonosmotic release of ADH off IVF continue fluid restriction, if sodium level improves he likely will not require tolvaptan avoid NaCl tabs as he has hx of CHF in the future, loop diuretics can be used if needed for CHF maintenance if blood pressure can tolerate (2) CAD (coronary artery disease) Plan: cardiology is following medical management recommended (Ana Soriano) Plan patient was seen and examined. Agree with above assessment and plan. (Nitesh Vail MD) Ana Soriano Nov 09, 2016 11:18 Nitesh Vail MD Nov 10, 2016 15:23
[2016-11-09] MEDS: MAGNESIUM SULFATE 1 GM PREMIX 100 ML IV SCH ×2 (14:01→15:26)
--- NOTE | 2016-11-09 15:26 | HHI.PR ---
Subjective Remarks Laying in bed, no acute pain or complain, he had a bowel movement without blood , heart rate still high with a low blood pressure but he is asymptomatic Renal following recommended fluid restriction and okay for diuretic' Patient afebrile Objective Vitals Vital Signs Date Time Temp Pulse Resp B/P Pulse Ox O2 Delivery O2 Flow Rate FiO2 11/09/16 11:51 96.7 102 18 96/56 95 11/09/16 08:54 Nasal Cannula 2.00 11/09/16 08:37 96 Nasal Cannula 2.00 11/09/16 08:28 95 11/09/16 08:28 95 11/09/16 07:54 97.7 90 18 97/61 99 11/09/16 04:00 95.5 76 20 97/56 96 11/09/16 00:00 96.1 74 20 106/64 93 11/09/16 00:00 Nasal Cannula 2.00 11/08/16 20:00 96.0 105 20 124/57 97 11/08/16 18:24 97 Nasal Cannula 2.00 11/08/16 18:00 109 11/08/16 16:03 98.0 106 18 110/56 97 I/O 11/08/16 11/08/16 11/08/16 11/09/16 11/09/16 11/09/16 07:00 15:00 23:00 07:00 15:00 23:00 Intake Total 408 ml 236 ml 366 ml 720 ml Output Total 1950 ml 850 ml 1900 ml 1825 ml 950 ml Balance -1542 ml -614 ml -1534 ml -1825 ml -230 ml Intake Oral 48 ml 236 ml 720 ml IV Total 360 ml 366 ml Output Urine Total 1950 ml 850 ml 1900 ml 1825 ml 950 ml # Bowel Movements 2 1 2 Result Diagram: 11/09/16 0626 11/09/16 06 Objective Remarks GENERAL: This is a well-nourished, well-developed patient, in no apparent distress. SKIN: No rashes, warm and dry HEAD: Atraumatic. Normocephalic. EYES: Pupils equal round and reactive. Extraocular motions intact. No scleral icterus. ENT: Nose without bleeding, or drainage, Airway patent. NECK: Trachea midline. Supple CARDIOVASCULAR: Regular rate and rhythm without murmurs, gallops, or rubs. RESPIRATORY: Fair air entry bilaterally. No wheezes, rales, or rhonchi. GASTROINTESTINAL: Abdomen soft, non-tender, nondistended. Positive bowel sounds MUSCULOSKELETAL: Extremities without clubbing, cyanosis, or edema. Pedal pulses appreciated NEUROLOGICAL: Awake and alert. Moves all extremity. Normal speech.no focal neurological deficit Date of Insertion: Nov 03, 2016 Date of Insertion: Nov 03, 2016 A/P Assessment and Plan 71-year-old male that presents to the ED for evaluation of generalized weakness. The patient was recently discharged on 10/26/16. Patient has a chronic history of SIADH as well as anemia and was recently admitted for severe sepsis,Afib RVR, NYHA Class IV heart failure, NSTEMI with PCI stents placed as staged procedures for 90% mid circumflex,and 95% proximal RCA lesions, as he was not a surgical candidate. Patient for the past 2 days has been feeling weak. He is not able to ambulate. No fevers chills or sweats. Denies angina. On his last admission he required transfusion secondary to anemia and possible bleeding. Patient reports that he's been compliant with his medications. Patient currently resides in [facility]. Patient was found to be hypotensive by ambulance when the brought him here. Patient was found to be with a blood pressure in the 60s. Per EMS,the patient was given 500 mL of saline bolus the blood pressure to the 80s. Critical care medicine was consulted. Upon arrival to the ED, the pt was alert and appropriately responsive. The patient had received a 2 liter bolus BP 87/53 and levophed had been initiated currently at 5 mcgs, and 1 u PRBC transfusing. A/P (1) general debility, with worsening cachexia, fatigue, weakness, and loss of appetite (2) end-stage lung disease, with severe COPD and recent necrotizing Pseudomonas pneumonia (3) CAD with an NSTEMI, 2 recent stents, and a remaining 95% RCA lesion (4) lung nodules on CT scan; history of needle biopsy of a nodule at the [facility] 18 months ago (benign) (5) cardiomyopathy, history of CHF (6) Atrial fibrillation with RVR (7) SIADH, hyponatremia (8) malnutrition, albumin 2.7 (9) atrial fib with RVR, recent (10) anemia (11) early decubitus, sacral (12) cholelithiasis on CT scan (13) diverticulosis General Plan: Bronchodilators every 6 hours scheduled, every 2 hours when necessary 10/09 echocardiogram ejection fraction 3540 %, no RWMA, mild MR, mild TR, systolic function slightly decreased Continue Plavix, ASA, and atorvastatin 11/03 CT of the abdomen and pelvis- small AAA, Heart healthy diet-2 g sodium, with Ensure supplementation Bowel regimen Monitor H&H Status post iv Empiric antibiotics. Previous admission -pneumonia Pseudomonas Follow-up blood cultures urine Legionella ,streptococcal antigens- both negative influenza A and B-negative Obtain LFTs Glucose monitoring l -- SSI Prophylaxis: GI Prophylaxis Protonix PO DVT Prophylaxis -- SCDs Heparin BID Daily update : 11/04: Norepinephrine discontinued this a.m.. The patient's systolic blood pressure ranges from 92 low 100's, just as previous admission. The patient's tolerating a diet with supplemental Ensure shakes. The patient is alert and oriented physical therapy has been ordered to be initiated. Noted troponin levels no escalation in values. The patient has chronic hyponatremia with a sodium level normally [id number]. Resolution of hematuria noted. 11/05: Pressure still low 95/51 with increased heart rate, hemoglobin 7.4, BNP 303, blood cultures still negative, chest x-ray showing scarring, will consider stopping antibiotic iv, 11/06: blood pressure improved, hemoglobin improved to 11.1, will transfer to [facility] open skin wound>> consult wound care 11/07: Anemia with increased RDW mostly blood loss through GI>> consult GI, check iron panel Hypomagnesemia>> replace iv No leukocytosis or fever no remarkable culture>> will DC iv antibiotic and monitor of antibiotic Platelet count improved to 114 Discussed extensively with palliative care 11/08: Ferritin is 1600 with normal iron, low TIBC is not consistent with iron deficiency anemia, rather may need to workup hemochromatosis>>HFE mutation testing, ? Contributing to CHF, hyponatremia ?SIADH pituitary Hemoccult in the stool negative. Appreciate GI consultation, unlikely need for EGD with the above result Platelet count improved to 133, hemoglobin stable around 11 Hyponatremia: Cardiology consulted renal, I ordered serum and urine osmolality, most likely SIADH 11/09: Hypernatremia slightly improved mostly SIADH, renal recommending fluid restriction, okay to use diuretic, possibly non-osmotic ADH release due to hypotension GI following awaiting third Hemoccult in the stool Increased ferritin deferred for GI to follow up on underlying hemochromatosis, I will repeat iron panel, liver ultrasound unremarkable Hypomagnesemia replaced Still low blood pressure with tachycardia Berna Perez MD Nov 09, 2016 15:26
--- NOTE | 2016-11-09 17:07 | HHI.GIFU ---
Subjective Remarks Resting in bed. States he is eating okay, requesting ice cream. Moved his bowels yesterday after the laxative. No bleeding. No abdominal pain. Objective Vitals I&O Vital Signs Date Time Temp Pulse Resp B/P Pulse Ox O2 Delivery O2 Flow Rate FiO2 11/09/16 16:13 96.6 97 18 115/66 95 11/09/16 11:51 96.7 102 18 96/56 95 11/09/16 08:54 Nasal Cannula 2.00 11/09/16 08:37 96 Nasal Cannula 2.00 11/09/16 08:28 95 11/09/16 08:28 95 11/09/16 07:54 97.7 90 18 97/61 99 11/09/16 04:00 95.5 76 20 97/56 96 11/09/16 00:00 96.1 74 20 106/64 93 11/09/16 00:00 Nasal Cannula 2.00 11/08/16 20:00 96.0 105 20 124/57 97 11/08/16 18:24 97 Nasal Cannula 2.00 11/08/16 18:00 109 I/O 11/08/16 11/08/16 11/08/16 11/09/16 11/09/16 11/09/16 06:59 14:59 22:59 06:59 14:59 22:59 Intake Total 408 ml 236 ml 366 ml 720 ml 120 ml Output Total 1950 ml 850 ml 1900 ml 1825 ml 950 ml Balance -1542 ml -614 ml -1534 ml -1825 ml -230 ml 120 ml Intake Oral 48 ml 236 ml 720 ml 120 ml IV Total 360 ml 366 ml Output Urine Total 1950 ml 850 ml 1900 ml 1825 ml 950 ml # Bowel Movements 2 1 2 1 Laboratory Laboratory Tests Test 11/09/16 06:26 White Blood Count 3.9 Red Blood Count 4.20 Hemoglobin 10.9 Hematocrit 32.7 Mean Corpuscular Volume 77.8 Mean Corpuscular Hemoglobin 25.8 Mean Corpuscular Hemoglobin 33.2 Concent Red Cell Distribution Width 26.0 Platelet Count 154 Mean Platelet Volume 8.7 Sodium Level 129 Potassium Level 4.4 Chloride Level 94 Carbon Dioxide Level 27.9 Anion Gap 7 Blood Urea Nitrogen 8 Creatinine 0.31 Estimat Glomerular Filtration 284 Rate Random Glucose 85 Uric Acid 2.1 Calcium Level 8.2 Magnesium Level 1.3 B-Type Natriuretic Peptide 230 Thyroid Stimulating Hormone 2.330 3rd Gen Date/Time Procedure Status Source Growth 11/08/16 11:20 Stool Occult Blood ([facility]) - Final Complete Stool Stool HEMOCCULT NEGATIVE Imaging Last Impressions Liver Ultrasound 11/09/16 0000 Signed Impressions: Service Date/Time: November 08:04 - CONCLUSION: 1. Multiple gallstones in the gallbladder. No biliary tract obstruction. 2. The liver is grossly within normal limits. 3. Mild prominence of the spleen at 13 cm. Rigo Gonzales MD Chest X-Ray 11/03/16 1243 Signed Impressions: Service Date/Time: Thursday, November 03, 2016 16:44 - CONCLUSION: 1. Changes of obstructive pulmonary disease with marked interval improvement of bilateral lower lobe airspace disease with only minimal residual airspace disease which may reflect scarring. 2. Otherwise, no acute abnormality. Sincere Das MD Abdomen/Pelvis CT 11/03/16 0000 Signed Impressions: Service Date/Time: Thursday, November 03, 2016 18:16 - CONCLUSION: 1. Nonspecific bowel gas pattern which may represent an ileus. A moderate amount stool is present and there are multiple diverticuli. 2. Interval improvement in consolidation in both lung bases with milder residual and small effusions. There is underlying scarring and emphysema. 3. Stable small infrarenal abdominal aortic aneurysm. 4. Numerous small calcified gallstones again noted. 5. The kidneys appear stable and unremarkable with no renal calculi or acute obstruction. 6. Sage catheter in the bladder with air fluid level. There is suboptimal visualization. Eros Kaur MD Physical Exam HEENT: Normocephalic; atraumatic; no jaundice. CHEST: diminished, shallow, even. CARDIAC: RRR ABDOMEN: Soft, nondistended, nontender; no hepatosplenomegaly; bowel sounds are present in all four quadrants. EXTREMITIES: No clubbing, cyanosis, or edema. SKIN: Normal; no rash; no jaundice. [employer] SUNGLASSES: No focal deficits; alert and oriented times three. Assessment and Plan Plan ASSESSMENT: - Anemia. Stable. On 10/26/16, he was noted to have an HH of of 10.9/32.7. On this admission, it was noted to be 9.1/27.8. Stool was hemoccult negative in the ER. He has required 4 transfusions since October of 2016. He has lost 87 lbs over the past 1.5 years and reported decreased appetite to other providers, but tells me his appetite is fine and that he is eating at home and drinking supplemental ensure. He denies any heartburn, n/ v, abd pain, changes in bowels, constipation, diarrhea, melena, or hematochezia. Last colonoscopy was "many years ago" states that it was normal and he did not have polyps. No hx of PUD. Abdomen/Pelvis CT (11/03/16)----> 1. Nonspecific bowel gas pattern which may represent an ileus. A moderate amount stool is present and there are multiple diverticuli. 2. Interval improvement in consolidation in both lung bases with milder residual and small effusions. There is underlying scarring and emphysema. 3. Stable small infrarenal abdominal aortic aneurysm. 4. Numerous small calcified gallstones again noted. 5. The kidneys appear stable and unremarkable with no renal calculi or acute obstruction. 6. Sage catheter in the bladder with air fluid level. There is suboptimal visualization. He had recent PCI with bare metal stent placement to the mid left circumflex wall and proximal circumflex. He is on Plavix and asa. Because of his advanced respiratory disease and his recent stent placement with bare metal stent- he is a very high risk for any endoscopic evaluation. He is not having gross active bleeding and therefore we will check hemoccults. If these are positive, we will consider air contrast barium swallow/upper gi series for further evaluation. Consider endoscopic evaluation only if active bleeding and once has been cleared by cardiology, with regards to holding the plavix and asa. Hemoccult (-) x 2, no active bleeding. - Abnormal weight loss, FTT. CT as above. Last colonoscopy many years ago. Taking ensure. - CAD with recent bare metal stent placement,Afib. Cardiac catheterization ()-----> 95% proximal LAD lesion, 95% proximal circumflex vessel stenosis, and 95% proximal right coronary stenosis and had PCI bare metal stent of the proximal circumflex. He was subsequently started on Plavix and ASA. On heparin - CHF, Hx afib per cardiology. - End-stage lung disease with emphysema/copd and recent PSAE pneumonia. Pt is on 3L via [place] and reports this is how much he using at home. Per attending. - Hx SIADH with electrolyte abnormalities, AAA, generalized weakness, dehydration per attending. PLAN: - Heart healthy diet with ensure - Cont. PPI - Monitor HH - Transfuse as necessary - Supportive care - Consider endoscopic evaluation only if active bleeding and cleared by cardiology- with regards to plavix/asa/heparin - Further recommendations to follow based on results of above - Pt seen and examined by Dr. Chappell and myself and this note is written on his behalf Maricruz Mercedes Nov 09, 2016 17:07
[2016-11-09 18:05] LABS: TRANSFERRIN IRON PROFILE 118 MG/DL (200-360)
[2016-11-09 18:07] LABS: FERRITIN 1459 NG/ML (26-388)
[2016-11-09] MEDS: ATORVASTATIN 20 MG TAB PO SCH (22:34)
[2016-11-10] VITALS (9 sets, daily range): BP systolic 98–127; BP diastolic 54–69; PULSE 95–109; RESP 17–20; TEMP 97.3–99; O2SAT 96–99
[2016-11-10] MEDS: CHLORHEXIDINE GLUCONATE 2 % 1 PACK (2 CLOTHS) TOP SCH (04:00)
[2016-11-10] MEDS: SENNOSIDES 8.6 MG TAB PO SCH ×2 (05:00→17:00)
[2016-11-10] MEDS: RAMIPRIL 2.5 MG CAP PO SCH (09:00)
[2016-11-10] MEDS: MAGNESIUM OXIDE 400 MG TAB PO SCH ×2 (09:00→21:51)
[2016-11-10] MEDS: DOCUSATE SODIUM 50 MG/SENNA 8.6 MG TAB PO SCH ×2 (09:18→21:51)
[2016-11-10] MEDS: PANTOPRAZOLE SOD 40 MG DELAYED RELEASE TAB PO SCH (09:18)
[2016-11-10] MEDS: CLOPIDOGREL 75 MG TAB PO SCH (09:18)
[2016-11-10] MEDS: SODIUM CHLORIDE 0.9% FLUSH 10 ML FLUSH IV FLUSH SCH ×2 (09:18→21:51)
[2016-11-10] MEDS: ASPIRIN EC 81 MG TABEC PO SCH (09:19)
[2016-11-10] MEDS: HEPARIN SODIUM - SQ 10,000 UNITS/ML VIAL SQ SCH ×2 (09:19→21:51)
[2016-11-10 09:32] LABS: HEMATOCRIT 36.4 % (39.0-51.0); MEAN CELL VOLUME 78.9 FL (80.0-100.0); MEAN CORPUSCULAR HEMOGLOBIN 25.7 PG (27.0-34.0); MEAN CORPUSCULAR HGB CONC 32.6 % (32.0-36.0); PLATELET COUNT 192 TH/MM3 (150-450); RED BLOOD COUNT 4.62 MIL/MM3 (4.50-5.90); RED CELL DISTRIBUTION WIDTH 25.7 % (11.6-17.2); WHITE BLOOD COUNT 5.2 TH/MM3 (4.0-11.0)
[2016-11-10 09:42] LABS: REVIEW FLAG FINAL
[2016-11-10 10:14] LABS: BICARBONATE 29.8 MEQ/L (21.0-32.0); POTASSIUM 4.3 MEQ/L (3.5-5.1)
--- NOTE | 2016-11-10 11:25 | HHI.GIFU ---
Subjective Remarks Resting in bed. No active bleeding. Tolerating diet, requesting more ensure. States he typically drinks 4 per day and he is not getting these on every tray. Objective Vitals I&O Vital Signs Date Time Temp Pulse Resp B/P Pulse Ox O2 Delivery O2 Flow Rate FiO2 11/10/16 10:26 96 11/10/16 09:30 99 11/10/16 08:00 97.8 109 17 98/54 98 11/10/16 04:00 98.6 98 20 116/69 99 11/10/16 00:00 97.6 103 20 104/58 98 11/09/16 20:55 95 Nasal Cannula 2.00 11/09/16 20:40 Nasal Cannula 2.00 11/09/16 20:00 97.7 110 20 116/73 97 11/09/16 16:13 96.6 97 18 115/66 95 11/09/16 11:51 96.7 102 18 96/56 95 I/O 11/09/16 11/09/16 11/09/16 11/10/16 11/10/16 11/10/16 07:00 15:00 23:00 07:00 15:00 23:00 Intake Total 720 ml 574 ml Output Total 1825 ml 950 ml Balance -1825 ml -230 ml 574 ml Intake Oral 720 ml 360 ml IV Total 214 ml Output Urine Total 1825 ml 950 ml # Voids 2 3 # Bowel Movements 2 3 3 Laboratory Laboratory Tests Test 11/10/16 08:46 White Blood Count 5.2 Red Blood Count 4.62 Hemoglobin 11.9 Hematocrit 36.4 Mean Corpuscular Volume 78.9 Mean Corpuscular Hemoglobin 25.7 Mean Corpuscular Hemoglobin 32.6 Concent Red Cell Distribution Width 25.7 Platelet Count 192 Mean Platelet Volume 8.3 Sodium Level 128 Potassium Level 4.3 Chloride Level 92 Carbon Dioxide Level 29.8 Anion Gap 6 Blood Urea Nitrogen 10 Creatinine 0.36 Estimat Glomerular Filtration 239 Rate Random Glucose 102 Calcium Level 8.3 B-Type Natriuretic Peptide 193 Date/Time Procedure Status Source Growth 11/08/16 11:20 Stool Occult Blood ([facility]) - Final Complete Stool Stool HEMOCCULT NEGATIVE Imaging Last Impressions Liver Ultrasound 11/09/16 0000 Signed Impressions: Service Date/Time: November 08:04 - CONCLUSION: 1. Multiple gallstones in the gallbladder. No biliary tract obstruction. 2. The liver is grossly within normal limits. 3. Mild prominence of the spleen at 13 cm. Rigo Gonzales MD Chest X-Ray 11/03/16 1243 Signed Impressions: Service Date/Time: Thursday, November 03, 2016 16:44 - CONCLUSION: 1. Changes of obstructive pulmonary disease with marked interval improvement of bilateral lower lobe airspace disease with only minimal residual airspace disease which may reflect scarring. 2. Otherwise, no acute abnormality. Sincere Das MD Abdomen/Pelvis CT 11/03/16 0000 Signed Impressions: Service Date/Time: Thursday, November 03, 2016 18:16 - CONCLUSION: 1. Nonspecific bowel gas pattern which may represent an ileus. A moderate amount stool is present and there are multiple diverticuli. 2. Interval improvement in consolidation in both lung bases with milder residual and small effusions. There is underlying scarring and emphysema. 3. Stable small infrarenal abdominal aortic aneurysm. 4. Numerous small calcified gallstones again noted. 5. The kidneys appear stable and unremarkable with no renal calculi or acute obstruction. 6. Sage catheter in the bladder with air fluid level. There is suboptimal visualization. Eros Kaur MD Physical Exam HEENT: Normocephalic; atraumatic; no jaundice. CHEST: diminished, shallow, even. CARDIAC: RRR ABDOMEN: Soft, nondistended, nontender; no hepatosplenomegaly; bowel sounds are present in all four quadrants. EXTREMITIES: No clubbing, cyanosis, or edema. SKIN: Normal; no rash; no jaundice. DIETICIAN: No focal deficits; alert and oriented times three. Assessment and Plan Plan ASSESSMENT: - Anemia. Stable. On 10/26/16, he was noted to have an HH of of 10.9/32.7. On this admission, it was noted to be 9.1/27.8. Stool was hemoccult negative in the ER. He has required 4 transfusions since October of 2016. He has lost 87 lbs over the past 1.5 years and reported decreased appetite to other providers, but tells me his appetite is fine and that he is eating at home and drinking supplemental ensure. He denies any heartburn, n/ v, abd pain, changes in bowels, constipation, diarrhea, melena, or hematochezia. Last colonoscopy was "many years ago" states that it was normal and he did not have polyps. No hx of PUD. Abdomen/Pelvis CT (11/03/16)----> 1. Nonspecific bowel gas pattern which may represent an ileus. A moderate amount stool is present and there are multiple diverticuli. 2. Interval improvement in consolidation in both lung bases with milder residual and small effusions. There is underlying scarring and emphysema. 3. Stable small infrarenal abdominal aortic aneurysm. 4. Numerous small calcified gallstones again noted. 5. The kidneys appear stable and unremarkable with no renal calculi or acute obstruction. 6. Sage catheter in the bladder with air fluid level. There is suboptimal visualization. He had recent PCI with bare metal stent placement to the mid left circumflex wall and proximal circumflex. He is on Plavix and asa. Because of his advanced respiratory disease and his recent stent placement with bare metal stent- he is a very high risk for any endoscopic evaluation. Hemoccult (-). No active bleeding. Consider endoscopic evaluation only if active bleeding and once has been cleared by cardiology, with regards to holding the plavix and asa - Elevated Iron saturation/ferritin. On 11/07, Iron saturation 50.6%, Ferritin 1612. This was after blood transfusion. Repeat on 11/09 had Iron Saturation of 95% and Ferritin 1459. This is likely related to recent transfusion. Liver Ultrasound (11/09/16)-----> 1. Multiple gallstones in the gallbladder. No biliary tract obstruction. 2. The liver is grossly within normal limits. 3. Mild prominence of the spleen at 13 cm. Hfe gene pending. - Abnormal weight loss, FTT. CT as above. Last colonoscopy many years ago. Taking ensure. Good appetite, eating well here in hospital. - CAD with recent bare metal stent placement,Afib. Cardiac catheterization ()-----> 95% proximal LAD lesion, 95% proximal circumflex vessel stenosis, and 95% proximal right coronary stenosis and had PCI bare metal stent of the proximal circumflex. He was subsequently started on Plavix and ASA. On heparin - CHF, Hx afib per cardiology. - End-stage lung disease with emphysema/copd and recent PSAE pneumonia. Pt is on 3L via [place] and reports this is how much he using at home. Per attending. - Hx SIADH with electrolyte abnormalities, AAA, generalized weakness, dehydration per attending. PLAN: - Heart healthy diet with ensure - Cont. PPI - Monitor HH - Transfuse as necessary - Hfe Gene - GI will sign off, please reconsult as needed - Notify GI of active bleeding - Consider endoscopic evaluation only if active bleeding and cleared by cardiology- with regards to plavix/asa/heparin - Pt seen and examined by Dr. Chappell and myself and this note is written on his behalf Maricruz Mercedes Nov 10, 2016 11:25
--- NOTE | 2016-11-10 13:54 | HHI.NPPN ---
Subjective General Problems: Hypotension Interval History Sitting up in chair. Sodium level 128 today. (Ana Soriano) Objective Data Data 11/09/16 11/10/16 19:00 07:00 Intake Total 1054 ml 240 ml Output Total 950 ml Balance 104 ml 240 ml Intake Oral 840 ml 240 ml IV Total 214 ml Output Urine Total 950 ml # Voids 5 # Bowel Movements 4 4 Vital Signs Date Time Temp Pulse Resp B/P Pulse Ox O2 Delivery O2 Flow Rate FiO2 11/10/16 10:26 96 11/10/16 09:30 99 11/10/16 08:00 97.8 109 17 98/54 98 11/10/16 04:00 98.6 98 20 116/69 99 11/10/16 00:00 97.6 103 20 104/58 98 11/09/16 20:55 95 Nasal Cannula 2.00 11/09/16 20:40 Nasal Cannula 2.00 11/09/16 20:00 97.7 110 20 116/73 97 11/09/16 16:13 96.6 97 18 115/66 95 (Ana Soriano) -: 11/10/16 0846 11/10/16 0846 Imaging Last 72 hours Impressions Liver Ultrasound 11/09/16 0000 Signed Impressions: Service Date/Time: November 08:04 - CONCLUSION: 1. Multiple gallstones in the gallbladder. No biliary tract obstruction. 2. The liver is grossly within normal limits. 3. Mild prominence of the spleen at 13 cm. Rigo Gonzales MD (Ana Soriano) Physical Exam General Appearance: No Acute Distress, Comfortable, Malnourished Appearance Remarks cachectic, emaciated (Ana Soriano) Neck Neck Exam: Neck Supple (Ana Soriano) Pulmonary Resp Exam: Breath Sounds Equal, Crackles, Rhonchi, Sputum Resp Remarks course cough during exam (Ana Soriano) Cardiology CV Exam: Regular, Normal Sinus Rhythm (Ana Soriano) Gastrointestinal/Abdomen GI Exam: Soft, Non-Tender (Ana Soriano) Musculoskeletal MS Exam: Joints Intact, Atrophy (Ana Soriano) Integumentary Skin Exam: Warm, Dry (Ana Soriano) Extremeties Extremities Exam: No Edema, Pedal Pulses Palpable (Ana Soriano) Neurologic Neuro Exam: Alert, Awake, Oriented, Speech Clear, Moving All Extremities ( Ana Soriano) Psychiatric Psych Exam: Appropriate Responses (Ana Soriano) Assessment/Plan Discussed Condition With: Patient Assessment Summary: Hypotension Electrolyte Assessment: Hyponatremia Problem List: (1) Hyponatremia Plan: euvolemic hyponatremia sodium level stable serum osmolality and uric acid consistent with SIADH; although hypotension can cause nonosmotic release of ADH continue fluid restriction (1200 ml), may benefit from tolvaptan if no improvement avoid NaCl tabs as he has hx of CHF in the future, loop diuretics can be used if needed for CHF maintenance if blood pressure can tolerate (2) CAD (coronary artery disease) Plan: cardiology is following medical management recommended (Ana Soriano) Plan patient was seen and examined. Agree with above assessment and plan. (Nitesh Vail MD) Ana Soriano Nov 10, 2016 13:54 Nitesh Vail MD Nov 10, 2016 15:45
--- NOTE | 2016-11-10 14:43 | HHI.PR ---
Subjective Remarks patiently patient keeping ice cream No abdominal pain fever or chills No other complaint We consulted dietary BNP started going down today Objective Vitals Vital Signs Date Time Temp Pulse Resp B/P Pulse Ox O2 Delivery O2 Flow Rate FiO2 11/10/16 12:00 97.5 104 18 102/59 99 11/10/16 10:26 96 11/10/16 09:30 99 11/10/16 08:00 97.8 109 17 98/54 98 11/10/16 04:00 98.6 98 20 116/69 99 11/10/16 00:00 97.6 103 20 104/58 98 11/09/16 20:55 95 Nasal Cannula 2.00 11/09/16 20:40 Nasal Cannula 2.00 11/09/16 20:00 97.7 110 20 116/73 97 11/09/16 16:13 96.6 97 18 115/66 95 I/O 11/09/16 11/09/16 11/09/16 11/10/16 11/10/16 11/10/16 06:59 14:59 22:59 06:59 14:59 22:59 Intake Total 720 ml 574 ml Output Total 1825 ml 950 ml Balance -1825 ml -230 ml 574 ml Intake Oral 720 ml 360 ml IV Total 214 ml Output Urine Total 1825 ml 950 ml # Voids 2 3 # Bowel Movements 2 3 3 Result Diagram: 11/10/16 0846 11/10/16 0846 Objective Remarks GENERAL: This is a well-nourished, well-developed patient, in no apparent distress. SKIN: No rashes, warm and dry HEAD: Atraumatic. Normocephalic. EYES: Pupils equal round and reactive. Extraocular motions intact. No scleral icterus. ENT: Nose without bleeding, or drainage, Airway patent. NECK: Trachea midline. Supple CARDIOVASCULAR: Regular rate and rhythm without murmurs, gallops, or rubs. RESPIRATORY: Fair air entry bilaterally. No wheezes, rales, or rhonchi. GASTROINTESTINAL: Abdomen soft, non-tender, nondistended. Positive bowel sounds MUSCULOSKELETAL: Extremities without clubbing, cyanosis, or edema. Pedal pulses appreciated NEUROLOGICAL: Awake and alert. Moves all extremity. Normal speech.no focal neurological deficit Date of Insertion: Nov 03, 2016 Date of Insertion: Nov 03, 2016 A/P Assessment and Plan 71-year-old male that presents to the ED for evaluation of generalized weakness. The patient was recently discharged on 10/26/16. Patient has a chronic history of SIADH as well as anemia and was recently admitted for severe sepsis,Afib RVR, NYHA Class IV heart failure, NSTEMI with PCI stents placed as staged procedures for 90% mid circumflex,and 95% proximal RCA lesions, as he was not a surgical candidate. Patient for the past 2 days has been feeling weak. He is not able to ambulate. No fevers chills or sweats. Denies angina. On his last admission he required transfusion secondary to anemia and possible bleeding. Patient reports that he's been compliant with his medications. Patient currently resides in [facility]. Patient was found to be hypotensive by ambulance when the brought him here. Patient was found to be with a blood pressure in the 60s. Per EMS,the patient was given 500 mL of saline bolus the blood pressure to the 80s. Critical care medicine was consulted. Upon arrival to the ED, the pt was alert and appropriately responsive. The patient had received a 2 liter bolus BP 87/53 and levophed had been initiated currently at 5 mcgs, and 1 u PRBC transfusing. A/P (1) general debility, with worsening cachexia, fatigue, weakness, and loss of appetite (2) end-stage lung disease, with severe COPD and recent necrotizing Pseudomonas pneumonia (3) CAD with an NSTEMI, 2 recent stents, and a remaining 95% RCA lesion (4) lung nodules on CT scan; history of needle biopsy of a nodule at the [facility] 18 months ago (benign) (5) cardiomyopathy, history of CHF (6) Atrial fibrillation with RVR (7) SIADH, hyponatremia (8) malnutrition, albumin 2.7 (9) atrial fib with RVR, recent (10) anemia (11) early decubitus, sacral (12) cholelithiasis on CT scan (13) diverticulosis General Plan: Bronchodilators every 6 hours scheduled, every 2 hours when necessary 10/09 echocardiogram ejection fraction 3540 %, no RWMA, mild MR, mild TR, systolic function slightly decreased Continue Plavix, ASA, and atorvastatin 11/03 CT of the abdomen and pelvis- small AAA, Heart healthy diet-2 g sodium, with Ensure supplementation Bowel regimen Monitor H&H Status post iv Empiric antibiotics. Previous admission -pneumonia Pseudomonas Follow-up blood cultures urine Legionella ,streptococcal antigens- both negative influenza A and B-negative Obtain LFTs Glucose monitoring l -- SSI Prophylaxis: GI Prophylaxis Protonix PO DVT Prophylaxis -- SCDs Heparin BID Daily update : 11/04: Norepinephrine discontinued this a.m.. The patient's systolic blood pressure ranges from 92 low 100's, just as previous admission. The patient's tolerating a diet with supplemental Ensure shakes. The patient is alert and oriented physical therapy has been ordered to be initiated. Noted troponin levels no escalation in values. The patient has chronic hyponatremia with a sodium level normally [id number]. Resolution of hematuria noted. 11/05: Pressure still low 95/51 with increased heart rate, hemoglobin 7.4, BNP 303, blood cultures still negative, chest x-ray showing scarring, will consider stopping antibiotic iv, 11/06: blood pressure improved, hemoglobin improved to 11.1, will transfer to [facility] open skin wound>> consult wound care 11/07: Anemia with increased RDW mostly blood loss through GI>> consult GI, check iron panel Hypomagnesemia>> replace iv No leukocytosis or fever no remarkable culture>> will DC iv antibiotic and monitor of antibiotic Platelet count improved to 114 Discussed extensively with palliative care 11/08: Ferritin is 1600 with normal iron, low TIBC is not consistent with iron deficiency anemia, rather may need to workup hemochromatosis>>HFE mutation testing, ? Contributing to CHF, hyponatremia ?SIADH pituitary Hemoccult in the stool negative. Appreciate GI consultation, unlikely need for EGD with the above result Platelet count improved to 133, hemoglobin stable around 11 Hyponatremia: Cardiology consulted renal, I ordered serum and urine osmolality, most likely SIADH 11/09: Hypernatremia slightly improved mostly SIADH, renal recommending fluid restriction, okay to use diuretic, possibly non-osmotic ADH release due to hypotension GI following awaiting third Hemoccult in the stool Increased ferritin deferred for GI to follow up on underlying hemochromatosis, I will repeat iron panel, liver ultrasound unremarkable Hypomagnesemia replaced Still low blood pressure with tachycardia 11/10: Continue current care number hyponatremia, GI following her possible EGD HFE to follow on elevated ferratin constant dietary Berna Perez MD Nov 10, 2016 14:42
--- NOTE | 2016-11-10 15:58 | PD.CARD.PN ---
Subjective Subjective Remarks alert in nad Objective Vital Signs / I&O Vital Signs Date Time Temp Pulse Resp B/P Pulse Ox O2 Delivery O2 Flow Rate FiO2 11/10/16 15:20 Nasal Cannula 2.00 11/10/16 12:00 97.5 104 18 102/59 99 11/10/16 10:26 96 11/10/16 09:30 99 11/10/16 08:00 97.8 109 17 98/54 98 11/10/16 04:00 98.6 98 20 116/69 99 11/10/16 00:00 97.6 103 20 104/58 98 11/09/16 20:55 95 Nasal Cannula 2.00 11/09/16 20:40 Nasal Cannula 2.00 11/09/16 20:00 97.7 110 20 116/73 97 11/09/16 16:13 96.6 97 18 115/66 95 I/O 11/09/16 11/09/16 11/09/16 11/10/16 11/10/16 11/10/16 07:00 15:00 23:00 07:00 15:00 23:00 Intake Total 720 ml 574 ml Output Total 1825 ml 950 ml Balance -1825 ml -230 ml 574 ml Intake Oral 720 ml 360 ml IV Total 214 ml Output Urine Total 1825 ml 950 ml # Voids 2 3 # Bowel Movements 2 3 3 Physical Exam GENERAL: SKIN: Warm and dry. HEAD: Normocephalic. EYES: No scleral icterus. No injection or drainage. NECK: Supple, trachea midline. No JVD or lymphadenopathy. CARDIOVASCULAR: Regular rate and rhythm without murmurs, gallops, or rubs. RESPIRATORY: Breath sounds equal bilaterally. No accessory muscle use. GASTROINTESTINAL: Abdomen soft, non-tender, nondistended. MUSCULOSKELETAL: No cyanosis, or edema. BACK: Nontender without obvious deformity. No CVA tenderness. Laboratory Laboratory Tests Test 11/10/16 08:46 White Blood Count 5.2 TH/MM3 Red Blood Count 4.62 MIL/MM3 Hemoglobin 11.9 GM/DL Hematocrit 36.4 % Mean Corpuscular Volume 78.9 FL Mean Corpuscular Hemoglobin 25.7 PG Mean Corpuscular Hemoglobin 32.6 % Concent Red Cell Distribution Width 25.7 % Platelet Count 192 TH/MM3 Mean Platelet Volume 8.3 FL Sodium Level 128 MEQ/L Potassium Level 4.3 MEQ/L Chloride Level 92 MEQ/L Carbon Dioxide Level 29.8 MEQ/L Anion Gap 6 MEQ/L Blood Urea Nitrogen 10 MG/DL Creatinine 0.36 MG/DL Estimat Glomerular Filtration 239 ML/MIN Rate Random Glucose 102 MG/DL Calcium Level 8.3 MG/DL B-Type Natriuretic Peptide 193 PG/ML Assessment and Plan Problem List: (1) CHF (congestive heart failure) (2) Anemia (3) Cardiomyopathy (4) CAD (coronary artery disease) (5) NSTEMI (non-ST elevated myocardial infarction) (6) Atrial fibrillation with RVR (7) COPD (chronic obstructive pulmonary disease) (8) Hyponatremia Assessment and Plan 1.) CAD - assymptomatic, continue aspirin 81 mg qd, plavix 75 mg qd, start lipitor 20 mg hs, keep hgb > 10, still has 95% proximal rca, heavily calcified, f/u cbc 2.) Cardiomyopathy - mild bnp elevation, f/u bnp in am, start altace 2.5 mg qd, beta jimy held due to severe copd, increase in keya not done due to hypotension and unstable hgb 3.) Anemia - appears to have occult blood loss, defer workup to hospitalist 4.) Hyponatremia - diuretics held, consult renal RonnieDaniel henson MD Nov 10, 2016 15:58
[2016-11-10] MEDS: ATORVASTATIN 20 MG TAB PO SCH (21:51)
[2016-11-11] VITALS (8 sets, daily range): BP systolic 95–113; BP diastolic 56–64; PULSE 99–119; RESP 17–20; TEMP 98.5–99.1; O2SAT 95–98
[2016-11-11] MEDS: CHLORHEXIDINE GLUCONATE 2 % 1 PACK (2 CLOTHS) TOP SCH (04:22)
[2016-11-11] MEDS: SENNOSIDES 8.6 MG TAB PO SCH (04:23)
[2016-11-11] MEDS: RAMIPRIL 2.5 MG CAP PO SCH (08:17)
[2016-11-11] MEDS: PANTOPRAZOLE SOD 40 MG DELAYED RELEASE TAB PO SCH (08:18)
[2016-11-11] MEDS: CLOPIDOGREL 75 MG TAB PO SCH (08:18)
[2016-11-11] MEDS: MAGNESIUM OXIDE 400 MG TAB PO SCH (08:18)
[2016-11-11] MEDS: ASPIRIN EC 81 MG TABEC PO SCH (08:19)
[2016-11-11] MEDS: DOCUSATE SODIUM 50 MG/SENNA 8.6 MG TAB PO SCH (08:19)
[2016-11-11] MEDS: HEPARIN SODIUM - SQ 10,000 UNITS/ML VIAL SQ SCH (08:27)
[2016-11-11] MEDS: SODIUM CHLORIDE 0.9% FLUSH 10 ML FLUSH IV FLUSH SCH (09:00)
--- NOTE | 2016-11-11 10:53 | HHI.NPPN ---
Subjective General Problems: Hypotension Interval History No new chemistry labs today. On oral fluid restriction. On protein supplementation. May benefit from a loop diuretic if BP is stable. Review of Systems General Constitutional: Fatigue Objective Data Data 11/10/16 11/11/16 19:00 07:00 Intake Total 360 ml 480 ml Output Total 425 ml 675 ml Balance -65 ml -195 ml Intake Oral 360 ml 480 ml Output Urine Total 425 ml 675 ml Vital Signs Date Time Temp Pulse Resp B/P Pulse Ox O2 Delivery O2 Flow Rate FiO2 11/11/16 09:01 95 Nasal Cannula 2.00 11/11/16 08:15 98.8 109 20 95/56 97 11/11/16 08:12 119 11/11/16 08:00 97 Nasal Cannula 2.00 11/11/16 07:51 119 11/11/16 04:36 98.6 116 18 111/64 97 11/11/16 01:25 99 11/11/16 00:19 99.1 106 17 104/61 98 11/10/16 23:54 97 Nasal Cannula 3.00 11/10/16 22:01 97 Nasal Cannula 2.00 11/10/16 20:10 99.0 95 17 106/55 96 11/10/16 18:56 Nasal Cannula 2.00 11/10/16 16:00 97.3 95 18 127/63 97 11/10/16 15:20 Nasal Cannula 2.00 11/10/16 12:00 97.5 104 18 102/59 99 -: 11/10/16 0846 11/10/16 0846 Physical Exam General Appearance: No Acute Distress, Comfortable, Malnourished Neck Neck Exam: Neck Supple Pulmonary Resp Exam: Breath Sounds Equal, Crackles, Rhonchi, Sputum Cardiology CV Exam: Regular, Normal Sinus Rhythm Gastrointestinal/Abdomen GI Exam: Soft, Non-Tender Musculoskeletal MS Exam: Joints Intact, Atrophy Integumentary Skin Exam: Warm, Dry Extremeties Extremities Exam: No Edema, Pedal Pulses Palpable Neurologic Neuro Exam: Alert, Awake, Oriented, Speech Clear, Moving All Extremities Psychiatric Psych Exam: Appropriate Responses Assessment/Plan Discussed Condition With: Patient Assessment Summary: Hypotension Electrolyte Assessment: Hyponatremia Problem List: (1) Hyponatremia Plan: Stable. serum osmolality and uric acid consistent with SIADH; although hypotension can cause nonosmotic release of ADH continue fluid restriction (1200 ml), may benefit from tolvaptan if no improvement avoid NaCl tabs as he has history of CHF. in the future, loop diuretics can be used if needed for CHF maintenance if blood pressure can tolerate (2) CAD (coronary artery disease) Plan: cardiology is following medical management recommended Plan . Nitesh Vail MD Nov 11, 2016 10:53
[2016-11-11] MEDS ORDERED: PANT40TA3 PO (11:17)
[2016-11-11] MEDS ORDERED: RAMI2.5C PO (11:17)
[2016-11-11] MEDS ORDERED: MAGN400T3 PO (11:17)
--- NOTE | 2016-11-11 11:40 | HHI.PR ---
Subjective Remarks Doing well he's stable and transferred to rehabilitation in follow up as an outpatient Objective Vitals Vital Signs Date Time Temp Pulse Resp B/P Pulse Ox O2 Delivery O2 Flow Rate FiO2 11/11/16 09:01 95 Nasal Cannula 2.00 11/11/16 08:15 98.8 109 20 95/56 97 11/11/16 08:12 119 11/11/16 08:00 97 Nasal Cannula 2.00 11/11/16 07:51 119 11/11/16 04:36 98.6 116 18 111/64 97 11/11/16 01:25 99 11/11/16 00:19 99.1 106 17 104/61 98 11/10/16 23:54 97 Nasal Cannula 3.00 11/10/16 22:01 97 Nasal Cannula 2.00 11/10/16 20:10 99.0 95 17 106/55 96 11/10/16 18:56 Nasal Cannula 2.00 11/10/16 16:00 97.3 95 18 127/63 97 11/10/16 15:20 Nasal Cannula 2.00 11/10/16 12:00 97.5 104 18 102/59 99 I/O 11/10/16 11/10/16 11/10/16 11/11/16 11/11/16 11/11/16 07:00 15:00 23:00 07:00 15:00 23:00 Intake Total 360 ml 240 ml 240 ml Output Total 425 ml 675 ml Balance -65 ml 240 ml -435 ml Intake Oral 360 ml 240 ml 240 ml Output Urine Total 425 ml 675 ml # Voids 3 # Bowel Movements 3 Result Diagram: 11/10/16 0846 11/10/16 0846 Objective Remarks GENERAL: This is a well-nourished, well-developed patient, in no apparent distress. SKIN: No rashes, warm and dry HEAD: Atraumatic. Normocephalic. EYES: Pupils equal round and reactive. Extraocular motions intact. No scleral icterus. ENT: Nose without bleeding, or drainage, Airway patent. NECK: Trachea midline. Supple CARDIOVASCULAR: Regular rate and rhythm without murmurs, gallops, or rubs. RESPIRATORY: Fair air entry bilaterally. No wheezes, rales, or rhonchi. GASTROINTESTINAL: Abdomen soft, non-tender, nondistended. Positive bowel sounds MUSCULOSKELETAL: Extremities without clubbing, cyanosis, or edema. Pedal pulses appreciated NEUROLOGICAL: Awake and alert. Moves all extremity. Normal speech.no focal neurological deficit Date of Insertion: Nov 03, 2016 Date of Insertion: Nov 03, 2016 A/P Assessment and Plan 71-year-old male that presents to the ED for evaluation of generalized weakness. The patient was recently discharged on 10/26/16. Patient has a chronic history of SIADH as well as anemia and was recently admitted for severe sepsis,Afib RVR, NYHA Class IV heart failure, NSTEMI with PCI stents placed as staged procedures for 90% mid circumflex,and 95% proximal RCA lesions, as he was not a surgical candidate. Patient for the past 2 days has been feeling weak. He is not able to ambulate. No fevers chills or sweats. Denies angina. On his last admission he required transfusion secondary to anemia and possible bleeding. Patient reports that he's been compliant with his medications. Patient currently resides in [facility]. Patient was found to be hypotensive by ambulance when the brought him here. Patient was found to be with a blood pressure in the 60s. Per EMS,the patient was given 500 mL of saline bolus the blood pressure to the 80s. Critical care medicine was consulted. Upon arrival to the ED, the pt was alert and appropriately responsive. The patient had received a 2 liter bolus BP 87/53 and levophed had been initiated currently at 5 mcgs, and 1 u PRBC transfusing. A/P (1) general debility, with worsening cachexia, fatigue, weakness, and loss of appetite (2) end-stage lung disease, with severe COPD and recent necrotizing Pseudomonas pneumonia (3) CAD with an NSTEMI, 2 recent stents, and a remaining 95% RCA lesion (4) lung nodules on CT scan; history of needle biopsy of a nodule at the [facility] 18 months ago (benign) (5) cardiomyopathy, history of CHF (6) Atrial fibrillation with RVR (7) SIADH, hyponatremia (8) malnutrition, albumin 2.7 (9) atrial fib with RVR, recent (10) anemia (11) early decubitus, sacral (12) cholelithiasis on CT scan (13) diverticulosis General Plan: Bronchodilators every 6 hours scheduled, every 2 hours when necessary 10/09 echocardiogram ejection fraction 3540 %, no RWMA, mild MR, mild TR, systolic function slightly decreased Continue Plavix, ASA, and atorvastatin 11/03 CT of the abdomen and pelvis- small AAA, Heart healthy diet-2 g sodium, with Ensure supplementation Bowel regimen Monitor H&H Status post iv Empiric antibiotics. Previous admission -pneumonia Pseudomonas Follow-up blood cultures urine Legionella ,streptococcal antigens- both negative influenza A and B-negative Obtain LFTs Glucose monitoring l -- SSI Prophylaxis: GI Prophylaxis Protonix PO DVT Prophylaxis -- SCDs Heparin BID Daily update : 11/04: Norepinephrine discontinued this a.m.. The patient's systolic blood pressure ranges from 92 low 100's, just as previous admission. The patient's tolerating a diet with supplemental Ensure shakes. The patient is alert and oriented physical therapy has been ordered to be initiated. Noted troponin levels no escalation in values. The patient has chronic hyponatremia with a sodium level normally [id number]. Resolution of hematuria noted. 11/05: Pressure still low 95/51 with increased heart rate, hemoglobin 7.4, BNP 303, blood cultures still negative, chest x-ray showing scarring, will consider stopping antibiotic iv, 11/06: blood pressure improved, hemoglobin improved to 11.1, will transfer to [facility] open skin wound>> consult wound care 11/07: Anemia with increased RDW mostly blood loss through GI>> consult GI, check iron panel Hypomagnesemia>> replace iv No leukocytosis or fever no remarkable culture>> will DC iv antibiotic and monitor of antibiotic Platelet count improved to 114 Discussed extensively with palliative care 11/08: Ferritin is 1600 with normal iron, low TIBC is not consistent with iron deficiency anemia, rather may need to workup hemochromatosis>>HFE mutation testing, ? Contributing to CHF, hyponatremia ?SIADH pituitary Hemoccult in the stool negative. Appreciate GI consultation, unlikely need for EGD with the above result Platelet count improved to 133, hemoglobin stable around 11 Hyponatremia: Cardiology consulted renal, I ordered serum and urine osmolality, most likely SIADH 11/09: Hypernatremia slightly improved mostly SIADH, renal recommending fluid restriction, okay to use diuretic, possibly non-osmotic ADH release due to hypotension GI following awaiting third Hemoccult in the stool Increased ferritin deferred for GI to follow up on underlying hemochromatosis, I will repeat iron panel, liver ultrasound unremarkable Hypomagnesemia replaced Still low blood pressure with tachycardia 11/10: Continue current care number hyponatremia, GI following her possible EGD HFE to follow on elevated ferratin constant dietary 11/11: Patient stable SPECIALIST signed off Hemoglobin stable about 11 will DC to rehabilitation in follow up as an outpatient Berna Perez MD Nov 11, 2016 11:40
--- NOTE | 2016-11-11 13:23 | PD.CARD.PN ---
Subjective Subjective Remarks alert in nad Objective Vital Signs / I&O Vital Signs Date Time Temp Pulse Resp B/P Pulse Ox O2 Delivery O2 Flow Rate FiO2 11/11/16 12:35 98.5 105 18 113/59 96 11/11/16 09:01 95 Nasal Cannula 2.00 11/11/16 08:15 98.8 109 20 95/56 97 11/11/16 08:12 119 11/11/16 08:00 97 Nasal Cannula 2.00 11/11/16 07:51 119 11/11/16 04:36 98.6 116 18 111/64 97 11/11/16 01:25 99 11/11/16 00:19 99.1 106 17 104/61 98 11/10/16 23:54 97 Nasal Cannula 3.00 11/10/16 22:01 97 Nasal Cannula 2.00 11/10/16 20:10 99.0 95 17 106/55 96 11/10/16 18:56 Nasal Cannula 2.00 11/10/16 16:00 97.3 95 18 127/63 97 11/10/16 15:20 Nasal Cannula 2.00 I/O 11/10/16 11/10/16 11/10/16 11/11/16 11/11/16 11/11/16 07:00 15:00 23:00 07:00 15:00 23:00 Intake Total 360 ml 240 ml 240 ml 480 ml Output Total 425 ml 675 ml Balance -65 ml 240 ml -435 ml 480 ml Intake Oral 360 ml 240 ml 240 ml 480 ml Output Urine Total 425 ml 675 ml # Voids 3 # Bowel Movements 3 Physical Exam GENERAL: SKIN: Warm and dry. HEAD: Normocephalic. EYES: No scleral icterus. No injection or drainage. NECK: Supple, trachea midline. No JVD or lymphadenopathy. CARDIOVASCULAR: Regular rate and rhythm without murmurs, gallops, or rubs. RESPIRATORY: Breath sounds equal bilaterally. No accessory muscle use. GASTROINTESTINAL: Abdomen soft, non-tender, nondistended. MUSCULOSKELETAL: No cyanosis, or edema. BACK: Nontender without obvious deformity. No CVA tenderness. Assessment and Plan Problem List: (1) CHF (congestive heart failure) (2) Anemia (3) Cardiomyopathy (4) CAD (coronary artery disease) (5) NSTEMI (non-ST elevated myocardial infarction) (6) Atrial fibrillation with RVR (7) COPD (chronic obstructive pulmonary disease) (8) Hyponatremia Assessment and Plan 1.) CAD - assymptomatic, continue aspirin 81 mg qd, plavix 75 mg qd, start lipitor 20 mg hs, keep hgb > 10, still has 95% proximal rca, heavily calcified, f/u cbc 2.) Cardiomyopathy - mild bnp elevation, f/u bnp in am, start altace 2.5 mg qd, beta jimy held due to severe copd, increase in keya not done due to hypotension and unstable hgb 3.) Anemia - appears to have occult blood loss, defer workup to hospitalist 4.) Hyponatremia - diuretics held, consult renal 5.) Afib- ac held due to recurrent anemia, on aspirin/plavix due to pci lad/lcx october 2016 Daniel Trujillo MD Nov 11, 2016 13:23
--- NOTE | 2016-11-11 15:37 | HHI.DS ---
Discharge Summary Admission Date Nov 03, 2016 at 15:41 Discharge Date: Nov 11, 2016 Admitting Diagnosis hypotension, hyponatremia, symptomatic anemia, hyperkalemia (1) Hyponatremia ICD Code: E87.1 (2) general debility, with worsening cachexia, fatigue, weakness, and loss of appetite (3) CAD with an NSTEMI, 2 recent stents, and a remaining 95% RCA lesion (4) diverticulosis (5) cholelithiasis on CT scan (6) early decubitus, sacral (7) anemia (8) atrial fib with RVR, recent (9) fatigue/weakness (10) malnutrition, albumin 2.7 (11) SIADH, hyponatremia (12) lung nodules on CT scan; history of needle biopsy of a nodule at the [facility] 18 months ago (benign) (13) cardiomyopathy, history of CHF (14) Atrial fibrillation with RVR ICD Code: I48.91 Procedures See below Brief History - From Admission 71-year-old male that presents to the ED for evaluation of generalized weakness. The patient was recently discharged on 10/26/16. Patient has a chronic history of SIADH as well as anemia and was recently admitted for severe sepsis,Afib RVR, NYHA Class IV heart failure, NSTEMI with PCI stents placed as staged procedures for 90% mid circumflex,and 95% proximal RCA lesions, as he was not a surgical candidate. Patient for the past 2 days has been feeling weak. He is not able to ambulate. No fevers chills or sweats. Denies angina. On his last admission he required transfusion secondary to anemia and possible bleeding. Patient reports that he's been compliant with his medications. Patient currently resides in [facility]. Patient was found to be hypotensive by ambulance when the brought him here. Patient was found to be with a blood pressure in the 60s. Per EMS,the patient was given 500 mL of saline bolus the blood pressure to the 80s. Critical care medicine was consulted. Upon arrival to the ED, the pt was alert and appropriately responsive. The patient had received a 2 liter bolus BP 87/53 and levophed had been initiated currently at 5 mcgs, and 1 u PRBC transfusing. History PFSH Past Medical History Arthritis: No Asthma: No Autoimmune Disease: No Heart Rhythm Problems: No Cancer: No Cardiovascular Problems: No High Cholesterol: No Chemotherapy: No Chest Pain: No Congestive Heart Failure: No COPD: No Cerebrovascular Accident: No Coronary Artery Disease: No Diabetes: No Diminished Hearing: Yes Endocrine: No GERD: No Genitourinary: No Hiatal Hernia: No Hypertension: Yes Immune Disorder: No Kidney Stones: No Musculoskeletal: Yes (FX RIGHT ANKLE, FX RIGHT COLLARBONE) Neurologic: No Psychiatric: No Reproductive: No Respiratory: Yes Migraines: No Renal Failure: No Seizures: No Sickle Cell Disease: No Sleep Apnea: No Thyroid Disease: No Ulcer: No Tetanus Vaccination: > 5 Years Influenza Vaccination: Yes Past Surgical History Abdominal Surgery: No AICD: No Arteriovenous Shunt: No Cardiac Surgery: No Ear Surgery: No Eye Surgery: No Genitourinary Surgery: No Gynecologic Surgery: No Insulin Pump: No Joint Replacement: No Oral Surgery: Yes (jaw surgery) Pacemaker: No Thoracic Surgery: No Other Surgery: Yes Social History Alcohol Use: No Tobacco Use: No (quit 2 months ago) Substance Use: No Allergies-Medications Allergies-Medications (Allergen,Severity, Reaction): Coded Allergies: No Known Allergies (Unverified , 11/03/16) Reported Meds & Prescriptions Reported Meds & Active Scripts Active Ciprofloxacin (Ciprofloxacin HCl) 750 Mg Tab 750 Mg PO Q12HR Prednisone 20 Mg Tab 20 Mg PO DAILY 5 Days take 20mg po x 1 day (start 10/27/16) then 10mg po daily x 4 days Lipitor (Atorvastatin Calcium) 20 Mg Tab 20 Mg PO HS Ramipril 5 Mg Cap 5 Mg PO DAILY 30 Days Megestrol Liq (Megestrol Acetate) 40 Mg/Ml Susp 400 Mg PO DAILY 30 Days Cardizem (Diltiazem HCl) 60 Mg Tab 60 Mg PO Q6H 30 Days Plavix (Clopidogrel Bisulfate) 75 Mg Tab 75 Mg PO DAILY 30 Days Adult Aspirin EC Low Strength (Aspirin) 81 Mg Tabec 81 Mg PO DAILY 30 Days ROS Review of Systems Except as stated in HPI: all other systems reviewed are Neg CBC/BMP: 11/10/16 0846 11/10/16 0846 Significant Findings Laboratory Tests Test 11/08/16 11/09/16 11/10/16 16:10 06:26 08:46 Urine Osmolality 263 MOSM/KG (300-1300) White Blood Count 3.9 TH/MM3 (4.0-11.0) Red Blood Count 4.20 MIL/MM3 (4.50-5.90) Hemoglobin 10.9 GM/DL 11.9 GM/DL (13.0-17.0) (13.0-17.0) Hematocrit 32.7 % 36.4 % (39.0-51.0) (39.0-51.0) Mean Corpuscular Volume 77.8 FL 78.9 FL (80.0-100.0) (80.0-100.0) Mean Corpuscular Hemoglobin 25.8 PG 25.7 PG (27.0-34.0) (27.0-34.0) Red Cell Distribution Width 26.0 % 25.7 % (11.6-17.2) (11.6-17.2) Sodium Level 129 MEQ/L 128 MEQ/L (136-145) (136-145) Chloride Level 94 MEQ/L 92 MEQ/L (98-107) (98-107) Creatinine 0.31 MG/DL 0.36 MG/DL (0.60-1.30) (0.60-1.30) Uric Acid 2.1 MG/DL (2.6-7.2) Calcium Level 8.2 MG/DL 8.3 MG/DL (8.5-10.1) (8.5-10.1) Magnesium Level 1.3 MG/DL (1.5-2.5) Total Iron Binding Capacity 165 MCG/DL (250-450) Percent Iron Saturation 95.0 % (20-50) Transferrin 118 MG/DL (200-360) Ferritin 1459 NG/ML (26-388) B-Type Natriuretic Peptide 230 PG/ML 193 PG/ML (0-100) (0-100) PE at Discharge GENERAL: This is a well-nourished, well-developed patient, in no apparent distress. SKIN: No rashes, warm and dry HEAD: Atraumatic. Normocephalic. EYES: Pupils equal round and reactive. Extraocular motions intact. No scleral icterus. ENT: Nose without bleeding, or drainage, Airway patent. NECK: Trachea midline. Supple CARDIOVASCULAR: Regular rate and rhythm without murmurs, gallops, or rubs. RESPIRATORY: Fair air entry bilaterally. No wheezes, rales, or rhonchi. GASTROINTESTINAL: Abdomen soft, non-tender, nondistended. Positive bowel sounds MUSCULOSKELETAL: Extremities without clubbing, cyanosis, or edema. Pedal pulses appreciated NEUROLOGICAL: Awake and alert. Moves all extremity. Normal speech.no focal neurological deficit Hospital Course 71-year-old male that presents to the ED for evaluation of generalized weakness. The patient was recently discharged on 10/26/16. Patient has a chronic history of SIADH as well as anemia and was recently admitted for severe sepsis,Afib RVR, NYHA Class IV heart failure, NSTEMI with PCI stents placed as staged procedures for 90% mid circumflex,and 95% proximal RCA lesions, as he was not a surgical candidate. Patient for the past 2 days has been feeling weak. He is not able to ambulate. No fevers chills or sweats. Denies angina. On his last admission he required transfusion secondary to anemia and possible bleeding. Patient reports that he's been compliant with his medications. Patient currently resides in [facility]. Patient was found to be hypotensive by ambulance when the brought him here. Patient was found to be with a blood pressure in the 60s. Per EMS,the patient was given 500 mL of saline bolus the blood pressure to the 80s. Critical care medicine was consulted. Upon arrival to the ED, the pt was alert and appropriately responsive. The patient had received a 2 liter bolus BP 87/53 and levophed had been initiated currently at 5 mcgs, and 1 u PRBC transfusing. Patient found to have the following problem general debility, with worsening cachexia, fatigue, weakness, and loss of appetite ,end-stage lung disease, with severe COPD and recent necrotizing Pseudomonas pneumonia, CAD with an NSTEMI, 2 recent stents, and a remaining 95% RCA lesion lung nodules on CT scan; history of needle biopsy of a nodule at the [facility] 18 months ago (benign), cardiomyopathy, history of CHF Atrial fibrillation with RVR, SIADH, hyponatremia,malnutrition, albumin 2.7, Atrial fib with RVR, recent,anemia,early decubitus sacral , cholelithiasis on CT scan, diverticulosis pt placed on Bronchodilators every 6 hours scheduled, every 2 hours when necessary 10/09 echocardiogram ejection fraction 3540 %, no RWMA, mild MR, mild TR, systolic function slightly decreased Continue Plavix, ASA, and atorvastatin Cardiology renal testing consulted as well as GI 11/03 CT of the abdomen and pelvis- small AAA, Heart healthy diet-2 g sodium, with Ensure supplementation, Bowel regimen, Monitor H&H Status post iv Empiric antibiotics. Previous admission -pneumonia Pseudomonas Ferritin is 1600 with normal iron, low TIBC is not consistent with iron deficiency anemia, rather may need to workup hemochromatosis>>HFE mutation testing, ? Contributing to CHF, hyponatremia Platelet count improved to 133, hemoglobin stable around 11 Hyponatremia: Cardiology consulted renal, I ordered serum and urine osmolality, most likely SIADH HFE to follow on elevated ferratin, constant dietary GI recommended EGD only if active bleeding And cleared By binder chainstitch Pt Condition on Discharge: Fair Discharge Disposition: Discharge to SNF Discharge Time: > 30 minutes Discharge Instructions DIET: Follow Instructions for: Heart Healthy Diet Additional Diet Instructions: ensure tid Fluid Restrictions: 1800 Activities you can perform: See Additionl Instruction Other Activity Instructions: per PT New Medications: Magnesium Oxide (Magnesium Oxide) 241.3 Mg Tab 400 MG PO Q12HR replce #30 TAB Pantoprazole (Pantoprazole) 40 Mg Tab 40 MG PO DAILY gi #30 TAB Ramipril (Ramipril) 2.5 Mg Cap 2.5 MG PO DAILY cad #30 CAP Continued Medications: Aspirin DR (Adult Aspirin EC Low Strength) 81 Mg Tabec 81 MG PO DAILY Days 30 TAB Atorvastatin (Lipitor) 20 Mg Tab 20 MG PO HS Cholesterol Management #30 Ref 0 TAB Clopidogrel (Plavix) 75 Mg Tab 75 MG PO DAILY Days 30 TAB Berna Perez MD Nov 11, 2016 15:37
== END 2016-11-11 13:39 | DRG 280 ==
LOC: NEPC 12:26 → NEDA 15:41 → HIMN 20:15 → N05B 11-06 14:44
PROVIDERS: ADMIT Hospitalist; ATTEND Hospitalist
PROC: 06HN33Z Insertion of Infusion Device into Left Femoral Vein, Percutaneous Approach (ICD-10-PCS; principal; 2016-11-03)
DX: I95.9 Hypotension, unspecified (principal); I50.43 Acute on chronic combined systolic (congestive) and diastolic (congestive) heart failure; I21.4 Non-ST elevation (NSTEMI) myocardial infarction; L89.159 Pressure ulcer of sacral region, unspecified stage; E46 Unspecified protein-calorie malnutrition; E87.0 Hyperosmolality and hypernatremia; E22.2 Syndrome of inappropriate secretion of antidiuretic hormone; R64 Cachexia; E87.2 Acidosis; I11.0 Hypertensive heart disease with heart failure; I42.9 Cardiomyopathy, unspecified; C34.90 Malignant neoplasm of unspecified part of unspecified bronchus or lung; E83.42 Hypomagnesemia; J44.9 Chronic obstructive pulmonary disease, unspecified; E86.0 Dehydration; E87.5 Hyperkalemia; D64.9 Anemia, unspecified; I25.10 Atherosclerotic heart disease of native coronary artery without angina pectoris; I48.91 Unspecified atrial fibrillation; I71.4 Abdominal aortic aneurysm, without rupture; K57.90 Diverticulosis of intestine, part unspecified, without perforation or abscess without bleeding; K80.20 Calculus of gallbladder without cholecystitis without obstruction; R62.7 Adult failure to thrive; Z79.82 Long term (current) use of aspirin; Z87.891 Personal history of nicotine dependence; Z79.02 Long term (current) use of antithrombotics/antiplatelets; Z95.5 Presence of coronary angioplasty implant and graft; Z51.5 Encounter for palliative care
CPT/HCPCS: 36430; 36556; 51702; 71010; 74176; 76705; 80048; 80053; 80076; 80202; 81001; 81256; 82272; 82533; 82550; 82565; 82728; 83540; 83550; 83605; 83690; 83735; 83874; 83880; 83930; 83935; 84100; 84155; 84295; 84300; 84443; 84466; 84484; 84550; 85014; 85018; 85025; 85027; 85610; 85730; 86850; 86900; 86901; 86920; 87040; 87449; 87641; 93005; 94640; 94664; 96360; J0692; J1644; J1940; J2543; J3370; J3475; J7030; J7050; P9016